=== PATIENT | male | born 1955 | race Caucasian/White ===

== ENCOUNTER → 2019-03-31 08:48 | Outpatient (BNVA) | payer BC, SELFPAY | PROVIDERS: Family Provider Nurse Practitioner; PCP Nurse Practitioner; Visit Provider Nurse Practitioner | DX: E03.8 Other specified hypothyroidism (principal); I10 Essential (primary) hypertension; J30.2 Other seasonal allergic rhinitis | CPT/HCPCS: 84443 ==

== ENCOUNTER 2019-05-10 14:44 | Inpatient (IN) | payer BC, MEDICARE, SELFPAY ==
[2019-05-10] VITALS (23 sets, daily range): BP systolic 105–145; BP diastolic 65–95; PULSE 90–106; RESP 16–24; TEMP 36.7–36.9; O2SAT 89–99; BMI 23.7
--- NOTE | 2019-05-10 14:45 | ED_ITS ---
Entered by Hayde Lombardo, acting as scribe for Haseeb Najera DO HPI - SOB/Dyspnea General: Chief Complaint: Altered Mental Status Stated Complaint: SOB/AMS Time Seen by Provider: 05/10/19 14:45 Source: patient and EMS Mode of arrival: EMS Limitations: no limitations History of Present Illness: MD elicited complaint: shortness of breath Context: recent illness Timing: constant Severity: moderate Exacerbating factors: coughing and deep breaths Relieving factors: oxygen Associated symptoms: Reports cough and other (multiple skin abrasions and skin tears.) Treatment prior to arrival: oxygen Related Data: Home oxygen amount: none Review of Systems General: Reports: 10 or more systems reviewed and unremarkable except in HPI and below PFSH ED PFSH: Medical History (Updated 05/12/19 @ 14:37 by Haseeb Najera DO) Adult onset hypothyroidism COPD (chronic obstructive pulmonary disease) COPD exacerbation Current smoker Hypertension Seasonal allergies Surgical History No history of previous surgery Family History (Updated 05/10/19 @ 18:46 by Jolie Trejo MD) Brother Diabetes Hyperlipidemia Father Congestive heart disease COPD (chronic obstructive pulmonary disease) Dementia Cancer prostate Mother Congestive heart disease COPD (chronic obstructive pulmonary disease) Cancer gastric cancer Social History (Updated 05/10/19 @ 18:48 by Jolie Trejo MD) Smoking and tobacco status: current every day smoker Second hand smoke exposure: Yes Smoking risk assessment/counseling performed?: Yes Alcohol intake: current Desire information about alcohol rehabilitation?: No Counseling given: No Last alcohol use date: 05/07/19 Other details last alcohol use: jean claudeey Desire information about substance/drug rehabilitation?: No Counseling given: No Caregiver/support person: No Lives independently: Yes Household members: none Marital status: Current occupational status: employed 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 History of recent travel: No Current gender identity: Male Physical Exam HENMT: COMMON NORMALS: normocephalic, head/scalp atraumatic, hearing grossly normal bilaterally, external ears normal, EAC's normal, TM's normal bilaterally and oropharynx normal HEAD & SCALP: normocephalic and atraumatic EXTERNAL EAR: Yes external ears normal EXTERNAL AUDITORY CANAL: EAC's normal TYMPANIC MEMBRANE: TM's normal bilaterally Eye: COMMON NORMALS: PERRL, EOMs intact bilaterally, conjunctivae normal and no scleral icterus CONJUNCTIVA: Yes conjunctivae normal PUPIL: Yes PERRL Neck/C-Spine: COMMON NORMALS: full ROM, no lymphadenopathy, supple and no JVD Lymph: LYMPHATIC: no lymphadenopathy noted and no lymphedema noted Resp: COMMON NORMALS: normal respiratory effort, no retractions, no use of accessory muscles and clear to auscultation bilaterally AUSCULTATION: clear to auscultation bilaterally Cardio: COMMON NORMALS: no JVD, regular rate, regular rhythm and no murmurs RATE: regular rate RHYTHM: regular rhythm GI: COMMON NORMALS: soft to palpation and no hepatosplenomegaly AUSCULTATION: Yes normoactive bowel sounds PALPATION: Yes soft, No tender, No guarding and Yes no hepatosplenomegaly Extremity: COMMON NORMALS: normal to inspection, normal capillary refill, no clubbing, cyanosis or edema, no calf tenderness and no pedal edema Skin: COMMON NORMALS: no rashes or lesions noted GENERAL SKIN EXAM: no rashes or lesions noted Course Vital Signs: Vital signs: Vital Signs Temperature 98.4 F 05/12/19 11:46 Pulse Rate 71 05/12/19 11:46 Respiratory Rate 20 H 05/12/19 11:46 Blood Pressure 118/79 05/12/19 11:46 Pulse Oximetry 92 05/12/19 11:46 MDM - SOB/Dyspnea MDM Narrative: Medical decision making narrative: Severe hyponatremia. Repeat draw confirms. Patient has a history of heavy drinking. His blood alcohol is normal now. Admit for altered mental status Dr. Horan we will see the patient. Lab Data: Labs: Lab Results 05/10/19 05/10/19 05/10/19 Range/Units 15:05 15:05 15:05 WBC 10.9 H (4.0-10.0) 10^3/ uL RBC 4.96 (4.1-5.3) 10^6/u L Hgb 16.3 (11.7-16.6) g/dL Hct 44.1 (42.0-52.0) % MCV 88.9 (80-94) fL MCH 32.9 (28.0-34.0) pg MCHC 37.0 H (30.0-36.0) g/dL RDW 12.3 (12.1-15.1) % Plt Count 207 (130-400) 10^3/c mm MPV 8.2 (7.4-10.4) fL Neut % (Auto) 83.1 % Lymph % (Auto) 6.4 % Island % (Auto) 9.9 % Eos % (Auto) 0.2 % Baso % (Auto) 0.1 % Neut # (Auto) 9.0 H (1.8-7.7) 10^3/u L Lymph # (Auto) 0.7 L (0.8-4.8) 10^3/u L Island # (Auto) 1.1 H (0.2-0.9) 10^3/u L Eos # (Auto) 0.0 (0.0-0.8) 10^3/u L Baso # (Auto) 0.0 (0.0-0.1) 10^3/u L Nucleated RBC % (a uto) 0 % Nucleated RBCs # 0.0 /100WBC PT (10.5-13.3) SECO NDS INR (0.8-1.2) APTT (23.9-36.7) SECO NDS Sodium 106 L* (136-145) mmol/L Potassium 3.7 (3.5-5.1) mmol/L Chloride 68 L (98-107) mmol/L Carbon Dioxide 24 (22-29) mmol/L Anion Gap 17.7 (5-19) BUN 23 (8-23) mg/dL Creatinine 0.8 (0.7-1.2) mg/dL GFR Calculation 97.0 (90-130) mL/min Glucose 100 (65-115) mg/dL Calculated Osmolal ity 219 L (285-295) mOsm/k g Uric Acid (3.4-7.0) mg/dL Calcium 9.4 (8.5-10.5) mg/dL Total Bilirubin 1.0 (0.15-1.2) mg/dL AST 376 H (0-40) U/L ALT 61 H (0-41) U/L Alkaline Phosphata se 89 (40-130) IU/L Ammonia (16-60) umol/L Creatine Kinase (39-308) U/L Total Protein 7.8 (6.6-8.7) g/dL Albumin 4.4 (3.5-5.2) g/dL Globulin 3.4 (1.3-4.6) g/dL Lipase 11 L (13-60) U/L TSH (0.27-4.20) uIU/ mL Random Cortisol (2.47-19.5) mcg/ dL Urine Color (Yellow) Urine Appearance (CLEAR) Urine pH (5-7) Ur Specific Gravit y (1.005-1.030) Urine Protein (Negative) Urine Glucose (UA) (Normal) Urine Ketones (Negative) Urine Blood (Negative) Urine Nitrate (Negative) Urine Bilirubin (NEGATIVE) Urine Urobilinogen (Negative) mg/dL Ur Leukocyte Amie ase (Negative) Urine RBC (0-2) /hpf Urine WBC (0-5) /hpf Ur Squamous Epith Cells (0-5) Urine Bacteria (NONE) Urine Osmolality (50-1200) mOsm/k g Ur Random Sodium mmol/L Ur Random Potassiu m mmol/L Ur Random Chloride mmol/L Ur Random Urea Nit rogn mg/dL Urine Creatinine (39-259) mg/dL Salicylates < 0.3 L (3-10) mg/dL Urine Opiates Scre en (Negative) ng/mL Acetaminophen < 5.0 L (10-30) ug/mL Ur Barbiturates Sc reen (Negative) ng/mL Ur Phencyclidine S crn (Negative) ng/mL Ur Amphetamines Sc reen (Negative) ng/mL U Benzodiazepines Scrn (Negative) ng/mL Urine Cocaine Scre en (Negative) ng/mL U Marijuana (THC) Screen (Negative) ng/mL Ethyl Alcohol < 10 (0-10) mg/dL Serum Ketones Negative (Negative) Influenza Type A A g (Negative) POC Influenza B Ag (Negative) 05/10/19 05/10/19 05/10/19 Range/Units 15:05 15:05 15:05 WBC (4.0-10.0) 10^3/ uL RBC (4.1-5.3) 10^6/u L Hgb (11.7-16.6) g/dL Hct (42.0-52.0) % MCV (80-94) fL MCH (28.0-34.0) pg MCHC (30.0-36.0) g/dL RDW (12.1-15.1) % Plt Count (130-400) 10^3/c mm MPV (7.4-10.4) fL Neut % (Auto) % Lymph % (Auto) % Island % (Auto) % Eos % (Auto) % Baso % (Auto) % Neut # (Auto) (1.8-7.7) 10^3/u L Lymph # (Auto) (0.8-4.8) 10^3/u L Island # (Auto) (0.2-0.9) 10^3/u L Eos # (Auto) (0.0-0.8) 10^3/u L Baso # (Auto) (0.0-0.1) 10^3/u L Nucleated RBC % (a uto) % Nucleated RBCs # /100WBC PT 12.80 (10.5-13.3) SECO NDS INR 0.93 (0.8-1.2) APTT 31.6 (23.9-36.7) SECO NDS Sodium (136-145) mmol/L Potassium (3.5-5.1) mmol/L Chloride (98-107) mmol/L Carbon Dioxide (22-29) mmol/L Anion Gap (5-19) BUN (8-23) mg/dL Creatinine (0.7-1.2) mg/dL GFR Calculation (90-130) mL/min Glucose (65-115) mg/dL Calculated Osmolal ity (285-295) mOsm/k g Uric Acid (3.4-7.0) mg/dL Calcium (8.5-10.5) mg/dL Total Bilirubin (0.15-1.2) mg/dL AST (0-40) U/L ALT (0-41) U/L Alkaline Phosphata se (40-130) IU/L Ammonia 29 (16-60) umol/L Creatine Kinase > 99954 H* (39-308) U/L Total Protein (6.6-8.7) g/dL Albumin (3.5-5.2) g/dL Globulin (1.3-4.6) g/dL Lipase (13-60) U/L TSH (0.27-4.20) uIU/ mL Random Cortisol (2.47-19.5) mcg/ dL Urine Color (Yellow) Urine Appearance (CLEAR) Urine pH (5-7) Ur Specific Gravit y (1.005-1.030) Urine Protein (Negative) Urine Glucose (UA) (Normal) Urine Ketones (Negative) Urine Blood (Negative) Urine Nitrate (Negative) Urine Bilirubin (NEGATIVE) Urine Urobilinogen (Negative) mg/dL Ur Leukocyte Amie ase (Negative) Urine RBC (0-2) /hpf Urine WBC (0-5) /hpf Ur Squamous Epith Cells (0-5) Urine Bacteria (NONE) Urine Osmolality (50-1200) mOsm/k g Ur Random Sodium mmol/L Ur Random Potassiu m mmol/L Ur Random Chloride mmol/L Ur Random Urea Nit rogn mg/dL Urine Creatinine (39-259) mg/dL Salicylates (3-10) mg/dL Urine Opiates Scre en (Negative) ng/mL Acetaminophen (10-30) ug/mL Ur Barbiturates Sc reen (Negative) ng/mL Ur Phencyclidine S crn (Negative) ng/mL Ur Amphetamines Sc reen (Negative) ng/mL U Benzodiazepines Scrn (Negative) ng/mL Urine Cocaine Scre en (Negative) ng/mL U Marijuana (THC) Screen (Negative) ng/mL Ethyl Alcohol (0-10) mg/dL Serum Ketones (Negative) Influenza Type A A g (Negative) POC Influenza B Ag (Negative) 05/10/19 05/10/19 05/10/19 Range/Units 15:05 15:05 15:06 WBC (4.0-10.0) 10^3/ uL RBC (4.1-5.3) 10^6/u L Hgb (11.7-16.6) g/dL Hct (42.0-52.0) % MCV (80-94) fL MCH (28.0-34.0) pg MCHC (30.0-36.0) g/dL RDW (12.1-15.1) % Plt Count (130-400) 10^3/c mm MPV (7.4-10.4) fL Neut % (Auto) % Lymph % (Auto) % Island % (Auto) % Eos % (Auto) % Baso % (Auto) % Neut # (Auto) (1.8-7.7) 10^3/u L Lymph # (Auto) (0.8-4.8) 10^3/u L Island # (Auto) (0.2-0.9) 10^3/u L Eos # (Auto) (0.0-0.8) 10^3/u L Baso # (Auto) (0.0-0.1) 10^3/u L Nucleated RBC % (a uto) % Nucleated RBCs # /100WBC PT (10.5-13.3) SECO NDS INR (0.8-1.2) APTT (23.9-36.7) SECO NDS Sodium (136-145) mmol/L Potassium (3.5-5.1) mmol/L Chloride (98-107) mmol/L Carbon Dioxide (22-29) mmol/L Anion Gap (5-19) BUN (8-23) mg/dL Creatinine (0.7-1.2) mg/dL GFR Calculation (90-130) mL/min Glucose (65-115) mg/dL Calculated Osmolal ity (285-295) mOsm/k g Uric Acid 4.9 (3.4-7.0) mg/dL Calcium (8.5-10.5) mg/dL Total Bilirubin (0.15-1.2) mg/dL AST (0-40) U/L ALT (0-41) U/L Alkaline Phosphata se (40-130) IU/L Ammonia (16-60) umol/L Creatine Kinase (39-308) U/L Total Protein (6.6-8.7) g/dL Albumin (3.5-5.2) g/dL Globulin (1.3-4.6) g/dL Lipase (13-60) U/L TSH 3.87 (0.27-4.20) uIU/ mL Random Cortisol 38.57 H (2.47-19.5) mcg/ dL Urine Color (Yellow) Urine Appearance (CLEAR) Urine pH (5-7) Ur Specific Gravit y (1.005-1.030) Urine Protein (Negative) Urine Glucose (UA) (Normal) Urine Ketones (Negative) Urine Blood (Negative) Urine Nitrate (Negative) Urine Bilirubin (NEGATIVE) Urine Urobilinogen (Negative) mg/dL Ur Leukocyte Amie ase (Negative) Urine RBC (0-2) /hpf Urine WBC (0-5) /hpf Ur Squamous Epith Cells (0-5) Urine Bacteria (NONE) Urine Osmolality (50-1200) mOsm/k g Ur Random Sodium mmol/L Ur Random Potassiu m mmol/L Ur Random Chloride mmol/L Ur Random Urea Nit rogn mg/dL Urine Creatinine (39-259) mg/dL Salicylates (3-10) mg/dL Urine Opiates Scre en (Negative) ng/mL Acetaminophen (10-30) ug/mL Ur Barbiturates Sc reen (Negative) ng/mL Ur Phencyclidine S crn (Negative) ng/mL Ur Amphetamines Sc reen (Negative) ng/mL U Benzodiazepines Scrn (Negative) ng/mL Urine Cocaine Scre en (Negative) ng/mL U Marijuana (THC) Screen (Negative) ng/mL Ethyl Alcohol (0-10) mg/dL Serum Ketones (Negative) Influenza Type A A g Negative (Negative) POC Influenza B Ag Negative (Negative) 05/10/19 05/10/19 05/10/19 Range/Units 15:52 15:52 15:52 WBC (4.0-10.0) 10^3/ uL RBC (4.1-5.3) 10^6/u L Hgb (11.7-16.6) g/dL Hct (42.0-52.0) % MCV (80-94) fL MCH (28.0-34.0) pg MCHC (30.0-36.0) g/dL RDW (12.1-15.1) % Plt Count (130-400) 10^3/c mm MPV (7.4-10.4) fL Neut % (Auto) % Lymph % (Auto) % Island % (Auto) % Eos % (Auto) % Baso % (Auto) % Neut # (Auto) (1.8-7.7) 10^3/u L Lymph # (Auto) (0.8-4.8) 10^3/u L Island # (Auto) (0.2-0.9) 10^3/u L Eos # (Auto) (0.0-0.8) 10^3/u L Baso # (Auto) (0.0-0.1) 10^3/u L Nucleated RBC % (a uto) % Nucleated RBCs # /100WBC PT (10.5-13.3) SECO NDS INR (0.8-1.2) APTT (23.9-36.7) SECO NDS Sodium 107 L* (136-145) mmol/L Potassium 3.7 (3.5-5.1) mmol/L Chloride 70 L (98-107) mmol/L Carbon Dioxide 24 (22-29) mmol/L Anion Gap 16.7 (5-19) BUN 23 (8-23) mg/dL Creatinine 0.8 (0.7-1.2) mg/dL GFR Calculation 97.0 (90-130) mL/min Glucose 95 (65-115) mg/dL Calculated Osmolal ity 221 L (285-295) mOsm/k g Uric Acid (3.4-7.0) mg/dL Calcium 8.8 (8.5-10.5) mg/dL Total Bilirubin (0.15-1.2) mg/dL AST (0-40) U/L ALT (0-41) U/L Alkaline Phosphata se (40-130) IU/L Ammonia (16-60) umol/L Creatine Kinase (39-308) U/L Total Protein (6.6-8.7) g/dL Albumin (3.5-5.2) g/dL Globulin (1.3-4.6) g/dL Lipase (13-60) U/L TSH (0.27-4.20) uIU/ mL Random Cortisol (2.47-19.5) mcg/ dL Urine Color Yellow (Yellow) Urine Appearance Clear (CLEAR) Urine pH 5.0 (5-7) Ur Specific Gravit y 1.020 (1.005-1.030) Urine Protein 1+ H (Negative) Urine Glucose (UA) Norm (Normal) Urine Ketones 2+ H (Negative) Urine Blood 3+ H (Negative) Urine Nitrate Negative (Negative) Urine Bilirubin Neg (NEGATIVE) Urine Urobilinogen Norm (Negative) mg/dL Ur Leukocyte Amie ase Negative (Negative) Urine RBC 0-4 H (0-2) /hpf Urine WBC None (0-5) /hpf Ur Squamous Epith Cells 0-4 H (0-5) Urine Bacteria 1+ H (NONE) Urine Osmolality (50-1200) mOsm/k g Ur Random Sodium mmol/L Ur Random Potassiu m mmol/L Ur Random Chloride mmol/L Ur Random Urea Nit rogn mg/dL Urine Creatinine (39-259) mg/dL Salicylates (3-10) mg/dL Urine Opiates Scre en Negative (Negative) ng/mL Acetaminophen (10-30) ug/mL Ur Barbiturates Sc reen Negative (Negative) ng/mL Ur Phencyclidine S crn Negative (Negative) ng/mL Ur Amphetamines Sc reen Negative (Negative) ng/mL U Benzodiazepines Scrn Negative (Negative) ng/mL Urine Cocaine Scre en Negative (Negative) ng/mL U Marijuana (THC) Screen Negative (Negative) ng/mL Ethyl Alcohol (0-10) mg/dL Serum Ketones (Negative) Influenza Type A A g (Negative) POC Influenza B Ag (Negative) 05/10/19 05/10/19 05/10/19 Range/Units 15:52 15:52 15:52 WBC (4.0-10.0) 10^3/ uL RBC (4.1-5.3) 10^6/u L Hgb (11.7-16.6) g/dL Hct (42.0-52.0) % MCV (80-94) fL MCH (28.0-34.0) pg MCHC (30.0-36.0) g/dL RDW (12.1-15.1) % Plt Count (130-400) 10^3/c mm MPV (7.4-10.4) fL Neut % (Auto) % Lymph % (Auto) % Island % (Auto) % Eos % (Auto) % Baso % (Auto) % Neut # (Auto) (1.8-7.7) 10^3/u L Lymph # (Auto) (0.8-4.8) 10^3/u L Island # (Auto) (0.2-0.9) 10^3/u L Eos # (Auto) (0.0-0.8) 10^3/u L Baso # (Auto) (0.0-0.1) 10^3/u L Nucleated RBC % (a uto) % Nucleated RBCs # /100WBC PT (10.5-13.3) SECO NDS INR (0.8-1.2) APTT (23.9-36.7) SECO NDS Sodium (136-145) mmol/L Potassium (3.5-5.1) mmol/L Chloride (98-107) mmol/L Carbon Dioxide (22-29) mmol/L Anion Gap (5-19) BUN (8-23) mg/dL Creatinine (0.7-1.2) mg/dL GFR Calculation (90-130) mL/min Glucose (65-115) mg/dL Calculated Osmolal ity (285-295) mOsm/k g Uric Acid (3.4-7.0) mg/dL Calcium (8.5-10.5) mg/dL Total Bilirubin (0.15-1.2) mg/dL AST (0-40) U/L ALT (0-41) U/L Alkaline Phosphata se (40-130) IU/L Ammonia (16-60) umol/L Creatine Kinase (39-308) U/L Total Protein (6.6-8.7) g/dL Albumin (3.5-5.2) g/dL Globulin (1.3-4.6) g/dL Lipase (13-60) U/L TSH (0.27-4.20) uIU/ mL Random Cortisol (2.47-19.5) mcg/ dL Urine Color (Yellow) Urine Appearance (CLEAR) Urine pH (5-7) Ur Specific Gravit y (1.005-1.030) Urine Protein (Negative) Urine Glucose (UA) (Normal) Urine Ketones (Negative) Urine Blood (Negative) Urine Nitrate (Negative) Urine Bilirubin (NEGATIVE) Urine Urobilinogen (Negative) mg/dL Ur Leukocyte Amie ase (Negative) Urine RBC (0-2) /hpf Urine WBC (0-5) /hpf Ur Squamous Epith Cells (0-5) Urine Bacteria (NONE) Urine Osmolality 658 (50-1200) mOsm/k g Ur Random Sodium 11 mmol/L Ur Random Potassiu m 48 mmol/L Ur Random Chloride 11 mmol/L Ur Random Urea Nit rogn 1004 mg/dL Urine Creatinine 163 (39-259) mg/dL Salicylates (3-10) mg/dL Urine Opiates Scre en (Negative) ng/mL Acetaminophen (10-30) ug/mL Ur Barbiturates Sc reen (Negative) ng/mL Ur Phencyclidine S crn (Negative) ng/mL Ur Amphetamines Sc reen (Negative) ng/mL U Benzodiazepines Scrn (Negative) ng/mL Urine Cocaine Scre en (Negative) ng/mL U Marijuana (THC) Screen (Negative) ng/mL Ethyl Alcohol (0-10) mg/dL Serum Ketones (Negative) Influenza Type A A g (Negative) POC Influenza B Ag (Negative) Discharge Plan Discharge Patient Disposition: Admitted As Inpatient Admit Provider: Jolie Trejo Clinical Impression: Hyponatremia, COPD (chronic obstructive pulmonary disease), Rhabdomyolysis, Altered mental status Condition: Stable Interventions: ED Discharge Assessment Last Done: 05/10/19 18:47 Discharge Date/Time: 05/10/19 19:50 Coding Level of Care Code ED Numerical Control Nesting Operator for Chg Fwd Exam Comprehensive The documentation recorded by the [employer], accurately reflects the service I personally performed and the decisions made by Reinaldo dominguez Curtis L, DO May 10, 2019 14:44
--- NOTE | 2019-05-10 14:51 | ECG_ITS ---
Measurements Intervals [place] Rate: 100 P: 75 CT: 162 QRS: -24 QRSD: 106 T: 89 QT: 358 QTc: [address] changes in the inferior leads POSSIBLE LEFT ATRIAL ENLARGEMENT [-0.1mV P WAVE IN V1/V2] POSSIBLE ANTERIOR MYOCARDIAL INFARCTION , OF INDETERMINATE AGE [30 ms Q WAVE IN V3 V3/V4, OR R < 0.2 mV IN V4] No previous ECG available for comparison Electronically Signed On 05-10-2019 18:21:55 CDT by Barry Davenport M.D. [email or web address]
--- NOTE | 2019-05-10 14:51 | CT_ITS ---
WS: [id number] CT scan of the head, 05/10/2019 Clinical Data: fall/closed head injury Comparison: None. DLP: 672.[address] scans at [facility] use at least one of these dose optimization techniques: automat ed exposure control; mA and/or kV adjustment per patient size (includes targeted exams where dose is matched to clinical indication); or iterative reconstruction. Findings: The ventricular system is normal without shift. No recent infarct or hemorrhage is seen. There are no abnormal intracerebral masses. The cerebellum and brainstem are not remarkable. Bony windows of the skull and skull base show no fractures or erosions. The mastoid air cells, internal combustion engineer al auditory canals, sella turcica and intraorbital contents are unremarkable. The right maxillary sin us and sphenoid sinus show mucoperiosteal thickening. CT/CT head wo con* [id number] Impression: Negative CT scan of the head
--- NOTE | 2019-05-10 14:51 | XR_ITS ---
WS: [id number] Portable AP upright chest, 05/10/2019 Clinical Data: dyspnea/cough Comparison: PA and lateral chest, 05/29/2011 Findings: No nodules, masses or effusions are seen. The heart is normal. The pulmonary vascularity is not increased. No pneumonia or pneumothorax is seen. The aortic arch and descending aorta are minima lly tortuous. Calcified granulomas in the left upper lobe. XR/XR chest 1V portable [id number] Impression: Atherosclerosis.
[2019-05-10] MEDS: LORazepam 2 mg/mL INJ 1 mL IM (15:05)
[2019-05-10] MEDS: sodium chloride 0.9% 1,000 ML 999 ML IV (15:05)
[2019-05-10 15:30] LABS: Basophils % 0.1 %; Eosinophils % 0.2 %; Hematocrit 44.1 % (42.0-52.0); Hemoglobin 16.3 g/dL (11.7-16.6); Lymphocytes # 0.7 10^3/uL (0.8-4.8); Lymphocytes % 6.4 %; Mean Corpuscular Hemoglobin 32.9 pg (28.0-34.0); Mean Corpuscular Volume 88.9 fL (80-94); Mean Platelet Volume 8.2 fL (7.4-10.4); Monocytes # 1.1 10^3/uL (0.2-0.9); Monocytes % 9.9 %; Neutrophils % 83.1 %; Nucleated Red Blood Cells % 0 %; Platelet Count 207 10^3/cmm (130-400); Red Blood Count 4.96 10^6/uL (4.1-5.3); Red Cell Distribution Width 12.3 % (12.1-15.1); White Blood Count 10.9 10^3/uL (4.0-10.0)
[2019-05-10 15:33] LABS: Ketone (Acetest) Serum Negative (Negative)
[2019-05-10 15:36] LABS: Alanine Aminotransferase 61 U/L (0-41); Albumin Level 4.4 g/dL (3.5-5.2); Alkaline Phosphatase 89 IU/L (40-130); Anion Gap 17.7 (5-19); Aspartate Amino Transferase 376 U/L (0-40); Blood Urea Nitrogen 23 mg/dL (8-23); Calcium 9.4 mg/dL (8.5-10.5); Carbon Dioxide 24 mmol/L (22-29); Chloride 68 mmol/L (98-107); Globulin 3.4 g/dL (1.3-4.6); Glucose 100 mg/dL (65-115); Lipase 11 U/L (13-60); Osmolality Calculated 219 mOsm/kg (285-295); Potassium 3.7 mmol/L (3.5-5.1); Total Protein 7.8 g/dL (6.6-8.7)
[2019-05-10 15:37] LABS: Ammonia 29 umol/L (16-60)
[2019-05-10 15:38] LABS: Acetaminophen < 5.0 ug/mL (10-30); Alcohol Level < 10 mg/dL (0-10); Salicylate < 0.3 mg/dL (3-10); Sodium 106 mmol/L (136-145)
[2019-05-10 15:43] LABS: Influenza A by IFA Negative (Negative); Influenza B by IFA Negative (Negative)
[2019-05-10] MEDS: ipratropium-albuterol 3 mL Neb INHALATION (15:53)
[2019-05-10 16:13] LABS: Add Urine Microscopic? YES; Bilirubin Urine Neg (NEGATIVE); Blood Urine 3+ (Negative); Glucose Urine UA Norm (Normal); Ketones Urine 2+ (Negative); Leukocyte Esterase Urine Negative (Negative); Nitrate Urine Negative (Negative); Protein Urine 1+ (Negative); Urine Appearance Clear (CLEAR); Urine Color Yellow (Yellow); Urobilinogen Urine Norm (Negative)
[2019-05-10 16:16] LABS: Anion Gap 16.7 (5-19); Blood Urea Nitrogen 23 mg/dL (8-23); Calcium 8.8 mg/dL (8.5-10.5); Carbon Dioxide 24 mmol/L (22-29); Chloride 70 mmol/L (98-107); Glucose 95 mg/dL (65-115); Osmolality Calculated 221 mOsm/kg (285-295); Potassium 3.7 mmol/L (3.5-5.1)
[2019-05-10 16:22] LABS: Sodium 107 mmol/L (136-145)
[2019-05-10 16:28] LABS: Amphetamines Screen Urine Negative (Negative); Barbiturates Screen Urine Negative (Negative); Benzodiazepines Screen Urine Negative (Negative); Cocaine Screen Urine Negative (Negative); Opiate Screen Urine Negative (Negative); PCP Screen Urine Negative (Negative); THC Screen Urine Negative (Negative)
[2019-05-10 16:35] LABS: Add Urine Culture? No; Bacteria Urine 1+; RBC Urine 0-4 /hpf (0-2); Squamous Epithelial Cell Urine 0-4 (0-5)
[2019-05-10 17:44] LABS: INR 0.93 (0.8-1.2)
[2019-05-10 17:45] LABS: Partial Thromboplastin Time 31.6 SECONDS (23.9-36.7)
--- NOTE | 2019-05-10 18:02 | PM.HP ---
Providers/Chief Complaint Admitting Physician: Jolie Trejo MD Primary Care Provider: Martha Clark, COMMUNICATION CENTER COORDINATOR-C Chief Complaint: SOB/AMS History of Present Illness Darrin Avial is a 64 year old male with PMHx of COPD, Chronic smoker, EtOH abuse, HTN, Hypothyroidism, presents via EMS for evaluation of altered mental status. Patient's daughter had gone to his house earlier this afternoon to deliver a package when she found him in the living room laying on the floor with a space heater (off) beside him. He was alert when she found him but very confused and disoriented. His baseline is alert and oriented x3. Patient's daughter speaks to him over the phone frequently throughout the week and visits him every Wednesday. Last visit was this past Wednesday when she noticed that there was something on the whole different about her father there was unable to provide further details about this. She did notice that he seemed a little depressed and he had mentioned buying some whiskey. She does endorse a prior history of alcohol abuse and patient has had prior rehab approximately a year ago. She confirms that he is a smoker, smokes a pack a day, has known COPD though is not oxygen dependent at baseline. He was noted to have skin tear on the left elbow and scattered bruising on his arms and bilateral kneecaps. He appears disheveled and unkempt and his clothing is soiled during my assessment in the ER. He fidgets and responds to painful or tactile stimulation but is otherwise not verbally responsive. He appears to be protecting his airway and is currently on 6 L nasal cannula, saturating at 96%. Vital signs are stable. Labs indicate mild leukocytosis with a white count of 10.9, sodium of 107 which is confirmed to repeat blood draw, chloride of 70, BUN of 23, creatinine of 0.8, blood glucose of 95, total bili of 1.0, AST of 376, ALT of 61, ammonia of 29, CPK greater than 36,000 TSH of 3.87, urinalysis that is positive for bacteria, hematuria, proteinuria and ketones. He was 1 L normal saline bolus so far. CT of the head is unremarkable, chest x-ray is also unremarkable. Review of old [facility] records as well as PCP clinic visit in March provide some collateral history, prior sodium levels have been relatively normal and liver function testing was previously normal as well. I am unsure how compliant he has been with his medications or when they were last taken. Updated daughter over the phone and confirmed contact information (Anita: [phone]). Patient is being admitted to the ICU setting for close monitoring given severity of hyponatremia. I briefly discussed case with Dr. Bhardwaj who is available if needed. Review of Systems General: Reports: ROS unobtainable due to mental status Neuro: Reports: confusion Medications/Allergies Allergies Allergy/AdvReac Type Severity Reaction Status Date / Time No Known Allergies Allergy Verified 02/23/19 19:44 PFSH Acute PFSH: Medical History (Updated 05/10/19 @ 19:31 by Jolie Trejo MD) Adult onset hypothyroidism COPD (chronic obstructive pulmonary disease) COPD exacerbation Current smoker Hypertension Seasonal allergies Surgical History No history of previous surgery Family History (Updated 05/10/19 @ 18:46 by Jolie Trejo MD) Brother Diabetes Hyperlipidemia Father Congestive heart disease COPD (chronic obstructive pulmonary disease) Dementia Cancer prostate Mother Congestive heart disease COPD (chronic obstructive pulmonary disease) Cancer gastric cancer Social History (Updated 05/10/19 @ 18:48 by Jolie Trejo MD) Smoking and tobacco status: current every day smoker Second hand smoke exposure: Yes Smoking risk assessment/counseling performed?: Yes Alcohol intake: current Desire information about alcohol rehabilitation?: No Counseling given: No Last alcohol use date: 05/07/19 Other details last alcohol use: whiskey Desire information about substance/drug rehabilitation?: No Counseling given: No Caregiver/support person: No Lives independently: Yes Household members: none Marital status: Current occupational status: employed 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 History of recent travel: No Current gender identity: Male Vitals/I&O/Wt Last Vital Signs Temp 98.4 F 05/10/19 14:45 Pulse 98 05/10/19 16:35 Resp 16 05/10/19 16:35 BP 136/92 05/10/19 16:35 Pulse Ox 98 05/10/19 16:35 05/10/19 05/10/19 05/10/19 06:59 14:59 22:59 Intake Total 1000 / 1000 Balance 1000 / 1000 Weight last 48 hrs Weight 86.183 kg Physical Exam Const: COMMON NORMALS: no apparent distress EXAM LIMITATIONS: altered mental status GENERAL APPEARANCE: disheveled (clothing soiled) and odor of alcohol detected; not in distress ORIENTATION/CONSCIOUSNESS: Yes obtunded HENMT: COMMON NORMALS: normocephalic and head/scalp atraumatic HEAD & SCALP: normocephalic and atraumatic MOUTH: moist mucous membranes abnormal Details: parched Eye: COMMON NORMALS: PERRL, EOMs intact bilaterally and conjunctivae normal CONJUNCTIVA: Yes conjunctivae normal PUPIL: Yes PERRL Neck/C-Spine: COMMON NORMALS: full ROM GENERAL: Yes normal visual inspection and Yes trachea midline Resp: COMMON NORMALS: normal respiratory effort, no retractions and no use of accessory muscles EFFORT & INSPECTION: Yes able to speak in complete sentences, Yes symmetric chest movement and No tachypneic AUSCULTATION: crackles and diminished lung sounds Cardio: COMMON NORMALS: regular rate, regular rhythm, S1 normal heart sound, S2 normal heart sound and no murmurs RATE: regular rate RHYTHM: regular rhythm HEART SOUNDS: S1 normal and S2 normal GI: COMMON NORMALS: normal to inspection, nondistended, normoactive bowel sounds and soft to palpation Extremity: COMMON NORMALS: normal to inspection, full ROM and no clubbing, cyanosis or edema; negative for no pedal edema Neuro: SENSORIUM/ORIENTATION: Yes obtunded Psych: OTHER: -unable to assess due to altered mental status Skin: COMMON NORMALS: no jaundice, no petechiae and no mottling NARRATIVE SKIN EXAM: -skin tear on L lateral elbow, scattered ecchymotic lesions on upper extremities and knee caps GENERAL SKIN EXAM: no rashes or lesions noted Data : 05/10/19 15:05 05/10/19 15:52 A&P Assessment and plan (1) Altered mental status: -Patient noted to have decreased level of consciousness and disoriented; brought to the hospital by EMS after daughter found him on the floor for an unknown period of time, was arousable though very confused -Suspect recent alcohol intoxication given report received from daughter and prior history of alcohol abuse; severe hyponatremia as evidenced by sodium of 107 -Frequent neurochecks, fall precautions, seizure precautions -Has received a 1 L normal saline bolus in the ER -Alfaro catheter placement requested for accurate ins and outs -Currently protecting his airway but if noted signs of increased confusion, respiratory distress may require intubation -NPO due to decreased level of consciousness -low suspicion for infectious process, noted mild leukocytosis which is likely reactive, UA negative for infection, CXR negative -ammonia wnl -CT head unremarkable Status: Acute Qualifiers: Altered mental status type: unspecified Qualified Code(s): R41.82 - Altered mental status, unspecified Code(s): R41.82 - Altered mental status, unspecified (2) Hyponatremia: -Severe hyponatremia as noted above, review of medical record shows previous sodium levels within normal limits -Given prior history of alcohol abuse and recent ingestion suspect beer potomania but could also be secondary to diuretic use (is on chlorthalidone) -Closely monitor sodium levels, every 3-4 hours to avoid overcorrection and risk of ODS -f/u TSH, cortisol, urine lytes, urine osm, uric acid -cautious correction with IVF Status: Acute Code(s): E87.1 - Hypo-osmolality and hyponatremia (3) Rhabdomyolysis: -Significant CPK elevation, greater than 36,000 secondary to patient being found on the floor for an unknown period of time -We will need to trend CPK closely -Is on IV fluid hydration -Renal function is currently within normal limits Status: Acute Qualifiers: Rhabdomyolysis type: traumatic Encounter type: initial encounter Qualified Code(s): T79.6XXA - Traumatic ischemia of muscle, initial encounter Code(s): M62.82 - Rhabdomyolysis (4) Hypertension: -known hx of HTN, BP wnl currently -continue to monitor vital signs -hold antihypertensives especially chlorthalidone Status: Chronic Qualifiers: Hypertension type: essential hypertension Qualified Code(s): I10 - Essential (primary) hypertension Code(s): I10 - Essential (primary) hypertension (5) COPD (chronic obstructive pulmonary disease): -has known hx of COPD, not oxygen dependent at baseline -no acute exacerbation -requiring supplemental oxygen likely due to AMS -continue to monitor respiratory status Status: Chronic Qualifiers: COPD type: unspecified COPD Qualified Code(s): J44.9 - Chronic obstructive pulmonary disease, unspecified Code(s): J44.9 - Chronic obstructive pulmonary disease, unspecified (6) Adult onset hypothyroidism: -check TSH -is on levothyroxine, resume if able to take PO Status: Chronic Code(s): E03.8 - Other specified hypothyroidism Additional A&P Information -Chronic smoker, 1 PPD -EtOH abuse hx; has been to rehab approximately 1 yr ago; UDS and alcohol screen negative, CIWA protocol, hypoglycemia precautions -Abnormal LFTs; could be secondary to EtOH abuse hx, previously wnl -will order Echo as no baseline and to determine EF especially with need for IVF -DVT ppx with Lovenox -Dispo: pending clinical improvement -Code status: FULL code -ICU admission due to severity of hyponatremia, need for careful correction and monitoring of neuro and respiratory status Attestations Medical Necessity Statement*: Darrin Avila's hospital stay will require greater than 2 midnights for management of severe hyponatremia requiring close monitoring and careful correction. Time Spent in Patient Care: Greater than 35 minutes (>than 50% of time spent in counselling and/or direct pt care on unit). The high probability of a clinically significant, sudden or life threatening deterioration of the patient's [neurological, respiratory] system(s) required my full and direct attention, intervention and personal management. The critical care time is as shown. This time is in addition to time spent performing any reported procedures but includes the following: [x] Data and vital sign review and interpretation [x] Patient assessment, examination and intervention [x] Documentation [x] Medication orders and management Critical Care Time: Critical Care Time (min): 25 Coding Level of Care Code Acute Yard Truck Driver for g Fwd Diagnoses Altered mental status R41.82 Altered mental status type: unspecified Hyponatremia E87.1 Rhabdomyolysis T79.6XXA Rhabdomyolysis type: traumatic Encounter type: initial encounter Hypertension I10 Hypertension type: essential hypertension COPD (chronic obstructive pulmonary disease) J44.9 COPD type: unspecified COPD Adult onset hypothyroidism E03.8
--- NOTE | 2019-05-10 18:46 | PC.NURSE ---
attempted to call icu for report was told they would call back for report
[2019-05-10 19:06] LABS: Potassium, Radom Urine 48 mmol/L; Urine Creatinine 163 mg/dL (39-259)
[2019-05-10 19:08] LABS: Urine Random Chloride 11 mmol/L; Urine Random Sodium 11 mmol/L
[2019-05-10 19:23] LABS: Cortisol Random 38.57 mcg/dL (2.47-19.5); Thyroid Stimulating Hormone 3.87 uIU/mL (0.27-4.20); Uric Acid 4.9 mg/dL (3.4-7.0)
--- NOTE | 2019-05-10 19:33 | PC.NURSE ---
Report received from TRACI Ramos and care transferred to TRACI Doan
[2019-05-10 20:02] LABS: Urea Nitrogen,Urine Random 1004 mg/dL
[2019-05-10 20:14] LABS: Anion Gap 19.7 (5-19); Blood Urea Nitrogen 21 mg/dL (8-23); Calcium 9.3 mg/dL (8.5-10.5); Carbon Dioxide 23 mmol/L (22-29); Chloride 73 mmol/L (98-107); Glucose 94 mg/dL (65-115); Osmolality Calculated 230 mOsm/kg (285-295); Potassium 3.7 mmol/L (3.5-5.1)
[2019-05-10 20:40] LABS: Sodium 112 mmol/L (136-145)
[2019-05-10] MEDS: enoxaparin 40 mg/0.4 mL Syringe SUBCUT (20:45)
[2019-05-10] MEDS: sodium chloride 0.9% 1,000 ML 75 ML IV (20:45)
[2019-05-10 22:44] LABS: Anion Gap 18.2 (5-19); Blood Urea Nitrogen 20 mg/dL (8-23); Calcium 9.1 mg/dL (8.5-10.5); Carbon Dioxide 23 mmol/L (22-29); Chloride 76 mmol/L (98-107); Glomerular Filtration Rate 135.2 mL/min (90-130); Glucose 90 mg/dL (65-115); Osmolality Calculated 234 mOsm/kg (285-295); Potassium 3.2 mmol/L (3.5-5.1)
[2019-05-10 22:50] LABS: Sodium 114 mmol/L (136-145)
[2019-05-11] VITALS (14 sets, daily range): BP systolic 99–121; BP diastolic 65–87; PULSE 86–102; RESP 17–24; TEMP 37.4; O2SAT 90–97
[2019-05-11 02:01] LABS: Anion Gap 15.4 (5-19); Blood Urea Nitrogen 20 mg/dL (8-23); Calcium 9.2 mg/dL (8.5-10.5); Carbon Dioxide 27 mmol/L (22-29); Chloride 75 mmol/L (98-107); Glomerular Filtration Rate 84.7 mL/min (90-130); Glucose 89 mg/dL (65-115); Osmolality Calculated 234 mOsm/kg (285-295); Potassium 3.4 mmol/L (3.5-5.1)
[2019-05-11 02:32] LABS: Sodium 114 mmol/L (136-145)
[2019-05-11 04:38] LABS: Basophils % 0.1 %; Eosinophils % 0.1 %; Hematocrit 42.1 % (42.0-52.0); Hemoglobin 15.7 g/dL (11.7-16.6); Lymphocytes # 0.9 10^3/uL (0.8-4.8); Mean Corpuscular HGB Conc 37.3 g/dL (30.0-36.0); Mean Corpuscular Hemoglobin 33.1 pg (28.0-34.0); Mean Corpuscular Volume 88.8 fL (80-94); Mean Platelet Volume 8.1 fL (7.4-10.4); Monocytes # 1.1 10^3/uL (0.2-0.9); Neutrophils # 6.5 10^3/uL (1.8-7.7); Neutrophils % 76.6 %; Nucleated Red Blood Cells % 0 %; Platelet Count 183 10^3/cmm (130-400); Red Blood Count 4.74 10^6/uL (4.1-5.3); Red Cell Distribution Width 12.4 % (12.1-15.1); White Blood Count 8.5 10^3/uL (4.0-10.0)
[2019-05-11 05:03] LABS: Magnesium 2.5 mg/dL (1.7-2.3); Phosphorus 2.5 mg/dL (2.5-4.5)
[2019-05-11 05:04] LABS: Alanine Aminotransferase 56 U/L (0-41); Albumin Level 3.7 g/dL (3.5-5.2); Alkaline Phosphatase 83 IU/L (40-130); Anion Gap 18.2 (5-19); Aspartate Amino Transferase 308 U/L (0-40); Blood Urea Nitrogen 18 mg/dL (8-23); Carbon Dioxide 25 mmol/L (22-29); Chloride 78 mmol/L (98-107); Globulin 2.9 g/dL (1.3-4.6); Glucose 94 mg/dL (65-115); Osmolality Calculated 242 mOsm/kg (285-295); Potassium 3.2 mmol/L (3.5-5.1); Total Bilirubin 1.2 mg/dL (0.15-1.2); Total Protein 6.6 g/dL (6.6-8.7)
[2019-05-11 05:10] LABS: Sodium 118 mmol/L (136-145)
[2019-05-11 05:25] LABS: Anion Gap 18.2 (5-19); Blood Urea Nitrogen 18 mg/dL (8-23); Calcium 9.1 mg/dL (8.5-10.5); Carbon Dioxide 24 mmol/L (22-29); Chloride 78 mmol/L (98-107); Chol HDL Ratio 2.19 mg/dL (1.0-5.00); Cholesterol 197 mg/dL (0-200); Glucose 95 mg/dL (65-115); HDL Cholesterol 90 mg/dL (60-100); LDL Cholesterol Calculated 80 mg/dL (50-129); LDL HDL Ratio 0.89 RATIO (0.00-3.22); Osmolality Calculated 240 mOsm/kg (285-295); Potassium 3.2 mmol/L (3.5-5.1); Triglycerides 133 mg/dL (0-150)
[2019-05-11 05:38] LABS: Sodium 117 mmol/L (136-145)
[2019-05-11 06:20] LABS: Estmated Average Glucose 111; Hemoglobin A1C 5.5 % (4.0-6.0)
[2019-05-11 06:27] LABS: Hepatitis A Antibody IgM. Non-Reactive (Nonreactive); Hepatitis B Core IgM Non-Reactive (Nonreactive); Hepatitis B Surface Antigen. Non-Reactive (Nonreactive); Hepatitis C Virus Antibody Non-Reactive (Nonreactive)
[2019-05-11 07:06] LABS: Creatine Phosphokinase 25903 U/L (39-308)
[2019-05-11 08:27] LABS: Anion Gap 17.6 (5-19); Blood Urea Nitrogen 18 mg/dL (8-23); Calcium 9.1 mg/dL (8.5-10.5); Carbon Dioxide 26 mmol/L (22-29); Chloride 78 mmol/L (98-107); Glucose 96 mg/dL (65-115); Osmolality Calculated 242 mOsm/kg (285-295); Potassium 3.6 mmol/L (3.5-5.1)
[2019-05-11 08:36] LABS: Sodium 118 mmol/L (136-145)
[2019-05-11] MEDS: folic acid 1 mg Tablet PO (09:07)
[2019-05-11] MEDS: dextrose 5% + KCl 20 mEq 20 MEQ/1,000 ML BAG 75 MEQ IV ×2 (09:07→20:50)
[2019-05-11] MEDS: levothyroxine 100 mcg Tablet PO (09:07)
--- NOTE | 2019-05-11 10:17 | PM.PN ---
Subjective Subjective: Interval history: Mental status improved this morning, will start on oral diet. Morning labs noted, sodium trended up to 118 from 107 on admission. We will switch from normal saline to D5 to prevent overcorrection. CPK trending down, currently 25,000; LFTs improving as well. Urine osmolality pending. Vital signs stable. Had urine output of 1450 mL overnight. He is alert and oriented x3, quite hard of hearing, admits to alcohol use, most recently yesterday when he had some whiskey. States that prior to this he had been abstinent for approximately a year. Medications: Reviewed: Yes Medication Review Details: Active Medications Generic Name Dose Route Start Last Admin Trade Name Freq PRN Reason Stop Dose Admin Acetaminophen 650 mg 05/10/19 20:19 Tylenol PO Q6H PRN Mild/Mod Pain Or Temp >/= 101 Enoxaparin Sodium 40 mg 05/10/19 20:19 05/10/19 20:45 Lovenox SUBCUT 40 mg Q24H EDWINA Administration Folic Acid 1 mg 05/11/19 09:00 05/11/19 09:07 Folic Acid PO 1 mg DAILY EDWINA Administration Potassium Chloride /Dextrose 20 meq in 1,000 m ls @ 75 mls/hr 05/11/19 08:15 05/11/19 09:07 Dextrose 5% + Immanuel l 20 Meq IV 75 mls/hr .[id number] EDWINA Administration Levothyroxine Sodi um 100 mcg 05/11/19 09:00 05/11/19 09:07 Synthroid PO 100 mcg DAILY EDWINA Administration Ondansetron HCl 4 mg 05/10/19 20:19 Zofran IVP Q6H PRN vomiting, or N/V if npo No Known Allergies Allergy (Verified 02/23/19 19:44) Vitals/I&O/Wt Last Vital Signs Temp 98.1 F 05/10/19 23:00 Pulse 95 05/11/19 09:19 Resp 20 H 05/11/19 07:48 BP 121/73 05/11/19 07:48 Pulse Ox 93 05/11/19 09:19 05/10/19 05/11/19 05/11/19 22:59 06:59 14:59 Intake Total 1006.25 / 1006.25 0 / 1006.25 628.333 / 628.333 Output Total 1450 / 1450 200 / 200 Balance 1006.25 / 1006.25 -1450 / -443.75 428.333 / 428.333 Weight last 48 hrs Weight 85.865 kg Weight 86.183 kg Physical Exam Const: COMMON NORMALS: no apparent distress, oriented x3 and alert GENERAL APPEARANCE: not in distress HENMT: COMMON NORMALS: normocephalic and head/scalp atraumatic HEAD & SCALP: normocephalic and atraumatic GENERAL EAR: hearing grossly impaired Laterality: bilateral MOUTH: moist mucous membranes abnormal Details: parched TEETH & GINGIVA: Yes edentulous Eye: COMMON NORMALS: PERRL, EOMs intact bilaterally and conjunctivae normal CONJUNCTIVA: Yes conjunctivae normal PUPIL: Yes PERRL Neck/C-Spine: COMMON NORMALS: full ROM GENERAL: Yes normal visual inspection and Yes trachea midline Resp: COMMON NORMALS: normal respiratory effort, no retractions and no use of accessory muscles EFFORT & INSPECTION: Yes able to speak in complete sentences, Yes symmetric chest movement and No tachypneic AUSCULTATION: crackles and diminished lung sounds Cardio: COMMON NORMALS: regular rate, regular rhythm, S1 normal heart sound, S2 normal heart sound and no murmurs RATE: regular rate RHYTHM: regular rhythm HEART SOUNDS: S1 normal and S2 normal GI: COMMON NORMALS: normal to inspection, nondistended, normoactive bowel sounds and soft to palpation PALPATION: Yes soft : BLADDER/KIDNEY EXAM: Yes catheter in place Catheter type (Male): urethral Extremity: COMMON NORMALS: normal to inspection, full ROM and no clubbing, cyanosis or edema; negative for no pedal edema Neuro: COMMON NORMALS: oriented x3, moves all extremities, no focal motor deficits and no sensory deficits noted SENSORIUM/ORIENTATION: Yes alert Psych: COMMON NORMALS: mental status grossly normal, thought process normal, cooperative, affect normal and speech normal SPEECH: Yes normal speech THOUGHT PROCESS: normal thought process Skin: COMMON NORMALS: no jaundice, no petechiae and no mottling NARRATIVE SKIN EXAM: -skin tear on L lateral elbow, scattered ecchymotic lesions on upper extremities and knee caps Urinary Catheter Management^: Alfaro: Cath Placed During This Visit: yes Urethral Indwelling: Yes Reason for Continuing Indwelling Catheter: Accurate Measurement of Urinary Output in Critically Ill Patients Urinary Catheter Date of Insertion: 05/10/19 Urinary Catheter Time of Insertion: 17:00 Data : 05/11/19 03:55 05/11/19 16:00 A&P Assessment and plan (1) Hyponatremia: -Severe hyponatremia, improving with IVF (107-->118); review of medical record shows previous sodium levels within normal limits -Given prior history of alcohol abuse and recent ingestion suspect beer potomania but could also be secondary to diuretic use (is on chlorthalidone) -Closely monitor sodium levels, every 3-4 hours to avoid overcorrection and risk of ODS -noted TSH, cortisol, urine lytes, uric acid; urine osm pending -cautious correction with IVF; switched to D5W to avoid over-correction this AM Status: Acute Code(s): E87.1 - Hypo-osmolality and hyponatremia (2) Altered mental status: -mental status improving with correction of hyponatremia -Frequent neurochecks, fall precautions, seizure precautions -on IVF -Alfaro catheter placement for accurate Is & Os, assess daily for removal -Continues to protect his airway; but if noted signs of increased confusion, respiratory distress may require intubation -with improvement in mental status, will start on diet -low suspicion for infectious process, resolved leukocytosis, UA negative for infection, CXR negative -ammonia wnl -CT head unremarkable Status: Acute Qualifiers: Altered mental status type: unspecified Qualified Code(s): R41.82 - Altered mental status, unspecified Code(s): R41.82 - Altered mental status, unspecified (3) Rhabdomyolysis: -Significant CPK elevation, greater than 36,000 secondary to patient being found on the floor for an unknown period of time; trending down -We will need to trend CPK closely -Is on IV fluid hydration -Renal function is currently within normal limits but may required HD if not improving appropriately, evidence of metabolic and renal impairment -PT evaluation tomorrow as patient has significant generalized weakness Status: Acute Qualifiers: Encounter type: initial encounter Rhabdomyolysis type: traumatic Qualified Code(s): T79.6XXA - Traumatic ischemia of muscle, initial encounter Code(s): M62.82 - Rhabdomyolysis (4) Hypertension: -known hx of HTN, BP wnl currently -continue to monitor vital signs -hold antihypertensives especially chlorthalidone Status: Chronic Qualifiers: Hypertension type: essential hypertension Qualified Code(s): I10 - Essential (primary) hypertension Code(s): I10 - Essential (primary) hypertension (5) COPD (chronic obstructive pulmonary disease): -has known hx of COPD, not oxygen dependent at baseline -no acute exacerbation -requiring supplemental oxygen likely due to AMS -continue to monitor respiratory status Status: Chronic Qualifiers: COPD type: unspecified COPD Qualified Code(s): J44.9 - Chronic obstructive pulmonary disease, unspecified Code(s): J44.9 - Chronic obstructive pulmonary disease, unspecified (6) Adult onset hypothyroidism: -TSH wnl -is on levothyroxine Status: Chronic Code(s): E03.8 - Other specified hypothyroidism Additional A&P Information -Chronic smoker, 1 PPD -EtOH abuse hx; has been to rehab approximately 1 yr ago; UDS and alcohol screen negative, CIWA protocol, hypoglycemia precautions -Abnormal LFTs; could be secondary to EtOH abuse hx, previously wnl, trending down -will order Echo as no baseline and to determine EF especially with need for IVF and hx of EtOH abuse -DVT ppx with Lovenox -Dispo: pending clinical improvement -Code status: FULL code -ICU care due to severity of hyponatremia, need for careful correction and monitoring of neuro and respiratory status Attestations Medical Necessity Statement*: Patient requires hospitalization for continued management of significant hyponatremia and rhabdomyolysis requiring close monitoring of sodium and CPK levels respectively. Time Spent in Patient Care: Greater than 35 minutes (>than 50% of time spent in counselling and/or direct pt care on unit). Coding Level of Care Code Acute Machinist General for [facility] Fwd Exam Comprehensive Diagnoses Hyponatremia E87.1 Altered mental status R41.82 Altered mental status type: unspecified Rhabdomyolysis T79.6XXA Encounter type: initial encounter Rhabdomyolysis type: traumatic Hypertension I10 Hypertension type: essential hypertension COPD (chronic obstructive pulmonary disease) J44.9 COPD type: unspecified COPD Adult onset hypothyroidism E03.8
--- NOTE | 2019-05-11 10:25 | USCV_ITS ---
Darrin Avila Age: 64 Gender: M : 1955 Exam Date: 05/11/2019 15:30 Ordering Phys: Jolie Trejo MD Technologist: Dayana Carpio Exam Location: [facility] [place] Indication: Altered mental status, rhabdomyolysis, alcohol abuse BP: 120 / 87 HR: 85 Rhythm: Sinus Technical Quality: Suboptimal MEASUREMENTS (Male / Female) Normal Values 2D ECHO LV Diastolic Diameter PLAX 4.0 cm 4.2 - 5.9 / 3.9 - 5.3 cm LV Systolic Diameter PLAX 2.9 cm LV Chamber Size 3.8 cm IVS Diastolic Thickness 1.2 cm 0.6 - 1.0 / 0.6 - 0.9 cm IVS Systolic Thickness 1.6 cm LVPW Diastolic Thickness 1.2 cm 0.6 - 1.0 / 0.6 - 0.9 cm LVPW Systolic Thickness 1.3 cm RV Chamber Size 1.9 cm LVOT Diameter 2.0 cm LV Ejection Fraction 2D Teich 53.3 % LA Diameter 2.8 cm LA Width 2.7 cm LA Height 5.6 cm RA Width 3.0 cm RA Height 4.7 cm Aorta at Sinotubular Diameter 2.9 cm M-MODE LV Diastolic Diameter MM 5.2 cm 4.2 - 5.9 / 3.9 - 5.3 cm LV Systolic Diameter MM 3.3 cm LV Ejection Fraction MM Teich 64.7 % IVS Diastolic Thickness MM 1.0 cm 0.6 - 1.0 / 0.6 - 0.9 cm IVS Systolic Thickness MM 1.8 cm LVPW Diastolic Thickness MM 1.3 cm 0.6 - 1.0 / 0.6 - 0.9 cm LVPW Systolic Thickness MM 1.8 cm RV Diastolic Diameter MM 2.1 cm Aortic Annulus Diameter 3.9 cm LA Ao Ratio MM 0.7 MV E Point Septal Separation 0.3 cm DOPPLER AV Peak Velocity 136.0 cm/s LVOT Peak Velocity 95.0 cm/s AV Area Cont Eq vti 2.0 cm squared AV Area Cont Eq pk 2.2 cm squared MV E' Velocity 9.0 cm/s TR Peak Velocity 279.0 cm/s TR Peak Gradient 31.0 mmHg TV Peak E Velocity 39.0 cm/s Right Atrial Pressure 3.0 mmHg Pulmonary Artery Systolic Pressu 34.1 mmHg PV Peak Velocity 69.0 cm/s RV Acceleration Time 0.1 s RV Ejection Time 0.2 s RV AcT/ET 0.5 FINDINGS Left Ventricle Normal left ventricular cavity size. Normal left ventricular systolic function. Left ventricular ejection fraction is estimated at 60 %. No regional wall motion abnormalities. Grade I/IV diastolic dysfunction (abnormal relaxation filling pattern), normal to mildly elevated filling pressures. Right Ventricle The right ventricle is normal in size and function. Right Atrium The right atrium is normal in size. Left Atrium The left atrium is normal in size. Mitral Valve Structurally normal mitral valve without significant stenosis or prolapse. There is no mitral regurgitation. Aortic Valve Mild aortic valve calcification. No aortic valve stenosis. Trace aortic valve regurgitation. Tricuspid Valve Trace tricuspid valve regurgitation. Pulmonic Valve Structurally normal pulmonic valve without significant stenosis. There is no pulmonic regurgitation. Pericardium Normal pericardium without effusion. Aorta Normal ascending aorta dimension. CONCLUSIONS 1-Normal left ventricular cavity size. Normal left ventricular systolic function. Left ventricular ejection fraction is estimated at 60 %. No regional wall motion abnormalities. Grade I/IV diastolic dysfunction (abnormal relaxation filling pattern), normal to mildly elevated filling pressures. 2-Structurally normal mitral valve without significant stenosis or prolapse. There is no mitral regurgitation. 3-Mild aortic valve calcification. No aortic valve stenosis. Trace aortic valve regurgitation. 4-There is no pericardial effusion. 5-Pulmonary artery systolic pressure is within normal limits. 6-Right atrial pressure is around 5 mm of mercury. 7-There are no prior echocardiogram studies to compare. Ann-Marie Sage MD (Electronically Signed) Final Date: 11 May 2019 20:59 S
--- NOTE | 2019-05-11 11:37 | PC.NURSE ---
called patient's family Anita Alejandra [phone] as requested by patient. patient requested his dentures and cell phone. family said she will bring them to the ER.
--- NOTE | 2019-05-11 11:39 | PC.RESP ---
Patient given information for Pulmonary Rehab and Smoking Cessation.
--- NOTE | 2019-05-11 12:52 | PC.NURSE ---
patient's cell phone, phone superintendent distribution and top and bottom dentures given to patient by data analyst report writer.
[2019-05-11] MEDS: ipratropium-albuterol 3 mL Neb INHALATION ×2 (13:02→20:55)
[2019-05-11 16:30] LABS: Anion Gap 13.6 (5-19); Blood Urea Nitrogen 19 mg/dL (8-23); Calcium 9.2 mg/dL (8.5-10.5); Carbon Dioxide 29 mmol/L (22-29); Chloride 81 mmol/L (98-107); Glomerular Filtration Rate 84.7 mL/min (90-130); Glucose 105 mg/dL (65-115); Osmolality Calculated 247 mOsm/kg (285-295); Potassium 3.6 mmol/L (3.5-5.1); Sodium 120 mmol/L (136-145)
[2019-05-11 18:49] LABS: Anion Gap 16.5 (5-19); Blood Urea Nitrogen 19 mg/dL (8-23); Calcium 8.9 mg/dL (8.5-10.5); Carbon Dioxide 27 mmol/L (22-29); Chloride 82 mmol/L (98-107); Glucose 113 mg/dL (65-115); Osmolality Calculated 251 mOsm/kg (285-295); Potassium 3.5 mmol/L (3.5-5.1); Sodium 122 mmol/L (136-145)
[2019-05-11] MEDS: enoxaparin 40 mg/0.4 mL Syringe SUBCUT (20:34)
[2019-05-11 21:28] LABS: Anion Gap 14.5 (5-19); Blood Urea Nitrogen 22 mg/dL (8-23); Calcium 9.2 mg/dL (8.5-10.5); Carbon Dioxide 27 mmol/L (22-29); Chloride 83 mmol/L (98-107); Glomerular Filtration Rate 84.7 mL/min (90-130); Glucose 119 mg/dL (65-115); Osmolality Calculated 250 mOsm/kg (285-295); Potassium 3.5 mmol/L (3.5-5.1); Sodium 121 mmol/L (136-145)
[2019-05-12] VITALS (12 sets, daily range): BP systolic 104–128; BP diastolic 67–79; PULSE 71–96; RESP 16–20; TEMP 36.4–37.4; O2SAT 91–96
[2019-05-12 05:39] LABS: Anion Gap 14.4 (5-19); Blood Urea Nitrogen 14 mg/dL (8-23); Carbon Dioxide 28 mmol/L (22-29); Chloride 84 mmol/L (98-107); Glucose 117 mg/dL (65-115); Osmolality Calculated 253 mOsm/kg (285-295); Potassium 3.4 mmol/L (3.5-5.1); Sodium 123 mmol/L (136-145)
[2019-05-12 05:59] LABS: Creatine Phosphokinase 11303 U/L (39-308)
--- NOTE | 2019-05-12 07:29 | PC.NURSE ---
Resting with eyes closed.
[2019-05-12] MEDS: ipratropium-albuterol 3 mL Neb INHALATION (08:50)
[2019-05-12] MEDS: levothyroxine 100 mcg Tablet PO (08:58)
[2019-05-12] MEDS: folic acid 1 mg Tablet PO (08:58)
--- NOTE | 2019-05-12 09:14 | P.PN_ITS ---
Subjective Subjective: Interval history: AM labs noted, improving hyponatremia (123), resolved leukocytosis. Had 2000 mL urine output overnight. CPK down to 11,303. Will transfer to floor for continued care. No acute overnight events reported. Patient seen and examined earlier this morning while still in ICU, no acute overnight events reported, reports feeling well though continues to have gen eralized weakness. Will request PT evaluation. Medications: Reviewed: Yes Medication Review Details: Active Medications Generic Name Dose Route Start Last Admin Trade Name Freq PRN Reason Stop Dose Admin Acetaminophen 650 mg 05/10/19 20:19 Tylenol PO Q6H PRN Mild/Mod Pain Or Temp >/= 101 Albuterol/Ipratrop ium 3 ml 05/11/19 12:00 05/12/19 08:50 Duoneb INHALATION 3 ml Q4H.RESPIRATORY P RN Administration SHORTNESS OF LALA TH Enoxaparin Sodium 40 mg 05/10/19 20:19 05/11/19 20:34 Lovenox SUBCUT 40 mg Q24H EDWINA Administration Folic Acid 1 mg 05/11/19 09:00 05/12/19 08:58 Folic Acid PO 1 mg DAILY EDWINA Administration Potassium Chloride /Dextrose 20 meq in 1,000 m ls @ 75 mls/hr 05/11/19 08:15 05/12/19 04:17 Dextrose 5% + Immanuel l 20 Meq IV 75 mls/hr .[id number] EDWINA Infusion Levothyroxine Sodi um 100 mcg 05/11/19 09:00 05/12/19 08:58 Synthroid PO 100 mcg DAILY EDWINA Administration Ondansetron HCl 4 mg 05/10/19 20:19 Zofran IVP Q6H PRN vomiting, or N/V if npo No Known Allergies Allergy (Verified 02/23/19 19:44) Vitals/I&O/Wt Last Vital Signs Temp 98.9 F 05/12/19 08:48 Pulse 92 05/12/19 08:57 Resp 16 05/12/19 08:51 BP 120/77 05/12/19 08:00 Pulse Ox 95 05/12/19 08:51 05/11/19 05/12/19 05/12/19 22:59 06:59 14:59 Intake Total 1458.75 / 2447.083 758.75 / 3205.833 220 / 220 Output Total 1300 / 1500 2000 / 3500 Balance 158.75 / 947.083 -1241.25 / -294.167 220 / 220 Weight last 48 hrs Weight 85.865 kg Weight 86.183 kg Physical Exam Const: COMMON NORMALS: no apparent distress, oriented x3 and alert GENERAL APPEARANCE: not in distress ORIENTATION/CONSCIOUSNESS: Yes awake HENMT: COMMON NORMALS: normocephalic and head/scalp atraumatic HEAD & SCA LP: normocephalic and atraumatic GENERAL EAR: hearing grossly impaired Laterality: bilateral MOUTH: moist mucous membranes abnormal Details: parched TEETH & GINGIVA: Yes edentulous Eye: COMMON NORMALS: PERRL, EOMs intact bilaterally and conjunctivae normal CONJUNCTIVA: Yes conjunctivae normal PUPIL: Yes PERRL Neck/C-Spine: COMMON NORMALS: full ROM GENERAL: Yes normal visual inspection and Yes trachea midline Resp: COMMON NORMALS: normal respiratory effort, no retractions and no use of accessory muscles EFFORT & INSPECTION: Yes able to speak in complete sentences, Yes symmetric chest movement and No tachypneic AUSCULTATION: crackles and diminished lung sounds Cardio: COMMON NORMALS: regular rate, regular rhythm, S1 normal heart sound, S2 normal heart sound and no murmurs RATE: regular rate RHYTHM: regular rhythm HEART SOUNDS: S1 normal and S2 normal GI: COMMON NORMALS: normal to inspection, nondistended, normoactive bowel sounds and soft to palpation PALPATION: Yes soft : BLADDER/KIDNEY EXAM: Yes catheter in place Extremity: COMMON NORMALS: normal to inspection, full ROM and no clubbing, cyanosis or edema; negative for no pedal edema Neuro: COMMON NORMALS: oriented x3, moves all extremities, no focal motor deficits and no sensory deficits noted SENSORIUM/ORIENTATION: Yes alert Psych: COMMON NORMALS: mental status grossly normal, thought process normal, cooperative, affect normal and speech normal SPEECH: Yes normal speech T HOUGHT PROCESS: normal thought process Skin: COMMON NORMALS: no jaundice, no petechiae and no mottling NARRATIVE SKIN EXAM: -skin tear on L lateral elbow, scattered ecchymotic lesions on upper extremities and knee caps Urinary Catheter Management^: Alfaro: Cath Placed During This Visit: yes Urethral Indwelling: Yes Reason for Continuing Indwelling Catheter: Accurate Measurement of Urinary Output in Critically Ill Patients Urinary Catheter Date of Insertion: 05/10/19 Urinary Catheter Time of Insertion: 17:00 Data : 05/11/19 03:55 05/12/19 05:03 A&P Assessment and plan (1) Hyponatremia: -Severe hyponatremia, improving with IVF (107-->123); review of medical record shows previous sodium levels within normal limits -Given prior history of alcohol abuse and recent ingestion suspect beer potomania but could also be secondary to diuretic use (was on chlorthalidone) -Closely monitor sodium levels, every 3-4 hours to avoid overcorrection and risk of ODS -noted TSH, cortisol, urine lytes, uric acid; urine osm pending -cautious correction with IVF; switched to D5W to avoid over-correction Status: Acute Code(s): E87.1 - Hypo-osmolality and hyponatremia (2) Altered mental status: -mental status improved with correction of hyponatremia -Frequent neurochecks, fall precautions, seizure precautions -on IVF -Alfaro catheter placement for accurate Is & Os, assess daily for removal -Continues to protect his airway; but if noted signs of increased confusion, respiratory distress may require intubation -with improvement in mental status, will start on diet -low suspicion for infectious process, resolved leukocytosis, UA negative for infection, CXR negative -ammonia wnl -CT head unremarkable Status: Acute Qualifiers: Altered mental status type: unspecified Qualified Code(s): R41.82 - Altered mental status, unspecified Code(s): R41.82 - Altered mental status, unspecified (3) Rhabdomyolysis: -Significant CPK elevation, greater than 36,000 secondary to patient being found on the floor for an unknown period of time; trending down (11,303) -continue to trend CPK closely -Is on IV fluid hydration -Renal function is currently within normal limits but may required HD if not improving appropriately, evidence of metabolic and renal impairment -PT evaluation today as patient has significant generalized weakness; fall precautions Status: Acute Qualifiers: Encounter type: initial encounter Rhabdomyolysis type: traumatic Qualified Code(s): T79.6XXA - Traumatic ischemia of muscle, initial encounter Code(s): M62.82 - Rhabdomyolysis (4) Hypertension: -known hx of HTN -continue to monitor vital signs; stable -hold antihypertensives especially chlorthalidone Status: Chronic Qualifiers: Hypertension type: essential hypertension Qualified Code(s): I10 - Essential (primary) hypertension Code(s): I10 - Essential (primary) hypertension (5) COPD (chronic obstructive pulmonary disease): -has known hx of COPD, not oxygen dependent at baseline -no acute exacerbation -requiring supplemental oxygen likely due to AMS -continue to monitor respiratory status Status: Chronic Qualifiers: COPD type: unspecified COPD Qualified Code(s): J44.9 - Chronic obstructive pulmonary disease, unspecified Code(s): J44.9 - Chronic obstructive pulmonary disease, unspecified (6) Adult onset hypothyroidism: -TSH wnl -is on levothyroxine Status: Chronic Code(s): E03.8 - Other specified hypothyroidism Additional A&P Information -Chronic smoker, 1 PPD -EtOH abuse hx; has been to rehab approximately 1 yr ago; UDS and alcohol screen negative, CIWA protocol, hypoglycemia precautions -Abnormal LFTs; could be secondary to EtOH abuse hx, previously wnl, trending down -Echo: EF=60%, G1DD, no RWMA, trace AR, trace TR -DVT ppx with Lovenox -Dispo: home -Code status: FULL code -transfer to floor for continued care Attestations Medical Necessity Statement*: Patient requires hospitalization for continued management of hyponatremia and rhabdomyolysis. Time Spent in Patient Care: 16 - 35 minutes (>than 50% of time spent in counselling and/or direct pt care on unit) . Coding Level of Care Code Acute Rural Sociologist for [facility] Fwd Exam Comprehensive Diagnoses Hyponatremia E87.1 Altered mental status R41.82 Altered mental status type: unspecified Rhabdomyolysis T79.6XXA Encounter type: initial encounter Rhabdomyolysis type: traumatic Hypertension I10 Hypertension type: essential hypertension COPD (chronic obstructive pulmonary disease) J44.9 COPD type: unspecified COPD Adult onset hypothyroidism E03.8
[2019-05-12 10:22] LABS: Osmolality Urine 658 mOsm/kg (50-1200)
[2019-05-12] MEDS: montelukast sodium 10 mg Tablet PO (10:27)
[2019-05-12] MEDS: amlodipine 10 mg Tablet PO (10:27)
[2019-05-12] MEDS: dextrose 5% + KCl 20 mEq 20 MEQ/1,000 ML BAG 75 MEQ IV (11:48)
[2019-05-12] MEDS: enoxaparin 40 mg/0.4 mL Syringe SUBCUT (20:26)
[2019-05-12] MEDS: nicotine 14 mg Patch 1 PATCH TRANSDERMA (21:52)
[2019-05-13] VITALS (8 sets, daily range): BP systolic 123–133; BP diastolic 76–83; PULSE 55–96; RESP 14–18; TEMP 36.5–37; O2SAT 92–98; BMI 24.4
[2019-05-13] MEDS: dextrose 5% + KCl 20 mEq 20 MEQ/1,000 ML BAG 75 MEQ IV ×3 (00:30→20:36)
[2019-05-13] MEDS: acetaminophen 325 mg Tablet 650 MG PO (02:22)
[2019-05-13 06:20] LABS: Creatine Phosphokinase 10045 U/L (39-308)
[2019-05-13] MEDS: montelukast sodium 10 mg Tablet PO (09:40)
[2019-05-13] MEDS: amlodipine 10 mg Tablet PO (09:40)
[2019-05-13] MEDS: folic acid 1 mg Tablet PO (09:40)
[2019-05-13] MEDS: levothyroxine 100 mcg Tablet PO (09:40)
--- NOTE | 2019-05-13 11:15 | PC.SOCIAL ---
IMM Page 2 of IMM explained to and signed by patient as there is no page 1 uploaded in patient's EHR. Initialed, dated, and timed and placed in chart. Copy provided to patient.
--- NOTE | 2019-05-13 11:17 | P.PN_ITS ---
Subjective Subjective: Interval history: CPK down to 10,000. Had 1860 mL urine output overnight. Remains hemodynamically stable. Sodium up to 123. Patient resting in bed, has been ambulating in the hallway and feels like he is gradually getting stronger but is not quite as stable as he was before. Will discontinue Alfaro catheter today. Medications: Reviewed: Yes Medication Review Details: Active Medications Generic Name Dose Route Start Last Admin Trade Name Freq PRN Reason Stop Dose Admin Acetaminophen 650 mg 05/10/19 20:19 05/13/19 02:22 Tylenol PO 650 mg Q6H PRN Administration Mild/Mod Pain Or Temp >/= 101 Albuterol/Ipratrop ium 3 ml 05/11/19 12:00 05/12/19 08:50 Duoneb INHALATION 3 ml Q4H.RESPIRATORY P RN Administration SHORTNESS OF LALA TH Amlodipine Besylat e 10 mg 05/12/19 10:30 05/13/19 09:40 Norvasc PO 10 mg DAILY EDWINA Administration Enoxaparin Sodium 40 mg 05/10/19 20:19 05/12/19 20:26 Lovenox SUBCUT 40 mg Q24H EDWINA Administration Folic Acid 1 mg 05/11/19 09:00 05/13/19 09:40 Folic Acid PO 1 mg DAILY EDWINA Administration Potassium Chloride /Dextrose 20 meq in 1,000 m ls @ 75 mls/hr 05/11/19 08:15 05/13/19 00:30 Dextrose 5% + Immanuel l 20 Meq IV 75 mls/hr .[id number] EDWINA Administration Levothyroxine Sodi um 100 mcg 05/11/19 09:00 05/13/19 09:40 Synthroid PO 100 mcg DAILY EDWINA Administration Montelukast Sodium 10 mg 05/12/19 10:30 05/13/19 09:40 Singulair PO 10 mg DAILY EDWINA Administration Nicotine 1 patch 05/12/19 21:32 05/12/19 21:52 Nicoderm 14 Mg P atch TRANSDERMA 1 patch Q24H PRN Administration nicotine withdraw al Ondansetron HCl 4 mg 05/10/19 20:19 Zofran IVP Q6H PRN vomiting, or N/V if npo No Known Allergies Allergy (Verified 02/23/19 19:44) Vitals/I&O/Wt Last Vital Signs Temp 97.9 F 05/13/19 07:49 Pulse 76 05/13/19 07:49 Resp 14 05/13/19 07:49 BP 130/83 05/13/19 07:49 Pulse Ox 93 05/13/19 07:49 05/12/19 05/13/19 05/13/19 22:59 06:59 14:59 Intake Total 480 / 1381.25 952.5 / 2333.75 360 / 360 Output Total 800 / 1800 1860 / 3660 Balance -320 / -418.75 -907.5 / -1326.25 360 / 360 Weight last 48 hrs Weight 88.564 kg Weight 90.492 kg Physical Exam Const: COMMON NORMALS: no apparent distress, oriented x3 and alert EXAM LIMITATIONS: altered mental status GENERAL APPEARANCE: not in distress ORIENTATION/CONSCIOUSNESS: Yes awake HENMT: COMMON NORMALS: normocephalic and head/scalp atraumatic HEAD & SCALP: normocephalic and atraumatic GENERAL EAR: hearing grossly impaired Laterality: bilateral MOUTH: moist mucous membranes abnormal Details: parched TEETH & GINGIVA: Yes edentulous Eye: COMMON NORMALS: PERRL, EOMs intact bilaterally and conjunctivae normal CONJUNCTIVA: Yes conjunctivae normal PUPIL: Yes PERRL Neck/C-Spine: COMMON NORMALS: full ROM GENERAL: Yes normal visual inspection and Yes trachea midline Resp: COMMON NORMALS: normal respiratory effort, no retractions and no use of accessory muscles EFFORT & INSPECTION: Yes able to speak in complete sentences, Yes symmetric chest movement and No tachypneic AUSCULTATION: crackles and diminished lung sounds Cardio: COMMON NORMALS: regular rate, regular rhythm, S1 normal heart sound, S2 normal heart sound and no murmurs RATE: regular rate RHYTHM: regular rhythm HEART SOUNDS: S1 normal and S2 normal GI: COMMON NORMALS: normal to inspection, nondistended, normoactive bowel sounds and soft to palpation PALPATION: Yes soft : BLADDER/KIDNEY EXAM: Yes catheter in place Extremity: COMMON NORMALS: normal to inspection, full ROM and no clubbing, cyanosis or edema; negative for no pedal edema Neuro: COMMON NORMALS: oriented x3, moves all extremities, no focal motor deficits and no sensory deficits noted SENSORIUM/ORIENTATION: Yes alert Psych: COMMON NORMALS: mental status grossly normal, thought process normal, cooperative, affect normal and speech normal SPEECH: Yes normal speech THOUGHT PROCESS: normal thought process Skin: COMMON NORMALS: no jaundice, no petechiae and no mottling NARRATIVE SKIN EXAM: -skin tear on L lateral elbow, scattered ecchymotic lesions on upper extremities and knee caps Urinary Catheter Management^: Alfaro: Cath Placed During This Visit: yes Urethral Indwelling: Yes Reason for Continuing Indwelling Catheter: Acute Urinary Retention or Obstruction Urinary Catheter Date of Insertion: 05/10/19 Urinary Catheter Time of Insertion: 17:00 Data : 05/11/19 03:55 05/12/19 05:03 A&P Assessment and plan (1) Hyponatremia: -Severe hyponatremia initially, improving with IVF (107-->123); review of medical record shows previous sodium levels within normal limits -Given prior history of alcohol abuse and recent ingestion suspect beer potoma eber but could also be secondary to diuretic use (was on chlorthalidone) -Continue to monitor sodium levels -noted TSH, cortisol, urine lytes, uric acid; urine osm-658 -cautious correction with D5W to avoid over-correction Status: Acute Code(s): E87.1 - Hypo-osmolality and hyponatremia (2) Altered mental status: -mental status improved with correction of hyponatremia -Frequent neurochecks, fall precautions, seizure precautions -on IVF -Alfaro catheter placement for accurate Is & Os, discontinue today -Continues to protect his airway; but if noted signs of increased confusion, respiratory distress may require intubation -with improvement in mental status, will start on diet -low suspicion for infectious process, resolved leukocytosis, UA negative for infection, CXR negative -ammonia wnl -CT head unremarkable Status: Resolved Code(s): R41.82 - Altered mental status, unspecified (3) Rhabdomyolysis: -Significant CPK elevation initially secondary to patient being found on the floor for an unknown period of time; trending down (>36,000-->10,045) -continue to trend CPK -Is on IV fluid hydration -Renal function is currently within normal limits -PT evaluation as patient has significant generalized weakness; fall precautions; recommend HH Status: Acute Code(s): M62.82 - Rhabdomyolysis (4) Hypertension: -known hx of HTN -continue to monitor vital signs; stable -hold antihypertensives especially chlorthalidone Status: Chronic Qualifiers: Hypertension type: essential hypertension Qualified Code(s): I10 - Essential (primary) hypertension Code(s): I10 - Essential (primary) hypertension (5) COPD (chronic obstructive pulmonary disease): -has known hx of COPD, not oxygen dependent at baseline -no acute exacerbation -requiring supplemental oxygen likely due to AMS -continue to monitor respiratory status Status: Chronic Code(s): J44.9 - Chronic obstructive pulmonary disease, unspecified (6) Adult onset hypothyroidism: -TSH wnl -is on levothyroxine Status: Chronic Code(s): E03.8 - Other specified hypothyroidism Additional A&P Information -Chronic smoker, 1 PPD -EtOH abuse hx; has been to rehab approximately 1 yr ago; UDS and alcohol screen negative, CIWA protocol, hypoglycemia precautions -Abnormal LFTs; could be secondary to EtOH abuse hx, previously wnl, trending down -Echo: EF=60%, G1DD, no RWMA, trace AR, trace TR -DVT ppx with Lovenox -Dispo: home with -Code status: FULL code Attestations Medical Necessity Statement*: Patient requires hospitalization for continued management of rhabdomyolysis and acute hyponatremia, on IVF hydration. Time Spent in Patient Care: 16 - 35 minutes (>than 50% of time spent in counselling and/or direct pt care on unit) . Coding Level of Care Code Acute [employer] Operator for [facility] Fwd Exam Comprehensive Diagnoses Hyponatremia E87.1 Altered mental status R41.82 Rhabdomyolysis M62.82 Hypertension I10 Hypertension type: essential hypertension COPD (chronic obstructive pulmonary disease) J44.9 Adult onset hypothyroidism E03.8
[2019-05-13] MEDS: ipratropium-albuterol 3 mL Neb INHALATION (13:35)
--- NOTE | 2019-05-13 14:16 | PC.NURSE ---
Catheter removed Alfaro Catheter removed per doctors orders. Catheter in tact. Patient tolerated well.
[2019-05-13 18:05] LABS: ABG PCO2 27.2 mmHg (35-45); ABG PH Result 7.51 (7.35-7.45); Arterial Blood Gas Hematocrit 52.9 % (42-52); Base Excess ABG 0.6 mmol/L (-2.0-2.0); Blood Gas Allen Test Pos; Blood Gas Sample Site Radial, left; Blood Gas Sample Type Arterial; Carboxyhemoglobin 0.9 %THgb (0.4-20.1); HCO3 ABG 21.9 mmol/L (22-26); Ionized Calcium Level - ABG 1.1 mmol/L (1.1-1.4); Methemoglobin 0.7 % (0.4-1.5); Oxygen Device NRB; Oxygen Saturation ABG 99.6; Potassium Level - ABG 3.7 mmol/L (3.5-5.0); Total Hemoglobin 17.3 g/dL (14-18)
[2019-05-13] MEDS: enoxaparin 40 mg/0.4 mL Syringe SUBCUT (20:23)
[2019-05-13] MEDS: nicotine 14 mg Patch 1 PATCH TRANSDERMA (20:34)
[2019-05-14] VITALS: BP 134/82; PULSE 82; RESP 16; TEMP 36.5; O2SAT 94
[2019-05-14 04:00] VITALS: BP 147/87; PULSE 79; RESP 16; TEMP 36.2; O2SAT 94
[2019-05-14 06:30] LABS: Alanine Aminotransferase 41 U/L (0-41); Albumin Level 3.5 g/dL (3.5-5.2); Alkaline Phosphatase 77 IU/L (40-130); Anion Gap 13.8 (5-19); Aspartate Amino Transferase 108 U/L (0-40); Blood Urea Nitrogen 9 mg/dL (8-23); Calcium 9.2 mg/dL (8.5-10.5); Carbon Dioxide 29 mmol/L (22-29); Chloride 90 mmol/L (98-107); Glucose 98 mg/dL (65-115); Osmolality Calculated 264 mOsm/kg (285-295); Potassium 3.8 mmol/L (3.5-5.1); Sodium 129 mmol/L (136-145); Total Bilirubin 0.6 mg/dL (0.15-1.2); Total Protein 6.5 g/dL (6.6-8.7)
[2019-05-14 07:00] LABS: Creatine Phosphokinase 6461 U/L (39-308)
[2019-05-14 08:00] VITALS: BP 126/83; PULSE 61; RESP 18; TEMP 37.1; O2SAT 92
[2019-05-14] MEDS: amlodipine 10 mg Tablet PO (08:44)
[2019-05-14] MEDS: levothyroxine 100 mcg Tablet PO (08:44)
[2019-05-14] MEDS: montelukast sodium 10 mg Tablet PO (08:44)
[2019-05-14] MEDS: folic acid 1 mg Tablet PO (08:44)
[2019-05-14 11:59] VITALS: BP 121/74; PULSE 82; RESP 18; TEMP 36.9; O2SAT 92
[2019-05-14] MEDS: ipratropium-albuterol 3 mL Neb INHALATION (13:31)
[2019-05-14 13:33] VITALS: PULSE 82; RESP 18; O2SAT 93
--- NOTE | 2019-05-14 14:10 | P.DS_ITS ---
Discharge Providers Date of Admission: 05/10/19 17:39 Date of Discharge: May 14, 2019 Attending Provider at Admission: Jolie Trejo MD Attending Provider at Discharge: Jolie Trejo MD Primary Care Provider: MANJEET Bucio Diagnoses at Discharge Discharge Diagnosis (1) Hyponatremia: Status: Acute Problem details: -Severe hyponatremia initially, improving with IVF (107-->129); review of medical record shows previous sodium levels within normal limits -Given prior history of alcohol abuse and recent ingestion suspect beer potoma eber but could also be secondary to diuretic use (was on chlorthalidone) -Continue to monitor sodium levels -noted TSH, cortisol, urine lytes, uric acid; urine osm-658 -cautious correction with D5W to avoid over-correction (2) Altered mental status: Status: Resolved Problem details: -mental status improved with correction of hyponatremia -Frequent neurochecks, fall precautions, seizure precautions -on IVF -Alfaro catheter placement for accurate Is & Os, discontinue today -Continues to protect his airway; but if noted signs of increased confusion, respiratory distress may require intubation -with improvement in mental status, will start on diet -low suspicion for infectious process, resolved leukocytosis, UA negative for infection, CXR negative -ammonia wnl -CT head unremarkable Qualifiers: Altered mental status type: unspecified Qualified Code(s): R41.82 - Altered mental status, unspecified (3) Rhabdomyolysis: Status: Acute Problem details: -Significant CPK elevation initially secondary to patient being found on the floor for an unknown period of time; trending down (>36,000-->6461) -continue to trend CPK -Is on IV fluid hydration -Renal function is currently within normal limits -PT evaluation as patient has significant generalized weakness; fall precautions; recommend HH but patient feels that he has adequate support at home Qualifiers: Rhabdomyolysis type: traumatic Encounter type: initial encounter Qualified Code(s): T79.6XXA - Traumatic ischemia of muscle, initial encounter (4) Hypertension: Status: Chronic Problem details: -known hx of HTN -continue to monitor vital signs; stable -hold antihypertensives especially chlorthalidone Qualifiers: Hypertension type: essential hypertension Qualified Code(s): I10 - Ess ential (primary) hypertension (5) COPD (chronic obstructive pulmonary disease): Status: Chronic Problem details: -has known hx of COPD, not oxygen dependent at baseline -no acute exacerbation -requiring supplemental oxygen likely due to AMS -continue to monitor respiratory status Qualifiers: COPD type: unspecified COPD Qualified Code(s): J44.9 - Chronic obstructive pulmonary disease, unspecified (6) Adult onset hypothyroidism: Status: Chronic Problem details: -TSH wnl -is on levothyroxine Other Information Additional DC diagnoses/information: -Chronic smoker, 1 PPD -EtOH abuse hx; has been to rehab approximately 1 yr ago; UDS and alcohol screen negative, CIWA protocol, hypoglycemia precautions -Abnormal LFTs; could be secondary to EtOH abuse hx, previously wnl, trending down -Echo: EF=60%, G1DD, no RWMA, trace AR, trace TR Reason for Visit Reason for Visit: Reason For Visit: SOB/AMS Hospital Course Hospital Course: Patient was admitted to ICU secondary to noted severe hyponatremia with initial sodium of 107 and obtundation on examination. He was hydrated very carefully to avoid overcorrection of hyponatremia including switch from normal saline to D5W. He sodium levels have improved significantly with most recent level being 129. With improvement in his sodium levels his mental status has cleared up and he is back to his baseline. He was also noted to have significant rhabdomyolysis given prolonged period of immobilization which subsequently improved with hydration, CPK was initially greater than 36,000 and is down to 6461 and I anticipate that this will continue to decrease over time. He has been able to ambulate better each day, does have a walker at home and will have his daughter staying with him on discharge for a few days. He was evaluated by physical therapy and we did offer home health services which he declined at this point as he thinks he has adequate support. He has been counseled on need for alcohol cessation as this likely contributed to his hyponatremia. He has been hemodynamically stable, maintained on room air with good urine output. Given level of altered mental status on admission need for close monitoring of intake and output, he had a Alfaro catheter placed which has since been removed and he has been able to void without difficulty. Once his mental status had improved and his sodium was trending up consistently he was transitioned from ICU to the medical surgical floor for continued care. With overall improvement in his clinical status and his desire to go home he will be discharged with appropriate PCP follow-up including addition for continued monitoring of his sodium levels. He had previously been on chlorthalidone which I have discontinued as this is a diuretic and could contribute to hyponatremia. His blood pressure has been well controlled with amlodipine and to avoid polypharmacy as well as possible hypotension I will also discontinue hydralazine. Discharge Summary: -Patient to follow-up with primary care provider within 1 week. He will need follow-up BMP to continue to monitor his sodium. Physical Exam Const: COMMON NORMALS: no apparent distress, oriented x3 and alert EXAM LIMITATIONS: altered mental status GENERAL APPEARANCE: not in distress ORIENTATION/CONSCIOUSNESS: Yes awake HENMT: COMMON NORMALS: normocephalic and head/scalp atraumatic HEAD & SCALP: normocephalic and atraumatic GENERAL EAR: hearing grossly impaired Laterality: bilateral MOUTH: moist mucous membranes abnormal Details: parched TEETH & GINGIVA: Yes edentulous Eye: COMMON NORMALS: PERRL, EOMs intact bilaterally and conjunctivae normal CONJUNCTIVA: Yes conjunctivae normal PUPIL: Yes PERRL Neck/C-Spine: COMMON NORMALS: full ROM GENERAL: Yes normal visual inspection and Yes trachea midline Resp: COMMON NORMALS: normal respiratory effort, no retractions and no use of accessory muscles EFFORT & INSPECTION: Yes able to speak in complete sentences, Yes symmetric chest movement and No tachypneic AUSCULTATION: crackles and diminished lung sounds Cardio: COMMON NORMALS: regular rate, regular rhythm, S1 normal heart sound, S2 normal heart sound and no murmurs RATE: regular rate RHYTHM: regular rhythm HEART SOUNDS: S1 normal and S2 normal GI: COMMON NORMALS: normal to inspection, nondistended, normoactive bowel sounds and soft to palpation PALPATION: Yes soft : BLADDER/KIDNEY EXAM: Yes catheter in place Extremity: COMMON NORMALS: normal to inspection, full ROM and no clubbing, cyanosis or edema; negative for no pedal edema Neuro: COMMON NORMALS: oriented x3, moves all extremities, no focal motor deficits and no sensory deficits noted SENSORIUM/ORIENTATION: Yes alert Psych: COMMON NORMALS: mental status grossly normal, thought process normal, cooperative, affect normal and speech normal SPEECH: Yes normal speech THOUGHT PROCESS: normal thought process Skin: COMMON NORMALS: no jaundice, no petechiae and no mottling NARRATIVE SKIN EXAM: -skin tear on L lateral elbow, scattered ecchymotic lesions on upper extremities and knee caps Urinary Catheter Management^: Alfaro: Cath Placed During This Visit: yes, but has since been removed by the nurse Urethral Indwelling: Yes Reason for Continuing Indwelling Catheter: Acute Urinary Retention or Obstruction Urinary Catheter Date of Insertion: 05/10/19 Urinary Catheter Time of Insertion: 17:00 Date Urinary Catheter Removed: 05/13/19 Time Urinary Catheter Discontinued: 19:00 Discharge Data Data Completed and Pending: Completed Studies During Hospitalization Category Date Time Status CT head wo con* 7 0450 Stat Cat Scan 05/10/19 14:51 Completed XR chest 1V kimberly ble [id number] Stat Exams 05/10/19 14:51 Completed CV echo complete* [id number] Routine Ultrasound 05/11/19 10:25 Completed Labs from last 24 hours 05/14/19 05/10/19 05:27 14:45 Specimen Type Arterial Sample Site Radial, left ABG pH 7.51 H ABG pCO2 27.2 L ABG pO2 147.0 H ABG HCO3 21.9 L ABG O2 Saturation 99.6 ABG Base Excess 0.6 Chato Test Pos Hematocrit 52.9 H Hgb O2 Saturation 98.0 Carboxyhemoglobin 0.9 Methemoglobin 0.7 Total Hemoglobin 17.3 Sodium 129 L 106.0 L Potassium 3.8 3.7 Glucose 98 95.0 Ionized Calcium 1.1 O2 Delivery Device Nrb O2 Liters/Min 15.0 Stock Sheets Cleaner Inspector ID monro Chloride 90 L Carbon Dioxide 29 Anion Gap 13.8 BUN 9 Creatinine 0.8 GFR Calculation 97.0 Calculated Osmolal ity 264 L Calcium 9.2 Total Bilirubin 0.6 AST 108 H ALT 41 Alkaline Phosphata se 77 Creatine Kinase 6461 H* Total Protein 6.5 L Albumin 3.5 Globulin 3.0 Vitals: Last Vital Signs Temp 98.4 F 05/14/19 11:59 Pulse 82 05/14/19 13:33 Resp 18 05/14/19 13:33 BP 121/74 05/14/19 11:59 Pulse Ox 93 05/14/19 13:33 Discharge Plan Discharge Patient Disposition: Home, Self-Care Condition: Stable Prescriptions: Continued montelukast [Singulair] 10 mg tablet 10 mg PO DAILY Qty: 90 RF: 1 folic acid 1 mg tablet 1 mg PO DAILY Qty: 90 RF: 1 amlodipine 10 mg tablet 10 mg PO DAILY Qty: 90 RF: 1 albuterol sulfate 2.5 mg /3 mL (0.083 %) solution for nebulization 2.5 mg INHALATION QID PRN (Reason: shortness of breath or wheezing) Qty: 180 RF: 5 levothyroxine 100 mcg tablet 100 mcg PO DAILY Qty: 90 RF: 0 Discontinued hydralazine 25 mg tablet 25 mg PO BID Qty: 180 RF: 1 chlorthalidone 25 mg tablet 25 mg PO DAILY Qty: 90 RF: 1 Discharge Orders: Discharge Order (Routine); Ordered 05/14/19 Ordered By: Jolie Trejo Referrals: Martha Clark, [facility] [Primary Care Provider] - 4-7 days (Post hospital discharge follow up. Will need follow up BMP in 3-4 days due to hyponatremia and rhabdomyolysis. Call Wednesday and make an appointment in 4-7 day for follow-up and in 3-4 days for a Bmp blood draw.) Discharge Diet: Regular Discharge Activity: Use walker/crutches as instructed Activity Restrictions/Additional Instructions: -Please continue to use walker to ambulate for safety -Please DO NOT continue to take Chlorthalidone as this will lower your sodium levels more -Please continue to hydrate with water and STOP drinking alcohol Discharge Attestations Time Spent in Discharge Care*: greater than 30 min Specific Discharge Activities: Specific discharge activities: educating patient, discussing with leather case finisher/social workers/dc planners, documenting/other paperwork and evaluating patient/reviewing data Status at Discharge: Cognitive status at discharge: cognitively intact , Behavioral status at discharge: cooperative , Functional status at discharge: uses cane/walker Overall status at discharge: patient is back to baseline Quality Metrics Clinical Quality Measures During this hospital stay, did patient experience: None Coding Level of Care Code Acute Program Review Director for g Fwd Diagnoses Hyponatremia E87.1 Altered mental status R41.82 Altered mental status type: unspecified Rhabdomyolysis T79.6XXA Rhabdomyolysis type: traumatic Encounter type: initial encounter Hypertension I10 Hypertension type: essential hypertension COPD (chronic obstructive pulmonary disease) J44.9 COPD type: unspecified COPD Adult onset hypothyroidism E03.8
[2019-05-14 23:16] VITALS: BP 121/74; PULSE 82; RESP 18; TEMP 36.9; O2SAT 92
== END 2019-05-14 17:00 | disposition home or self-care (01) | DRG 641 ==
LOC: ER 15:13 → ICU 18:13 → MEDSURG 05-12 09:52
PROVIDERS: Hospitalist; Admitting Provider Family Medicine; Emergency Provider Family Medicine; Family Provider Nurse Practitioner; PCP Nurse Practitioner; Visit Provider Family Medicine
DX: E87.1 Hypo-osmolality and hyponatremia (principal); R41.82 Altered mental status, unspecified; T79.6XXA Traumatic ischemia of muscle, initial encounter; I10 Essential (primary) hypertension; J44.9 Chronic obstructive pulmonary disease, unspecified; E03.8 Other specified hypothyroidism; F17.210 Nicotine dependence, cigarettes, uncomplicated; F10.10 Alcohol abuse, uncomplicated; Z79.890 Hormone replacement therapy; Z79.52 Long term (current) use of systemic steroids; X58.XXXA Exposure to other specified factors, initial encounter
CPT/HCPCS: 12345; 36415; 36600; 51702; 70450; 71045; 80048; 80051; 80053; 80061; 80074; 80306; 80307; 81001; 82009; 82140; 82436; 82533; 82550; 82570; 82810; 83036; 83690; 83735; 83935; 83986; 84100; 84133; 84300; 84443; 84540; 84550; 85025; 85610; 85730; 87804; 93005; 93306; 94640; 94664; 96372; 97110; 97116; 97162; 99284; J1650; J2060; J7030

== ENCOUNTER → 2019-05-19 11:46 | Outpatient (BNVA) | payer MEDICARE, BC, SELFPAY | PROVIDERS: Family Provider Nurse Practitioner; PCP Nurse Practitioner; Visit Provider Nurse Practitioner | DX: I10 Essential (primary) hypertension (principal) | CPT/HCPCS: 80053 ==

== ENCOUNTER → 2019-06-02 08:20 | Outpatient (BNVA) | payer MEDICARE, BC, SELFPAY | PROVIDERS: Family Provider Nurse Practitioner; PCP Nurse Practitioner; Visit Provider Nurse Practitioner | DX: E87.1 Hypo-osmolality and hyponatremia (principal) | CPT/HCPCS: 80048 ==

== ENCOUNTER → 2019-11-27 09:08 | Outpatient (BNVA) | payer BC, MEDICARE, SELFPAY | PROVIDERS: Family Provider Nurse Practitioner; PCP Nurse Practitioner; Visit Provider Nurse Practitioner | DX: I10 Essential (primary) hypertension (principal); E03.8 Other specified hypothyroidism; J44.9 Chronic obstructive pulmonary disease, unspecified | CPT/HCPCS: 80053; 80061; 84443 ==

== ENCOUNTER → 2019-12-25 08:03 | Outpatient (BNVA) | payer BC, MEDICARE, SELFPAY | PROVIDERS: Family Provider Nurse Practitioner; PCP Nurse Practitioner; Visit Provider Nurse Practitioner | DX: E87.1 Hypo-osmolality and hyponatremia (principal) | CPT/HCPCS: 80048 ==

== ENCOUNTER → 2020-05-31 09:05 | Outpatient (BNVA) | payer BC, MEDICARE, SELFPAY | PROVIDERS: Family Provider Nurse Practitioner; PCP Nurse Practitioner; Visit Provider Nurse Practitioner | DX: E03.8 Other specified hypothyroidism (principal); I10 Essential (primary) hypertension; J30.2 Other seasonal allergic rhinitis; J44.9 Chronic obstructive pulmonary disease, unspecified | CPT/HCPCS: 80053; 80061; 81000; 84443 ==

== ENCOUNTER → 2020-11-29 09:06 | Outpatient (BNVA) | payer BC, MEDICARE, SELFPAY | PROVIDERS: Family Provider Nurse Practitioner; PCP Nurse Practitioner; Visit Provider Nurse Practitioner | DX: I10 Essential (primary) hypertension (principal); E03.8 Other specified hypothyroidism; J44.9 Chronic obstructive pulmonary disease, unspecified | CPT/HCPCS: 80053; 80061; 84443; 85025 ==

== ENCOUNTER → 2021-05-28 08:56 | Outpatient (BNVA) | payer MEDICARE, SELFPAY | PROVIDERS: Family Provider Nurse Practitioner; PCP Nurse Practitioner; Visit Provider Nurse Practitioner | DX: I10 Essential (primary) hypertension (principal) | CPT/HCPCS: 80053; 80061; 84443; 85025 ==

== ENCOUNTER → 2021-11-14 09:58 | Outpatient (BNVA) | payer MEDICARE, SELFPAY | PROVIDERS: Family Provider Nurse Practitioner; PCP Nurse Practitioner; Visit Provider Nurse Practitioner | DX: I10 Essential (primary) hypertension (principal); E03.8 Other specified hypothyroidism; J30.2 Other seasonal allergic rhinitis; J44.9 Chronic obstructive pulmonary disease, unspecified; Z23 Encounter for immunization | CPT/HCPCS: 80053; 80061; 84443; 85025 ==

== ENCOUNTER → 2022-05-15 08:25 | Outpatient (BNVA) | payer MEDICARE, SELFPAY | PROVIDERS: Family Provider Nurse Practitioner; PCP Nurse Practitioner; Visit Provider Nurse Practitioner | DX: E03.8 Other specified hypothyroidism (principal); I10 Essential (primary) hypertension; J44.9 Chronic obstructive pulmonary disease, unspecified; J30.2 Other seasonal allergic rhinitis; F17.210 Nicotine dependence, cigarettes, uncomplicated; Z12.11 Encounter for screening for malignant neoplasm of colon; Z12.5 Encounter for screening for malignant neoplasm of prostate | CPT/HCPCS: 80053; 80061; 84443; G0103 ==

== ENCOUNTER 2022-05-29 09:32 | Outpatient (CLI) | payer MEDICARE, SELFPAY ==
--- NOTE | 2022-05-29 10:00 | CT_ITS ---
WS: [id number] LDCT LUNG CANCER SCREENING HISTORY: F17.210 - Nicotine dependence, cigarettes, uncomplicated TECHNIQUE: Axial imaging performed from the apices to 1 cm below the costophrenic angles. Coronal and sagittal reformats are submitted with axial MIP series. All CT scans at [facility] use at least one of these dose optimization techniques: automated exposure control; mA and/or kV adjustment per patient size (includes targeted exams where dose is matched to clinical indication); or iterativ e reconstruction. DLP: 79.39 mGy.cm DIvol: Mean CTDIvol: 1.40 (mGy) COMPARISON: None available. Diagnostic quality: Satisfactory Lungs: Large cavitary lesion with asymmetric wall thickening and spiculation centered in the RIGHT up per lobe. Mass measures 6.0 x 4.7 cm with wall thickening medially extending up to 1.8 cm. There are spiculations and adjacent small satellite nodules and suspicious for lymphangitic extension of tumor. There is also mild thickening centrally along the bronchi. No additional mass or nodule is identifie d. No central endobronchial lesion. Heart: Normal size heart with no pericardial effusion.. Other findings: No axillary adenopathy. There are several mediastinal and hilar lymph nodes. Not sign ificantly enlarged. Majority contain normal fatty hilum. Mild thickening of the LEFT adrenal gland bu t no mass. Atherosclerosis suprarenal aorta. Debris and fluid in the distal esophagus from reflux dis ease. No osteoblastic or osteolytic bone disease. CT/CT lung screening [id number] IMPRESSION: LUNG-RADS: 4X-Suspicious FOLLOW UP: PET/CT recommended OTHER FINDINGS (S MODIFIER): None. Cavitary mass in the RIGHT upper lobe highly suspicious for malignancy. Also izaguirre spect lymphangitic spread. No definite adenopathy. PET/CT recommended. Referral to pulmonology recommended.
== END 2022-05-29 09:33 | disposition home or self-care (01) ==
PROVIDERS: PCP Nurse Practitioner; Visit Provider Nurse Practitioner
DX: Z12.2 Encounter for screening for malignant neoplasm of respiratory organs (principal); F17.210 Nicotine dependence, cigarettes, uncomplicated
CPT/HCPCS: 71271

== ENCOUNTER → 2022-08-04 08:41 | Outpatient (BNVA) | payer MEDICARE, SELFPAY | PROVIDERS: PCP Nurse Practitioner; Visit Provider Nurse Practitioner | DX: E03.8 Other specified hypothyroidism (principal) | CPT/HCPCS: 84443 ==

== ENCOUNTER → 2022-08-31 10:02 | Outpatient (BNVA) | payer MEDICARE, SELFPAY | PROVIDERS: PCP Nurse Practitioner; Visit Provider Internal Medicine Pulmonary Disease | DX: R91.8 Other nonspecific abnormal finding of lung field (principal); J44.9 Chronic obstructive pulmonary disease, unspecified; J30.2 Other seasonal allergic rhinitis | CPT/HCPCS: 36415; 82785; 85025; 85049; 85384; 85610; 85730; 86003; 99204 ==

== ENCOUNTER 2022-09-08 05:31 | Day surgery (SDC) | payer MEDICARE, SELFPAY ==
[2022-09-04 12:28] VITALS: BMI 26.3
--- NOTE | 2022-09-07 15:59 | CT_ITS ---
WS: [id number] CT CHEST TECHNIQUE: Noncontrast CT of the chest with coronal and sagittal reformatted images. CLINICAL INFORMATION: for bronchoscopy biopsies COMPARISON: CT lung screening May 29, 2022 DLP: [address] scans at [facility] use at least one of these dose optimization techniques: automated e xposure control; mA and/or kV adjustment per patient size (includes targeted exams where dose is matc hed to clinical indication); or iterative reconstruction. FINDINGS: RIGHT hilar cavitated mass extending into the RIGHT upper lobe anterolaterally suspicious for neoplas m. RIGHT hilar mass measures approximately 4.0 x 4.0 CM. Cavitated mass measures approximately 6.2 x 6.1 CM. Slight surrounding hazy nodular opacities with interlobular septal thickening. Bronchovascula r thickening involving the RIGHT hilum. Findings are similar in appearance. Cavitating mass measures slightly larger today. Mild narrowing of the RIGHT distal main stem bronchus. A few prominent RIGHT hilar lymph nodes. Subs egmental atelectasis LEFT lower lobe. Calcified granuloma LEFT upper lobe. Calcified LEFT hilar nodes . Moderate chronic emphysematous changes. Adrenal glands are normal. Small esophageal hiatal hernia. CT/CT chest ION (PULM ONLY) [id number] IMPRESSION: Images obtained for preoperative planning bronchoscopy purposes
--- NOTE | 2022-09-08 06:20 | ECG_ITS ---
[facility] Test Date: 2022-09-08 Pat Name: Darrin Avila Department: Room: Gender: Male Certified Bench Jeweler Technician: : 1955 Requested By: Henry Covarrubias Order Number: [id number] Homero MD: Ayan Chavez M.D. Measurements Intervals [place] Rate: 87 P: 73 CO: 170 QRS: 20 QRSD: 93 T: 89 QT: 345 QTc: 416 Interpretive Statements SINUS RHYTHM LOW QRS VOLTAGE IN EXTREMITY LEADS [QRS DEFLECTION < 0.5 mV IN LIMB LEADS] POSSIBLE ANTERIOR MYOCARDIAL INFARCTION , PROBABLY OLD [30 ms Q WAVE IN V3/V4, OR R < 0.2 mV IN V4] Compared to ECG 05/10/2019 15:17:38 Low QRS voltage now present Sinus tachycardia no longer present ST (T wave) deviation no longer present Myocardial infarct finding still present Electronically Signed On 09-08-2022 17:41:43 CDT by Ayan Chavez M.D. [id number]
[2022-09-08 06:21] VITALS: BP 137/84; PULSE 88; RESP 18; TEMP 36.6; O2SAT 95
--- NOTE | 2022-09-08 06:30 | SC_ITS ---
WS: [id number] EXAMINATION: C-arm FL for Bronchoscopy REASON FOR EXAM: ION COMPARISON: None available. ORDER DATE: 09/08/2022 6:30 AM FINDINGS/IMPRESSION: There is a bronchoscope visualized in the right upper lobe segmental bronchus slightly proximal to th e large cavitary thick-walled lesion in the right upper lobe.
[2022-09-08] MEDS: sodium chloride 0.9% 1,000 ML 30 ML IV (06:34)
--- NOTE | 2022-09-08 06:41 | ANES.PREANE2 ---
Pre-Anesthetic Assessment Height/Weight: Height 1.83 m Weight 87.997 kg Temp Pulse Resp BP Pulse Ox O2 Del Method 97.9 F 88 18 137/84 95 Room Air 09/08/22 06:21 09/08/22 06:21 09/08/22 06:21 09/08/22 06:21 09/08/22 06:21 09/08/22 06:21 Operation Date: 09/08/22 07:00 Proposed Procedures p ION, EBUS, 47897, 55372, 05665, 30724, 97678, 31039, 95450, 04565, 19435, 40118, 18177, 66025, 29682, 63460, R91.8(Not Applicable) - Neo Monahan MD s Ebus(Not Applicable) - Neo BrunsonrMD Familial anesthetic complications: None Was Beta Komal taken within 24 hours: N/A Was Clonidine taken within 24 hours: N/A Last intake: Intake Last Liquid Date 09/07/22 Last Liquid Time 21:00 Last Solid Date 09/07/22 Last Solid Time 19:00 Social Tobacco and No alcohol Exam alert, oriented x 3, clear to auscultation bilaterally and regular rate & rhythm Airway Mallampati: Class II Dentition: false Pulmonary Chronic Obstructive Pulmonary Disease RUL mass CV/HEM Hypertension Metabolic Thyroid Disease Anesthetic Plan ASA status: 3 Anesthesia: General Risk of > 500 ml blood loss (7ml/kg in children): No Medications/Allergies Home Medications Medication Instructions Recorded Confirmed Last Taken Type albuterol sulfate 2.5 mg/3 mL 2.5 mg (3 mL) inhalation QID PRN 05/15/22 09/08/22 Unknown Rx (0.083 %) solution for nebulization shortness of breath or wheezing #300 mL amlodipine 10 mg tablet 10 mg PO DAILY #90 tabs 05/15/22 09/08/22 09/08/22 Rx folic acid 1 mg tablet 1 mg PO DAILY #90 tabs 05/15/22 09/08/22 09/07/22 Rx montelukast 10 mg tablet 10 mg PO DAILY #90 tabs 05/15/22 09/08/22 09/07/22 Rx (Singulair) levothyroxine 112 mcg tablet See Rx Instructions PO .COMPLEX 05/17/22 09/08/22 09/08/22 Rx #95 tabs fluticasone fur. 100 mcg-umeclid 1 inh inhalation DAILY #60 ea 08/31/22 09/08/22 09/08/22 Rx 62.5 mcg-vilant 25 mcg inhalat.powder (Trelegy Ellipta) Allergies Allergy/AdvReac Type Severity Reaction Status Date / Time No Known Allergies Allergy Verified 09/04/22 12:20 Current Medications Generic Name Dose Route Start Last Admin Trade Name Freq PRN Reason Stop Dose Admin Sodium Chloride 1,000 mls @ 30 mls/hr 09/08/22 06:00 09/08/22 06:34 Sodium Chloride 0.9% IV 09/09/22 05:59 30 mls/hr .Q24H EDWINA Administration PFSH Anesthesia Medical History Adult onset hypothyroidism COPD (chronic obstructive pulmonary disease) COPD exacerbation Current smoker Screening for colon cancer Cologuard screen Seasonal allergies Surgical History No history of previous surgery Family History Brother Diabetes Hyperlipidemia Father Congestive heart disease COPD (chronic obstructive pulmonary disease) Dementia Cancer prostate Mother Congestive heart disease COPD (chronic obstructive pulmonary disease) Cancer gastric cancer Other No history of previous surgery Social History Smoking and tobacco status: current every day smoker cigarettes Packs smoked per day: 2 Years cigarettes smoked: 55 Second hand smoke exposure: Yes Smoking risk assessment/counseling performed?: Yes Alcohol intake: former Desire information about alcohol rehabilitation?: No Counseling given: No Last alcohol use date: 05/07/19 Other details last alcohol use: arabella Substance/Drug Use: never Desire information about substance/drug rehabilitation?: No Counseling given: No Adopted: No Caregiver/support person: No Lives independently: Yes Household members: none Marital status: Number of children: 1 service: Yes branch: [employer] Current occupational status: retired Pets and animals: No Do you think of yourself as: Straight/Heterosexual Current gender identity: Male Data Anesthesia Cardiac Studies: Echocardiogram Ultrasound 05/11/19
--- NOTE | 2022-09-08 06:47 | W.PM.OPSUD ---
Surgery/Procedure H&P Update DATE OF PROCEDURE: September 08, 2022 DATE H&P PERFORMED: 08/31/22 H&P UPDATE INFORMATION: I have reviewed H&P completed within last 30 days, I have examined patient prior to procedure and No changes to prior documentation PRIMARY INDICATION FOR PROCEDURE: Right upper lobe cavitary lesion suspicious for malignancy PLANNED PROCEDURE: Operation Date: 09/08/22 07:00 Proposed Procedures p ION, EBUS, 09277, 08098, 80403, 21835, 95149, 43942, 05195, 97609, 29963, 95739, 71888, 73669, 08023, 08786, R91.8(Not Applicable) - Neo Monahan MD s Ebus(Not Applicable) - Neo Monahan MD
[2022-09-08] MEDS: lidocaine 1% INJ 10 mL (per mL) XX (07:27)
[2022-09-08 09:39] VITALS: BP 105/63; PULSE 85; RESP 12; TEMP 36.4; O2SAT 98
[2022-09-08 09:44] VITALS: BP 112/71; PULSE 82; RESP 16; O2SAT 94
--- NOTE | 2022-09-08 09:53 | XRR_ITS ---
PROCEDURE INFORMATION: Exam: XR Chest Exam date and time: 09/08/2022 9:56 AM Age: 67 years old Clinical indication: Device placement; Prior surgery; Surgery date: Post-operative (0-2 days); Surgery type: Post bronch; Additional info: Post ion TECHNIQUE: Imaging protocol: Radiologic exam of the chest. Views: 1 view. COMPARISON: CT chest ION (PULM ONLY) [id number] 09/08/2022 6:10 AM FINDINGS: Lungs: Cavitating lesion in the right upper lobe measuring approximately 5.6 x 5.7 cm.. Calcified granuloma left upper lobe. Pleural spaces: No pneumothorax Heart/Mediastinum: Unremarkable. No cardiomegaly. Bones/joints: Unremarkable. XR/XR chest 1V portable [id number] IMPRESSION: 5.6 x 5.7 cm cavitating lesion in the right upper lobe. No pneumothorax.
[2022-09-08 09:59] VITALS: BP 113/79; PULSE 79; RESP 18; O2SAT 92
--- NOTE | 2022-09-08 10:00 | ANE.PACU2 ---
Inpatient post-anesthesia follow up: Airway intact: Yes Vital signs: Temperature 97.6 F Pulse Rate 84 Respiratory Rate 18 Blood Pressure 117/76 Pulse Oximetry 90 Oxygen Delivery Me thod Room Air Oxygen Flow Rate 3 Fraction of Inspir ed Oxygen Hydration adequate: Yes Nausea and vomiting: No Pain level: 1 Mental status: Baseline
[2022-09-08 10:05] VITALS: BP 119/74; PULSE 82; RESP 18; TEMP 36.4; O2SAT 92
[2022-09-08 10:06] VITALS: BP 117/76; PULSE 84; TEMP 36.4; O2SAT 90
[2022-09-08 10:06] LABS: Cyto Order Verification Order Verified
[2022-09-08 10:41] LABS: Apprearance, Bronch Wash Bloody (CLEAR); Color, Bronc Wash Red
--- NOTE | 2022-09-08 10:44 | P.OP_ITS ---
Operative Report Date of procedure: September 08, 2022 Pre-op diagnosis: Right upper lobe cavitary mass suspicious for lung malignancy Post-op diagnosis: Suspicious for malignancy. Procedure done: 78240 Dx Bronchoscope w/Washings or airway inspection 17336 Bx Bronchoscope w/Brushings or protected brushings 00845 Dx Bronchoscope w/BAL 59255 Bronch with computer image guided Navigational Bronchoscopy 39397 Bronchoscopy w/Transbronchial lung biopsy(s), single lobe 80769 Bronchoscopy w/Transbronchial needle aspiration biopsy(s), tracheal, main stem, and/or lobar bronchus 00389 Bronchoscopy w/ therapeutic aspiration of the tracheobronchial tree (clearance of airway secretions, removal of mucus plugs) 62795 EBUS Sampling >=3 nodes 32871 EBUS Diag or Interven Peripheral lesion (radial EBUS) Surgeon: Neo Monahan MD [facility] Brief History: ?Darrin Avila is a 67-year-old male with past medical history of COPD, hypertension, hypothyroidism, referred by PCP Ms. Lucretia Summers that abnormal low- dose CT. LDCT May 2022: Showed large cavitary lesion with asymmetric wall thickening and spiculation centered in right upper lobe concerning for malignancy.? Mass measures 6 x 4.7 cm with wall thickening medially extending up to 1.8 cm.? There are spiculations and adjacent small satellite nodules and suspicious for lymphangitic extension of the tumor.? There is mild thickening centrally along the bronchi.? Several mediastinal hilar lymph nodes not significantly enlarged. smoked 1 PPD X 55 years and continues to smoke lost 4 lbs over 4 months, good appetite, decreased energy lately. He has shortness of breath on exertion, denied any chest pains, leg swelling, palpitations Given his chronic smoking history-right upper lobe cavitary lesion is suspicious for malignancy. Today scheduled for navigational robotic bronchoscopy guided biopsies right upper lobe cavitary lesion, endobronchial ultrasound-guided biopsies of hilar/mediastinal lymph nodes. Procedure: 38462 Dx Bronchoscope w/Washings or airway inspection 11283 Bx Bronchoscope w/Brushings or protected brushings 10265 Dx Bronchoscope w/BAL 49629 Bronch with computer image guided Navigational Bronchoscopy 38298 Bronchoscopy w/Transbronchial lung biopsy(s), single lobe 32517 Bronchoscopy w/Transbronchial needle aspiration biopsy(s), tracheal, main stem, and/or lobar bronchus 57308 Bronchoscopy w/ therapeutic aspiration of the tracheobronchial tree (clearance of airway secretions, removal of mucus plugs) 60913 EBUS Sampling >=3 nodes 92072 EBUS Diag or Interven Peripheral lesion (radial EBUS) Indication: Description of the procedure: The procedure was explained to the patient and the consent was obtained. The patient was brought to the OR. Anesthesia: The patient underwent endotracheal intubation for general anesthesia. Local anesthesia: The distal trachea-Keren, right and left mainstem bronchi were anesthetized with 1% lidocaine, 3 mL. Following induction of general anesthesia, the flexible bronchoscope was advanced through the ET tube. The lower trachea mucosa appeared normal, no endotracheal lesion was seen. The keren was sharp. The keren, the right and left mainstem bronchi are anesthetized with 1% lidocaine. In a systematic manner bilateral bronchial tree was then examined. The bronchoscope was then introduced into the right mainstem bronchus. The right upper lobe, right middle lobe and right lower lobe bronchi were examined up to the third subsegmental level and no abnormalities were identified.Mucosa appeared normal with no endobronchial lesion, active bleeding or mucous plug.There were significant clear as well as some mucus secretions which were suctioned right away.(09525). The bronchoscope was advanced into the left mainstem bronchus. The mucosa appeared normal with no endobronchial lesions. The left upper lobe, lingula and left lower lobe bronchi were examined up to the third subsegmental level and no abnormalities were identified. Mucosa appeared normal with no endobronchial le viktoria, active bleeding or mucous plug. There were some mucus secretions in left lower lobe-which were suctioned right away.(89783) After initial inspection as well as airway clearance with flexible bronchoscope(43233), ION robotic assisted navigational bronchoscope (98652) was introduced-and right upper lobe cavitary lesion was accessed. After confirming the location with radial EBUS (16293), under the fluoroscopy guidance -we were able to obtain biopsies using fine-needle, forceps.There was some evidence of grade 2 bleeding-cold saline was instilled. Bronchoalveolar lavage was also taken from right upper lobe lesion. After making sure there is no active bleeding navigational bronchoscope was retracted and introduced Endobronchial ultrasound EBUS (13466). With the help of EBUS, identified a lymph node at station 4L, station 7 and station 11 R. Fine-needle aspiration biopsies were taken from station 4L, station 7 and station 11 R. (64319) After taking the biopsies EBUS retracted-diagnostic bronchoscope was introduced to check for any evidence of active bleeding. There was some evidence of bleeding-controlled with instillation of cold saline. After making sure there is no active bleeding bronchoscope was retracted and procedure terminated. Samples: A. Right upper lobe cavitary lesion 1. Total of 4 passes were made using needle aspiration(90551); first pass used for touch prep - reported seeing atypical clusters; rest of the material was placed in formalin for histopathology 2. Targeting the same area 4 passes were made using forceps (48891); material were placed in formalin for histopathology 3. Bronchoscope was wedged at the entrance of the anterior segment of right upper lobe, 10 mL of saline was instilled and returned 6 mL of bronchoalveolar lavage (79436). The fluid was mixed with blood and specks of tissue. Samples for cell count, cytology, microbiology, AFB, fungal cultures B. EBUS guided Fine-needle aspiration biopsies were taken from station 4L, station 7 and station 11 R. (68980) 1. Total of 3 passes were made using needle aspiration(92003) from station 4L; first pass used for touch prep -pathology reported seeing rare atypical cells; rest of the material were placed in formalin for histopathology. 2. Total of 3 passes were made using needle aspiration(38960) from station 7; first pass used for touch prep -pathology reported seeing atypical clusters; rest of the material were placed in formalin for histopathology. 3. Total of 3 passes were made using needle aspiration(24988) from station 11 R: First pass used for touch prep-pathology reported negative for malignancy; rest of the material was placed in formalin for histopathology Complications: None.The patient was extubated and brought to the PACU in stable condition. Postprocedure chest x-ray: There is no evidence of pneumothorax Disposition: Patient can be discharged home in stable condition. Pt is aware that I am going to call him to update final biopsy results once available. Related Problem List Diagnoses (1) Mass of upper lobe of right lung:
[2022-09-08 11:56] LABS: Bronch Source Right Upper Lobe; PATH Referral Yes; Total Cells Counted Bronch 200
== END 2022-09-08 10:50 | disposition home or self-care (01) ==
PROVIDERS: PCP Nurse Practitioner; Visit Provider Internal Medicine Pulmonary Disease
PROC: 0BJ08ZZ Inspection of Tracheobronchial Tree, Via Natural or Artificial Opening Endoscopic (ICD-10-PCS; CPT 31622; principal; 2022-09-08 07:00)
PROC: BB4BZZZ Ultrasonography of Pleura (ICD-10-PCS; 2022-09-08 07:00)
DX: C34.11 Malignant neoplasm of upper lobe, right bronchus or lung (principal); J44.9 Chronic obstructive pulmonary disease, unspecified; I10 Essential (primary) hypertension; E03.9 Hypothyroidism, unspecified; F17.210 Nicotine dependence, cigarettes, uncomplicated
CPT/HCPCS: 31623; 31624; 31627; 31628; 31629; 31645; 31653; 31654; 71045; 71250; 76000; 80503; 87015; 87070; 87102; 87116; 87205; 87206; 87801; 88112; 88305; 88342; 89050; 93005; J1100; J2371; J2405; J2704; J3010; J3490; J7030

== ENCOUNTER 2022-09-12 05:43 | Outpatient (CLI) | payer MEDICARE, SELFPAY ==
--- NOTE | 2022-09-12 09:00 | PETR_ITS ---
PROCEDURE INFORMATION: Exam: PET/CT Skull Base to Mid-thigh Exam date and time: 09/12/2022 9:58 AM Age: 67 years old Clinical indication: Abnormal findings; Lung muss; Additional info: Lung mass. A history of bronchoscopy 09/08/2022. LABS AND CLINICAL REPORTS: Glucose: 84 mg/dl Treatment strategy for malignancy (PET staging): Restaging (PS) TECHNIQUE: Imaging protocol: Following at least four-hour fasting and following the injection of radiopharmaceutical, low dose CT images were obtained. Then, PET images were obtained. Attenuation corrected images were constructed using the CT scan. Fused images of PET and CT were reviewed. The standardized uptake values (SUV) reported below are maximum values within a region of interest, expressed in gm/ml. Exam includes orbital meatal line to mid-thigh. Radiopharmaceutical: 11.36 mCi F-18 FDG (Fluorodeoxyglucose), IV. Time of imaging post radiopharmaceutical administration: 1 hour Injection site: Left antecubital COMPARISON: CT chest ION (PULM ONLY) [id number] 09/08/2022 6:10 AM, CT chest 05/29/2022 FINDINGS: Brain: Visualized brain has normal physiologic uptake. Paranasal sinuses: Mild non radiotracer avid mucosal thickening of the right maxillary sinus is consistent with benign chronic sinus disease. Pharynx: No abnormal uptake. Larynx: No abnormal uptake. Lungs, pleura and trachea: Elevated uptake is identified in the wall of a right upper lobe cavitary mass, SUV max 15.4 on series 4, image 57, measuring 5.7 x 6.2 cm in the axial plane. This mass is similar in size compared with 09/08/2022, increased in size compared with 05/29/2022. Adjacent mild patchy density posterior to the lesion on series 3, image 58 is new compared with 09/08/2022 and demonstrates mild uptake, SUV max 5.8. A left upper lobe calcified granuloma is present. Heart: Normal physiologic uptake. Mediastinal space: No abnormal uptake. Liver: There is a small focus of elevated uptake along the inferior medial aspect of the right liver lobe which appears to be related to motion artifact on PET series 4, image 112, SUV max 7.0, without a definite correlating lesion on the CT images. Gallbladder and bile ducts: No abnormal uptake. Pancreas: No abnormal uptake. Spleen: No abnormal uptake. Adrenal glands: No abnormal uptake. Kidneys and ureters: Normal physiologic uptake. Stomach and bowel: Normal physiologic uptake. Reproductive: Diffusely elevated uptake in the left testis is noted, SUV max 4.8 compared with SUV max 3.5 on the right. Vasculature: No abnormal uptake. There are diffuse atherosclerotic changes. Aneurysmal dilatation of the infrarenal abdominal aorta measures 4.4 x 4.2 cm on series 3, image 127. Lymph nodes: Clustered mildly prominent lymph nodes in the aortopulmonary window are noted, the largest of which measures 9 mm in diameter on series 3, image 60. Uptake in this region demonstrates an SUV max 3.9. Additional mildly prominent mediastinal lymph nodes are noted without significant uptake. There are non radiotracer avid calcified left hilar lymph nodes. Bones/joints: No abnormal uptake. [id number] diffuse degenerative vertebral body spondylosis is present. Soft tissues: No abnormal uptake in the visualized head, neck, chest, abdomen, pelvis, and extremities. METRICS: Mediastinal blood pool: SUV max 2.8. PET[facility] SUBSEQ [id number] IMPRESSION: 1. Abnormal uptake is noted in the wall of a known right upper lobe cavitary mass (SUV max 15.4) concerning for malignancy. Mild patchy density along the posterior aspect of the mass is new compared with 09/08/2022, possibly related to post bronchoscopy inflammatory changes or infectious infiltrate. 2. Mildly prominent mediastinal lymph nodes are present, some of which are mildly radiotracer avid in the region of the aortopulmonary window. This may be reactive, secondary to infectious or inflammatory involvement. Neoplastic involvement cannot be excluded. 3. A focus of elevated uptake along the inferior medial aspect of the right lobe of the liver is noted. Assessment of this region is limited by motion artifact. Although no definite lesion within the liver is identified on the comparison noncontrast CT images, dedicated multiphasic CT or MRI of the liver may be useful for more definitive characterization. 4. Asymmetric uptake in the left testis is noted diffusely. An inflammatory or infectious orchitis is favored over neoplastic involvement. 5. Aneurysmal dilatation of the infrarenal abdominal aorta. 6. Additional nonurgent findings as detailed above.
== END 2022-09-12 05:44 | disposition home or self-care (01) ==
LOC: RAD 09-14 05:44
PROVIDERS: PCP Nurse Practitioner; Visit Provider Internal Medicine Pulmonary Disease
DX: R91.8 Other nonspecific abnormal finding of lung field (principal)
CPT/HCPCS: 78815; A9552

== ENCOUNTER 2022-09-29 06:45 | Outpatient (CLI) | payer MEDICARE, SELFPAY ==
[2022-09-29 07:13] VITALS: BP 110/83
[2022-09-29 07:27] VITALS: PULSE 99; RESP 18; O2SAT 92
[2022-09-29] MEDS: albuterol 2.5 mg/3 mL Neb INHALATION (07:27)
[2022-09-29 07:32] VITALS: PULSE 98
== END 2022-09-29 06:46 | disposition home or self-care (01) ==
PROVIDERS: PCP Nurse Practitioner; Visit Provider Internal Medicine Pulmonary Disease
DX: C34.11 Malignant neoplasm of upper lobe, right bronchus or lung (principal); J44.9 Chronic obstructive pulmonary disease, unspecified; F17.210 Nicotine dependence, cigarettes, uncomplicated; R94.2 Abnormal results of pulmonary function studies; K76.9 Liver disease, unspecified
CPT/HCPCS: 94060; 94618; 94726; 94729; 99205; J7613

== ENCOUNTER 2022-09-29 08:00 | Oncology outpatient (recurring) (ONCR) | payer MEDICARE, SELFPAY | END 2022-10-15 23:59 | disposition home or self-care (01) | PROVIDERS: PCP Nurse Practitioner; Visit Provider Internal Medicine Medical Oncology | DX: Z53.9 Procedure and treatment not carried out, unspecified reason (principal) ==

== ENCOUNTER → 2022-10-08 08:36 | Outpatient (BNVA) | payer MEDICARE, SELFPAY | PROVIDERS: PCP Nurse Practitioner; Visit Provider Internal Medicine Pulmonary Disease | DX: C34.11 Malignant neoplasm of upper lobe, right bronchus or lung (principal); F17.210 Nicotine dependence, cigarettes, uncomplicated; J44.9 Chronic obstructive pulmonary disease, unspecified; J82.83 Eosinophilic asthma | CPT/HCPCS: 99214 ==

== ENCOUNTER 2022-10-20 08:47 | Oncology outpatient (recurring) (ONCR) | payer MEDICARE, SELFPAY ==
[2022-10-20 09:38] VITALS: BP 104/67; PULSE 94; RESP 18; TEMP 36.7; O2SAT 84
== END 2022-11-14 23:59 | disposition home or self-care (01) ==
PROVIDERS: PCP Nurse Practitioner; Visit Provider Internal Medicine Medical Oncology
DX: C34.90 Malignant neoplasm of unspecified part of unspecified bronchus or lung (principal)
CPT/HCPCS: 36415

== ENCOUNTER 2022-11-04 11:49 | Outpatient (CLI) | payer MEDICARE, SELFPAY ==
--- NOTE | 2022-11-04 12:15 | MR_ITS ---
WS: [id number] MRI BRAIN WITH AND WITHOUT CONTRAST HISTORY: History of lung cancer. COMPARISON: Noncontrast head CT 05/10/2019. TECHNIQUE: Multiplanar imaging performed through the brain with MultiHance 18 ml's IV. No acute infarcts are seen. Huffman-white matter differentiation is well preserved. Scattered T2 and FLA IR signal hyperintensities in the subcortical and periventricular white matter. Consistent with mild small vessel ischemic disease. No large territory infarct. There is mild volume loss and atrophy. No susceptibility artifacts or prior lacunar infarcts. Ventricles and extra-axial spaces are normal. Clivus and pituitary gland are normal. Visualized posterior fossa and brainstem are also normal. Postcontrast images are negative for masses or vascular malformations. Dural venous sinuses are normal. Paranasal sinuses: Mild mucoperiosteal thickening RIGHT maxillary sinus. Mastoid air cells: Normal. Calvarium and scalp: Normal. IMPRESSION: 1. No metastatic lesions within the brain. 2. Mild small vessel ischemic disease and mild atrophy.
[2022-11-04] MEDS: gadobenate dimeglumine 20 mL vial IV (13:01)
== END 2022-11-04 11:50 | disposition home or self-care (01) ==
PROVIDERS: PCP Nurse Practitioner; Visit Provider Internal Medicine Medical Oncology
DX: C34.90 Malignant neoplasm of unspecified part of unspecified bronchus or lung (principal); K76.9 Liver disease, unspecified; I67.89 Other cerebrovascular disease
CPT/HCPCS: 70553; A9577

== ENCOUNTER → 2022-11-06 08:13 | Outpatient (BNVA) | payer MEDICARE, SELFPAY | PROVIDERS: PCP Nurse Practitioner; Visit Provider Nurse Practitioner | DX: E03.8 Other specified hypothyroidism (principal); I10 Essential (primary) hypertension; J44.9 Chronic obstructive pulmonary disease, unspecified; J30.2 Other seasonal allergic rhinitis; K59.01 Slow transit constipation | CPT/HCPCS: 80053; 80061; 84443 ==

== ENCOUNTER 2022-11-10 11:41 | Outpatient (CLI) | payer MEDICARE, SELFPAY ==
--- NOTE | 2022-11-10 12:15 | MR_ITS ---
WS: [id number] MRI/MRCP OF THE ABDOMEN WITHOUT GADOLINIUM ENHANCEMENT TECHNIQUE: Coronal T2 Fase BH, Axial T2 Fase BH, Axial T2 FS BH, Zxial 3D Ngo BH, Axial DWI BH, 2D MRCP Radial BH, 3D MRCP (Resp), and Axial 3D Dyn BH Post sequences. CLINICAL INFORMATION: Special attention to liver COMPARISON: PET/CT 09/12/2022 FINDINGS: Comparison with recent PET/CT 09/12/2022. Tiny focus of FDG activity along the undersurface of the RIG HT hepatic lobe. There is a tiny focus of T2 hyperintensity in this area measuring approximately 5 mm near the same corresponding location. Postgadolinium images demonstrate no abnormal gadolinium enhan cement. No abnormal enhancement on the dynamic imaging. Lesion is persistent but does not enhance on the 5-minute delayed imaging most consistent with a tiny incidental hepatic cyst. Uptake seen on the prior PET/CT may be due to adjacent artifact from abutting bowel. No other suspicious liver lesions. Normal gallbladder. Normal pancreas. Normal spleen. No hydronephrosis in either kidney. Incidental re nal cysts. Adrenal glands are normal. Stable abdominal aortic aneurysm with peripheral mural thrombus measuring 3.8 x 3.8 cm AP by transverse. IMPRESSION: No suspicious enhancing hepatic lesions. See discussion above.
[2022-11-10] MEDS: gadobenate dimeglumine 20 mL vial IV (12:53)
== END 2022-11-10 11:42 | disposition home or self-care (01) ==
PROVIDERS: PCP Nurse Practitioner; Visit Provider Internal Medicine Medical Oncology
DX: C34.90 Malignant neoplasm of unspecified part of unspecified bronchus or lung (principal); K76.9 Liver disease, unspecified
CPT/HCPCS: 74183; A9577

== ENCOUNTER → 2022-11-11 08:35 | Outpatient (BNVA) | payer MEDICARE, SELFPAY | PROVIDERS: PCP Nurse Practitioner; Visit Provider Internal Medicine Pulmonary Disease | DX: C34.11 Malignant neoplasm of upper lobe, right bronchus or lung (principal); J44.9 Chronic obstructive pulmonary disease, unspecified; F17.210 Nicotine dependence, cigarettes, uncomplicated; J82.83 Eosinophilic asthma; Z80.0 Family history of malignant neoplasm of digestive organs; Z80.42 Family history of malignant neoplasm of prostate | CPT/HCPCS: 99214 ==

== ENCOUNTER 2023-01-28 10:09 | Emergency (ER) | payer MEDICARE, SELFPAY ==
[2023-01-28] VITALS (8 sets, daily range): BP systolic 113–146; BP diastolic 68–89; PULSE 73–97; RESP 19–23; TEMP 37.1; O2SAT 83–98; BMI 24.4
--- NOTE | 2023-01-28 10:57 | XR_ITS ---
WS: [id number] Portable AP upright chest, 01/28/2023 Clinical Data: dyspnea/cough Comparison: Portable chest, 09/08/2022 Findings: There is a right upper lobe cavity which has enlarged. In the right lower lobe there is vol ume loss with increased opacity which may represent atelectasis. The left lung is fully expanded. The re is minimal opacity over the surface of the left lung. The heart size is normal. The left lung show s no pneumothorax. Impression: 1. Enlarging right upper lobe cavity with a large increase in the opacity in the right lower lobe whi ch may represent atelectasis and/or pneumonia. 2. Left lung remains clear.
--- NOTE | 2023-01-28 11:01 | ED_ITS ---
HPI - SOB/Dyspnea 2 General: Chief Complaint: Shortness of Breath/Dyspnea Stated Complaint: sob,cant get OX up Time Seen by Provider: 01/28/23 10:55 Source: patient Mode of arrival: ambulatory History of Present Illness: HPI Narrative: 67-year-old male with a history of right lung CA with recent lung resection comes in complaining shortness of breath on exertion. He is normally on 5 L of oxygen at rest turns up to 8 with activity. He denies any chest pain no fever sweats chills daughter is with him also makes comment that he has difficult time urinating and elbow and small amounts frequently but no pain no dysuria no flank pain. He has an unchanged baseline cough he denies any hemoptysis MD elicited complaint: shortness of breath Pertinent past history: COPD, asthma and other (Lungs CTA) Timing: constant Severity: moderate Exacerbating factors: exertion and coughing Relieving factors: oxygen and rest Known history of: COPD and asthma Associated symptoms: Reports cough; Deny abdominal pain, chest congestion, chest pain, diaphoresis, dizziness, extremity pain, fever(s), hemoptysis, lightheadedness, myalgias, nausea, orthopnea, palpitations, paresthesias, polydipsia, polyuria, rash, sense of impending doom, syncope or vomiting Treatment prior to arrival: oxygen Review of Systems 2 Const: Denies: fever(s), chills or diaphoresis Card: Denies: chest pain, palpitations, lightheadedness, syncope or orthopnea Resp: Denies: dyspnea, hemoptysis or chest congestion GI: Denies: abdominal pain, nausea or vomiting : Denies: dysuria, urinary frequency or urinary urgency Musc: Denies: neck pain, back pain or extremity pain Skin/Breast: Denies: rash Neuro: Denies: dizziness Endo: Denies: polyuria or polydipsia PFSH ED 2 PFSH: Medical History Screening for colon cancer Cologuard screen COPD (chronic obstructive pulmonary disease) Current smoker COPD exacerbation Adult onset hypothyroidism Seasonal allergies Surgical History No history of previous surgery Family History Brother Diabetes Hyperlipidemia Father Congestive heart disease COPD (chronic obstructive pulmonary disease) Dementia Cancer prostate Mother Congestive heart disease COPD (chronic obstructive pulmonary disease) Cancer gastric cancer Other No history of previous surgery Social History Smoking and tobacco/nicotine status: current every day tobacco/nicotine user cigarettes Packs smoked per day: 2 Years cigarettes smoked: 55 Second hand smoke exposure: Yes Alcohol intake: former Substance/Drug Use: never Adopted: No Caregiver/support person: No Lives independently: Yes Household members: none Marital status: Number of children: 1 service: Yes branch: [employer] Current occupational status: retired Pets and animals: No Do you think of yourself as: Straight/Heterosexual Current gender identity: Male Physical Exam 2 Const: COMMON NORMALS: no acute distress GENERAL APPEARANCE: cooperative and comfortable ORIENTATION/CONSCIOUSNESS: Yes awake, Yes oriented to person, Yes oriented to place and Yes oriented to time HENMT: COMMON NORMALS: normocephalic, atraumatic and hearing grossly normal bilaterally HEAD & SCALP: normocephalic and atraumatic Resp: COMMON NORMALS: normal respiratory effort, No retractions, No use of accessory muscles and clear to auscultation bilaterally AUSCULTATION: clear to auscultation bilaterally Cardio: COMMON NORMALS: regular rate, regular rhythm and No murmurs present (Cardio) RATE: regular rate RHYTHM: regular rhythm GI: COMMON NORMALS: Soft to palpation and No hepatosplenomegaly present A USCULTATION: Yes normoactive bowel sounds PALPATION: Yes Soft to palpation, No Tenderness to palpation present (GI), No Guarding due to palpation present (GI) and Yes No hepatosplenomegaly present Extremity: COMMON NORMALS: normal to inspection, capillary refill normal, no clubbing, cyanosis or edema, no calf tenderness and no pedal edema Neuro: SENSORIUM/ORIENTATION: Yes oriented to person, Yes oriented to place and Yes oriented to time Skin: COMMON NORMALS: no rashes or lesions noted GENERAL SKIN EXAM: no rashes or lesions noted Course 2 Vital Signs: Vital signs: Vital Signs Temperature 98.7 F 01/28/23 10:22 Pulse Rate 84 01/28/23 13:59 Respiratory Rate 21 H 01/28/23 13:29 Blood Pressure 129/89 01/28/23 13:59 Pulse Oximetry 93 01/28/23 13:59 Oxygen Delivery Me thod Nasal Cannula 01/28/23 13:29 Oxygen Flow Rate 8 01/28/23 13:37 MDM - SOB/Dyspnea Medical Decision Making Ambulated and did blood gas on 8 L she is chronically hypercapnic. With a pulse ox centrally his sats remain good. Chest x-ray shows questionable atelectasis versus pneumonia and changes from his previous lobectomy he is already on Levaquin that he was discharged home from [facility]. Will add prednisone taper he can use DuoNebs as needed avoid exertional activity. His reserve as such he may need assistance with ambulation may need to get a wheelchair. Medical Records I reviewed the patient's medical records. Lab Data I reviewed the patient's lab results. 01/28/23 11:08 01/28/23 11:08 Labs/Radiology: Laboratory Results WBC 9.15 10^3/uL (3.29-11.43) 01/28/23 11:08 RBC 4.11 10^6/uL (3.85-5.65) 01/28/23 11:08 Hgb 12.40 g/dL (11.27-16.99) 01/28/23 11:08 Hct 38.8 % (37-53) 01/28/23 11:08 MCV 94.4 fl (82-101) 01/28/23 11:08 MCH 30.2 pg (27-33) 01/28/23 11:08 MCHC 32.0 g/dL (30-55) 01/28/23 11:08 RDW 14.4 % (12.1-15.1) 01/28/23 11:08 Plt Count 497 10^3/cmm (157-399) H 01/28/23 11:08 MPV 8.1 fL (7.4-10.4) 01/28/23 11:08 Neut % (Auto) 89.5 % 01/28/23 11:08 Lymph % (Auto) 4.6 % 01/28/23 11:08 Day % (Auto) 5.1 % 01/28/23 11:08 Eos % (Auto) 0.0 % 01/28/23 11:08 Baso % (Auto) 0.1 % 01/28/23 11:08 Neut # (Auto) 8.19 10^3/uL (1.8-7.7) H 01/28/23 11:08 Lymph # (Auto) 0.4 10^3/uL (0.8-4.8) L 01/28/23 11:08 Day # (Auto) 0.5 10^3/uL (0.2-0.9) 01/28/23 11:08 Eos # (Auto) 0.0 10^3/uL (0.0-0.8) 01/28/23 11:08 Baso # (Auto) 0.0 10^3/uL (0.0-0.1) 01/28/23 11:08 Nucleated RBC % (auto) 0 % 01/28/23 11:08 Nucleated RBCs # 0.0 /100WBC 01/28/23 11:08 Specimen Type Arterial 01/28/23 13:27 Sample Site Brachial, right 01/28/23 13:27 ABG pH 7.45 (7.35-7.45) 01/28/23 13:27 ABG pCO2 54.8 mmHg (35-45) H 01/28/23 13:27 ABG pO2 48.4 mmHg (80.0-100.0) L 01/28/23 13:27 ABG HCO3 38.1 mmol/L (22-26) H 01/28/23 13:27 ABG O2 Saturation 85.2 01/28/23 13:27 ABG Base Excess 12.1 mmol/L (-2.0-2.0) H 01/28/23 13:27 Chato Test Pos 01/28/23 13:27 A-a O2 Gradient 4.9 mmHg (5-10) L 01/28/23 13:27 Hematocrit 37.6 % (42-52) L 01/28/23 13:27 Hgb O2 Saturation 83.2 % (95-100) L 01/28/23 13:27 Carboxyhemoglobin 1.8 %THgb (0.4-20.1) 01/28/23 13:27 Methemoglobin 0.4 % (0.4-1.5) 01/28/23 13:27 Total Hemoglobin 12.3 g/dL (14-18) L 01/28/23 13:27 Sodium 135.0 mmol/L (131-143) 01/28/23 13:27 Potassium 3.9 mmol/L (3.5-5.0) 01/28/23 13:27 Glucose 114.0 mg/dL (70-115) 01/28/23 13:27 Ionized Calcium 1.2 mmol/L (1.1-1.4) 01/28/23 13:27 O2 Delivery Device Nc 01/28/23 13:27 O2 Liters/Min 8.0 % 01/28/23 13:27 Biopsychologist ID Monro 01/28/23 13:27 Sodium 132 mmol/L (136-145) L 01/28/23 11:08 Potassium 4.2 mmol/L (3.5-5.1) 01/28/23 11:08 Chloride 87 mmol/L (98-107) L 01/28/23 11:08 Carbon Dioxide 37 mmol/L (22-29) H 01/28/23 11:08 Anion Gap 12.2 (5-19) 01/28/23 11:08 BUN 17 mg/dL (8-23) 01/28/23 11:08 Creatinine 0.8 mg/dL (0.7-1.2) 01/28/23 11:08 GFR Calculation 96.1 mL/min (90-130) 01/28/23 11:08 Glucose 116 mg/dL (65-115) H 01/28/23 11:08 Calculated Osmolality 277 mOsm/kg (285-295) L 01/28/23 11:08 Calcium 8.8 mg/dL (8.5-10.5) 01/28/23 11:08 Total Bilirubin 0.3 mg/dL (0.15-1.2) 01/28/23 11:08 AST 15 U/L (0-40) 01/28/23 11:08 ALT 15 U/L (0-41) 01/28/23 11:08 Alkaline Phosphatase 93 U/L (40-130) 01/28/23 11:08 Troponin T Baseline 15 ng/L (0-15) 01/28/23 11:08 Troponin T 120 Minute 7.89 ng/L (0-15) 01/28/23 13:05 Delta Troponin T -7.11 ABS# (0-10) L 01/28/23 13:05 NT-Pro-B Natriuret Pep 636 pg/mL (0-125) H 01/28/23 11:08 Total Protein 6.6 g/dL (6.6-8.7) 01/28/23 11:08 Albumin 3.1 g/dL (3.5-5.2) L 01/28/23 11:08 Globulin 3.5 g/dL (1.3-4.6) 01/28/23 11:08 Urine Color Yellow (Yellow) 01/28/23 12:15 Urine Appearance Clear (CLEAR) 01/28/23 12:15 Urine pH 7 (5-7) 01/28/23 12:15 Ur Specific Seltzer 1.005 (1.005-1.030) 01/28/23 12:15 Urine Protein Neg (Negative) 01/28/23 12:15 Urine Glucose (UA) Norm (Normal) 01/28/23 12:15 Urine Ketones Negative (Negative) 01/28/23 12:15 Urine Blood Neg (Negative) 01/28/23 12:15 Urine Nitrate Negative (Negative) 01/28/23 12:15 Urine Bilirubin Neg (Negative) 01/28/23 12:15 Urine Urobilinogen Norm mg/dL (Negative) 01/28/23 12:15 Ur Leukocyte Esterase Negative (Negative) 01/28/23 12:15 All radiology interpretation(s) finalized by discharge Discharge Plan Discharge Patient Disposition: Home Clinical Impression: Acute exacerbation of chronic obstructive airways disease, Squamous cell carcinoma lung Condition: Stable Prescriptions: New ipratropium-albuterol 0.5 mg-3 mg(2.5 mg base)/3 mL solution for nebulization 3 ml inhalation Q4H PRN (Reason: shortness of breath or wheezing) Qty: 90 0RF Medrol (Elton) 4 mg tablets,dose pack See Rx Instructions .ROUTE .COMPLEX Qty: 21 0RF Rx Instructions: orally per package directions No Action amlodipine 10 mg tablet 10 mg PO DAILY Qty: 90 1RF Rx Instructions: [facility] put on hold 01/26/23 albuterol sulfate 2.5 mg /3 mL (0.083 %) solution for nebulization 2.5 mg INHALATION QID PRN (Reason: shortness of breath or wheezing) Qty: 300 5RF furosemide 40 mg tablet 40 mg PO BID Rx Instructions: take 7 hours apart amiodarone 200 mg tablet 200 mg PO QAM midodrine 5 mg tablet 5 mg PO Q8H Rx Instructions: reuben put on hold 01/28/23 tramadol 50 mg tablet 50 mg PO Q4H PRN (Reason: Pain) tamsulosin 0.4 mg capsule 0.8 mg PO QPM levofloxacin 750 mg tablet 750 mg PO DAILY@08 Mucinex 1,200 mg Tablet Extended Release 12hr 1,200 mg PO Q12H potassium chloride 20 mEq tablet extended release 40 meq PO BID folic acid 1 mg tablet 1 mg PO QAM Singulair 10 mg tablet 10 mg PO BEDTIME Miralax 17 gram/dose powder 17 g PO DAILY PRN (Reason: Constipation) levothyroxine 112 mcg tablet 112 mcg PO QAM Trelegy Ellipta 100-62.5-25 mcg blister with device 1 inh inhalation BEDTIME Discharge Orders: Discharge ED (Routine); Ordered 01/28/23 Ordered By: Haseeb Najera Referrals: Martha Clark, TRACER LATHE SET UP OPERATOR-C [Primary Care Provider] - Discharge Diet: Usual diet Discharge Activity: Limit activity as instructed Patient Instructions: Opioid Safety, Pain Management Activity Restrictions/Additional Instructions: Thank you for choosing [facility] for your healthcare needs today. Please realize this is an emergency room and that we are providing you with a medical screening exam and this may not be complete and all inclusive of all the testing and or work up that you may need to determine your ailment or severity of your illness. It is very important that you follow up as instructed or that you return to the Emergency Department should you have concerns or if your condition changes or worsens in any way. Follow-up with your primary care doctor Coding Level of Care Code ED E Commerce Merchant for Svitlana Francois
--- NOTE | 2023-01-28 11:01 | ECG_ITS ---
[facility] Test Date: 2023-01-28 Pat Name: Darrin Avila Department: Room: Gender: Male Wildlife Protector: : 1955 Requested By: Haseeb Hall Order Number: [id number] Homero MD: Josie Field M.D. Measurements Intervals Crane Rate: 73 P: 39 DC: 170 QRS: -15 QRSD: 102 T: 51 QT: 370 QTc: 409 Interpretive Statements SINUS RHYTHM POSSIBLE LEFT ATRIAL ENLARGEMENT [-0.1mV P-WAVE IN V1/V2] Compared to ECG 09/08/2022 06:30:20 Myocardial infarct finding no longer present Electronically Signed On 01-28-2023 12:16:43 GUTTER MOUTH CUTTER by Josie Field M.D. [id number]
[2023-01-28 11:22] LABS: Basophils % 0.1 %; Hematocrit 38.8 % (37-53); Lymphocytes # 0.4 10^3/uL (0.8-4.8); Lymphocytes % 4.6 %; Mean Corpuscular Hemoglobin 30.2 pg (27-33); Mean Corpuscular Volume 94.4 fl (82-101); Mean Platelet Volume 8.1 fL (7.4-10.4); Monocytes # 0.5 10^3/uL (0.2-0.9); Monocytes % 5.1 %; Neutrophils # 8.19 10^3/uL (1.8-7.7); Neutrophils % 89.5 %; Nucleated Red Blood Cells % 0 %; Platelet Count 497 10^3/cmm (157-399); Red Blood Count 4.11 10^6/uL (3.85-5.65); Red Cell Distribution Width 14.4 % (12.1-15.1); White Blood Count 9.15 10^3/uL (3.29-11.43)
--- NOTE | 2023-01-28 11:26 | PC.PHAR ---
pts daughter verified pts medications-pts daughter states reuben put the pts amlodipine 10mg daily filled 11/06/22 90d/s and midodrine 5mg q8h filled 01/26/23 30d/s both on hold-pts daughter states she has been giving the pt levothyroxine 112mcg daily saritha last filled 10/31/22 84d/s 112mcg 6 days a week and 224mcg one day a week-pts daughter states the pt just got released from [facility] 2 days ago and states when the pt was in the hospital he was on heparin shots but not since he was released
[2023-01-28 11:44] LABS: Troponin(5th) Baseline 15 ng/L (0-15)
[2023-01-28 11:52] LABS: Alanine Aminotransferase 15 U/L (0-41); Albumin Level 3.1 g/dL (3.5-5.2); Alkaline Phosphatase 93 U/L (40-130); Anion Gap 12.2 (5-19); Aspartate Amino Transferase 15 U/L (0-40); Blood Urea Nitrogen 17 mg/dL (8-23); Calcium 8.8 mg/dL (8.5-10.5); Carbon Dioxide 37 mmol/L (22-29); Chloride 87 mmol/L (98-107); Creatinine Clr Calc Pharmacy 96.1645; Globulin 3.5 g/dL (1.3-4.6); Glomerular Filtration Rate 96.1 mL/min (90-130); Glucose 116 mg/dL (65-115); NT Pro B Type Natriuretic Pept 636 pg/mL (0-125); Osmolality Calculated 277 mOsm/kg (285-295); Potassium 4.2 mmol/L (3.5-5.1); Sodium 132 mmol/L (136-145); Total Bilirubin 0.3 mg/dL (0.15-1.2); Total Protein 6.6 g/dL (6.6-8.7)
[2023-01-28 12:22] LABS: Add Urine Microscopic? NO; Charge for UA Resulting for Rev
[2023-01-28 12:32] LABS: Urine Appearance Clear (CLEAR); Urine Color Yellow (Yellow); pH Urine 7 (5-7)
[2023-01-28 12:33] LABS: Bilirubin Urine Neg (Negative); Blood Urine Neg (Negative); Glucose Urine UA Norm (Normal); Ketones Urine Negative (Negative); Leukocyte Esterase Urine Negative (Negative); Nitrate Urine Negative (Negative); Protein Urine Neg (Negative); Specific Gravity, Urine 1.005 (1.005-1.030); Urobilinogen Urine Norm (Negative)
--- NOTE | 2023-01-28 12:57 | ECG_ITS ---
[facility] Test Date: 2023-01-28 Pat Name: Darrin Avila Department: Room: Gender: Male Development Advisor: : 1955 Requested By: Haseeb Hall Order Number: [id number] Homero MD: Josie Field M.D. Measurements Intervals [place]gregor Rate: 75 P: 51 WV: 169 QRS: 5 QRSD: 105 T: 61 QT: 395 QTc: 443 Interpretive Statements SINUS RHYTHM POSSIBLE LEFT ATRIAL ENLARGEMENT [-0.1mV P-WAVE IN V1/V2] Compared to ECG 01/28/2023 11:01:49 No significant changes Electronically Signed On 01-28-2023 15:53:20 PHYSICAL SCIENCE TEACHER by Josie Field M.D. [id number]
[2023-01-28 13:29] LABS: Troponin 5 2HR 7.89 ng/L (0-15)
[2023-01-28 13:30] LABS: Troponin 5 2HR Delta -7.11 ABS# (0-10)
[2023-01-28 13:39] LABS: ABG PCO2 54.8 mmHg (35-45); ABG PH Result 7.45 (7.35-7.45); Alveolar-Arterial Oxygen Gradi 4.9 mmHg (5-10); Arterial Blood Gas Hematocrit 37.6 % (42-52); Base Excess ABG 12.1 mmol/L (-2.0-2.0); Blood Gas Allen Test Pos; Blood Gas Operator Identificat MONRO; Blood Gas Sample Site Brachial, right; Blood Gas Sample Type Arterial; Carboxyhemoglobin 1.8 %THgb (0.4-20.1); HCO3 ABG 38.1 mmol/L (22-26); HGB O2 Sat 83.2 % (95-100); Ionized Calcium Level - ABG 1.2 mmol/L (1.1-1.4); Methemoglobin 0.4 % (0.4-1.5); Oxygen Device NC; Oxygen Saturation ABG 85.2; PO2 ABG 48.4 mmHg (80.0-100.0); Potassium Level - ABG 3.9 mmol/L (3.5-5.0); Total Hemoglobin 12.3 g/dL (14-18)
== END 2023-01-28 14:09 | disposition home or self-care (01) ==
PROVIDERS: Emergency Provider Family Medicine; PCP Nurse Practitioner
DX: J44.1 Chronic obstructive pulmonary disease with (acute) exacerbation (principal); C34.90 Malignant neoplasm of unspecified part of unspecified bronchus or lung; F17.210 Nicotine dependence, cigarettes, uncomplicated; Z99.81 Dependence on supplemental oxygen; Z90.2 Acquired absence of lung [part of]
CPT/HCPCS: 36415; 36600; 51702; 51798; 71045; 80051; 80053; 81003; 82330; 82805; 83880; 84484; 85025; 93005; 99285

== ENCOUNTER → 2023-02-12 10:21 | Outpatient (BNVA) | payer MEDICARE, SELFPAY | PROVIDERS: PCP Nurse Practitioner; Visit Provider Internal Medicine Pulmonary Disease | DX: J18.9 Pneumonia, unspecified organism (principal); R53.81 Other malaise; J44.9 Chronic obstructive pulmonary disease, unspecified; Z90.2 Acquired absence of lung [part of]; C34.11 Malignant neoplasm of upper lobe, right bronchus or lung; J82.83 Eosinophilic asthma; F17.211 Nicotine dependence, cigarettes, in remission; Z99.81 Dependence on supplemental oxygen | CPT/HCPCS: 71046; 99214 ==

== ENCOUNTER 2023-02-23 14:47 | Outpatient (CLI) | payer MEDICARE, SELFPAY ==
[2023-02-23 15:43] LABS: Potassium 5.1 mmol/L (3.5-5.1); Sodium 137 mmol/L (136-145)
[2023-02-23 16:04] LABS: Anion Gap 12.8 (5-19); Blood Urea Nitrogen 8 mg/dL (8-23); Calcium 9.2 mg/dL (8.5-10.5); Carbon Dioxide 32 mmol/L (22-29); Chloride 95 mmol/L (98-107); Glomerular Filtration Rate 112.1 mL/min (90-130); Glucose 99 mg/dL (65-115); Osmolality Calculated 278 mOsm/kg (285-295)
== END 2023-02-23 14:48 | disposition home or self-care (01) ==
LOC: LAB 14:49
PROVIDERS: PCP Nurse Practitioner; Visit Provider Nurse Practitioner
DX: E87.1 Hypo-osmolality and hyponatremia (principal)
CPT/HCPCS: 36415; 80048

== ENCOUNTER 2023-03-15 10:42 | Oncology outpatient (recurring) (ONCR) | payer MEDICARE, SELFPAY ==
[2023-03-15 11:53] VITALS: BP 107/70; PULSE 79; RESP 20; TEMP 36.6; O2SAT 95
[2023-03-15 11:59] LABS: Basophils # 0.1 10^3/uL (0.0-0.1); Basophils % 1.3 %; Eosinophils # 0.2 10^3/uL (0.0-0.8); Eosinophils % 2.9 %; Hematocrit 35.6 % (37-53); Lymphocytes # 1.4 10^3/uL (0.8-4.8); Lymphocytes % 17.2 %; Mean Corpuscular HGB Conc 31.2 g/dL (30-55); Mean Corpuscular Hemoglobin 29.6 pg (27-33); Mean Corpuscular Volume 94.9 fl (82-101); Mean Platelet Volume 7.9 fL (7.4-10.4); Monocytes # 0.8 10^3/uL (0.2-0.9); Monocytes % 9.2 %; Neutrophils # 5.79 10^3/uL (1.8-7.7); Nucleated Red Blood Cells % 0 %; Platelet Count 337 10^3/cmm (157-399); Red Blood Count 3.75 10^6/uL (3.85-5.65); Red Cell Distribution Width 16.4 % (12.1-15.1); White Blood Count 8.38 10^3/uL (3.29-11.43)
[2023-03-15 12:23] LABS: Alanine Aminotransferase 9 U/L (0-41); Albumin Level 3.3 g/dL (3.5-5.2); Alkaline Phosphatase 117 U/L (40-130); Anion Gap 11.5 (5-19); Aspartate Amino Transferase 11 U/L (0-40); Blood Urea Nitrogen 10 mg/dL (8-23); Calcium 9.3 mg/dL (8.5-10.5); Carbon Dioxide 31 mmol/L (22-29); Chloride 98 mmol/L (98-107); Globulin 4.2 g/dL (1.3-4.6); Glucose 89 mg/dL (65-115); Osmolality Calculated 281 mOsm/kg (285-295); Potassium 4.5 mmol/L (3.5-5.1); Sodium 136 mmol/L (136-145); Total Bilirubin 0.3 mg/dL (0.15-1.2); Total Protein 7.5 g/dL (6.6-8.7)
[2023-03-15 14:15] LABS: Ferritin 498 ng/mL (30-400); Iron 51 ug/dL (59-158); Percent Saturation 19.7 % (20-50); Total Iron Binding Capacity 258 mcg/dl; Unsaturated Iron Binding 207 ug/dL (112-347)
[2023-03-15 14:30] LABS: Vitamin B12 300 pg/mL (232-1245)
[2023-03-15 16:59] LABS: Folate Level > 20.0 ng/mL (4.5-32.2)
--- NOTE | 2023-03-16 10:36 | N.ONRAD NP_ITS ---
Radiation Oncology New Patient Visit Patient: Darrin Avila MR#: [id number] : 1955> Age: 67> Sex: Male> Dictated by: Rajiv Bright Date of Service: 03/15/2023 Referring Physician(s) : Dr. 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 Chief Complaint / History of Present Illness: Patient is a 67-year-old male with history of COPD, hypertension, hypothyroidism with history of low-dose CT scan May 2022 that showed a large cavitary lesion with asymmetric wall thickening and spiculation centered in the right upper lobe concerning for malignancy. Robotic navigational bronchoscopy guided biopsies 09/08/2022 of the right upper lobe cavitary lesion showed moderate to poorly differentiated, nonkeratinizing, invasive squamous cell carcinoma. Station 7 and station 11 lymph nodes were negative for malignancy. The tumor was CD56 focally positive, CK5/6 strongly diffusely positive, CD case 7 focally positive, CK keratin strongly and diffusely positive, p63 diffusely positive, TTF???1 negative, Napsin A negative, C K28 negative. PET CT scan 09/12/2022 showed abnormal uptake in the wall of the known right upper lobe cavitary mass, SUV 15.4 concerning for malignancy. Mild patchy density along the posterior aspect of the mass is new compared with 09/08/2022. Mildly prominent mediastinal lymph nodes are present. Some of which were mildly avid but not enlarged. A focus of elevated uptake along the inferior medial aspect of the right lobe of the liver was noted. No definite lesion within the liver was identified on comparison with none contrast CT images. Clinical diagnosis at that time was stage IIb, cT3, cN0, MX. Brain MRI and MRI of the liver did not show any metastases. PFTs 09/29/2022: Spirometry showed diffuse airflow obstruction with FEV1/FVC 47 and FEV1 1.62 L 46% predicted and FVC 3.7 L 74% predicted. There was no significant response to bronchodilators. Lung volumes show air trapping and hyperinflation. Gas transfer was markedly reduced. Patient is a 1 pack/day smoking history for 55 years and continues to smoke. He continued on Trelegy and uses albuterol nebulizer at least 1 time daily. Patient underwent robotic assisted right upper lobectomy 01/13/2023 at [facility] in [place] under the care of of Arcadio Cardoso DO cardiothoracic surgeon. Pathology revealed poorly differentiated squamous cell carcinoma, basaloid type. Tumor was 7.7 cm, involves the pleura, and invaded the main bronchus. Tumor involve the bronchial resection margin and was 2 mm from the hilar soft tissue. Lymphovascular invasion was present. 1 of 10 lymph nodes was positive at the right station 13 lymph node. Patient experienced postoperative pneumonia and underwent repeat bronchoscopy 01/19/2023 by Kwesi Joseph MD. The patient is present today with his daughter. He reports that he quit smoking just prior to his surgery and has not resumed smoking. Patient reports a history of alcohol abuse and has been through alcohol rehab with a relapse and has since quit drinking on his own. He is on oxygen by nasal cannula today. Current Medications: albuterol sulfate 2.5 mg (3 mL) inhalation QID PRN [id number] 100-62.5-25 mcg (Trelegy Ellipta) 1 inh inhalation BEDTIME folic acid 1 mg PO QAM guaifenesin ER (Mucinex) 1,200 mg PO Q12H honey 100% (MediHoney (honey)) 1 applic topical BID PRN levothyroxine 112 mcg PO QAM mirtazapine (Remeron) 15 mg PO .at dinner montelukast (Singulair) 10 mg PO BEDTIME polyethylene glycol 3350 (Miralax) 17 grams PO DAILY PRN tramadol 50 mg PO Q4H PRN Allergies: grass pollen Allergy (Mild, Verified 03/15/23 12:06) ALGY-Watery Eye Medical History: No history of collagen vascular disease. No previous radiation therapy. Surgical History: Status post lobectomy of lung Right upper January 2023 [place], [place] Family History: Brother: Diabetes, Hyperlipidemia Father: Congestive heart disease, COPD (chronic obstructive pulmonary disease, Dementia, Cancer (prostate) Mother: Congestive heart disease, COPD (chronic obstructive pulmonary disease), Cancer (gastric cancer) Other:No history of previous surgery Social History: Smoking and tobacco/nicotine status: current every day tobacco/nicotine user cigarettes Packs smoked per day: 2 Years cigarettes smoked: 55 Quit status (tobacco/nicotine): has quit using Year quit tobacco: 2022 Former quit date comment: 01/12/23 Second hand smoke exposure: Yes Alcohol intake: former Substance/Drug Use: never Adopted: No Caregiver/support person: No Lives independently: Yes Household members: none Marital status: Number of children: 1 service: Yes branch: [employer] Current occupational status: retired Pets and animals: No Do you think of yourself as: Straight/Heterosexual Current gender identity: Male Current Complaints / Review of Systems: . Vital Signs: Performed on 03/15/2023 1:37 PM BMI - 23.85 kg/m2 (high), Height - 71 in, Weight - 171 lbs, Temperature - 97.8 f, Pulse - 79 /min, Respiration - 20 /min, O2 Sat - 95 % (low), Pain - 0, Fatigue - 0 and BP - 107/ 70 mm(hg). Physical Exam: Alert and oriented male appearing his stated age. PERRL, EOMI. Cranial nerves II through XII grossly intact. Tongue and uvula midline and mobile. Speech intact. Patient has oxygen by nasal cannula. He has diminished breath sounds over the right upper lung john. No wheezes or rhonchi are noted. Cardiovascular exam reveals regular rhythm. There are lesions on the posterior chest wall consistent with his laparoscopic lobectomy that are healing well. Abdomen soft nontender. Bowel sounds present normoactive. Genital and rectal exams deferred. No lower extremity edema noted. Impression: Edgar Avila is a 67-year-old male with pT4, pN1 poorly differentiated squamous cell carcinoma of the right upper lung. The initial tumor was 7.7 cm and invaded the pleura and invaded the mainstem bronchus. Tumor involved the bronchial resection margin and was 2 mm from the hilar soft tissue. Lymphovascular invasion was present and 1 of 10 lymph nodes was positive at the right station 13 lymph node. Patient is a candidate for postoperative radiation therapy in the hope of maintaining local control. The potential risks, benefits and side effects of extremity radiation therapy were reviewed with the patient and his daughter. Patient indicates his understanding and willingness to proceed with treatment. Baseline pulmonary function tests will be ordered. PET CT scan has been ordered also in order to assist with treatment planning. Treatment planning CT scan will also be ordered in the department of radiation oncology. Plan: Recommendation is for 60 Huffman postoperative radiation therapy to the positive margins at 200 cGy per fraction over 30 fractions. IMRT will be utilized to minimize the normal lung tissue involved, dose to the spinal cord and heart. Signed by: 03/16/2023 10:34:18 AM <<Signature on File>> Time spent with patient: CPT Code: CPT Code:
[2023-03-18 12:54] LABS: Soluble Transferrin Receptor 1.02 mg/L (0.76-1.76)
== END 2023-03-17 23:59 | disposition home or self-care (01) ==
PROVIDERS: Internal Medicine; PCP Nurse Practitioner; Visit Provider Internal Medicine Medical Oncology
DX: C34.90 Malignant neoplasm of unspecified part of unspecified bronchus or lung (principal); R94.31 Abnormal electrocardiogram [ECG] [EKG]; Z87.891 Personal history of nicotine dependence; Z79.899 Other long term (current) drug therapy
CPT/HCPCS: 36415; 80053; 82607; 82728; 82746; 83540; 83550; 84238; 85025; 99215

== ENCOUNTER 2023-03-18 13:46 | Outpatient (CLI) | payer MEDICARE, SELFPAY ==
--- NOTE | 2023-03-18 15:00 | CT_ITS ---
WS: [id number] CT CHEST, ABDOMEN AND PELVIS WITH CONTRAST HISTORY: non small cell cancer of the right lung TECHNIQUE: Contiguous 5 mm axial imaging performed through the chest, abdomen and pelvis with IV cont rast, oral contrast has been provided. Coronal and sagittal reformats chest. Coronal and sagittal ref ormats through the abdomen and pelvis. All CT scans at [facility] use at least one of these d ose optimization techniques: automated exposure control; mA and/or kV adjustment per patient size (in cludes targeted exams where dose is matched to clinical indication); or iterative reconstruction. CONTRAST: Omnipaque 350; 100 mL IV. DLP: 846.04 mGy.cm COMPARISON: 09/08/2022 and 05/29/2022, PET/CT 09/12/[address]: Status post RIGHT upper lobectomy for cancer. There is a cavitary lesion consistent with th e post pneumonectomy site. No air-fluid level. Beginning at the RIGHT hilum there is increased soft t issue with air bronchograms extending into the proximal RIGHT middle and RIGHT lower lobes. There is soft tissue extends into the pleura towards the intercostal muscles in the posterior RIGHT lower thor ax best seen on image 32 of series 3 which could be tumor extension. There are also several small lym ph nodes near the hilum and at the posterior surgical site which will need follow-up evaluation. Chato gn granulomas calcified LEFT upper lobe. Mild atherosclerosis aorta. Pulmonary artery is normal. Abdomen CT: Normal liver and spleen. Normal portal vein. Normal gallbladder and adrenal glands. Chelly l pancreas. Atherosclerosis aorta with aneurysmal dilatation to 4.2 cm. Central lumen is patent but s urrounded by a large amount of thrombus. Reidentified are cyst associated with the RIGHT kidney. No s olid mass. Negative LEFT kidney. No GI tract obstruction. Constipation. No adenopathy or ascites. Pelvic CT: No free fluid. Normal bladder. IMPRESSION: 1. Status post RIGHT upper lobectomy for lung neoplasm. Postpneumonectomy air in the RIGHT upper tho rax. 2. Consolidation with air bronchograms beginning at the RIGHT hilum extending into the RIGHT middle and RIGHT lower lobes. There is continuation of soft tissue into the pleura and intercostal muscles s uspicious for recurrent tumor. 3. There are a few small lymph nodes near the surgical site at the RIGHT hilum which were not presen t on the prior study. Neoplastic lymph nodes need to be excluded. 4. No additional left-sided lung lesions. 5. No liver lesions. 6. No metastatic disease to the adrenal glands. 7. Infrarenal abdominal aortic aneurysm, 4.2 cm.
[2023-03-18] MEDS: iohexol 350 mg/mL 500 mL Btl (per mL) IV (15:31)
[2023-03-18] MEDS: iohexol 350 mg/mL 500 mL Btl (per mL) PO (15:31)
== END 2023-03-18 13:47 | disposition home or self-care (01) ==
LOC: RAD 13:46
PROVIDERS: PCP Nurse Practitioner; Visit Provider Internal Medicine
DX: C34.11 Malignant neoplasm of upper lobe, right bronchus or lung (principal); Z90.2 Acquired absence of lung [part of]; I71.43 Infrarenal abdominal aortic aneurysm, without rupture
CPT/HCPCS: 71260; 74177; Q9967

== ENCOUNTER 2023-04-12 10:43 | Outpatient (CLI) | payer MEDICARE, SELFPAY ==
--- NOTE | 2023-04-12 11:00 | MR_ITS ---
WS: [id number] MRI BRAIN WITH AND WITHOUT CONTRAST HISTORY: non small cell cancer of right lung COMPARISON: 11/04/2022 TECHNIQUE: Multiplanar imaging performed through the brain with MultiHance 15 ml's IV. Mild small vessel ischemic type changes in the white matter. Very similar to the prior study. There a re no areas of infarct. No progression since the most recent exam. Mild volume loss and atrophy is un changed. No susceptibility artifacts or prior lacunar infarcts. Ventricles and extra-axial spaces are normal. Clivus and pituitary gland are normal. Visualized posterior fossa and brainstem are also normal. Postcontrast images are negative for masses or vascular malformations. Dural venous sinuses are normal. Paranasal sinuses: Mucoperiosteal thickening RIGHT maxillary sinus. No air-fluid levels. Mastoid air cells: Normal. Calvarium and scalp: Normal. IMPRESSION: 1. No evidence for metastatic disease to the brain. No enhancing lesions. 2. No progression of small vessel ischemic disease or interval change since 11/04/2022. 3. Mild small vessel ischemic disease. 4. No hydrocephalus.
[2023-04-12] MEDS: gadobenate dimeglumine 20 mL vial IV (11:44)
== END 2023-04-12 10:44 | disposition home or self-care (01) ==
LOC: RAD 10:46
PROVIDERS: PCP Nurse Practitioner; Visit Provider Internal Medicine
DX: C34.91 Malignant neoplasm of unspecified part of right bronchus or lung (principal)
CPT/HCPCS: 70553; A9577

== ENCOUNTER 2023-04-12 11:43 | Oncology outpatient (recurring) (ONCR) | payer MEDICARE, SELFPAY ==
[2023-04-12 12:17] LABS: Basophils # 0.1 10^3/uL (0.0-0.1); Eosinophils # 0.2 10^3/uL (0.0-0.8); Eosinophils % 3.1 %; Hematocrit 38.7 % (37-53); Lymphocytes # 1.3 10^3/uL (0.8-4.8); Lymphocytes % 21.1 %; Mean Corpuscular HGB Conc 31.5 g/dL (30-55); Mean Corpuscular Volume 95.3 fl (82-101); Mean Platelet Volume 7.9 fL (7.4-10.4); Monocytes # 0.5 10^3/uL (0.2-0.9); Monocytes % 8.2 %; Neutrophils # 4.06 10^3/uL (1.8-7.7); Neutrophils % 66.6 %; Nucleated Red Blood Cells % 0 %; Platelet Count 279 10^3/cmm (157-399); Red Blood Count 4.06 10^6/uL (3.85-5.65); Red Cell Distribution Width 16.5 % (12.1-15.1)
[2023-04-12 12:47] LABS: Alanine Aminotransferase 9 U/L (0-41); Albumin Level 3.8 g/dL (3.5-5.2); Alkaline Phosphatase 113 U/L (40-130); Anion Gap 12.5 (5-19); Aspartate Amino Transferase 10 U/L (0-40); Blood Urea Nitrogen 9 mg/dL (8-23); Calcium 9.4 mg/dL (8.5-10.5); Carbon Dioxide 30 mmol/L (22-29); Chloride 97 mmol/L (98-107); Ferritin 468 ng/mL (30-400); Glomerular Filtration Rate 96.1 mL/min (90-130); Glucose 90 mg/dL (65-115); Iron 113 ug/dL (59-158); Osmolality Calculated 278 mOsm/kg (285-295); Percent Saturation 38.8 % (20-50); Potassium 4.5 mmol/L (3.5-5.1); Sodium 135 mmol/L (136-145); Total Bilirubin 0.4 mg/dL (0.15-1.2); Total Iron Binding Capacity 291 mcg/dl; Total Protein 7.8 g/dL (6.6-8.7); Unsaturated Iron Binding 178 ug/dL (112-347)
[2023-04-12 12:49] LABS: Vitamin B12 302 pg/mL (232-1245)
[2023-04-12 13:03] LABS: Folate Level > 20.0 ng/mL (4.5-32.2)
[2023-04-16 12:15] LABS: Soluble Transferrin Receptor 1.01 mg/L (0.76-1.76)
== END 2023-04-15 23:59 | disposition home or self-care (01) ==
PROVIDERS: Internal Medicine; PCP Nurse Practitioner; Visit Provider Internal Medicine Medical Oncology
DX: C34.91 Malignant neoplasm of unspecified part of right bronchus or lung (principal); C34.2 Malignant neoplasm of middle lobe, bronchus or lung
CPT/HCPCS: 36415; 70553; 80053; 82607; 82728; 82746; 83540; 83550; 84238; 85025; A9577

== ENCOUNTER 2023-04-13 10:40 | Outpatient (CLI) | payer MEDICARE, SELFPAY ==
--- NOTE | 2023-04-13 11:00 | PETR_ITS ---
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 Malignant neoplasm of unspecified part of right bronchus or lung; Prior surgery; Surgery date: 6+ months; Surgery type: RT lung; Additional info: Restaging, urgent LABS AND CLINICAL REPORTS: Glucose: 100 mg/dl Treatment strategy for malignancy (PET staging): Restaging (PS) TECHNIQUE: Imaging protocol: Following at least four-hour fasting and following the injection of radiopharmaceutical, low dose CT images were obtained. Then, PET images were obtained. Attenuation corrected images were constructed using the CT scan. Fused images of PET and CT were reviewed. The standardized uptake values (SUV) reported below are maximum values within a region of interest, expressed in gm/ml. Exam includes orbital meatal line to mid-thigh. Radiopharmaceutical: 12.39 mCi F-18 FDG (Fluorodeoxyglucose), IV. Time of imaging post radiopharmaceutical administration: 1 hour Injection site: Right antecubital COMPARISON: MRI head 04/12/2023, CT chest, abdomen and pelvis 03/18/2023, MRI abdomen 11/10/2022, CTA PT PET [facility] SUBSEQ [id number] 09/12/2022 9:58 AM FINDINGS: Brain: Visualized brain has normal physiologic uptake. Paranasal sinuses: There is benign-appearing lobulated mucosal thickening in the right maxillary sinus consistent with chronic sinusitis. Pharynx: No abnormal uptake. Larynx: No abnormal uptake. Lungs, pleura and trachea: There are postoperative changes of right upper lobectomy. A large gas-filled cavity in the right upper lung at the pneumonectomy site appears similar compared with 03/18/2023. Elevated uptake is identified in a region of peripheral patchy density involving the posterior and lateral mid right lung adjacent to the pleural surface which appears similar compared with 03/18/2023, new since the prior PET-CT, SUV max 5.2 on series 3, image 75. A left upper lobe calcified granuloma is noted. Mild centrilobular emphysematous changes are noted. Heart: Normal physiologic uptake. Mediastinal space: No abnormal uptake. Liver: No abnormal uptake. Previously noted suspected possible focus of uptake along the inferior margin of the right lobe of the liver is no longer identified. No discrete liver lesions are identified. Gallbladder and bile ducts: No abnormal uptake. Pancreas: No abnormal uptake. Spleen: No abnormal uptake. Adrenal glands: No abnormal uptake. Kidneys and ureters: Normal physiologic uptake. A rounded low-density structure is statistically consistent with a benign cyst is not radiotracer avid arising from the right renal superior pole measuring 1.6 cm in diameter on series 3, image 143. Unremarkable left kidney. Stomach and bowel: No abnormal uptake. Reproductive: Elevated uptake in testes is decreased compared to the prior PET-CT and currently appears normal, SUV max 3.8 on the left and SUV max 2.8 on the right. Vasculature: No abnormal uptake. There are diffuse atherosclerotic changes. An infrarenal abdominal aortic aneurysm measures 4.6 x 4.3 cm on series 3, image 174. Lymph nodes: Lymph nodes in the aortopulmonary window are similar in size measuring up to 9 mm compared with the prior PET-CT and currently demonstrate an SUV max 2.9 (previously 3.9). A similar in size approximately 1.8 x 1.1 cm subcarinal lymph node on series 3, image 80 demonstrates mild uptake which has decreased, SUV max 2.8 (previously 3.0). Bones/joints: No abnormal uptake in the visualized axial and appendicular skeleton. Degenerative changes in the spine are noted. Soft tissues: No abnormal uptake in the visualized head, neck, chest, abdomen, pelvis, and extremities. METRICS: Mediastinal blood pool: SUV max 2.1 PET/PET [facility] SUBSEQ [id number] IMPRESSION: 1. Interval postoperative changes of right upper lobe resection are noted compared with the prior PET-CT. Patchy soft tissue density in the periphery of the remaining right lung extending from the right hilar region to the pleural surface is new since the prior PET-CT and similar compared with 03/18/2023 with regions of elevated uptake (SUV max 5.2). Post treatment inflammatory changes or infectious infiltrate may account for this appearance however malignancy cannot be excluded. 2. Similar mild prominence of mediastinal lymph nodes with interval decrease in uptake which may represent decreased inflammatory or infectious reactive activity or decreased malignant involvement. 3. Previously suspected possible abnormal uptake along the inferior margin of the right liver lobe is no longer identified. 4. Interval decrease in activity in the bilateral testes which now appears normal and physiologic. 5. Additional nonurgent findings as detailed above.
== END 2023-04-13 10:41 | disposition home or self-care (01) ==
PROVIDERS: PCP Nurse Practitioner; Visit Provider Internal Medicine
DX: C34.2 Malignant neoplasm of middle lobe, bronchus or lung (principal)
CPT/HCPCS: 78815; A9552

== ENCOUNTER 2023-04-22 10:04 | Oncology outpatient (recurring) (ONCR) | payer MEDICARE, SELFPAY ==
[2023-04-22 10:36] LABS: Basophils # 0.1 10^3/uL (0.0-0.1); Basophils % 1.1 %; Eosinophils # 0.2 10^3/uL (0.0-0.8); Eosinophils % 2.4 %; Hematocrit 36.8 % (37-53); Lymphocytes # 1.3 10^3/uL (0.8-4.8); Lymphocytes % 21.3 %; Mean Corpuscular HGB Conc 31.8 g/dL (30-55); Mean Corpuscular Hemoglobin 30.6 pg (27-33); Mean Corpuscular Volume 96.3 fl (82-101); Mean Platelet Volume 7.9 fL (7.4-10.4); Monocytes # 0.6 10^3/uL (0.2-0.9); Monocytes % 9.6 %; Neutrophils # 4.01 10^3/uL (1.8-7.7); Neutrophils % 65.4 %; Nucleated Red Blood Cells % 0 %; Platelet Count 266 10^3/cmm (157-399); Red Blood Count 3.82 10^6/uL (3.85-5.65); Red Cell Distribution Width 15.6 % (12.1-15.1); White Blood Count 6.14 10^3/uL (3.29-11.43)
[2023-04-22 11:10] LABS: Alanine Aminotransferase 10 U/L (0-41); Albumin Level 3.8 g/dL (3.5-5.2); Alkaline Phosphatase 105 U/L (40-130); Anion Gap 12.3 (5-19); Aspartate Amino Transferase 13 U/L (0-40); Blood Urea Nitrogen 10 mg/dL (8-23); Carbon Dioxide 30 mmol/L (22-29); Chloride 94 mmol/L (98-107); Free T4 Free Thyroxine 1.77 ng/dL (0.82-1.77); Globulin 3.9 g/dL (1.3-4.6); Glomerular Filtration Rate 96.1 mL/min (90-130); Glucose 93 mg/dL (65-115); Osmolality Calculated 273 mOsm/kg (285-295); Potassium 4.3 mmol/L (3.5-5.1); Sodium 132 mmol/L (136-145); T3 Free 2.3 PG/ML (2.0-4.4); Thyroid Stimulating Hormone 3.67 uIU/mL (0.27-4.20); Total Bilirubin 0.3 mg/dL (0.15-1.2); Total Protein 7.7 g/dL (6.6-8.7)
== END 2023-05-16 23:59 | disposition home or self-care (01) ==
PROVIDERS: Internal Medicine; PCP Nurse Practitioner; Visit Provider Internal Medicine Medical Oncology
DX: C34.91 Malignant neoplasm of unspecified part of right bronchus or lung (principal); C34.2 Malignant neoplasm of middle lobe, bronchus or lung; C34.90 Malignant neoplasm of unspecified part of unspecified bronchus or lung; R94.31 Abnormal electrocardiogram [ECG] [EKG]; Z87.891 Personal history of nicotine dependence; Z79.899 Other long term (current) drug therapy
CPT/HCPCS: 36415; 80053; 84439; 84443; 84481; 85025; 99214

== ENCOUNTER → 2023-04-26 14:07 | Outpatient (BNVA) | payer MEDICARE, SELFPAY | PROVIDERS: PCP Nurse Practitioner; Referring Provider Internal Medicine; Visit Provider Surgery | DX: C34.11 Malignant neoplasm of upper lobe, right bronchus or lung (principal); Z90.2 Acquired absence of lung [part of] | CPT/HCPCS: 99204 ==

== ENCOUNTER 2023-05-06 06:30 | Day surgery (SDC) | payer MEDICARE, SELFPAY ==
[2023-05-06] VITALS (7 sets, daily range): BP systolic 107–135; BP diastolic 65–89; PULSE 75–96; RESP 14–18; TEMP 36.3–36.8; O2SAT 98–99; BMI 25.4
--- NOTE | 2023-05-06 | SC_ITS ---
WS: [id number] C-ARM RADIOGRAPHS CHEST; 2 IMAGES HISTORY: Mediport placement. COMPARISON: None available. Intraoperative imaging during Mediport placement through the LEFT subclavian vein. IMPRESSION: Intraoperative imaging during Mediport placement.
--- NOTE | 2023-05-06 06:40 | XR_ITS ---
WS: [id number] Portable AP upright chest, 05/06/2023 Clinical Data: Postop Mediport placement Comparison: Portable chest, 02/12/2023 Findings: The large cavity in the upper right pleural space remains the same. The patchy opacity in t he right midlung has diminished moderately but there is still right lateral pleural thickening. Right diaphragm remains elevated and there may be atelectasis and and/or loculated effusion present. The l eft lung remains hyperexpanded. There is a left infusion catheter which ends in the superior vena cav a. The heart size is the same. Impression: 1. Insertion of left infusion catheter. 2. Chronic changes in the right lung with partial clearing of right midlung opacity.
--- NOTE | 2023-05-06 06:59 | W.PM.OPSUD ---
Surgery/Procedure H&P Update DATE OF PROCEDURE: May 06, 2023 DATE H&P PERFORMED: 08/31/22 H&P UPDATE INFORMATION: I have reviewed H&P completed within last 30 days, I have examined patient prior to procedure and No changes to prior documentation PLANNED PROCEDURE: Operation Date: 05/06/23 08:00 Proposed Procedures p [id number] port placement C34.90(Not Applicable) - Herminio Limon, DO
[2023-05-06] MEDS: sodium chloride 0.9% 1,000 ML 30 ML IV (07:14)
--- NOTE | 2023-05-06 07:32 | ANES.PREANE2 ---
Pre-Anesthetic Assessment Height/Weight: Height 1.8 m Weight 82.554 kg Temp Pulse Resp BP Pulse Ox O2 Del Method O2 Flow Rate 98.3 F 96 18 107/75 99 Room Air 5 05/06/23 06:45 05/06/23 06:45 05/06/23 06:45 05/06/23 06:45 05/06/23 06:45 05/06/23 06:56 05/06/23 06:45 Operation Date: 05/06/23 08:00 Proposed Procedures p [id number] port placement C34.90(Not Applicable) - Herminio Limon DO Familial anesthetic complications: None Was Beta Komal taken within 24 hours: N/A Was Clonidine taken within 24 hours: N/A Last intake: Intake Last Liquid Date 05/05/23 Last Liquid Time 22:00 Last Solid Date 05/05/23 Last Solid Time 18:00 Social No alcohol and No tobacco former smoker and ETOH Exam alert, oriented x 3, clear to auscultation bilaterally and regular rate & rhythm Airway Mallampati: Class II Dentition: false Pulmonary Asthma and Chronic Obstructive Pulmonary Disease S/p lobectomy for lung cancer on 5 L NC continuously, used to be higher CV/HEM Baseline abnormal EKG, echo from [facility] this year shows mild to mod TVR, EF of 60% Saw cardiology who recommended stress test for further evaluation of his abnormal EKG Given the patient's need for chemotherapy and a low risk procedure, I Discussed with the patient that he could wait to have port placed until after his stress test or he can undergo very light MAC. He would like to proceed with light MAC. Patient informed this will increase his risk of recall of awareness during the procedure and that this may be expected. Patient confirmed understanding. Anesthetic Plan ASA status: 4 Anesthesia: MAC Risk of > 500 ml blood loss (7ml/kg in children): No Medications/Allergies Home Medications Medication Instructions Recorded Confirmed Last Taken Type folic acid 1 mg tablet 1 mg PO QAM #90 tabs 03/16/23 05/05/23 05/05/23 Rx polyethylene glycol 3350 17 17 g PO DAILY PRN Constipation 03/16/23 05/05/23 Unknown Rx gram/dose oral powder (Miralax) #510 grams albuterol sulfate 2.5 mg/3 mL 2.5 mg (3 mL) inhalation QID PRN 0305/06/23 05/06/23 Rx (0.083 %) solution for nebulization shortness of breath or wheezing #300 mL fluticasone fur. 100 mcg-umeclid 1 inh inhalation BEDTIME #60 ea 04/22/23 05/06/23 05/05/23 Rx 62.5 mcg-vilant 25 mcg inhalat.powder (Trelegy Ellipta) guaifenesin 1,200 mg tablet, 1,200 mg PO Q12H PRN Allergic 04/22/23 05/05/23 05/05/23 History extended release 12 hr (Mucinex) Symptoms levothyroxine 112 mcg tablet See Rx Instructions PO QAM 04/22/23 05/05/23 05/05/23 History mirtazapine 15 mg tablet (Remeron) 15 mg PO .at dinner #30 tabs 04/22/23 05/06/23 05/03/23 Rx montelukast 10 mg tablet 10 mg PO BEDTIME #90 tabs 04/22/23 05/05/23 05/05/23 Rx (Singulair) Allergies Allergy/AdvReac Type Severity Reaction Status Date / Time grass pollen Allergy Mild ALGY-Watery Verified 05/05/23 12:37 Eye Current Medications Generic Name Dose Route Start Last Admin Trade Name Freq PRN Reason Stop Dose Admin Sodium Chloride 1,000 mls @ 30 mls/hr 05/06/23 06:45 05/06/23 07:14 Sodium Chloride 0.9% IV 05/07/23 06:44 30 mls/hr .Q24H EDWINA Administration PFSH Anesthesia Medical History 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 Hypotension Non-small cell cancer of right lung Smoking hx Stop December 2022 Screening for colon cancer Cologuard screen COPD (chronic obstructive pulmonary disease) COPD exacerbation Adult onset hypothyroidism Seasonal allergies Surgical History Status post lobectomy of lung Right upper January 2023 [facility] [place] Family History Brother Diabetes Hyperlipidemia Father Congestive heart failure (CHF) COPD (chronic obstructive pulmonary disease) Dementia Cancer prostate Mother Congestive heart failure (CHF) COPD (chronic obstructive pulmonary disease) Cancer gastric cancer Other No history of previous surgery Social History Smoking and tobacco/nicotine status: former use of tobacco/nicotine Quit status (tobacco/nicotine): has quit using Year quit tobacco: 01/12/23 Former quit date comment: 2 ppd X 55 years Second hand smoke exposure: Yes Alcohol intake: former Substance/Drug Use: never Adopted: No Caregiver/support person: No Lives independently: Yes Household members: none Marital status: Number of children: 1 service: Yes branch: [employer] Current occupational status: retired Pets and animals: No Do you think of yourself as: Straight/Heterosexual Current gender identity: Male Data Anesthesia Cardiac Studies: Echocardiogram Ultrasound 05/11/19
[2023-05-06] MEDS: ceFAZolin 2,000 MG in sodium chloride 0.9% (plus) 50 ML 100 MG IV (07:59)
[2023-05-06] MEDS: lidocaine-epi 2% PF 1:200,000 20 mL SDV INJECTION (08:13)
[2023-05-06] MEDS: heparin, porcine 1,000 unit/mL INJ 10 mL 10000 UNIT IRRIGATION (08:13)
--- NOTE | 2023-05-06 08:25 | P.OP_ITS ---
Operative Report Date of procedure: May 06, 2023 Pre-op diagnosis: Lung cancer Post-op diagnosis: same Procedure done: Mediport placement Implants: PowerPort Specimens removed/disposition: None Surgeon: Herminio Limon DO Anesthesia: General Estimated blood loss (mL): 5 Complications: None apparent Brief History: This very pleasant 67-year-old gentleman who presented my office with lung cancer requesting Mediport placement. Medical placement was indicated for chemotherapy access. The risk and benefits were explained and documented. Procedure: They put another order I will do right now things the patient was taken to the operating room and placed supine on the operating room table. All bony prominences were padded. She was given IV sedation and monitored throughout the case by the anesthesia personnel. SCDs were placed and turned on. The arms were tucked to the side. Patient received Ancef 2 g preoperatively IV. The bilateral chest wall was prepped and draped in usual sterile fashion using chlorhexidine base prep. Sterile drapes were applied. We did procedure pause prior to beginning. An 18 gauge needle was placed in the left subclavian vein. Dark, nonpulsatile blood was aspirated. A guidewire was placed through the needle centrally toward the atrial/vena caval junction. Fluoroscopy visualized good placement. The needle was removed and the guidewire was clipped to the drape with a hemostat. Further local anesthetic was infiltrated in the soft tissues of the left chest wall and a #15 blade was used to make a horizontal skin incision. A subcutaneous Mediport pocket was created using Bovie cautery, dissecting down through the skin and subcutaneous tissues. Meticulous hemostasis was achieved. The Mediport was sutured in position using 3-0 vicryl suture x2 stitches. A #15 blade was used to make a small skin reid around the guidewire insertion area. The Mediport tubing was tunneled through the subcutaneous tissues up to the needle insertion location. A dilator with a peel-away sheath was placed over the guidewire and placed centrally. After measuring the Mediport tubing was cut to length so that the tip would end at the atrial/vena caval junction. The inner cannula and the guidewire were removed, leaving the dilator sheath in place. The Mediport was flushed. The tip of the catheter was inserted through the peel-away sheath and the peel-away sheath removed in the standard fashion. The Mediport was accessed with a stra ight Malone needle and dark, nonpulsatile blood was aspirated and flushed using heparinized saline to hep-lock the Mediport. Final fluoroscopy visualization showed no kink in the catheter and the tip of the Mediport tubing near the atrial/vena caval junction. Both skin incisions were thoroughly irrigated and suctioned dry. Meticulous hemostasis noted. The dermis was approximated with 3-0 Vicryl in an interrupted fashion. Skin was closed with Dermabond. Patient was awakened from anesthesia and transferred via her cart to the recovery room in stable condition. All needle, sponge, and instrument counts were correct per the operating personnel x2 counts.
--- NOTE | 2023-05-06 09:30 | ANE.PACU2 ---
Inpatient post-anesthesia follow up: Airway intact: Yes Vital signs: Temperature 97.3 F Pulse Rate 75 Respiratory Rate 18 Blood Pressure 135/89 Pulse Oximetry 99 Oxygen Delivery Me thod Nasal Cannula Oxygen Flow Rate 5 Fraction of Inspir ed Oxygen Hydration adequate: Yes Nausea and vomiting: No Pain level: 1 Mental status: Baseline
== END 2023-05-06 09:30 | disposition home or self-care (01) ==
PROVIDERS: PCP Nurse Practitioner; Visit Provider Surgery
PROC: (CPT 36561; principal; 2023-05-06 08:00)
DX: C34.11 Malignant neoplasm of upper lobe, right bronchus or lung (principal); J44.9 Chronic obstructive pulmonary disease, unspecified; Z90.2 Acquired absence of lung [part of]; Z99.81 Dependence on supplemental oxygen; E03.9 Hypothyroidism, unspecified; Z87.891 Personal history of nicotine dependence
CPT/HCPCS: 36561; 71045; 76000; 77001; C1788; J0690; J1644; J2250; J2371; J2704; J3010; J7030

== ENCOUNTER 2023-05-11 07:16 | Outpatient (CLI) | payer MEDICARE, SELFPAY ==
[2023-05-11 07:32] VITALS: PULSE 93; RESP 18; O2SAT 90
[2023-05-11] MEDS: albuterol 2.5 mg/3 mL Neb INHALATION (07:32)
[2023-05-11 07:36] VITALS: PULSE 95
--- NOTE | 2023-05-11 09:15 | USCV_ITS ---
Darrin Avila Age: 68 Gender: M : 1955 Exam Date: 05/11/2023 08:19 Ordering Phys: Barry Davenport MD ([email or web address]) Technologist: ARDEN Exam Location: [facility] Indication: ABNORMAL EKG/SHORTNESS OF BREATH BP: 109 / 73 HR: 62 Rhythm: Sinus Technical Quality: Poor secondary to COPD MEASUREMENTS (Male / Female) Normal Values 2D ECHO LV Diastolic Diameter PLAX 3.5 cm 4.2 - 5.9 / 3.9 - 5.3 cm IVS Diastolic Thickness 1.6 cm 0.6 - 1.0 / 0.6 - 0.9 cm IVS Systolic Thickness 1.9 cm LVPW Diastolic Thickness 2.2 cm 0.6 - 1.0 / 0.6 - 0.9 cm LVPW Systolic Thickness 3.1 cm LVOT Diameter 2.0 cm LV Ejection Fraction 2D Teich 51.4 % LV Ejection Fraction MOD 2C 58.9 % LV Ejection Fraction 2C AL 57.5 % LA Diameter 2.7 cm RA Systolic Volume 4C AL 19.9 ml RA Systolic Volume 4C MOD 19.3 ml Aorta at Sinotubular Diameter 3.0 cm M-MODE LA Ao Ratio MM 1.0 AV Cusp Separation MM 1.9 cm DOPPLER AV Peak Velocity 144.0 cm/s LVOT Peak Velocity 97.0 cm/s AV Area Cont Eq vti 2.1 cm squared AV Area Cont Eq pk 2.1 cm squared MV Peak Velocity 95.0 cm/s MV Area PHT 2.9 cm squared Mitral E to A Ratio 0.9 TR Peak Velocity 224.0 cm/s TR Peak Gradient 20.1 mmHg TR Mean Velocity 200.0 cm/s TR Mean Gradient 16.3 mmHg TR Velocity Time Integral 76.0 cm TV Peak E Velocity 94.0 cm/s Right Atrial Pressure 3.0 mmHg Pulmonary Artery Systolic Pressu 23.1 mmHg PV Peak Velocity 107.0 cm/s RV Ejection Time 0.3 s FINDINGS Left Ventricle Possibly normal LV size ejection fraction of 65%. No gross wall motion abnormalities noted. Some features of left-ventricular diastolic dysfunction Right Ventricle The right ventricular patient be mildly dilated with slightly diminished ejection fraction Right Atrium Could not be visualized Left Atrium Possibly of normal size Mitral Valve No gross abnormalities noted Aortic Valve No gross abnormalities noted Tricuspid Valve Trace tricuspid valve regurgitation. Pulmonic Valve Pulmonic valve not well visualized. Pericardium No pericardial effusion. Aorta Normal aortic annulus size. IVC Inferior vena cava not visualized. CONCLUSIONS Possibly normal LV size ejection fraction of 65%. No gross wall motion abnormalities noted. The right ventricular patient be mildly dilated with slightly diminished ejection fraction Some features of left-ventricular diastolic dysfunction. The right atrium could not be visualized. Trace tricuspid valve regurgitation. Technically difficult study because of the poor ultrasonic window Dr Barry Davenport MD FACC (Electronically Signed) Final Date: 13 May 2023 21:27 S
== END 2023-05-11 07:17 | disposition home or self-care (01) ==
PROVIDERS: PCP Nurse Practitioner; Visit Provider Internal Medicine Cardiovascular Disease
DX: R06.09 Other forms of dyspnea (principal)
CPT/HCPCS: 93306; 94060; 94726; 94729; J7613

== ENCOUNTER 2023-05-17 06:47 | Outpatient (CLI) | payer MEDICARE, SELFPAY ==
[2023-05-17 07:03] VITALS: BMI 25.4
--- NOTE | 2023-05-17 07:04 | ECG_ITS ---
[facility] Test Date: 2023-05-17 Pat Name: Darrin Avila Department: Room: Gender: Male Warp Placer: : 1955 Requested By: Barry Davenport Order Number: [id number] Valentin MD: Ayan Chavez M.D. Interpretive Statements NAME OF STUDY: LEXISCAN SESTAMIBI STRESS TEST INDICATION: [ABNORMAL EKG; PRIOR MT] Procedure: At the baseline, the blood pressure was 134/82 mmHg with a heart rate of 85 bpm. The electrocardiogram showed normal sinus rhythm, normal axis with normal ST and T's. The Lexiscan was infused over a period of 20 seconds. A total of 0.4 mg of Lexiscan was infused. The stress phase was continued for a total of 5 minutes. Heart rate was at the end of stress phase was 103 bpm and a blood pressure of 111/59 mmHg. The EKG at the peak infusion revealed normal sinus rhythm with no significant ST-T wave changes. Sestamibi was injected 20 seconds after the Lexiscan infusion. Blood pressure at the end of recovery phase was 117/61 mmHg with a heart rate of 100 bpm. Conclusion: 1. Normal EKG response to Lexiscan infusion 2. No Lexiscan induced chest pain or cardiac arrhythmia. 3. Normal blood pressure and heart rate response. 4. Sestamibi/sestamibi perfusion scan pending; see separate report. Electronically Signed On 06-03-2023 6:55:55 CDT by Ayan Chavez M.D. [id number]
--- NOTE | 2023-05-17 07:04 | NMCV_ITS ---
NM aury perf SPECT r/s* [id number] Darrin Avila Age: 68 Gender: M : 1955 Exam Date: 05/17/2023 07:45 Ordering Phys: Barry Davenport MD ([email or web address]) Technologist: JOON Eubanks Exam Location: [facility] Indications: DYSPNEA ON EXERTION STRESS TEST Please see separate stress test report in [facility] for full findings IMAGE PROTOCOL Rest/Stress 1 Lexiscan Day Radiopharmaceutical Dose (mCi) Administration Site Administered by Rest: Tc-99m 10.9 IV JOON Palacios Sestamibi Stress:Tc-99m 32.6 IV JOON Eubanks Sestamilior Rest: 17-May-2023 60 Discovery 630 Stress: 17-May-2023 30 Discovery 630 0.4mg Lexiscan. Supine position only as patient was unable to lay prone. SPECT RESULTS Technical Quality: Excellent Raw Data Analysis: Normal Image Corrections: No attenuation or motion correction applied Summed Stress Score: 5 Summed Rest Score: 14 Summed Difference Score: 0 PERFUSION FINDINGS Moderate area of moderately decreased tracer uptake involving the mid inferior, inferolateral and apical lateral regions. No significant reversibility was noted in these regions. FUNCTIONAL RESULTS (calculated via Gated SPECT) Stress Image LV EF (%): 71 Stress EDV (mL):80 TID: 0.74 Stress ESV (mL):23 FUNCTIONAL FINDINGS: Segmental wall motion analysis revealing no gross wall motion abnormalities IMPRESSIONS 1. Myocardial perfusion imaging revealing moderate area of persistent decreased tracer uptake involving the inferior, inferolateral and apical lateral regions suggesting myocardial scarring in the distribution of the right and left coronary arteries coronary artery and left circumflex artery. 2. Normal LV ejection fraction 71%. 3. LV wall motion analysis revealing no gross wall motion abnormalities. 4. Normal LV volume Low probability for coronary ischemia, based on the above findings No similar previous studies are available for comparison Dr Barry Davenport MD FACC (Electronically Signed) Final Date: 17 May 2023 13:05 S
[2023-05-17] MEDS: regadenoson 0.4 Mg/5 ml Syringe 0.400000000000000022 MG IVP (08:56)
[2023-05-17 09:15] VITALS: BP 117/61; PULSE 99
== END 2023-05-17 06:48 | disposition home or self-care (01) ==
PROVIDERS: PCP Nurse Practitioner; Visit Provider Internal Medicine Cardiovascular Disease
DX: R94.31 Abnormal electrocardiogram [ECG] [EKG] (principal); I25.2 Old myocardial infarction; C34.11 Malignant neoplasm of upper lobe, right bronchus or lung; Z87.891 Personal history of nicotine dependence; Z79.899 Other long term (current) drug therapy
CPT/HCPCS: 36415; 78452; 93017; 96374; 99215; A9500; J2785

== ENCOUNTER 2023-05-31 07:32 | Oncology outpatient (recurring) (ONCR) | payer MEDICARE, SELFPAY ==
[2023-05-24 08:11] LABS: Basophils # 0.1 10^3/uL (0.0-0.1); Basophils % 1.1 %; Eosinophils # 0.2 10^3/uL (0.0-0.8); Eosinophils % 2.6 %; Hematocrit 39.5 % (37-53); Lymphocytes # 1.3 10^3/uL (0.8-4.8); Lymphocytes % 20.5 %; Mean Corpuscular HGB Conc 32.7 g/dL (30-55); Mean Corpuscular Hemoglobin 31.1 pg (27-33); Mean Corpuscular Volume 95.2 fl (82-101); Mean Platelet Volume 7.7 fL (7.4-10.4); Monocytes # 0.6 10^3/uL (0.2-0.9); Monocytes % 10.2 %; Neutrophils % 65.1 %; Nucleated Red Blood Cells % 0 %; Platelet Count 208 10^3/cmm (157-399); Red Blood Count 4.15 10^6/uL (3.85-5.65); Red Cell Distribution Width 13.4 % (12.1-15.1); White Blood Count 6.15 10^3/uL (3.29-11.43)
[2023-05-24 08:24] LABS: Alanine Aminotransferase 16 U/L (0-41); Albumin Level 3.9 g/dL (3.5-5.2); Alkaline Phosphatase 101 U/L (40-130); Anion Gap 12.2 (5-19); Blood Urea Nitrogen 7 mg/dL (8-23); Calcium 9.5 mg/dL (8.5-10.5); Carbon Dioxide 28 mmol/L (22-29); Chloride 96 mmol/L (98-107); Creatinine Clr Calc Pharmacy 96.8415; Globulin 3.7 g/dL (1.3-4.6); Glomerular Filtration Rate 95.8 mL/min (90-130); Glucose 100 mg/dL (65-115); Osmolality Calculated 272 mOsm/kg (285-295); Potassium 4.2 mmol/L (3.5-5.1); Sodium 132 mmol/L (136-145); Total Bilirubin 0.2 mg/dL (0.15-1.2); Total Protein 7.6 g/dL (6.6-8.7)
[2023-05-24 08:32] LABS: Aspartate Amino Transferase 14 U/L (0-40)
[2023-05-24] MEDS: sodium chloride 0.9% 250 ML 75 ML IV (09:11)
[2023-05-24] MEDS: acetaminophen 325 mg Tablet 650 MG PO (09:12)
[2023-05-24] MEDS: palonosetron 0.25 mg/5 mL SDV IVP (09:17)
[2023-05-24] MEDS: famotidine 20 mg/2 mL INJ IVP (09:22)
[2023-05-24] MEDS: diphenhydrAMINE 50 mg/mL SDV 1mL 25 MG IVP (09:25)
[2023-05-24] MEDS: dexamethasone 20 MG in sodium chloride 0.9% 50 ML 188 MG IV (09:28)
[2023-05-24] MEDS: PACLitaxeL 100 MG in sodium chloride 0.9%(non-DEHP) 250 ML 266.670000000000016 MG IV (10:40)
[2023-05-24] MEDS: CARBOplatin 260 MG in sodium chloride 0.9% 500 ML 526 MG IV (12:08)
--- NOTE | 2023-05-25 11:22 | ONCRAD TMN_ITS ---
Radiation Oncology Weekly Treatment Management Patient: Austin Coon MR#: [id number] : 1955> Attending Physician: Dr. Sosa Perez Date of Service: 05/25/2023 Fractions: 2 out of 30 along with chemotherapy yesterday Referring Physician(s) : Diagnosis: C34.91 - Malignant neoplasm of unspecified part of right bronchus or lung, Diagnosed 01/13/2023 (Active) Radiotherapy to date: Course: Post op RUL lung, Treatment Site: RUL 60Gy, Ref. ID: [id number], Energy: 6X, Dose/Fx (cGy): 200, #Fx: 2 / 30, Dose Correction (cGy): 0, Total Dose Delivered (cGy): 400, Start Date: 05/24/2023, Elapsed Days: 1 Reason for visit: The patient is being seen today as part of their regularly scheduled weekly on treatment visits to assess for acute toxicities from radiotherapy. Review of Systems: Patient has some issues with his heart rate being elevated after the chemotherapy. It is still little bit high today. He did get steroids and he thinks that is what caused it. Vital Signs: Performed on 05/25/2023 11:09 AM BMI - 25.942 kg/m2 (high), Height - 71 in, Weight - 186 lbs, Temperature - 98.3 f, Pulse - 100 /min, Respiration - 18 /min, O2 Sat - 96 %, Pain - 0, Fatigue - 6 and BP - 127/ 84 mm(hg). Physical Exam: No changes on exam Imaging: Radiation therapy imaging related to accurate target localization (i.e. KV, MV and CBCT) was reviewed. Appropriate changes, if any, were made to ensure treatment accuracy. Plan: Will continue with his treatments as planned. Patient had no additional questions or concerns today. I did remind him that he may the last 2 weeks of treatment developed some difficulty swallowing and that he would need to take smaller bites and drink plenty of liquid during that time. Signed by: Dr. Sosa Perez 05/25/2023 11:20:13 AM
[2023-05-31 09:53] LABS: Basophils % 0.6 %; Eosinophils # 0.1 10^3/uL (0.0-0.8); Eosinophils % 1.4 %; Hematocrit 35.6 % (37-53); Lymphocytes # 0.8 10^3/uL (0.8-4.8); Lymphocytes % 12.7 %; Mean Corpuscular HGB Conc 32.9 g/dL (30-55); Mean Corpuscular Volume 94.2 fl (82-101); Mean Platelet Volume 8.2 fL (7.4-10.4); Monocytes # 0.5 10^3/uL (0.2-0.9); Monocytes % 8.3 %; Neutrophils # 4.79 10^3/uL (1.8-7.7); Nucleated Red Blood Cells % 0 %; Platelet Count 166 10^3/cmm (157-399); Red Blood Count 3.78 10^6/uL (3.85-5.65); Red Cell Distribution Width 12.9 % (12.1-15.1)
[2023-05-31 10:15] LABS: Alanine Aminotransferase 8 U/L (0-41); Albumin Level 3.8 g/dL (3.5-5.2); Alkaline Phosphatase 95 U/L (40-130); Anion Gap 12.4 (5-19); Aspartate Amino Transferase 8 U/L (0-40); Blood Urea Nitrogen 8 mg/dL (8-23); Calcium 9.2 mg/dL (8.5-10.5); Carbon Dioxide 28 mmol/L (22-29); Chloride 98 mmol/L (98-107); Creatinine Clr Calc Pharmacy 96.1705; Globulin 3.4 g/dL (1.3-4.6); Glomerular Filtration Rate 111.8 mL/min (90-130); Glucose 88 mg/dL (65-115); Osmolality Calculated 276 mOsm/kg (285-295); Potassium 4.4 mmol/L (3.5-5.1); Sodium 134 mmol/L (136-145); Total Bilirubin 0.4 mg/dL (0.15-1.2); Total Protein 7.2 g/dL (6.6-8.7)
[2023-05-31] MEDS: sodium chloride 0.9% 250 ML 75 ML IV (10:52)
[2023-05-31] MEDS: palonosetron 0.25 mg/5 mL SDV IVP (10:53)
[2023-05-31] MEDS: acetaminophen 325 mg Tablet 650 MG PO (10:53)
[2023-05-31] MEDS: famotidine 20 mg/2 mL INJ IVP (10:56)
[2023-05-31] MEDS: diphenhydrAMINE 50 mg/mL SDV 1mL 25 MG IVP (10:59)
[2023-05-31] MEDS: dexamethasone 20 MG in sodium chloride 0.9% 50 ML 188 MG IV (11:00)
[2023-05-31] MEDS: PACLitaxeL 100 MG in sodium chloride 0.9%(non-DEHP) 250 ML 266.670000000000016 MG IV (11:39)
[2023-05-31] MEDS: CARBOplatin 280 MG in sodium chloride 0.9% 500 ML 528 MG IV (12:58)
== END 2023-05-31 23:59 | disposition home or self-care (01) ==
PROVIDERS: Internal Medicine; Nurse Practitioner Family; PCP Nurse Practitioner; Visit Provider Radiology Radiation Oncology
DX: Z51.11 Encounter for antineoplastic chemotherapy; Z53.9 Procedure and treatment not carried out, unspecified reason; Z51.0 Encounter for antineoplastic radiation therapy; Z95.828 Presence of other vascular implants and grafts; Z87.891 Personal history of nicotine dependence; C34.81 Malignant neoplasm of overlapping sites of right bronchus and lung; Z90.2 Acquired absence of lung [part of]; J44.9 Chronic obstructive pulmonary disease, unspecified; I10 Essential (primary) hypertension; E03.9 Hypothyroidism, unspecified; Z79.899 Other long term (current) drug therapy
CPT/HCPCS: 77300; 77301; 77334; 77338; 77386; 77470; 80053; 85025; 96367; 96375; 96413; 96417; 99024; 99214; 99215; J1100; J1200; J2469; J3490; J7040; J7050; J9045; J9267

== ENCOUNTER 2023-06-15 09:09 | Oncology outpatient (recurring) (ONCR) | payer MEDICARE, SELFPAY ==
--- NOTE | 2023-06-01 11:43 | ONCRAD TMN_ITS ---
Radiation Oncology Weekly Treatment Management Patient: Austin Coon MR#: [id number] : 1955> Attending Physician: Dr. Sosa Perez Date of Service: 06/01/2023 Fractions: 7 out of 30 with chemotherapy yesterday Referring Physician(s) : Diagnosis: C34.91 - Malignant neoplasm of unspecified part of right bronchus or lung, Diagnosed 01/13/2023 (Active) Radiotherapy to date: Course: Post op RUL lung, Treatment Site: RUL 60Gy, Ref. ID: [id number], Energy: 6X, Dose/Fx (cGy): 200, #Fx: 7 / 30, Dose Correction (cGy): 0, Total Dose Delivered (cGy): 1,400, Start Date: 05/24/2023, Elapsed Days: 8 Reason for visit: The patient is being seen today as part of their regularly scheduled weekly on treatment visits to assess for acute toxicities from radiotherapy. Review of Systems: Patient has not noticed any changes as yet. His appetite is good. He has no respiratory issues Vital Signs: Performed on 06/01/2023 10:58 AM BMI - 25.551 kg/m2 (high), Height - 71 in, Weight - 183.2 lbs, Temperature - 97.6 f, Pulse - 108 /min (high), Respiration - 18 /min, O2 Sat - 95 % (low), Pain - 0, Fatigue - 0 and BP - 114/ 72 mm(hg). Physical Exam: No changes on exam Imaging: Radiation therapy imaging related to accurate target localization (i.e. KV, MV and CBCT) was reviewed. Appropriate changes, if any, were made to ensure treatment accuracy. Plan: Will continue with treatments as planned patient is tolerating therapy well. Signed by: Dr. Sosa Perez 06/01/2023 11:42:31 AM
[2023-06-07 08:11] LABS: Basophils # 0.1 10^3/uL (0.0-0.1); Basophils % 1.4 %; Eosinophils # 0.1 10^3/uL (0.0-0.8); Eosinophils % 2.3 %; Hematocrit 37.3 % (37-53); Lymphocytes # 0.4 10^3/uL (0.8-4.8); Lymphocytes % 9.9 %; Mean Corpuscular HGB Conc 32.4 g/dL (30-55); Mean Corpuscular Hemoglobin 30.6 pg (27-33); Mean Corpuscular Volume 94.2 fl (82-101); Mean Platelet Volume 8.5 fL (7.4-10.4); Monocytes # 0.4 10^3/uL (0.2-0.9); Monocytes % 9.9 %; Nucleated Red Blood Cells % 0 %; Platelet Count 164 10^3/cmm (157-399); Red Blood Count 3.96 10^6/uL (3.85-5.65); Red Cell Distribution Width 12.8 % (12.1-15.1); White Blood Count 4.34 10^3/uL (3.29-11.43)
[2023-06-07 08:28] LABS: Alanine Aminotransferase 12 U/L (0-41); Albumin Level 3.6 g/dL (3.5-5.2); Alkaline Phosphatase 90 U/L (40-130); Anion Gap 9.4 (5-19); Aspartate Amino Transferase 11 U/L (0-40); Blood Urea Nitrogen 10 mg/dL (8-23); Calcium 9.2 mg/dL (8.5-10.5); Carbon Dioxide 29 mmol/L (22-29); Chloride 100 mmol/L (98-107); Globulin 3.7 g/dL (1.3-4.6); Glomerular Filtration Rate 133.6 mL/min (90-130); Glucose 97 mg/dL (65-115); Osmolality Calculated 277 mOsm/kg (285-295); Potassium 4.4 mmol/L (3.5-5.1); Sodium 134 mmol/L (136-145); Total Bilirubin 0.2 mg/dL (0.15-1.2); Total Protein 7.3 g/dL (6.6-8.7)
[2023-06-07] MEDS: sodium chloride 0.9% 250 ML 75 ML IV (09:31)
[2023-06-07] MEDS: diphenhydrAMINE 50 mg/mL SDV 1mL 25 MG IVP (09:32)
[2023-06-07] MEDS: acetaminophen 325 mg Tablet 650 MG PO (09:32)
[2023-06-07] MEDS: famotidine 20 mg/2 mL INJ IVP (09:36)
[2023-06-07] MEDS: palonosetron 0.25 mg/5 mL SDV IVP (09:41)
[2023-06-07] MEDS: dexamethasone 20 MG in sodium chloride 0.9% 50 ML 188 MG IV (09:44)
[2023-06-07 10:08] VITALS: BP 134/78; PULSE 87; RESP 18; TEMP 36.8; O2SAT 99
[2023-06-07] MEDS: PACLitaxeL 100 MG in sodium chloride 0.9%(non-DEHP) 250 ML 266.670000000000016 MG IV (10:11)
[2023-06-07 10:15] VITALS: BMI 24.5
[2023-06-07] MEDS: CARBOplatin 300 MG in sodium chloride 0.9% 500 ML 530 MG IV (11:29)
[2023-06-07 12:21] VITALS: BP 157/91; PULSE 92; RESP 18; TEMP 36.7; O2SAT 92
--- NOTE | 2023-06-08 13:11 | ONCRAD TMN_ITS ---
Radiation Oncology Weekly Treatment Management Patient: Darrin Avila MR#: [id number] : 1955> Attending Physician: Dr. Sosa Perez Date of Service: 06/08/2023 Fractions: 30 along with chemotherapy Referring Physician(s) : Diagnosis: C34.91 - Malignant neoplasm of unspecified part of right bronchus or lung, Diagnosed 01/13/2023 (Active) Radiotherapy to date: Course: Post op RUL lung, Treatment Site: RUL 60Gy, Ref. ID: [id number], Energy: 6X, Dose/Fx (cGy): 200, #Fx: , Dose Correction (cGy): 0, Total Dose Delivered (cGy): 2,400, Start Date: 05/24/2023, Elapsed Days: 15 Reason for visit: The patient is being seen today as part of their regularly scheduled weekly on treatment visits to assess for acute toxicities from radiotherapy. Review of Systems: Patient is doing well. He has noticed no substantial changes. He got chemotherapy yesterday Vital Signs: Performed on 06/08/2023 10:56 AM BMI - 25.607 kg/m2 (high), Height - 71 in, Weight - 183.6 lbs, Temperature - 97 f, Pulse - 102 /min (high), Respiration - 18 /min, O2 Sat - 97 %, Pain - 0, Fatigue - 2 and BP - 126/ 73 mm(hg). Physical Exam: No changes on examination Imaging: Radiation therapy imaging related to accurate target localization (i.e. KV, MV and CBCT) was reviewed. Appropriate changes, if any, were made to ensure treatment accuracy. Plan: Will continue with his treatments as planned Signed by: Dr. Sosa Perez 06/08/2023 1:10:12 PM
[2023-06-14 09:05] LABS: Basophils % 1.4 %; Eosinophils # 0.1 10^3/uL (0.0-0.8); Eosinophils % 2.1 %; Hematocrit 37.4 % (37-53); Lymphocytes # 0.4 10^3/uL (0.8-4.8); Lymphocytes % 14.2 %; Mean Corpuscular HGB Conc 32.6 g/dL (30-55); Mean Corpuscular Hemoglobin 31.2 pg (27-33); Mean Corpuscular Volume 95.7 fl (82-101); Mean Platelet Volume 8.3 fL (7.4-10.4); Monocytes # 0.3 10^3/uL (0.2-0.9); Monocytes % 9.3 %; Neutrophils # 2.09 10^3/uL (1.8-7.7); Neutrophils % 72.3 %; Nucleated Red Blood Cells % 0 %; Platelet Count 140 10^3/cmm (157-399); Red Blood Count 3.91 10^6/uL (3.85-5.65); White Blood Count 2.89 10^3/uL (3.29-11.43)
[2023-06-14 09:22] LABS: Alanine Aminotransferase 14 U/L (0-41); Albumin Level 3.5 g/dL (3.5-5.2); Alkaline Phosphatase 94 U/L (40-130); Anion Gap 11.7 (5-19); Aspartate Amino Transferase 17 U/L (0-40); Blood Urea Nitrogen 8 mg/dL (8-23); Calcium 9.1 mg/dL (8.5-10.5); Carbon Dioxide 28 mmol/L (22-29); Chloride 100 mmol/L (98-107); Creatinine Clr Calc Pharmacy 97.8715; Globulin 3.7 g/dL (1.3-4.6); Glomerular Filtration Rate 111.8 mL/min (90-130); Glucose 89 mg/dL (65-115); Osmolality Calculated 278 mOsm/kg (285-295); Potassium 4.7 mmol/L (3.5-5.1); Sodium 135 mmol/L (136-145); Total Bilirubin 0.2 mg/dL (0.15-1.2); Total Protein 7.2 g/dL (6.6-8.7)
[2023-06-14] MEDS: sodium chloride 0.9% 250 ML 75 ML IV (11:39)
[2023-06-14] MEDS: acetaminophen 325 mg Tablet 650 MG PO (11:40)
[2023-06-14] MEDS: palonosetron 0.25 mg/5 mL SDV IVP (11:41)
[2023-06-14] MEDS: famotidine 20 mg/2 mL INJ IVP (11:42)
[2023-06-14] MEDS: diphenhydrAMINE 50 mg/mL SDV 1mL 25 MG IVP (11:42)
[2023-06-14] MEDS: dexamethasone 20 MG in sodium chloride 0.9% 50 ML 188 MG IV (12:12)
[2023-06-14] MEDS: PACLitaxeL 100 MG in sodium chloride 0.9%(non-DEHP) 250 ML 266.670000000000016 MG IV (12:35)
[2023-06-14] MEDS: CARBOplatin 280 MG in sodium chloride 0.9% 500 ML 528 MG IV (13:47)
[2023-06-14 14:45] VITALS: BP 133/79; PULSE 87; RESP 16; TEMP 36.9; O2SAT 99
== END 2023-06-15 23:59 | disposition home or self-care (01) ==
PROVIDERS: Internal Medicine; Nurse Practitioner Family; PCP Nurse Practitioner; Visit Provider Radiology Radiation Oncology
DX: C34.91 Malignant neoplasm of unspecified part of right bronchus or lung (principal); Z51.0 Encounter for antineoplastic radiation therapy; Z87.891 Personal history of nicotine dependence
CPT/HCPCS: 77336; 77386; 80053; 85025; 96367; 96375; 96413; 96415; 96417; 99024; 99214; J1100; J1200; J2469; J3490; J7040; J7050; J9045; J9267

== ENCOUNTER 2023-07-01 08:41 | Oncology outpatient (recurring) (ONCR) | payer MEDICARE, SELFPAY ==
--- NOTE | 2023-06-16 22:49 | ONCRAD TMN_ITS ---
Radiation Oncology Weekly Treatment Management Patient: Darrin Avila MR#: [id number] : 1955 Attending Physician: Henry Delacruz Date of Service: 06/16/2023 Referring Physician(s) : Diagnosis: C34.91 - Malignant neoplasm of unspecified part of right bronchus or lung, Diagnosed 01/13/2023 (Active) Radiotherapy to date: Course: Post op RUL lung, Treatment Site: RUL 60Gy, Ref. ID: [id number], Energy: 6X, Dose/Fx (cGy): 200, #Fx: 18 / 30, Dose Correction (cGy): 0, Total Dose Delivered (cGy): 3,600, Start Date: 05/24/2023, Elapsed Days: 23 Reason for visit: The patient is being seen today as part of their regularly scheduled weekly on treatment visits to assess for acute toxicities from radiotherapy. Review of Systems: No complaints. Some fatigue. No N or V. Walking daily. No smoking since 12/2022. Erythema over back noted by staff. Skin of back treated with hydrocortisone and Aloe. Vital Signs: Performed on 06/16/2023 9:32 AM BMI - 26.053 kg/m2 (high), Height - 71 in, Weight - 186.8 lbs, Temperature - 97.9 f, Pulse - 104 /min (high), Respiration - 18 /min, O2 Sat - 100 %, Pain - 0, Fatigue - 0 and BP - 122/ 74 mm(hg). Physical Exam: Imaging: Radiation therapy imaging related to accurate target localization (i.e. KV, MV and CBCT) was reviewed. Appropriate changes, if any, were made to ensure treatment accuracy. Plan: Good tolerance of treatment. Continue as planned. Signed by: Henry Delacruz 06/16/2023 10:47:43 PM Telemedicine Consent Patient seen today via Telemedicine by agreement and consent of patient. Telemedicine technology used during the visit include audio and, as available, review of images. This patient encounter is appropriate and reasonable under the circumstances given the patient???s particular presentation at this time. The patient has been advised of the potential risks and limitations of this mode of treatment (including but not limited to the absence of in-person examination) and has agreed to be treated in a remote fashion in spite of them. Any and all of the patient???s/patient???s family???s questions on this issue have been answered and I have made no promises or guarantees to the patient. The patient has also been advised to contact this office for worsening conditions or problems, and seek emergency medical treatment and/or call 911 if the patient deems either necessary.
[2023-06-21 08:46] LABS: Basophils # 0.1 10^3/uL (0.0-0.1); Basophils % 1.7 %; Eosinophils # 0.1 10^3/uL (0.0-0.8); Eosinophils % 2.1 %; Hematocrit 37.3 % (37-53); Lymphocytes # 0.3 10^3/uL (0.8-4.8); Lymphocytes % 10.6 %; Mean Corpuscular Hemoglobin 31.3 pg (27-33); Mean Corpuscular Volume 94.9 fl (82-101); Mean Platelet Volume 8.3 fL (7.4-10.4); Monocytes # 0.3 10^3/uL (0.2-0.9); Monocytes % 10.6 %; Neutrophils # 2.18 10^3/uL (1.8-7.7); Neutrophils % 74.7 %; Nucleated Red Blood Cells % 0 %; Platelet Count 115 10^3/cmm (157-399); Red Blood Count 3.93 10^6/uL (3.85-5.65); Red Cell Distribution Width 13.1 % (12.1-15.1); White Blood Count 2.92 10^3/uL (3.29-11.43)
[2023-06-21 09:06] LABS: Alanine Aminotransferase 16 U/L (0-41); Albumin Level 3.7 g/dL (3.5-5.2); Alkaline Phosphatase 99 U/L (40-130); Anion Gap 13.5 (5-19); Aspartate Amino Transferase 14 U/L (0-40); Blood Urea Nitrogen 10 mg/dL (8-23); Calcium 9.1 mg/dL (8.5-10.5); Carbon Dioxide 27 mmol/L (22-29); Chloride 99 mmol/L (98-107); Globulin 3.8 g/dL (1.3-4.6); Glomerular Filtration Rate 111.8 mL/min (90-130); Glucose 97 mg/dL (65-115); Osmolality Calculated 279 mOsm/kg (285-295); Potassium 4.5 mmol/L (3.5-5.1); Sodium 135 mmol/L (136-145); Total Bilirubin 0.4 mg/dL (0.15-1.2); Total Protein 7.5 g/dL (6.6-8.7)
[2023-06-21] MEDS: acetaminophen 325 mg Tablet 650 MG PO (10:45)
[2023-06-21] MEDS: diphenhydrAMINE 50 mg/mL SDV 1mL 25 MG IVP (10:45)
[2023-06-21] MEDS: sodium chloride 0.9% 250 ML 75 ML IV (10:45)
[2023-06-21] MEDS: famotidine 20 mg/2 mL INJ IVP (10:48)
[2023-06-21] MEDS: palonosetron 0.25 mg/5 mL SDV IVP (10:49)
[2023-06-21] MEDS: dexamethasone 20 MG in sodium chloride 0.9% 50 ML 188 MG IV (10:49)
[2023-06-21] MEDS: PACLitaxeL 100 MG in sodium chloride 0.9%(non-DEHP) 250 ML 266.670000000000016 MG IV (11:13)
[2023-06-21] MEDS: CARBOplatin 290 MG in sodium chloride 0.9% 500 ML 529 MG IV (12:23)
[2023-06-21 13:44] VITALS: BP 132/85; PULSE 89; TEMP 36.6; O2SAT 96
--- NOTE | 2023-06-23 11:21 | ONCRAD TMN_ITS ---
Radiation Oncology Weekly Treatment Management Patient: Darrin Avila MR#: [id number] : 1955 Attending Physician: Henry Delacruz Date of Service: 06/23/2023 Referring Physician(s) : Diagnosis: C34.91 - Malignant neoplasm of unspecified part of right bronchus or lung, Diagnosed 01/13/2023 (Active) Radiotherapy to date: Course: Post op RUL lung, Treatment Site: RUL 60Gy, Ref. ID: [id number], Energy: 6X, Dose/Fx (cGy): 200, #Fx: , Dose Correction (cGy): 0, Total Dose Delivered (cGy): 4,600, Start Date: 05/24/2023, Elapsed Days: 30 Reason for visit: The patient is being seen today as part of their regularly scheduled weekly on treatment visits to assess for acute toxicities from radiotherapy. Review of Systems: Active with good appetite and energy level. Redness over back treated with with 1% hydrocortisone spray and aloe vera. Vital Signs: Performed on 06/23/2023 9:09 AM BMI - 25.998 kg/m2 (high), Height - 71 in, Weight - 186.4 lbs, Temperature - 96.5 f, Pulse - 65 /min, Respiration - 18 /min, O2 Sat - 98 %, Pain - 0, Fatigue - 2 and BP - 117/ 76 mm(hg). Physical Exam: Follicular erythema over right and central back with no desquamation. Imaging: Radiation therapy imaging related to accurate target localization (i.e. KV, MV and CBCT) was reviewed. Appropriate changes, if any, were made to ensure treatment accuracy. Plan: Good tolerance of treatment. Continue as planned. Signed by: Henry Delacruz 06/23/2023 11:20:30 AM
[2023-06-28 07:58] LABS: Basophils % 1.7 %; Eosinophils # 0.1 10^3/uL (0.0-0.8); Eosinophils % 2.6 %; Hematocrit 34.8 % (37-53); Lymphocytes # 0.3 10^3/uL (0.8-4.8); Lymphocytes % 12.2 %; Mean Corpuscular Hemoglobin 31.2 pg (27-33); Mean Corpuscular Volume 94.3 fl (82-101); Mean Platelet Volume 8.5 fL (7.4-10.4); Monocytes # 0.2 10^3/uL (0.2-0.9); Monocytes % 7.9 %; Neutrophils # 1.72 10^3/uL (1.8-7.7); Neutrophils % 75.2 %; Nucleated Red Blood Cells % 0 %; Platelet Count 110 10^3/cmm (157-399); Red Blood Count 3.69 10^6/uL (3.85-5.65); Red Cell Distribution Width 13.3 % (12.1-15.1); White Blood Count 2.29 10^3/uL (3.29-11.43)
[2023-06-28 08:19] LABS: Alanine Aminotransferase 15 U/L (0-41); Albumin Level 3.6 g/dL (3.5-5.2); Alkaline Phosphatase 98 U/L (40-130); Anion Gap 10.4 (5-19); Aspartate Amino Transferase 13 U/L (0-40); Blood Urea Nitrogen 10 mg/dL (8-23); Carbon Dioxide 28 mmol/L (22-29); Chloride 99 mmol/L (98-107); Globulin 3.8 g/dL (1.3-4.6); Glomerular Filtration Rate 111.8 mL/min (90-130); Glucose 93 mg/dL (65-115); Osmolality Calculated 275 mOsm/kg (285-295); Potassium 4.4 mmol/L (3.5-5.1); Sodium 133 mmol/L (136-145); Total Bilirubin 0.3 mg/dL (0.15-1.2); Total Protein 7.4 g/dL (6.6-8.7)
[2023-06-28] MEDS: sodium chloride 0.9% 250 ML 75 ML IV (08:41)
[2023-06-28] MEDS: famotidine 20 mg/2 mL INJ IVP (08:42)
[2023-06-28] MEDS: diphenhydrAMINE 50 mg/mL SDV 1mL 25 MG IVP (08:45)
[2023-06-28] MEDS: acetaminophen 325 mg Tablet 650 MG PO (08:49)
[2023-06-28] MEDS: palonosetron 0.25 mg/5 mL SDV IVP (08:50)
[2023-06-28] MEDS: dexamethasone 20 MG in sodium chloride 0.9% 50 ML 188 MG IV (08:53)
[2023-06-28] MEDS: PACLitaxeL 100 MG in sodium chloride 0.9%(non-DEHP) 250 ML 266.670000000000016 MG IV (10:02)
[2023-06-28] MEDS: CARBOplatin 290 MG in sodium chloride 0.9% 500 ML 529 MG IV (11:13)
[2023-06-28 12:25] VITALS: BP 126/84; PULSE 102; RESP 18; TEMP 36.3; O2SAT 94
== END 2023-07-01 23:59 | disposition home or self-care (01) ==
PROVIDERS: Nurse Practitioner Family; PCP Nurse Practitioner; Visit Provider Radiology Radiation Oncology
DX: Z51.0 Encounter for antineoplastic radiation therapy; C34.11 Malignant neoplasm of upper lobe, right bronchus or lung
CPT/HCPCS: 77336; 77386; 80053; 85025; 96367; 96375; 96413; 96417; 99024; 99213; 99214; J1100; J1200; J2469; J3490; J7040; J7050; J9045; J9267

== ENCOUNTER 2023-07-02 08:42 | Oncology outpatient (recurring) (ONCR) | payer MEDICARE, SELFPAY ==
--- NOTE | 2023-07-06 08:36 | N.ONRD TS_ITS ---
Radiation Oncology Treatment Summary Patient: Austin>Jaymie MR#: [id number] : 1955> Age: 68> Sex: Male Dictated by: Henry Delacruz Date of Service: 07/02/2023 Referring Physician(s) : Diagnosis: C34.91 - Malignant neoplasm of unspecified part of right bronchus or lung, Diagnosed 01/13/2023 (Active) Radiotherapy to Date: Course: Post op RUL lung, Treatment Site: RUL 60Gy, Ref. ID: [id number], Energy: 6X, Dose/Fx (cGy): 200, #Fx: 30 / 30, Dose Correction (cGy): 0, Total Dose Delivered (cGy): 6,000, Start Date: 05/24/2023, End Date: 07/02/2023, Elapsed Days: 39 Clinical Summary: The patient tolerated RT well. He had stable shortness of breath and required a stable high level of O2 support at 5 L/Min. He had no sore throat while on treatment. Plan: End of treatment today. Follow up in one month. Signed by: Henry Delacruz>07/06/2023 8:35:40 AM <<Signature on File>>
== END 2023-07-16 23:59 | disposition home or self-care (01) ==
LOC: ONCMED 08:43
PROVIDERS: PCP Nurse Practitioner; Visit Provider Radiology Radiation Oncology
DX: Z51.0 Encounter for antineoplastic radiation therapy; C34.11 Malignant neoplasm of upper lobe, right bronchus or lung; R06.02 Shortness of breath; Z99.81 Dependence on supplemental oxygen
CPT/HCPCS: 77336; 77386; 99024

== ENCOUNTER 2023-08-13 09:30 | Oncology outpatient (recurring) (ONCR) | payer MEDICARE, SELFPAY ==
[2023-07-20] MEDS: iohexol 350 mg/mL 500 mL Btl (per mL) PO (12:54)
--- NOTE | 2023-07-20 13:30 | CT_ITS ---
WS: [id number] CT CHEST, ABDOMEN AND PELVIS WITH CONTRAST HISTORY: Restaging lung cancer. TECHNIQUE: Contiguous 5 mm axial imaging performed through the chest, abdomen and pelvis with IV cont rast, oral contrast has been provided. Coronal and sagittal reformats chest. Coronal and sagittal ref ormats through the abdomen and pelvis. All CT scans at [facility] use at least one of these d ose optimization techniques: automated exposure control; mA and/or kV adjustment per patient size (in cludes targeted exams where dose is matched to clinical indication); or iterative reconstruction. CONTRAST: Omnipaque 350; 100 mL IV. DLP: 1017.88 mGy.cm COMPARISON: 03/18/2023, Chest CT: Status post RIGHT upper lobectomy for cancer. Post pneumonectomy air in the RIGHT upper tho rax. Similar to the prior examination. No significant resolution of the air at the pneumonectomy site . There has been an improvement in the small pleural effusion in the atelectatic lung described on th e prior study. Continued atelectasis along the fissures of the RIGHT lung. No mass identified in or p rogression since the prior study. LEFT lung is mildly hyperinflated and expanded slightly across the midline. Benign granuloma LEFT upper lobe. There is a small amount of debris, frothy secretions in the RIGHT mainstem bronchus and distal trache a. No enlarging mediastinal or hilar lymph nodes. Atherosclerosis thoracic aorta with no aneurysm. LE FT subclavian central line. Abdomen CT: Normal size liver. Stable hypodensity which is likely a cyst inferior RIGHT lobe. Portal vein is normal. No metastatic disease. Normal gallbladder. Normal size spleen with granulomata. No ad renal mass. Normal pancreas. No bile duct dilatation. Atherosclerosis abdominal aorta. Infrarenal aor tic aneurysm at 4.3 cm has been previously described. There is circumferential asymmetric thrombus wi thin the aneurysm. The lumen is patent. No renal obstruction. Exophytic cyst 1.3 cm from the RIGHT ki dney. Nondistended stomach. No small bowel obstruction. Diffuse constipation with no obstructive pattern. N o colitis. Normal appendix. No ascites. No adenopathy. Pelvic CT: No free fluid or adenopathy. Nondistended urinary bladder. Patent bilateral inguinal canal s. No destructive bone lesions. Bilateral SI joint erosions. CT/CT chest abdpel w/*[id number] IMPRESSION: 1. Status post RIGHT upper lobectomy with no recurrent neoplasm. 2. Continued post pneumonectomy air in the RIGHT upper thorax is unchanged. 3. Improved aeration throughout the remaining RIGHT lung. Improving areas of a telectasis and decrease in the pleural effusion since 03/18/2023. 4. No mediastinal or hilar adenopathy. 5. No metastatic disease to the liver or adrenal glands. 6. Infrarenal abdominal aortic aneurysm measures 4.3 cm, stable. 7. No ascites. No abdominal or pelvic adenopathy.
[2023-07-20] MEDS: iohexol 350 mg/mL 500 mL Btl (per mL) IV (13:58)
[2023-07-26 08:32] LABS: Basophils # 0.1 10^3/uL (0.0-0.1); Basophils % 1.3 %; Eosinophils # 0.2 10^3/uL (0.0-0.8); Eosinophils % 4.7 %; Hematocrit 31.6 % (37-53); Lymphocytes # 0.5 10^3/uL (0.8-4.8); Lymphocytes % 13.5 %; Mean Corpuscular HGB Conc 33.2 g/dL (30-55); Mean Corpuscular Hemoglobin 32.6 pg (27-33); Mean Corpuscular Volume 98.1 fl (82-101); Mean Platelet Volume 7.8 fL (7.4-10.4); Monocytes # 0.6 10^3/uL (0.2-0.9); Monocytes % 15.3 %; Neutrophils # 2.51 10^3/uL (1.8-7.7); Neutrophils % 64.9 %; Nucleated Red Blood Cells % 0 %; Platelet Count 261 10^3/cmm (157-399); Red Blood Count 3.22 10^6/uL (3.85-5.65); Red Cell Distribution Width 16.5 % (12.1-15.1); White Blood Count 3.86 10^3/uL (3.29-11.43)
[2023-07-26 09:02] LABS: Alanine Aminotransferase 11 U/L (0-41); Albumin Level 3.6 g/dL (3.5-5.2); Alkaline Phosphatase 112 U/L (40-130); Anion Gap 15.4 (5-19); Aspartate Amino Transferase 11 U/L (0-40); Blood Urea Nitrogen 7 mg/dL (8-23); Calcium 9.4 mg/dL (8.5-10.5); Carbon Dioxide 26 mmol/L (22-29); Chloride 100 mmol/L (98-107); Globulin 4.3 g/dL (1.3-4.6); Glomerular Filtration Rate 95.8 mL/min (90-130); Glucose 94 mg/dL (65-115); Osmolality Calculated 282 mOsm/kg (285-295); Potassium 4.4 mmol/L (3.5-5.1); Sodium 137 mmol/L (136-145); Total Bilirubin 0.3 mg/dL (0.15-1.2); Total Protein 7.9 g/dL (6.6-8.7)
--- NOTE | 2023-07-26 09:12 | ONCRAD EPV_ITS ---
Radiation Oncology Established Patient Visit Patient: Austin Clifford [id number] : 1955 Age: 68 Sex: Male Dictated by: Dr. Sosa Perez Date of Service: 07/26/2023 Referring Physician(s) : Diagnosis: C34.91 - Malignant neoplasm of unspecified part of right bronchus or lung, Diagnosed 01/13/2023 (Active) Radiotherapy to Date: Course: Post op RUL lung, Treatment Site: RUL 60Gy, Ref. ID: [id number], Energy: 6X, Dose/Fx (cGy): 200, #Fx: 30 / 30, Dose Correction (cGy): 0, Total Dose Delivered (cGy): 6,000, Start Date: 05/24/2023, End Date: 07/02/2023, Elapsed Days: 39 Current History: Current Medications: Allergies: Current Complaints / Review of Systems: . Patient is doing well. His respiratory status has improved. He is now on 5 L even with activity. Vital Signs: Performed on 07/26/2023 8:34 AM BMI - 25.523 kg/m2 (high), Height - 71 in, Weight - 183 lbs, Temperature - 97.2 f, Pulse - 103 /min (high), Respiration - 18 /min, O2 Sat - 91 % (low), Pain - 0, Fatigue - 3 and BP - 106/ 71 mm(hg). Physical Exam: General: Alert and oriented x 3. No acute distress. HEENT normocephalic atraumatic. Pupils are equal, sclera clear, extraocular muscles intact .LUNGS: Clear to auscultation bilaterally without rales, rhonchi or wheeze. HEART: Regular rate and rhythm, MUSCULOSKELETAL: His skin is completely healed on his back ABDOMEN: Soft, nontender, nondistended EXTREMITIES: No peripheral edema is identified. NEUROLOGIC: Alert and orient x 3. Gait and speech within normal limits Performance Status: 80 Lab: None pending. Pathology: Primary, c34.91 - malignant neoplasm of unspecified part of right bronchus or lung, Diagnosed 01/13/2023 (active) . 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 He will be visiting with medical oncology later today. His lab was drawn today as well. I reviewed the results of his scan with him and encouraged him to continue to do his physical therapy as he has been doing daily. Will otherwise see him back in 6 months or call if any problems should arise in the interim Signed by: 07/26/2023 9:11:09 AM <<Signature on File>> Time spent with patient: 20 CPT Code: CPT Code:
[2023-08-09 08:01] LABS: Basophils % 0.1 %; Hematocrit 33.3 % (37-53); Lymphocytes # 0.4 10^3/uL (0.8-4.8); Lymphocytes % 5.3 %; Mean Corpuscular HGB Conc 32.1 g/dL (30-55); Mean Corpuscular Hemoglobin 31.8 pg (27-33); Mean Corpuscular Volume 99.1 fl (82-101); Mean Platelet Volume 8.2 fL (7.4-10.4); Monocytes # 0.3 10^3/uL (0.2-0.9); Monocytes % 3.6 %; Neutrophils # 7.32 10^3/uL (1.8-7.7); Neutrophils % 90.5 %; Nucleated Red Blood Cells % 0 %; Platelet Count 247 10^3/cmm (157-399); Red Blood Count 3.36 10^6/uL (3.85-5.65); Red Cell Distribution Width 16.1 % (12.1-15.1); White Blood Count 8.09 10^3/uL (3.29-11.43)
[2023-08-09 08:18] LABS: Alanine Aminotransferase 12 U/L (0-41); Alkaline Phosphatase 105 U/L (40-130); Anion Gap 13.6 (5-19); Aspartate Amino Transferase 11 U/L (0-40); Blood Urea Nitrogen 16 mg/dL (8-23); Calcium 9.6 mg/dL (8.5-10.5); Carbon Dioxide 27 mmol/L (22-29); Chloride 101 mmol/L (98-107); Chol HDL Ratio 3.38 mg/dL (1.0-5.00); Cholesterol 189 mg/dL (0-200); Ferritin 737 ng/mL (30-400); Globulin 4.1 g/dL (1.3-4.6); Glomerular Filtration Rate 83.7 mL/min (90-130); Glucose 144 mg/dL (65-115); HDL Cholesterol 56 mg/dL (60-100); Iron 115 ug/dL (59-158); LDL Cholesterol Calculated 121 mg/dL (50-129); Osmolality Calculated 288 mOsm/kg (285-295); Percent Saturation 42.9 % (20-50); Potassium 4.6 mmol/L (3.5-5.1); Sodium 137 mmol/L (136-145); Total Bilirubin 0.2 mg/dL (0.15-1.2); Total Iron Binding Capacity 268 mcg/dl; Total Protein 8.1 g/dL (6.6-8.7); Triglycerides 62 mg/dL (0-150); Unsaturated Iron Binding 153 ug/dL (112-347); VLDL Cholestrol Calculation 12 mg/dL (0-30)
[2023-08-09] MEDS: magnesium sulfate premix 2 GM/50 ML PIGGYBACK IV (09:43)
[2023-08-09] MEDS: sodium chlor 0.9% + KCl 20 mEq 20 MEQ/1,000 ML BAG 667 MEQ IV (09:44)
[2023-08-09 09:49] VITALS: BP 113/71; PULSE 92; RESP 17; TEMP 36.7; O2SAT 96
[2023-08-09] MEDS: acetaminophen 325 mg Tablet 650 MG PO (11:21)
[2023-08-09] MEDS: sodium chloride 0.9% 250 ML 75 ML IV (11:21)
[2023-08-09] MEDS: OLANZapine 5 mg TABLET PO (11:22)
[2023-08-09] MEDS: palonosetron 0.25 mg/5 mL SDV IVP (11:22)
[2023-08-09] MEDS: dexamethasone 4 mg/mL INJ 5 mL 12 MG IVP (11:22)
[2023-08-09] MEDS: diphenhydrAMINE 50 mg/mL SDV 1mL 25 MG IVP (11:26)
[2023-08-09] MEDS: famotidine 20 mg/2 mL INJ IVP (11:28)
[2023-08-09] MEDS: fosaprepitant 150 MG in sodium chloride 0.9% 150 ML 300 MG IV (11:30)
[2023-08-09] MEDS: DOCEtaxeL 154 MG in sodium chloride 0.9%(non-DEHP) 250 ML 265.4 MG IV (12:11)
[2023-08-09] MEDS: SODIUM CHLORIDE 0.9% IV (13:20)
[2023-08-09] MEDS: CISPLATIN IV (13:20)
[2023-08-09] MEDS: potassium chloride 20 MEQ in sodium chloride 0.9% 500 ML 500 MEQ IV (15:18)
[2023-08-09] MEDS: FUROsemide 10 mg/mL SDV 2mL 20 MG IVP (15:18)
[2023-08-09 16:14] VITALS: BP 128/73; PULSE 93; RESP 18; TEMP 36.6; O2SAT 98
[2023-08-13 10:30] VITALS: BP 120/79; PULSE 75; RESP 16; TEMP 36.7; O2SAT 94
[2023-08-13] MEDS: sodium chloride 0.9% 1,000 ML 999 ML IV (11:06)
[2023-08-13 12:11] VITALS: BP 113/76; PULSE 103; RESP 18; O2SAT 97
[2023-08-13 13:49] LABS: Soluble Transferrin Receptor 1.42 mg/L (0.76-1.76)
== END 2023-08-15 23:59 | disposition home or self-care (01) ==
PROVIDERS: Internal Medicine; Internal Medicine Medical Oncology; Nurse Practitioner Family; PCP Nurse Practitioner; Visit Provider Radiology Radiation Oncology
DX: C34.91 Malignant neoplasm of unspecified part of right bronchus or lung (principal); Z53.9 Procedure and treatment not carried out, unspecified reason
CPT/HCPCS: 36591; 71260; 74177; 80053; 80061; 82728; 83540; 83550; 84238; 85025; 96360; 96367; 96368; 96375; 96413; 96415; 96417; 96523; 99024; 99213; 99215; J1100; J1200; J1453; J1940; J2469; J3475; J3480; J3490; J7030; J7040; J7050; J9060; J9171; Q9967

== ENCOUNTER → 2023-08-23 08:52 | Outpatient (BNVA) | payer MEDICARE, SELFPAY | PROVIDERS: PCP Nurse Practitioner; Visit Provider Nurse Practitioner Family | DX: D70.1 Agranulocytosis secondary to cancer chemotherapy (principal); C34.91 Malignant neoplasm of unspecified part of right bronchus or lung | CPT/HCPCS: 80053; 85025 ==

== ENCOUNTER 2023-08-30 08:00 | Oncology outpatient (recurring) (ONCR) | payer MEDICARE, SELFPAY ==
[2023-08-16 08:06] LABS: Basophils % 2.6 %; Eosinophils # 0.1 10^3/uL (0.0-0.8); Eosinophils % 14.5 %; Hematocrit 30.2 % (37-53); Lymphocytes # 0.3 10^3/uL (0.8-4.8); Lymphocytes % 36.8 %; Mean Corpuscular HGB Conc 33.1 g/dL (30-55); Mean Corpuscular Hemoglobin 32.5 pg (27-33); Mean Corpuscular Volume 98.1 fl (82-101); Mean Platelet Volume 9.1 fL (7.4-10.4); Monocytes # 0.1 10^3/uL (0.2-0.9); Monocytes % 7.9 %; Neutrophils % 36.9 %; Nucleated Red Blood Cells % 0 %; Platelet Count 124 10^3/cmm (157-399); Red Blood Count 3.08 10^6/uL (3.85-5.65); Red Cell Distribution Width 15.2 % (12.1-15.1)
[2023-08-16 08:09] LABS: Neutrophils # 0.28 10^3/uL (1.8-7.7); White Blood Count 0.76 10^3/uL (3.29-11.43)
[2023-08-16 08:32] LABS: Alanine Aminotransferase 10 U/L (0-41); Albumin Level 3.6 g/dL (3.5-5.2); Alkaline Phosphatase 87 U/L (40-130); Anion Gap 11.1 (5-19); Aspartate Amino Transferase 11 U/L (0-40); Blood Urea Nitrogen 10 mg/dL (8-23); Calcium 8.9 mg/dL (8.5-10.5); Carbon Dioxide 28 mmol/L (22-29); Chloride 95 mmol/L (98-107); Creatinine Clr Calc Pharmacy 98.6126; Globulin 3.2 g/dL (1.3-4.6); Glomerular Filtration Rate 95.8 mL/min (90-130); Glucose 109 mg/dL (65-115); Osmolality Calculated 270 mOsm/kg (285-295); Potassium 4.1 mmol/L (3.5-5.1); Sodium 130 mmol/L (136-145); Total Bilirubin 0.5 mg/dL (0.15-1.2); Total Protein 6.8 g/dL (6.6-8.7)
[2023-08-30 08:04] VITALS: BP 97/67; PULSE 93; O2SAT 99
[2023-08-30 08:13] LABS: Basophils % 0.1 %; Lymphocytes # 0.5 10^3/uL (0.8-4.8); Lymphocytes % 7.1 %; Mean Corpuscular HGB Conc 30.9 g/dL (30-55); Mean Corpuscular Hemoglobin 31.7 pg (27-33); Mean Corpuscular Volume 102.6 fl (82-101); Mean Platelet Volume 8.2 fL (7.4-10.4); Monocytes # 0.4 10^3/uL (0.2-0.9); Monocytes % 5.6 %; Neutrophils # 5.75 10^3/uL (1.8-7.7); Neutrophils % 85.3 %; Nucleated Red Blood Cells % 0 %; Platelet Count 285 10^3/cmm (157-399); Red Blood Count 3.12 10^6/uL (3.85-5.65); Red Cell Distribution Width 15.6 % (12.1-15.1); White Blood Count 6.75 10^3/uL (3.29-11.43)
[2023-08-30 08:20] LABS: Alanine Aminotransferase 9 U/L (0-41); Albumin Level 3.8 g/dL (3.5-5.2); Alkaline Phosphatase 104 U/L (40-130); Anion Gap 24.1 (5-19); Aspartate Amino Transferase 9 U/L (0-40); Blood Urea Nitrogen 12 mg/dL (8-23); Calcium 9.3 mg/dL (8.5-10.5); Carbon Dioxide 20 mmol/L (22-29); Chloride 94 mmol/L (98-107); Creatinine Clr Calc Pharmacy 37.5728; Globulin 3.7 g/dL (1.3-4.6); Glomerular Filtration Rate 74.1 mL/min (90-130); Glucose 128 mg/dL (65-115); Magnesium 1.8 mg/dL (1.7-2.3); Osmolality Calculated 279 mOsm/kg (285-295); Potassium 4.1 mmol/L (3.5-5.1); Sodium 134 mmol/L (136-145); Total Bilirubin 0.2 mg/dL (0.15-1.2); Total Protein 7.5 g/dL (6.6-8.7)
[2023-08-30] MEDS: sodium chlor 0.9% + KCl 20 mEq 20 MEQ/1,000 ML BAG 500 MEQ IV (10:04)
[2023-08-30] MEDS: magnesium sulfate premix 2 GM/50 ML PIGGYBACK IV (10:04)
[2023-08-30] MEDS: sodium chloride 0.9% 250 ML 75 ML IV (12:00)
[2023-08-30] MEDS: palonosetron 0.25 mg/5 mL SDV IVP (12:00)
[2023-08-30] MEDS: OLANZapine 5 mg TABLET PO (12:01)
[2023-08-30] MEDS: acetaminophen 325 mg Tablet 650 MG PO (12:01)
[2023-08-30] MEDS: diphenhydrAMINE 50 mg/mL SDV 1mL 25 MG IVP (12:04)
[2023-08-30] MEDS: dexamethasone 4 mg/mL INJ 5 mL 12 MG IVP (12:08)
[2023-08-30] MEDS: famotidine 20 mg/2 mL INJ IVP (12:14)
[2023-08-30] MEDS: fosaprepitant 150 MG in sodium chloride 0.9% 150 ML 300 MG IV (12:17)
[2023-08-30] MEDS: DOCEtaxeL 154 MG in sodium chloride 0.9%(non-DEHP) 250 ML 265.4 MG IV (13:05)
[2023-08-30] MEDS: CISPLATIN IV (14:20)
[2023-08-30] MEDS: SODIUM CHLORIDE 0.9% IV (14:20)
[2023-08-30] MEDS: potassium chloride 20 MEQ in sodium chloride 0.9% 500 ML 500 MEQ IV (16:30)
[2023-08-30] MEDS: FUROsemide 10 mg/mL SDV 2mL 20 MG IVP (16:30)
[2023-08-30] MEDS: pegfilgrastim 6 mg/0.6 mL Kit (onpro) SUBCUT (16:57)
[2023-08-30 17:30] VITALS: BP 143/90; PULSE 100; RESP 16; TEMP 36.2; O2SAT 94
== END 2023-09-15 23:59 | disposition home or self-care (01) ==
PROVIDERS: Nurse Practitioner Family; Absent Provider Radiology Radiation Oncology; PCP Nurse Practitioner; Visit Provider Radiology Radiation Oncology
DX: Z53.9 Procedure and treatment not carried out, unspecified reason (principal); Z51.11 Encounter for antineoplastic chemotherapy; C34.81 Malignant neoplasm of overlapping sites of right bronchus and lung; Z79.899 Other long term (current) drug therapy; Z79.52 Long term (current) use of systemic steroids; Z87.891 Personal history of nicotine dependence; Z90.2 Acquired absence of lung [part of]
CPT/HCPCS: 36591; 80053; 83735; 85025; 96367; 96368; 96375; 96377; 96413; 96415; 96417; 99214; J1100; J1200; J1453; J1940; J2469; J2506; J3475; J3480; J3490; J7040; J7050; J9060; J9171

== ENCOUNTER → 2023-09-06 10:56 | Outpatient (BNVA) | payer MEDICARE, SELFPAY | PROVIDERS: PCP Nurse Practitioner; Visit Provider Nurse Practitioner Family | DX: C34.91 Malignant neoplasm of unspecified part of right bronchus or lung (principal) | CPT/HCPCS: 80053; 83735; 85025 ==

== ENCOUNTER → 2023-09-13 08:44 | Outpatient (BNVA) | payer MEDICARE, SELFPAY | PROVIDERS: PCP Nurse Practitioner; Visit Provider Nurse Practitioner Family | DX: D70.1 Agranulocytosis secondary to cancer chemotherapy (principal); C34.11 Malignant neoplasm of upper lobe, right bronchus or lung; C34.90 Malignant neoplasm of unspecified part of unspecified bronchus or lung | CPT/HCPCS: 80053; 85025 ==

== ENCOUNTER → 2023-09-27 08:17 | Outpatient (BNVA) | payer MEDICARE, SELFPAY | PROVIDERS: PCP Nurse Practitioner; Visit Provider Internal Medicine Medical Oncology | DX: C34.91 Malignant neoplasm of unspecified part of right bronchus or lung (principal) | CPT/HCPCS: 80053; 85025 ==

== ENCOUNTER → 2023-10-04 08:20 | Outpatient (BNVA) | payer MEDICARE, SELFPAY | PROVIDERS: PCP Nurse Practitioner; Visit Provider Internal Medicine Medical Oncology | DX: C34.91 Malignant neoplasm of unspecified part of right bronchus or lung (principal) | CPT/HCPCS: 80053; 83735; 85025 ==

== ENCOUNTER 2023-10-11 07:30 | Oncology outpatient (recurring) (ONCR) | payer MEDICARE, SELFPAY ==
[2023-09-20 08:03] LABS: Basophils % 0.2 %; Hematocrit 30.6 % (37-53); Lymphocytes # 0.4 10^3/uL (0.8-4.8); Lymphocytes % 7.1 %; Mean Corpuscular Hemoglobin 32.8 pg (27-33); Mean Corpuscular Volume 102.3 fl (82-101); Mean Platelet Volume 8.1 fL (7.4-10.4); Monocytes # 0.2 10^3/uL (0.2-0.9); Monocytes % 3.5 %; Neutrophils # 4.79 10^3/uL (1.8-7.7); Neutrophils % 88.8 %; Nucleated Red Blood Cells % 0 %; Platelet Count 208 10^3/cmm (157-399); Red Blood Count 2.99 10^6/uL (3.85-5.65); Red Cell Distribution Width 16.9 % (12.1-15.1); White Blood Count 5.39 10^3/uL (3.29-11.43)
[2023-09-20] MEDS: sodium chlor 0.9% + KCl 20 mEq 20 MEQ/1,000 ML BAG 733 MEQ IV (08:16)
[2023-09-20] MEDS: magnesium sulfate premix 2 GM/50 ML PIGGYBACK IV (08:16)
[2023-09-20 08:21] VITALS: BP 102/70; PULSE 94; RESP 18; TEMP 36.6; O2SAT 95
[2023-09-20 08:24] LABS: Alanine Aminotransferase 7 U/L (0-41); Albumin Level 3.9 g/dL (3.5-5.2); Alkaline Phosphatase 99 U/L (40-130); Anion Gap 16.4 (5-19); Aspartate Amino Transferase 10 U/L (0-40); Blood Urea Nitrogen 14 mg/dL (8-23); Calcium 9.5 mg/dL (8.5-10.5); Carbon Dioxide 25 mmol/L (22-29); Chloride 97 mmol/L (98-107); Globulin 3.4 g/dL (1.3-4.6); Glomerular Filtration Rate 95.8 mL/min (90-130); Glucose 128 mg/dL (65-115); Osmolality Calculated 280 mOsm/kg (285-295); Potassium 4.4 mmol/L (3.5-5.1); Sodium 134 mmol/L (136-145); Total Bilirubin 0.2 mg/dL (0.15-1.2); Total Protein 7.3 g/dL (6.6-8.7)
[2023-09-20] MEDS: sodium chloride 0.9% 250 ML 75 ML IV (09:47)
[2023-09-20] MEDS: palonosetron 0.25 mg/5 mL SDV IVP (09:48)
[2023-09-20] MEDS: acetaminophen 325 mg Tablet 650 MG PO (09:48)
[2023-09-20] MEDS: OLANZapine 5 mg TABLET PO (09:49)
[2023-09-20] MEDS: famotidine 20 mg/2 mL INJ IVP (09:51)
[2023-09-20] MEDS: diphenhydrAMINE 50 mg/mL SDV 1mL 25 MG IVP (09:53)
[2023-09-20] MEDS: dexamethasone 4 mg/mL INJ 5 mL 12 MG IVP (09:55)
[2023-09-20] MEDS: fosaprepitant 150 MG in sodium chloride 0.9% 150 ML 300 MG IV (10:06)
[2023-09-20] MEDS: DOCEtaxeL 154 MG in sodium chloride 0.9%(non-DEHP) 250 ML 265.4 MG IV (11:14)
[2023-09-20] MEDS: CISPLATIN IV (12:48)
[2023-09-20] MEDS: SODIUM CHLORIDE 0.9% IV (12:48)
[2023-09-20] MEDS: FUROsemide 10 mg/mL SDV 2mL 20 MG IVP (14:45)
[2023-09-20] MEDS: potassium chloride 20 MEQ in sodium chloride 0.9% 500 ML 500 MEQ IV (14:52)
[2023-09-20] MEDS: pegfilgrastim 6 mg/0.6 mL Kit (onpro) SUBCUT (15:47)
[2023-09-20 16:00] VITALS: BP 133/80; PULSE 85; RESP 16; TEMP 35.9; O2SAT 99
[2023-10-11 07:43] LABS: Basophils % 0.6 %; Hematocrit 29.5 % (37-53); Lymphocytes # 0.5 10^3/uL (0.8-4.8); Mean Corpuscular HGB Conc 32.2 g/dL (30-55); Mean Corpuscular Hemoglobin 33.1 pg (27-33); Mean Corpuscular Volume 102.8 fl (82-101); Mean Platelet Volume 8.5 fL (7.4-10.4); Monocytes # 0.3 10^3/uL (0.2-0.9); Monocytes % 6.1 %; Neutrophils # 4.27 10^3/uL (1.8-7.7); Neutrophils % 83.7 %; Nucleated Red Blood Cells % 0 %; Platelet Count 207 10^3/cmm (157-399); Red Blood Count 2.87 10^6/uL (3.85-5.65); Red Cell Distribution Width 16.6 % (12.1-15.1)
[2023-10-11 08:00] LABS: Alanine Aminotransferase 6 U/L (0-41); Albumin Level 3.6 g/dL (3.5-5.2); Alkaline Phosphatase 95 U/L (40-130); Anion Gap 19.3 (5-19); Aspartate Amino Transferase 8 U/L (0-40); Blood Urea Nitrogen 15 mg/dL (8-23); Calcium 9.4 mg/dL (8.5-10.5); Carbon Dioxide 23 mmol/L (22-29); Chloride 96 mmol/L (98-107); Creatinine Clr Calc Pharmacy 98.3187; Globulin 3.3 g/dL (1.3-4.6); Glomerular Filtration Rate 111.8 mL/min (90-130); Glucose 136 mg/dL (65-115); Osmolality Calculated 281 mOsm/kg (285-295); Potassium 4.3 mmol/L (3.5-5.1); Sodium 134 mmol/L (136-145); Total Bilirubin 0.2 mg/dL (0.15-1.2); Total Protein 6.9 g/dL (6.6-8.7)
[2023-10-11] MEDS: sodium chlor 0.9% + KCl 20 mEq 20 MEQ/1,000 ML BAG 999 MEQ IV (08:27)
[2023-10-11] MEDS: magnesium sulfate premix 2 GM/50 ML PIGGYBACK IV (08:28)
[2023-10-11] MEDS: sodium chloride 0.9% 250 ML 75 ML IV (09:47)
[2023-10-11] MEDS: dexamethasone 4 mg/mL INJ 5 mL 12 MG IVP (09:48)
[2023-10-11] MEDS: OLANZapine 5 mg TABLET PO (09:48)
[2023-10-11] MEDS: acetaminophen 325 mg Tablet 650 MG PO (09:48)
[2023-10-11] MEDS: palonosetron 0.25 mg/5 mL SDV IVP (09:48)
[2023-10-11] MEDS: diphenhydrAMINE 50 mg/mL SDV 1mL 25 MG IVP (09:54)
[2023-10-11] MEDS: famotidine 20 mg/2 mL INJ IVP (09:56)
[2023-10-11] MEDS: fosaprepitant 150 MG in sodium chloride 0.9% 150 ML 300 MG IV (10:07)
[2023-10-11] MEDS: DOCEtaxeL 154 MG in sodium chloride 0.9%(non-DEHP) 250 ML 265.4 MG IV (11:02)
[2023-10-11] MEDS: CISPLATIN IV (12:23)
[2023-10-11] MEDS: SODIUM CHLORIDE 0.9% IV (12:23)
[2023-10-11] MEDS: FUROsemide 10 mg/mL SDV 2mL 20 MG IVP (14:16)
[2023-10-11] MEDS: potassium chloride 20 MEQ in sodium chloride 0.9% 500 ML 500 MEQ IV (14:16)
[2023-10-11 15:36] VITALS: BP 130/89; PULSE 88; RESP 18; TEMP 36.3; O2SAT 99
== END 2023-10-11 23:59 | disposition home or self-care (01) ==
PROVIDERS: Internal Medicine Medical Oncology; Nurse Practitioner Family; Absent Provider Radiology Radiation Oncology; PCP Nurse Practitioner; Visit Provider Radiology Radiation Oncology
DX: Z53.9 Procedure and treatment not carried out, unspecified reason; Z51.11 Encounter for antineoplastic chemotherapy; C34.81 Malignant neoplasm of overlapping sites of right bronchus and lung; Z79.899 Other long term (current) drug therapy; Z79.52 Long term (current) use of systemic steroids; Z87.891 Personal history of nicotine dependence; Z90.2 Acquired absence of lung [part of]; Z92.3 Personal history of irradiation; Z95.828 Presence of other vascular implants and grafts; Z79.2 Long term (current) use of antibiotics; Z79.630 Long term (current) use of alkylating agent
CPT/HCPCS: 80053; 85025; 96360; 96361; 96367; 96368; 96375; 96377; 96413; 96415; 96417; 99214; J1100; J1200; J1453; J1940; J2469; J2506; J3475; J3480; J3490; J7040; J7050; J9060; J9171

== ENCOUNTER → 2023-10-19 08:05 | Outpatient (BNVA) | payer MEDICARE, SELFPAY | PROVIDERS: PCP Nurse Practitioner; Visit Provider Internal Medicine Medical Oncology | DX: C34.91 Malignant neoplasm of unspecified part of right bronchus or lung (principal) | CPT/HCPCS: 85025 ==

== ENCOUNTER 2023-10-20 15:51 | Emergency (ER) | payer MEDICARE, SELFPAY ==
[2023-10-20 16:05] VITALS: BP 110/63; PULSE 103; RESP 18; TEMP 36.6; O2SAT 91; BMI 3573.6
--- NOTE | 2023-10-20 16:30 | CTR_ITS ---
PROCEDURE INFORMATION: Exam: CT Maxillofacial Without Contrast Exam date and time: 10/20/2023 5:08 PM Age: 68 years old Clinical indication: Injury or trauma; Additional info: Fall TECHNIQUE: Imaging protocol: Computed tomography of the face without contrast. Radiation optimization: All CT scans at this facility use at least one of these dose optimization techniques: automated exposure control; mA and/or kV adjustment per patient size (includes targeted exams where dose is matched to clinical indication); or iterative reconstruction. COMPARISON: CT head wo con* [id number] 10/20/2023 5:08 PM RADIATION DOSE METRICS: Total DLP (mGy-cm): 605 FINDINGS: Orbital cavities: Orbits are normal. Globes are unremarkable. Paranasal sinuses: Chronic right maxillary sinusitis. Bones: No acute fracture. Soft tissues: Mild, focal soft tissue swelling in the right frontal scalp. CT/CT facial bones wo con* [id number] IMPRESSION: 1. Chronic right maxillary sinusitis. 2. No evidence of a facial bone fracture. 3. Mild, focal soft tissue swelling in the right frontal scalp.
--- NOTE | 2023-10-20 16:30 | CTR_ITS ---
PROCEDURE INFORMATION: Exam: CT Cervical Spine Without Contrast Exam date and time: 10/20/2023 5:08 PM Age: 68 years old Clinical indication: Injury or trauma; Additional info: Fall TECHNIQUE: Imaging protocol: Computed tomography of the cervical spine without contrast. Radiation optimization: All CT scans at this facility use at least one of these dose optimization techniques: automated exposure control; mA and/or kV adjustment per patient size (includes targeted exams where dose is matched to clinical indication); or iterative reconstruction. COMPARISON: PT PET skull to thigh SUBS [id number] 04/13/2023 11:11 AM RADIATION DOSE METRICS: Total DLP (mGy-cm): 1054 FINDINGS: Bones: No acute fracture. Normal alignment. There is multilevel chronic degenerative facet arthropathy. There is mild chronic degenerative disc disease at C4-C5. Lungs: Lung apices are normal. Pleural spaces: There is a partially imaged, size indeterminate right-sided pneumothorax. Soft tissues: Unremarkable. CT/CT cervical spin wo con* [id number] IMPRESSION: 1. Mild chronic degenerative changes throughout the cervical spine without fracture. 2. There is a partially imaged, size indeterminate right pneumothorax.
--- NOTE | 2023-10-20 16:30 | CTR_ITS ---
PROCEDURE INFORMATION: Exam: CT Head Without Contrast Exam date and time: 10/20/2023 5:08 PM Age: 68 years old Clinical indication: Injury or trauma; Additional info: Fall TECHNIQUE: Imaging protocol: Computed tomography of the head without contrast. Radiation optimization: All CT scans at this facility use at least one of these dose optimization techniques: automated exposure control; mA and/or kV adjustment per patient size (includes targeted exams where dose is matched to clinical indication); or iterative reconstruction. COMPARISON: MR head wo/w con [id number] 04/12/2023 11:00 AM RADIATION DOSE METRICS: Total DLP (mGy-cm): 1162 FINDINGS: Brain: Diffuse cerebral atrophy and white matter microangiopathic chronic ischemia in both hemispheres. No CT evidence of acute infarct, hemorrhage, mass or mass effect. Cerebral ventricles: No ventriculomegaly. Paranasal sinuses: Chronic right maxillary sinusitis. Mastoid air cells: Visualized mastoid air cells are well aerated. Bones: Unremarkable. No acute fracture. Soft tissues: There is focal soft tissue swelling in the right frontal scalp. CT/CT head wo con* [id number] IMPRESSION: 1. Senescent brain changes but no CT evidence of acute brain injury. 2. Chronic right maxillary sinusitis. 3. Mild focal soft tissue swelling in the right frontal scalp.
[2023-10-20 16:42] VITALS: BP 134/79; PULSE 106; O2SAT 95
--- NOTE | 2023-10-20 16:48 | ED_ITS ---
HPI - Wound/Laceration 2 General: Chief Complaint: Wound/Laceration Stated Complaint: Fall and hit his head Time Seen by Provider: 10/20/23 16:19 Source: patient Mode of arrival: ambulatory Limitations: no limitations History of Present Illness: 68-year-old male who states that he had a fall last night at home patient states that he believes he may have passed out or tripped he did hit his face and head on the floor has a skin tear to the right side of his face he complains of headache and neck pain along with facial pain. Denies any other injuries. Associated symptoms: Denies chills, fever(s), nausea or vomiting Related Data Previous Rx's Medication Instructions Recorded polyethylene glycol 3350 17 17 g PO DAILY PRN Constipation 03/16/23 gram/dose oral powder (Miralax) #510 grams lorazepam 1 mg tablet 0.5 - 1 mg (0.5 - 1 x 1 mg) PO Q6H 05/17/23 PRN severe nausea #30 tabs prochlorperazine maleate 10 mg 10 mg PO Q6H PRN mild nausea and 05/17/23 tablet (Compazine) vomiting #30 tabs albuterol sulfate 2.5 mg/3 mL 2.5 mg (3 mL) inhalation QID PRN 07/26/23 (0.083 %) solution for nebulization shortness of breath or wheezing #300 mL fluticasone fur. 100 mcg-umeclid 1 inh inhalation BEDTIME #60 ea 07/26/23 62.5 mcg-vilant 25 mcg inhalat.powder (Trelegy Ellipta) folic acid 1 mg tablet 1 mg PO QAM #90 tabs 07/26/23 levothyroxine 112 mcg tablet See Rx Instructions PO QAM #40 tabs 07/26/23 mirtazapine 15 mg tablet (Remeron) 15 mg PO .at dinner #30 tabs 07/26/23 montelukast 10 mg tablet 10 mg PO BEDTIME #90 tabs 07/26/23 (Singulair) dexamethasone 4 mg tablet 8 mg (2 x 4 mg) PO DIRECTED #60 08/05/23 tabs lorazepam 1 mg tablet 0.5 - 1 mg (0.5 - 1 x 1 mg) PO Q6H 08/05/23 PRN Severe Nausea #30 tabs ondansetron HCl 4 mg tablet 4 mg PO QID PRN Nausea/vomiting 08/05/23 #30 tabs prochlorperazine maleate 10 mg 10 mg PO Q4H PRN Mild Nausea #30 08/05/23 tablet (Compazine) tabs levofloxacin 500 mg tablet 500 mg PO DAILY 5 days #5 tabs 10/19/23 Allergies Allergy/AdvReac Type Severity Reaction Status Date / Time grass pollen Allergy Mild ALGY-Watery Verified 10/11/23 08:58 Eye Review of Systems 2 Const: Denies: fever(s), chills, body aches or change in appetite ENMT: Denies: throat pain or dental pain Card: Denies: chest pain Resp: Denies: dyspnea GI: Denies: abdominal pain, nausea, vomiting or diarrhea Musc: Reports: neck pain; Denies: back pain Neuro: Reports: headache(s) PFSH ED 2 PFSH: Medical History AAA (abdominal aortic aneurysm) 4.3cm July, 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 Hypotension Non-small cell cancer of right lung Smoking hx Stop December 2022 Screening for colon cancer Cologuard screen COPD (chronic obstructive pulmonary disease) COPD exacerbation Adult onset hypothyroidism Seasonal allergies Surgical History Status post lobectomy of lung Right upper January 2023 [place], [place] Family History Brother Diabetes Hyperlipidemia Father Congestive heart failure (CHF) COPD (chronic obstructive pulmonary disease) Dementia Cancer prostate Mother Congestive heart failure (CHF) COPD (chronic obstructive pulmonary disease) Cancer gastric cancer Other No history of previous surgery Social History Smoking and tobacco/nicotine status: former use of tobacco/nicotine Quit status (tobacco/nicotine): has quit using Year quit tobacco: 01/12/23 Former quit date comment: 2 ppd X 55 years Second hand smoke exposure: Yes Alcohol intake: former Substance/Drug Use: never Adopted: No Caregiver/support person: No Lives independently: Yes Household members: none Marital status: Number of children: 1 service: Yes branch: [employer] Current occupational status: retired Pets and animals: No Do you think of yourself as: Straight/Heterosexual Current gender identity: Male Physical Exam 2 Const: COMMON NORMALS: no acute distress, patient oriented x3 and healthy appearing HENMT: OTHER: Bruising to right face and head skin tear noted to right cheek Eye: COMMON NORMALS: Equal, round and reactive pupils present and EOMs intact bilaterally PUPIL: Yes Equal, round and reactive pupils present Neck/C-Spine: COMMON NORMALS: full ROM and supple Chest: COMMONS NORMALS: normal inspection of the chest Resp: COMMON NORMALS: normal respiratory effort, No retractions, No use of accessory muscles and clear to auscultation bilaterally AUSCULTATION: clear to auscultation bilaterally Cardio: COMMON NORMALS: regular rate, regular rhythm and No murmurs present (Cardio) RATE: regular rate RHYTHM: regular rhythm Extremity: COMMON NORMALS: normal to inspection and full ROM Neuro: COMMON NORMALS: patient oriented x3, moves all extremities and no focal motor deficits Psych: COMMON NORMALS: mental status grossly normal, Normal thought process present and cooperative THOUGHT PROCESS: Normal thought process present Skin: COMMON NORMALS: no rashes or lesions noted and no wounds GENERAL SKIN EXAM: no rashes or lesions noted Course 2 Vital Signs: Vital signs: Vital Signs Temperature 97.8 F 10/20/23 16:05 Pulse Rate 106 H 10/20/23 16:42 Respiratory Rate 18 10/20/23 16:05 Blood Pressure 134/79 10/20/23 16:42 Pulse Oximetry 95 10/20/23 16:42 Oxygen Delivery Me thod Nasal Cannula 10/20/23 16:05 Oxygen Flow Rate 5 10/20/23 16:05 MDM - Wound/Laceration Medical Decision Making Patient presents after a fall last night imaging here shows no acute fractures he does have a large skin tear of the right side of his face has no skin there to try to suture at this time will have patient follow-up with wound care on the wound. He is return if worsening Medical Records I reviewed the patient's medical records. Lab Data I reviewed the patient's lab results. 10/20/23 17:03 10/20/23 17:03 Radiology Impressions Cervical Spine CT 10/20/23 16:30 IMPRESSION: 1. Mild chronic degenerative changes throughout the cervical spine without fracture. 2. There is a partially imaged, size indeterminate right pneumothorax. ADDENDUM: 10/20/23 2128 COMMENT: THIS REPORT CONTAINS FINDINGS THAT MAY BE CRITICAL TO PATIENT CARE. The exam findings were verbally communicated by me to MALIA ESTRADA via telephone conference at 5:37 PM CDT on 10/20/2023. The findings were acknowledged and understood. Face CT 10/20/23 16:30 IMPRESSION: 1. Chronic right maxillary sinusitis. 2. No evidence of a facial bone fracture. 3. Mild, focal soft tissue swelling in the right frontal scalp. Head CT 10/20/23 16:30 IMPRESSION: 1. Senescent brain changes but no CT evidence of acute brain injury. 2. Chronic right maxillary sinusitis. 3. Mild focal soft tissue swelling in the right frontal scalp. Chest X-Ray 10/20/23 17:34 IMPRESSION: 1. Stable ex vacuo pneumothorax in the right upper chest, unchanged from the prior CT of the chest. 2. Stable fibrotic stranding in the residual right lung. Laboratory Results WBC 0.88 10^3/uL (3.29-11.43) L* 10/20/23 17:03 RBC 2.53 10^6/uL (3.85-5.65) L 10/20/23 17:03 Hgb 8.20 g/dL (11.27-16.99) L 10/20/23 17:03 Hct 25.2 % (37-53) L 10/20/23 17:03 MCV 99.6 fl (82-101) 10/20/23 17:03 MCH 32.4 pg (27-33) 10/20/23 17:03 MCHC 32.5 g/dL (30-55) 10/20/23 17:03 RDW 16.6 % (12.1-15.1) H 10/20/23 17:03 Plt Count 108 10^3/cmm (157-399) L 10/20/23 17:03 MPV 9.1 fL (7.4-10.4) 10/20/23 17:03 Neut % (Auto) 34.2 % 10/20/23 17:03 Lymph % (Auto) 29.5 % 10/20/23 17:03 [place] % (Auto) 35.2 % 10/20/23 17:03 Eos % (Auto) 0.0 % 10/20/23 17:03 Baso % (Auto) 1.1 % 10/20/23 17:03 Neut # (Auto) 0.30 10^3/uL (1.8-7.7) L* 10/20/23 17:03 Lymph # (Auto) 0.3 10^3/uL (0.8-4.8) L 10/20/23 17:03 [place] # (Auto) 0.3 10^3/uL (0.2-0.9) 10/20/23 17:03 Eos # (Auto) 0.0 10^3/uL (0.0-0.8) 10/20/23 17:03 Baso # (Auto) 0.0 10^3/uL (0.0-0.1) 10/20/23 17:03 Nucleated RBC % (auto) 0 % 10/20/23 17:03 Nucleated RBCs # 0.0 /100WBC 10/20/23 17:03 Sodium 130 mmol/L (136-145) L 10/20/23 17:03 Potassium 4.5 mmol/L (3.5-5.1) 10/20/23 17:03 Chloride 93 mmol/L (98-107) L 10/20/23 17:03 Carbon Dioxide 26 mmol/L (22-29) 10/20/23 17:03 Anion Gap 15.5 (5-19) 10/20/23 17:03 BUN 15 mg/dL (8-23) 10/20/23 17:03 Creatinine 1.0 mg/dL (0.7-1.2) 10/20/23 17:03 GFR Calculation 74.1 mL/min (90-130) L 10/20/23 17:03 Glucose 83 mg/dL (65-115) 10/20/23 17:03 Calculated Osmolality 270 mOsm/kg (285-295) L 10/20/23 17:03 Calcium 8.4 mg/dL (8.5-10.5) L 10/20/23 17:03 Total Bilirubin 0.5 mg/dL (0.15-1.2) 10/20/23 17:03 AST 10 U/L (0-40) 10/20/23 17:03 ALT 6 U/L (0-41) 10/20/23 17:03 Alkaline Phosphatase 70 U/L (40-130) 10/20/23 17:03 Total Protein 6.2 g/dL (6.6-8.7) L 10/20/23 17:03 Albumin 3.3 g/dL (3.5-5.2) L 10/20/23 17:03 Globulin 2.9 g/dL (1.3-4.6) 10/20/23 17:03 All radiology interpretation(s) finalized by discharge Discharge Plan Discharge Patient Disposition: Home Clinical Impression: Fall, Open facial wound Condition: Stable Prescriptions: No Action Miralax 17 gram/dose powder 17 g PO DAILY PRN (Reason: Constipation) Qty: 510 2RF prochlorperazine maleate [Compazine] 10 mg tablet 10 mg PO Q6H PRN (Reason: mild nausea and vomiting) Qty: 30 3RF lorazepam 1 mg tablet 0.5 - 1 mg PO Q6H PRN (Reason: severe nausea) Qty: 30 3RF Rx Instructions: do not drive/operate machinery/drink alcohol with medication Trelegy Ellipta 100-62.5-25 mcg blister with device 1 inh inhalation BEDTIME Qty: 60 2RF folic acid 1 mg tablet 1 mg PO QAM Qty: 90 1RF levothyroxine 112 mcg tablet See Rx Instructions PO QAM Qty: 40 2RF Rx Instructions: 224mcg 1 day 112mcg 6 day orally every morning; mirtazapine [Remeron] 15 mg tablet 15 mg PO .at dinner Qty: 30 2RF Singulair 10 mg tablet 10 mg PO BEDTIME Qty: 90 1RF albuterol sulfate 2.5 mg /3 mL (0.083 %) solution for nebulization 2.5 mg INHALATION QID PRN (Reason: shortness of breath or wheezing) Qty: 300 5RF levofloxacin 500 mg tablet 500 mg PO DAILY 5 Days Qty: 5 0RF ondansetron HCl 4 mg Tablet 4 mg PO QID PRN (Reason: Nausea/vomiting) Qty: 30 3RF prochlorperazine maleate [Compazine] 10 mg tablet 10 mg PO Q4H PRN (Reason: Mild Nausea) Qty: 30 3RF dexamethasone 4 mg tablet 8 mg PO DIRECTED Qty: 60 3RF Rx Instructions: Take 2 tablets (8mg) twice daily the day before and the day after Taxotere lorazepam 1 mg tablet 0.5 - 1 mg PO Q6H PRN (Reason: Severe Nausea) Qty: 30 3RF Discharge Orders: Discharge ED (Routine); Ordered 10/20/23 Ordered By: Malia Estrada Referrals: Martha Clark, ATHLETIC INSTRUCTOR-C [Primary Care Provider] - 1-3 days [facility], [Staff Physician] - 1-3 days Discharge Diet: Advance as tolerated Discharge Activity: Resume usual activity Patient Instructions: Acute Wound Care (ED) Coding Level of Care Code ED Wage And Salary Administrator for Svitlana Francois
[2023-10-20 17:11] LABS: Basophils % 1.1 %; Hematocrit 25.2 % (37-53); Lymphocytes # 0.3 10^3/uL (0.8-4.8); Lymphocytes % 29.5 %; Mean Corpuscular HGB Conc 32.5 g/dL (30-55); Mean Corpuscular Hemoglobin 32.4 pg (27-33); Mean Corpuscular Volume 99.6 fl (82-101); Mean Platelet Volume 9.1 fL (7.4-10.4); Monocytes # 0.3 10^3/uL (0.2-0.9); Monocytes % 35.2 %; Neutrophils % 34.2 %; Nucleated Red Blood Cells % 0 %; Platelet Count 108 10^3/cmm (157-399); Red Blood Count 2.53 10^6/uL (3.85-5.65); Red Cell Distribution Width 16.6 % (12.1-15.1)
[2023-10-20 17:31] LABS: White Blood Count 0.88 10^3/uL (3.29-11.43)
[2023-10-20 17:32] LABS: Slide Review Slide Review Perform
[2023-10-20 17:34] LABS: Alanine Aminotransferase 6 U/L (0-41); Albumin Level 3.3 g/dL (3.5-5.2); Alkaline Phosphatase 70 U/L (40-130); Anion Gap 15.5 (5-19); Aspartate Amino Transferase 10 U/L (0-40); Blood Urea Nitrogen 15 mg/dL (8-23); Calcium 8.4 mg/dL (8.5-10.5); Carbon Dioxide 26 mmol/L (22-29); Chloride 93 mmol/L (98-107); Globulin 2.9 g/dL (1.3-4.6); Glomerular Filtration Rate 74.1 mL/min (90-130); Glucose 83 mg/dL (65-115); Osmolality Calculated 270 mOsm/kg (285-295); Potassium 4.5 mmol/L (3.5-5.1); Sodium 130 mmol/L (136-145); Total Bilirubin 0.5 mg/dL (0.15-1.2); Total Protein 6.2 g/dL (6.6-8.7)
--- NOTE | 2023-10-20 17:34 | XRR_ITS ---
PROCEDURE INFORMATION: Exam: XR Chest Exam date and time: 10/20/2023 5:45 PM Age: 68 years old Clinical indication: Shortness of breath; Prior surgery; Surgery date: 6+ months; Surgery type: Lobectomy; Additional info: SOB TECHNIQUE: Imaging protocol: Radiologic exam of the chest. Views: 1 view. COMPARISON: CT chest abdpel w/*[id number] 07/20/2023 1:51 PM FINDINGS: Tubes, catheters and devices: There is a left chest MediPort in stable position. Lungs: The left lung is clear. There is a old calcified granuloma in the left upper lobe. Stable chronic fibrotic stranding in the residual right lung. Pleural spaces: There is an ex vacuo pneumothorax in the right upper lung in this patient status post right upper lobectomy, similar in appearance to the July 20, 2023 exam. There is no evidence of an acute pneumothorax as was suggested on the incidental images through the lung apices on the recent CT of the cervical spine. Heart/Mediastinum: Unremarkable. No cardiomegaly. Bones/joints: Unremarkable. XR/XR chest 1V portable [id number] IMPRESSION: 1. Stable ex vacuo pneumothorax in the right upper chest, unchanged from the prior CT of the chest. 2. Stable fibrotic stranding in the residual right lung.
[2023-10-20] MEDS: neomycin-poly-bacitracin oint 0.9 gm Pkt 1 APPLIC TOPICAL (19:28)
[2023-10-20 20:06] VITALS: BP 124/86; PULSE 106; O2SAT 94
--- NOTE | 2023-10-21 08:48 | DCPLANNER ---
messaged wound care for er f/u
== END 2023-10-20 19:48 | disposition home or self-care (01) ==
PROVIDERS: Emergency Provider Emergency Medicine; PCP Nurse Practitioner
DX: S01.411A Laceration without foreign body of right cheek and temporomandibular area, initial encounter (principal); S00.83XA Contusion of other part of head, initial encounter; Z87.891 Personal history of nicotine dependence; Z85.118 Personal history of other malignant neoplasm of bronchus and lung; J44.9 Chronic obstructive pulmonary disease, unspecified; Z99.81 Dependence on supplemental oxygen; W01.0XXA Fall on same level from slipping, tripping and stumbling without subsequent striking against object, initial encounter
CPT/HCPCS: 36415; 70450; 70486; 71045; 72125; 80053; 85025; 99284

== ENCOUNTER 2023-10-22 08:32 | Inpatient (IN) | payer MEDICARE, SELFPAY ==
[2023-10-22] VITALS (33 sets, daily range): BP systolic 72–123; BP diastolic 55–70; PULSE 84–115; RESP 15–27; TEMP 36.5–36.7; O2SAT 92–100; BMI 3573.6; BMI 24.8
[2023-10-22 08:35] LABS: Hematocrit 23.9 % (37-53); Mean Corpuscular HGB Conc 32.2 g/dL (30-55); Mean Corpuscular Hemoglobin 32.8 pg (27-33); Mean Corpuscular Volume 101.7 fl (82-101); Platelet Count 85 10^3/cmm (157-399); Red Blood Count 2.35 10^6/uL (3.85-5.65); Red Cell Distribution Width 16.8 % (12.1-15.1)
--- NOTE | 2023-10-22 08:39 | ECG_ITS ---
[facility] Test Date: 2023-10-22 Pat Name: Darrin Avila Department: Room: Gender: Male Port Engineer: : [id number] Requested By: Haseeb Hall Order Number: [id number] Homero MD: Barry Davenport M.D. Measurements Intervals [place] Rate: 173 P: 0 WA: 0 QRS: 18 QRSD: 87 T: 61 QT: 254 QTc: 431 Interpretive Statements ATRIAL FIBRILLATION WITH RAPID VENTRICULAR RESPONSE WITH ABERRANT CONDUCTION OR VENTRICULAR PREMATURE COMPLEXES MODERATE ST DEPRESSION [0.05+ mV ST DEPRESSION] CRITICAL TEST RESULT Compared to ECG 01/28/2023 12:57:07 Aberrant conduction of supraventricular beat(s) now present Ventricular premature complex(es) now present ST (T wave) deviation now present Sinus rhythm no longer present Electronically Signed On 10-22-2023 17:03:15 CDT by Barry Davenport M.D. [id number] f
--- NOTE | 2023-10-22 08:43 | XR_ITS ---
WS: [id number] Examination: XR chest 1V portable [id number] Reason for Exam: dyspnea/cough Date: 10/22/2023 Comparison: 10/20/2023 Findings: Again the right apical lucency and suspected pleural fluid is identified consistent with the suspecte d ex vacuo pneumothorax. This appears slightly more prominent than on the previous study. There is elevation of the right hemidiaphragm with limited aerated and diffuse infiltrate in the righ t lower lung. There is no infiltrate on the left The heart is unchanged in size Left Port-A-Cath is noted XR/XR chest 1V portable [id number] Impression: Similar to slightly more prominent suspected ex vacuo pneumothorax in the right upper chest. Diffuse increased density is identified throughout the poorly expanded right lo wer lung.
--- NOTE | 2023-10-22 08:48 | ED_ITS ---
HPI - Arrhythmia/Palpitations 2 General: Chief Complaint: Arrhythmia/Palpitations Stated Complaint: irregular heart rate Time Seen by Provider: 10/22/23 08:35 History of Present Illness: 68-year-old male with history of lung ca ncer who recently completed his chemotherapy regimen about 2 weeks ago. He had problems with neutropenia since then earlier this week he did receive Neupogen. He has been weak and falling hypotensive at times. He had new onset seizures earlier this week as well that he just disclosed to Dr. Shetty. Today presented to the oncology clinic and was found to be in A-fib with RVR which is also a new finding for him. Related Data Home Medications Medication Instructions Recorded Confirmed folic acid 1 mg tablet 1 mg PO QPM 10/22/23 10/22/23 levothyroxine 112 mcg tablet 112 mcg PO QAM 10/22/23 10/22/23 Previous Rx's Medication Instructions Recorded polyethylene glycol 3350 17 17 g PO DAILY PRN Constipation 03/16/23 gram/dose oral powder (Miralax) #510 grams albuterol sulfate 2.5 mg/3 mL 2.5 mg (3 mL) inhalation QID PRN 07/26/23 (0.083 %) solution for nebulization shortness of breath or wheezing #300 mL fluticasone fur. 100 mcg-umeclid 1 inh inhalation BEDTIME #60 ea 07/26/23 62.5 mcg-vilant 25 mcg inhalat.powder (Trelegy Ellipta) mirtazapine 15 mg tablet (Remeron) 15 mg PO .at dinner #30 tabs 07/26/23 montelukast 10 mg tablet 10 mg PO BEDTIME #90 tabs 07/26/23 (Singulair) levofloxacin 500 mg tablet 500 mg PO DAILY 5 days #5 tabs 10/19/23 Allergies Allergy/AdvReac Type Severity Reaction Status Date / Time grass pollen Allergy Mild ALGY-Watery Verified 10/11/23 08:58 Eye Review of Systems 2 Const: Denies: fever(s) or chills Card: Reports: palpitations, irregular heart rhythm, edema and swelling of feet/ankles; Denies: chest pain Resp: Reports: dyspnea, productive cough, wheezing and chest congestion GI: Denies: abdominal pain : Denies: dysuria, urinary frequency or urinary urgency Musc: Denies: neck pain or back pain Skin/Breast: Denies: rash PFSH ED 2 PFSH: Medical History AAA (abdominal aortic aneurysm) 4.3cm July, 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 Hypotension Non-small cell cancer of right lung Smoking hx Stop December 2022 Screening for colon cancer Cologuard screen COPD (chronic obstructive pulmonary disease) COPD exacerbation Adult onset hypothyroidism Seasonal allergies Surgical History Status post lobectomy of lung Right upper January 2023 [place], [place] Family History Brother Diabetes Hyperlipidemia Father Congestive heart failure (CHF) COPD (chronic obstructive pulmonary disease) Dementia Cancer prostate Mother Congestive heart failure (CHF) COPD (chronic obstructive pulmonary disease) Cancer gastric cancer Other No history of previous surgery Social History Smoking and tobacco/nicotine status: former use of tobacco/nicotine Quit status (tobacco/nicotine): has quit using Year quit tobacco: 01/12/23 Former quit date comment: 2 ppd X 55 years Second hand smoke exposure: Yes Alcohol intake: former Substance/Drug Use: never Adopted: No Caregiver/support person: No Lives independently: Yes Household members: none Marital status: Number of children: 1 service: Yes branch: [employer] Current occupational status: retired Pets and animals: No Do you think of yourself as: Straight/Heterosexual Current gender identity: Male Physical Exam 2 Const: COMMON NORMALS: apparent distress GENERAL APPEARANCE: cooperative and comfortable ORIENTATION/CONSCIOUSNESS: Yes awake, Yes oriented to person, Yes oriented to place and Yes oriented to time HENMT: COMMON NORMALS: normocephalic, atraumatic and hearing grossly normal bilaterally HEAD & SCALP: normocephalic and atraumatic Resp: COMMON NORMALS: normal respiratory effort, No retractions, No use of accessory muscles and clear to auscultation bilaterally AUSCULTATION: clear to auscultation bilaterally Cardio: COMMON NORMALS: No murmurs present (Cardio) RATE: tachycardic R HYTHM: abnormal rhythm irregularly irregular GI: COMMON NORMALS: Soft to palpation and No hepatosplenomegaly present A USCULTATION: Yes normoactive bowel sounds PALPATION: Yes Soft to palpation, No Tenderness to palpation present (GI), No Guarding due to palpation present (GI) and Yes No hepatosplenomegaly present Extremity: COMMON NORMALS: normal to inspection, capillary refill normal, no clubbing, cyanosis or edema, no calf tenderness and no pedal edema Neuro: SENSORIUM/ORIENTATION: Yes oriented to person, Yes oriented to place and Yes oriented to time Skin: COMMON NORMALS: no rashes or lesions noted GENERAL SKIN EXAM: no rashes or lesions noted Course 2 Vital Signs: Vital signs: Vital Signs Temperature 97.9 F 10/22/23 10:09 Pulse Rate 97 10/22/23 14:11 Respiratory Rate 19 H 10/22/23 14:04 Blood Pressure 123/69 10/22/23 14:02 Pulse Oximetry 98 10/22/23 14:04 Oxygen Delivery Me thod Nasal Cannula 10/22/23 14:04 Oxygen Flow Rate 4 10/22/23 14:04 MDM - Arrhythmia/Palpitations Medical Decision Making Patient in A-fib with heart rate controlled with medication. Initially started on Cardizem but did not respond well was changed to amiodarone. CT did not show any PE but did show poor flow to the right vessel as well as persistent pneumothorax from his previous pneumonectomy. It does not look like it is enlarging. Discussed Dr. Shetty and we plan to admit here. I discussed the hospitalist started on Vanco and Zosyn for left make a decision based on anticoagulation patient is anemic. When he first came in his pressure decreased down to the 50s is concerned about giving him significant IV fluid because of his heart rate and pushing him into heart failure instead he was transfused. This had significant improvement of his symptoms amiodarone was able to get his rate under control he has been started on antibiotics. Initial head CT done to ensure that he did not have any bleeding case we have made a decision about anticoagulation he will also require an MRI of the head to further evaluate. In addition to these things he has been neutropenic that is improved since he received the Neupogen earlier in the week. He is also thrombocytopenic and pretty profoundly anemic. He was given the blood as outlined above his platelet count is 88 will monitor closely. Finally patient has had several seizures in the last 24 hours several been observed by his generalized tonic-clonic seizures he was loaded with Keppra initially. Discussed all these issues with the hospitalist and will admit orders written Medical Records I reviewed the patient's medical records. Lab Data I reviewed the patient's lab results. 10/22/23 09:00 10/22/23 09:00 Radiology Impressions Chest X-Ray 10/22/23 08:43 Impression: Similar to slightly more prominent suspected ex vacuo pneumothorax in the right upper chest. Diffuse increased density is identified throughout the poorly expanded right lower lung. Chest CTA 10/22/23 09:22 IMPRESSION: 1. No central pulmonary embolism. 2. Decreased contrast conspicuity in the RIGHT pulmonary artery beginning at the lobar branch. This is asymmetric to the LEFT pulmonary artery. Although no thrombus is identified there may be early developing slow flow present with abnormal flow dynamics. This may represent developing early changes of PE. 3. Status post RIGHT upper lobectomy. The post pneumonectomy space is not filling in with fluid as expected. With the increasing air in the pneumonectomy space possibility of an air leak should be considered. 4. Progressive opacification and pleural thickening throughout the mid to lower RIGHT thorax is new since 07/20/2023. This may be pneumonia or progression of tumor. 5. Mild bilateral perinephric stranding. Head CT 10/22/23 09:24 IMPRESSION: 1. No acute intracranial hemorrhage or edema. 2. Mild cerebral atrophy and small vessel disease. Head MRI 10/22/23 12:12 IMPRESSION: 1. No evidence of enhancing intracranial metastatic disease. 2. No restricted diffusion to suggest acute ischemia. 3. No evidence of intracranial edema or mass effect. Laboratory Results WBC 3.11 10^3/uL (3.29-11.43) L 10/22/23 09:00 RBC 2.25 10^6/uL (3.85-5.65) L 10/22/23 09:00 Hgb 7.40 g/dL (11.27-16.99) L 10/22/23 09:00 Hct 22.9 % (37-53) L 10/22/23 09:00 MCV 101.8 fl (82-101) H 10/22/23 09:00 MCH 32.9 pg (27-33) 10/22/23 09:00 MCHC 32.3 g/dL (30-55) 10/22/23 09:00 RDW 16.7 % (12.1-15.1) H 10/22/23 09:00 Plt Count 88 10^3/cmm (157-399) L 10/22/23 09:00 MPV 8.4 fL (7.4-10.4) 10/22/23 09:00 Neut % (Auto) 72.3 % 10/22/23 09:00 Lymph % (Auto) 5.8 % 10/22/23 09:00 Summers % (Auto) 19.3 % 10/22/23 09:00 Eos % (Auto) 0.0 % 10/22/23 09:00 Baso % (Auto) 1.3 % 10/22/23 09:00 Neut # (Auto) 2.25 10^3/uL (1.8-7.7) 10/22/23 09:00 Lymph # (Auto) 0.2 10^3/uL (0.8-4.8) L 10/22/23 09:00 Summers # (Auto) 0.6 10^3/uL (0.2-0.9) 10/22/23 09:00 Eos # (Auto) 0.0 10^3/uL (0.0-0.8) 10/22/23 09:00 Baso # (Auto) 0.0 10^3/uL (0.0-0.1) 10/22/23 09:00 Nucleated RBC % (auto) 0 % 10/22/23 09:00 Total Counted 100 (0-100) 10/22/23 08:18 Atypical Lymphs % 0.0 % (0-5) 10/22/23 08:18 Absolute Neutrophils 2.2 10^3/cmm (1.4-6.5) 10/22/23 08:18 Segmented Neutrophils 67 % 10/22/23 08:18 Abs Segm Neuts (Man) 1.9 10/cmm (1.6-7.1) 10/22/23 08:18 Band Neutrophils 9.0 % 10/22/23 08:18 Abs Band Neuts (Man) 0.3 10^3/cmm (0.0-1.2) 10/22/23 08:18 Absolute Lymphocytes 0.3 10^3/cmm (1.2-3.4) L 10/22/23 08:18 Lymphocytes (Manual) 11 % 10/22/23 08:18 Monocytes (Manual) 12.0 % 10/22/23 08:18 Absolute Monocytes 0.3 10^3/cmm (0.1-0.6) 10/22/23 08:18 Eosinophils (Manual) 0 % 10/22/23 08:18 Absolute Eosinophils 0.0 10^3/cmm (0.0-0.7) 10/22/23 08:18 Basophils (Manual) 0.0 % 10/22/23 08:18 Absolute Basophils 0.0 10^3/cmm (0.0-0.2) 10/22/23 08:18 Metamyelocytes 1.0 % 10/22/23 08:18 Nucleated RBCs 2.0 /100WBC (0-1) H 10/22/23 08:18 Nucleated RBCs # 0.0 /100WBC 10/22/23 09:00 Platelet Estimate Decreased (Normal) 10/22/23 08:18 Polychromasia Trace 10/22/23 08:18 Anisocytosis 1+ H 10/22/23 08:18 Macrocytosis 1+ H 10/22/23 08:18 PT 14.20 SECONDS (12.1-14.9) 10/22/23 09:00 INR 1.06 (0.8-1.2) 10/22/23 09:00 APTT 45.0 SECONDS (23.9-36.7) H 10/22/23 09:00 Sodium 131 mmol/L (136-145) L 10/22/23 09:00 Potassium 3.7 mmol/L (3.5-5.1) 10/22/23 09:00 Chloride 92 mmol/L (98-107) L 10/22/23 09:00 Carbon Dioxide 24 mmol/L (22-29) 10/22/23 09:00 Anion Gap 18.7 (5-19) 10/22/23 09:00 BUN 11 mg/dL (8-23) 10/22/23 09:00 Creatinine 1.0 mg/dL (0.7-1.2) 10/22/23 09:00 GFR Calculation 74.1 mL/min (90-130) L 10/22/23 09:00 Glucose 108 mg/dL (65-115) 10/22/23 09:00 Calculated Osmolality 272 mOsm/kg (285-295) L 10/22/23 09:00 Lactic Acid 1.8 mmol/L (0.5-2.2) 10/22/23 09:00 Calcium 8.4 mg/dL (8.5-10.5) L 10/22/23 09:00 Iron 21 ug/dL (59-158) L 10/22/23 09:00 TIBC 145 mcg/dl 10/22/23 09:00 % Saturation 14.4 % (20-50) L 10/22/23 09:00 Unsat Iron Binding 124 ug/dL (112-347) 10/22/23 09:00 Total Bilirubin 0.4 mg/dL (0.15-1.2) 10/22/23 09:00 AST 9 U/L (0-40) 10/22/23 09:00 ALT < 5 U/L (0-41) 10/22/23 09:00 Alkaline Phosphatase 75 U/L (40-130) 10/22/23 09:00 NT-Pro-B Natriuret Pep 514 pg/mL (0-125) H 10/22/23 09:00 Total Protein 6.3 g/dL (6.6-8.7) L 10/22/23 09:00 Albumin 3.0 g/dL (3.5-5.2) L 10/22/23 09:00 Globulin 3.3 g/dL (1.3-4.6) 10/22/23 09:00 Vitamin B12 Cancelled 10/22/23 09:00 Procalcitonin 2.24 ng/mL (0-0.5) H 10/22/23 09:00 Random Cortisol 51.99 ug/dL (2.47-19.5) H 10/22/23 09:00 Urine Color Yellow (Yellow) 10/22/23 12:06 Urine Appearance Clear (CLEAR) 10/22/23 12:06 Urine pH 5.5 (5-7) 10/22/23 12:06 Ur Specific [place] 1.057 (1.005-1.030) H 10/22/23 12:06 Urine Protein 2+ (Negative) A 10/22/23 12:06 Urine Glucose (UA) Negative (Normal) 10/22/23 12:06 Urine Ketones 2+ (Negative) H 10/22/23 12:06 Urine Blood Negative (Negative) 10/22/23 12:06 Urine Nitrate Negative (Negative) 10/22/23 12:06 Urine Bilirubin Negative (Negative) 10/22/23 12:06 Urine Urobilinogen 1.0 mg/dL (Negative) 10/22/23 12:06 Ur Leukocyte Esterase Negative (Negative) 10/22/23 12:06 Urine RBC None /hpf (0-2) 10/22/23 12:06 Urine WBC Rare /hpf (0-5) 10/22/23 12:06 Ur Squamous Epith Cells 0-4 /hpf (0-5) H 10/22/23 12:06 Amorphous Sediment Not Reportable 10/22/23 12:06 Urine Bacteria 1+ /hpf (NONE) H 10/22/23 12:06 Coarse Granular Casts 0-4 /lpf H 10/22/23 12:06 Blood Type A Positive 10/22/23 08:18 Rho(D) Type Rh positive 10/22/23 08:18 Antibody Screen Negative 10/22/23 08:18 Crossmatch See Detail 10/22/23 08:18 All radiology interpretation(s) finalized by discharge EKG Data EKG 1: Interpretation: Atrial fibrillation with rapid ventricular response with a rate of 173. Cannot calculate the MT interval. There is no acute ST elevation. There are some rate related ST depression. Other EKG comments: Chest X-Ray 10/22/23 08:43 Impression: Similar to slightly more prominent suspected ex vacuo pneumothorax in the right upper chest. Diffuse increased density is identified throughout the poorly expanded right lower lung. Chest CTA 10/22/23 09:22 IMPRESSION: 1. No central pulmonary embolism. 2. Decreased contrast conspicuity in the RIGHT pulmonary artery beginning at the lobar branch. This is asymmetric to the LEFT pulmonary artery. Although no thrombus is identified there may be early developing slow flow present with abnormal flow dynamics. This may represent developing early changes of PE. 3. Status post RIGHT upper lobectomy. The post pneumonectomy space is not filling in with fluid as expected. With the increasing air in the pneumonectomy space possibility of an air leak should be considered. 4. Progressive opacification and pleural thickening throughout the mid to lower RIGHT thorax is new since 07/20/2023. This may be pneumonia or progression of tumor. 5. Mild bilateral perinephric stranding. Head CT 10/22/23 09:24 IMPRESSION: 1. No acute intracranial hemorrhage or edema. 2. Mild cerebral atrophy and small vessel disease. Head MRI 10/22/23 12:12 IMPRESSION: 1. No evidence of enhancing intracranial metastatic disease. 2. No restricted diffusion to suggest acute ischemia. 3. No evidence of intracranial edema or mass effect. Discharge Plan Discharge Patient Disposition: Admitted As Inpatient Admit Provider: Jhon Baugh Clinical Impression: Atrial fibrillation with RVR, Non-small cell cancer of right lung, New onset seizure, Anemia, Pneumonia Condition: Stable Coding Level of Care Code ED [employer] for Svitlana Francois
[2023-10-22 08:52] LABS: Alanine Aminotransferase 6 U/L (0-41); Albumin Level 3.1 g/dL (3.5-5.2); Alkaline Phosphatase 73 U/L (40-130); Anion Gap 17.6 (5-19); Aspartate Amino Transferase 9 U/L (0-40); Blood Urea Nitrogen 11 mg/dL (8-23); Calcium 8.4 mg/dL (8.5-10.5); Carbon Dioxide 24 mmol/L (22-29); Chloride 93 mmol/L (98-107); Globulin 3.2 g/dL (1.3-4.6); Glomerular Filtration Rate 83.7 mL/min (90-130); Glucose 108 mg/dL (65-115); Osmolality Calculated 272 mOsm/kg (285-295); Potassium 3.6 mmol/L (3.5-5.1); Sodium 131 mmol/L (136-145); Total Bilirubin 0.4 mg/dL (0.15-1.2); Total Protein 6.3 g/dL (6.6-8.7)
[2023-10-22] MEDS: dilTIAZem 100 MG in sodium chloride 0.9% (add-van) 100 ML IV (08:53)
[2023-10-22] MEDS: sodium chloride 0.9% 500 ML 999 ML IV (08:55)
[2023-10-22 09:09] LABS: Slide Review Slide Review Perform
[2023-10-22 09:09] LABS: Basophils % 1.3 %; Hematocrit 22.9 % (37-53); Lymphocytes # 0.2 10^3/uL (0.8-4.8); Lymphocytes % 5.8 %; Mean Corpuscular HGB Conc 32.3 g/dL (30-55); Mean Corpuscular Hemoglobin 32.9 pg (27-33); Mean Corpuscular Volume 101.8 fl (82-101); Mean Platelet Volume 8.4 fL (7.4-10.4); Monocytes # 0.6 10^3/uL (0.2-0.9); Monocytes % 19.3 %; Neutrophils # 2.25 10^3/uL (1.8-7.7); Neutrophils % 72.3 %; Nucleated Red Blood Cells % 0 %; Platelet Count 88 10^3/cmm (157-399); Red Blood Count 2.25 10^6/uL (3.85-5.65); Red Cell Distribution Width 16.7 % (12.1-15.1); White Blood Count 3.11 10^3/uL (3.29-11.43)
[2023-10-22 09:10] LABS: Absolute Segmented Neutrophil 1.9 10/cmm (1.6-7.1); Band Neutrophils Absolute 0.3 10^3/cmm (0.0-1.2); Lymphocytes 11 %; Monocytes Absolute 0.3 10^3/cmm (0.1-0.6); Segmented Neutrophils 67 %; Total Cells Counted 100 (0-100)
[2023-10-22 09:11] LABS: Absolute Neutrophil 2.2 10^3/cmm (1.4-6.5); Anisocytosis 1+; Eosinophils 0 %; Lymphocytes Absolute 0.3 10^3/cmm (1.2-3.4); Macrocytosis 1+; Platelet Estimate Decreased (Normal); Polychromasia Trace
--- NOTE | 2023-10-22 09:15 | PC.NURSE ---
PER DR. WALLER TOLD TO HOLD CARDIZEM PUSH AND ONLY START TITRATABLE DRIP DUE TO PT HYPOTENSION.
[2023-10-22 09:16] LABS: INR 1.06 (0.8-1.2)
[2023-10-22 09:19] LABS: Slide Review Slide Review Perform
[2023-10-22] MEDS: levETIRAcetam 1,000 MG/100 ML PREMIX 400 MG IV (09:19)
[2023-10-22 09:21] LABS: Alanine Aminotransferase < 5 U/L (0-41); Alkaline Phosphatase 75 U/L (40-130); Anion Gap 18.7 (5-19); Aspartate Amino Transferase 9 U/L (0-40); Blood Urea Nitrogen 11 mg/dL (8-23); Calcium 8.4 mg/dL (8.5-10.5); Carbon Dioxide 24 mmol/L (22-29); Chloride 92 mmol/L (98-107); Creatinine Clr Calc Pharmacy 81.8541; Globulin 3.3 g/dL (1.3-4.6); Glomerular Filtration Rate 74.1 mL/min (90-130); Glucose 108 mg/dL (65-115); Osmolality Calculated 272 mOsm/kg (285-295); Potassium 3.7 mmol/L (3.5-5.1); Sodium 131 mmol/L (136-145); Total Bilirubin 0.4 mg/dL (0.15-1.2); Total Protein 6.3 g/dL (6.6-8.7)
--- NOTE | 2023-10-22 09:22 | CT_ITS ---
WS: [id number] CT CHEST ANGIOGRAPHY WITH REFORMATS HISTORY: lung CA/afib RVR/dyspnea TECHNIQUE: Contiguous axial images are obtained through the chest during arterial injection of intrav enous contrast. Images are reconstructed to evaluate the pulmonary arteries. MIP imaging also reviewe d. All CT scans at [facility] use at least one of these dose optimization techniques: automat ed exposure control; mA and/or kV adjustment per patient size (includes targeted exams where dose is matched to clinical indication); or iterative reconstruction. CONTRAST: Omnipaque 350; 76 mL IV. DLP: 456.65 mGy.cm COMPARISON: CT 07/20/2023 Status post RIGHT upper lobectomy. Post pneumonectomy space continues to be filled with air and there is an air-fluid level. Due to the time after pneumonectomy the airspace should be decreasing in the fluid increasing. Volume loss and atelectasis in the RIGHT lower lobe. There is increased soft tissue attenuation beginning at the RIGHT hilum and extending along the bronchovascular structures. There i s also pleural thickening. These findings have significantly progressed since 07/20/2023. Mild atelecta sis at the LEFT lung base. Adequate opacification of the central pulmonary arteries. There is an asymmetric attenuation within t he pulmonary arteries beginning in the lobar branches. There is decreased enhancement within the RIGH T pulmonary artery. In part this is probably due to artifact. There is no identifiable thrombus at th is time. Small mediastinal and hilar lymph nodes. Perinephric stranding around the superior pole of each kidney. No adrenal mass. CT/CT angio chest PE protcl [id number] IMPRESSION: 1. No central pulmonary embolism. 2. Decreased contrast conspicuity in the RIGHT pulmonary artery beginning at t he lobar branch. This is asymmetric to the LEFT pulmonary artery. Although no t hrombus is identified there may be early developing slow flow present with abno rmal flow dynamics. This may represent developing early changes of PE. 3. Status post RIGHT upper lobectomy. The post pneumonectomy space is not fill ing in with fluid as expected. With the increasing air in the pneumonectomy spa ce possibility of an air leak should be considered. 4. Progressive opacification and pleural thickening throughout the mid to lowe r RIGHT thorax is new since 07/20/2023. This may be pneumonia or progression of t umor. 5. Mild bilateral perinephric stranding.
--- NOTE | 2023-10-22 09:24 | CT_ITS ---
WS: [id number] CT HEAD NONCONTRAST HISTORY: new onset seizures TECHNIQUE: Contiguous axial imaging performed through the brain in 2.5 mm imaging. Bone and soft tiss ue windows. Sagittal and coronal reformats reviewed. All CT scans at [facility] use at least one of these dose optimization techniques: automated exposure control; mA and/or kV adjustment per pa tient size (includes targeted exams where dose is matched to clinical indication); or iterative recon struction. DLP: 1099.60 mGy.cm COMPARISON: 10/20/2023 No acute intracranial hemorrhage, midline shift or mass effect. Mild atrophy and small vessel disease. No acute edema. No prior infarct. Ventricles: Normal size with no hydrocephalus. Paranasal sinuses: Small air-fluid level in the visualized RIGHT maxillary sinus. Mastoid air cells: Well pneumatized. Calvarium and scalp: Skull is intact with no soft tissue edema or swelling. CT/CT head wo con* [id number] IMPRESSION: 1. No acute intracranial hemorrhage or edema. 2. Mild cerebral atrophy and small vessel disease.
[2023-10-22] MEDS: amiodarone 150 MG/100 ML PREMIX 400 MG IV (09:27)
[2023-10-22] MEDS: hydrocortisone 100 mg/2 mL SDV IVP (09:37)
[2023-10-22 09:55] LABS: Cortisol Random 51.99 ug/dL (2.47-19.5)
--- NOTE | 2023-10-22 10:03 | PC.NURSE ---
EMERGENT BLOOD STARTED AT 0953.
[2023-10-22] MEDS: iohexol 350 mg/mL 500 mL Btl (per mL) IV (10:53)
--- NOTE | 2023-10-22 12:12 | P.HP_ITS ---
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 Patient was sent into the ER from oncology office for rapid heart rate and low blood pressures. Patient had visited the oncology office for Neulasta for concerns for pancytopenia postchemotherapy. As per the patient he has been having recurrent episodes of blacking out since Wednesday night. Today is Wednesday morning. He has had at least 3 episodes since then. His ex- thinks of these episodes of seizures. Today on presentation to the ER he was found to be with A-fib with RVR with heart rate running in 150s with a systolic blood pressure of 50 mmHg. Patient did lose consciousness during the episode. In the ER he was at for started on Cardizem drip which was later discontinued because of hypotension and transition over to amiodarone drip. Patient was loaded with IV Keppra given concerns for seizures. Examination patient is awake and alert saturating more than 90% on 4 L, blood pressure of 120/60 with heart rate of 97 normal sinus rhythm on amiodarone drip of 1. Patient gives history of a fall earlier this week when he lost his footing and landed up on his head. He does have an open wound at the right of the face near the eyebrow. He denies any nausea vomiting, headache, dizziness. Complains of cough. Has not noticed any fever. Denies of any diarrhea or sick contacts. Review of Systems 2 General: Reports: 10 or more systems reviewed and unremarkable except in HPI and below Const: Denies: fever(s), chills, body aches, change in appetite, change in weight, malaise, night sweats, diaphoresis, change in sleep pattern, daytime sleepiness or snoring Eyes: Denies: change in vision, blurry vision, photophobia, eye discomfort or eye discharge ENMT: Denies: throat pain, enlarged tonsils, hoarseness, mouth pain, oral sores, dry mouth, tinnitus, nasal congestion or post nasal drip Card: Denies: chest pain, palpitations, irregular heart rhythm, edema, swelling of feet/ankles, lightheadedness, syncope, pre-syncope, dyspnea on exertion, orthopnea, leg pain with exertion or acrocyanosis Resp: Denies: dyspnea, productive cough, non-productive cough, wheezing, stridor, pain on inspiration, change in phlegm color, hemoptysis or chest congestion GI: Denies: abdominal pain, nausea, vomiting, hematemesis, coffee ground emesis, dysphagia, heartburn, diarrhea, constipation, bloating, GI cramping, change in bowel habits, pain on defecation, hematochezia or melena : Denies: flank pain, difficulty urinating, dysuria, urinary frequency, urinary urgency, urinary hesitancy, urinary dribbling, difficulty starting urination, change in urine stream, nocturia or hematuria Musc: Denies: neck pain, back pain, extremity pain, joint pain, joint swelling, joint redness, joint stiffness or limited range of motion Neuro: Denies: headache(s), numbness in extremities, weakness in extremities, sensory changes, lack of coordination, difficulty walking, frequent falls, dizziness, vertigo, confusion, Slurred speech present, difficulty communicating thoughts or seizure-like activity Psych: Denies: anxiety, depression, mood swings, panic attacks, hopelessness or irritability Endo: Denies: polyuria, polydipsia, tired all the time, cold intolerance, excessive sweating, flushing or heat intolerance Maycol/Lymph: Denies: easy bruising or easy bleeding All/Imm: Denies: tongue swelling, facial swelling or acute wheezing Medications/Allergies Home Medications Medication Instructions Recorded Confirmed Last Taken Type polyethylene glycol 3350 17 17 g PO DAILY PRN Constipation 03/16/23 10/22/23 Unknown Rx gram/dose oral powder (Miralax) #510 grams albuterol sulfate 2.5 mg/3 mL 2.5 mg (3 mL) inhalation QID PRN 07/26/23 10/22/23 Unknown Rx (0.083 %) solution for nebulization shortness of breath or wheezing #300 mL fluticasone fur. 100 mcg-umeclid 1 inh inhalation BEDTIME #60 ea 07/26/23 10/22/23 10/21/23 Rx 62.5 mcg-vilant 25 mcg inhalat.powder (Trelegy Ellipta) mirtazapine 15 mg tablet (Remeron) 15 mg PO .at dinner #30 tabs 07/26/23 10/22/23 10/21/23 Rx montelukast 10 mg tablet 10 mg PO BEDTIME #90 tabs 07/26/23 10/22/23 10/21/23 Rx (Singulair) levofloxacin 500 mg tablet 500 mg PO DAILY 5 days #5 tabs 10/19/23 10/22/23 10/22/23 Rx folic acid 1 mg tablet 1 mg PO QPM 10/22/23 10/22/23 10/21/23 History levothyroxine 112 mcg tablet 112 mcg PO QAM 10/22/23 10/22/23 10/22/23 History Allergies Allergy/AdvReac Type Severity Reaction Status Date / Time grass pollen Allergy Mild ALGY-Watery Verified 10/11/23 08:58 Eye PFSH Acute 2 PFSH: Medical History AAA (abdominal aortic aneurysm) 4.3cm July, 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 Hypotension Non-small cell cancer of right lung Smoking hx Stop December 2022 Screening for colon cancer Cologuard screen COPD (chronic obstructive pulmonary disease) COPD exacerbation Adult onset hypothyroidism Seasonal allergies Surgical History Status post lobectomy of lung Right upper January 2023 [place], [place] Family History Brother Diabetes Hyperlipidemia Father Congestive heart failure (CHF) COPD (chronic obstructive pulmonary disease) Dementia Cancer prostate Mother Congestive heart failure (CHF) COPD (chronic obstructive pulmonary disease) Cancer gastric cancer Other No history of previous surgery Social History Smoking and tobacco/nicotine status: former use of tobacco/nicotine Quit status (tobacco/nicotine): has quit using Year quit tobacco: 01/12/23 Former quit date comment: 2 ppd X 55 years Second hand smoke exposure: Yes Alcohol intake: former Substance/Drug Use: never Adopted: No Caregiver/support person: No Lives independently: Yes Household members: none Marital status: Number of children: 1 service: Yes branch: [employer] Current occupational status: retired Pets and animals: No Do you think of yourself as: Straight/Heterosexual Current gender identity: Male Vitals/I&O/Wt Last Vital Signs Temp 97.9 F 10/22/23 10:09 Pulse 99 10/22/23 11:00 Resp 18 10/22/23 10:09 BP 104/63 10/22/23 11:00 Pulse Ox 92 10/22/23 11:00 O2 Del Method Nasal Cannula 10/22/23 11:00 O2 Flow Rate 5 10/22/23 11:00 10/21/23 10/22/23 10/22/23 22:59 06:59 14:59 Intake Total 503.458 / 503.458 Balance 503.458 / 503.458 Weight last 48 hrs Weight 83.007 kg Physical Exam 2 Narrative: General: No acute distress, AO x3, chronically sick appearing, superficial scab at the right temporal region HEENT: PERRLA, pupils bilaterally equal and reactive Chest: Bilateral bronchial breath sounds with decreased air entry in right upper lobe, coarse crackles present all over lung john mostly in right middle and lower zone CVS: S1-S2 regular, no murmurs, no tachycardia, no gallops, no rubs Abdomen: Soft, nontender, no organomegaly, bowel sounds present Neuro: No focal deficits, no facial deformity, AO x3, power 5/5 in all limbs Data 10/22/23 09:00 10/22/23 09:00 A&P Assessment and plan (1) Atrial fibrillation with RVR: Currently normal sinus rhythm. Currently on amiodarone drip. Continue with amiodarone drip as per protocol. Will transition to oral amiodarone 200 mg twice daily after completion of amiodarone drip. Patient is currently thrombocytopenic. Patient is anemic requiring blood transfusion. Will discuss further in detail with the patient regarding possible need of anticoagulation for stroke prevention given history of malignancy and atrial fibrillation. Jose Vas score?2 (2) Shock: Most likely cardiogenic in nature. Cannot rule out septic shock given pneumonia. Keep mean artery pressure 65. Hold off on fluid bolus for now given shortness of breath with possibility of diastolic heart failure. Normal saline 50 cc/h. (3) Pneumonia involving right lung: Cannot rule out postobstructive pneumonia. In setting of neutropenia. Post right upper lobe lobectomy for right lung cancer. Currently on chemotherapy. Check sputum culture, urine Legionella, bacterial antigen, blood culture, MRSA swab. Follow empirically start patient on IV vancomycin and Zosyn along with azithromycin for atypical coverage. Oxygen supplementation keeping saturation over 90%. Pulmicort twice daily, ipratropium, Xopenex every 6 hours. Aggressive pulmonary toilet with I-S and Acapella. Concerns for mucous plugging. Will start on Mucomyst every 6 hour. If needed will start on chest vest. CTA rules out PE. (4) Syncope and collapse: Most likely in setting of atrial fibrillation with hypotension. Concerns for seizure as per the and in the ER. Given Keppra loading dose of 1 g. For now we will hold off given further Keppra. If has recurrent episode will start on maintenance Keppra dose. Will consult neurology. Seizure precautions, fall precautions. Monitor vitals. Check orthostatics. Check urine drug screen Given concerns for seizure disorder with history of malignancy we will do MRI with and without contrast to rule out metastasis. If shows any metastasis will plan for Decadron along with Keppra and neurology consultation. (5) Chemotherapy induced neutropenia: Neutropenic precautions. Check blood culture, urinalysis, urine culture, sputum culture. Check MRSA swab. (6) Thrombocytopenia: Continue to monitor. No concern for bleeding for now. (7) Non-small cell cancer of right lung: (8) Status post lobectomy of lung: (9) Hypotension: Qualifiers: Hypotension type: unspecified hypotension type Qualified Code(s): I95.9 - Hypotension, unspecified Plan Anemia: Most likely in setting of pancytopenia induced from chemotherapy. Ordered to monitor PRBC in ER. Will continue to monitor hemoglobin daily. Check iron panel. Appreciate recent vitamin B12 levels. Continue other chronic medications including levothyroxine and mirtazapine. CODE STATUS: Discussed in detail with the patient. He does not want any kind of resuscitative measures or heroic measures. DNR/DNI. Regular diet Protonix OPD prophylaxis SCDs for DVT prophylaxis. Hold off on medical prophylaxis given anemia and thrombocytopenia. Attestations 2 Medical Necessity Statement*: Admission for more than 2 midnights for management of shock in setting of A-fib with RVR, right-sided postobstructive pneumonia in a patient with right lung cancer post lobectomy on chemotherapy leading to pancytopenia neutropenia requiring blood transfusion Critical Care Time: The high probability of a clinically significant, sudden or life threatening deterioration of the patient's [cardiac, ID, pulmonary, neurological] system(s) required my full and direct attention, intervention and personal management. The critical care time is as shown. This time is in addition to time spent performing any reported procedures but includes the following: [x] Data and vital sign review and interpretation [x] Patient assessment, examination and intervention [x] Documentation [x] Medication orders and management Critical Care Time (min): 60 Coding Level of Care Code Critical Care >/= 30 minutes Critical care time (in minutes): 60 The high probability of a clinically significant, sudden or life threatening deterioration, as referenced in this documentation, required my full and direct attention, intervention and personal management. The critical care time shown is in addition to time spent performing any reported separately billable procedures and includes the following: [x] Data and vital sign review and interpretation [x ] Patient assessment, examination and intervention [x] Medication orders and management [x] Patient/Family updates as able [x] Care Coordination and Documentation. Diagnoses Atrial fibrillation with RVR I48.91 Shock R57.9 Pneumonia involving right lung J18.9 Syncope and collapse R55 Chemotherapy induced neutropenia D70.1; T45.1X5A Thrombocytopenia D69.6 Non-small cell cancer of right lung C34.91 Status post lobectomy of lung Z90.2 Hypotension, unspecified hypotension type I95.9 Hypotension type: unspecified hypotension type
--- NOTE | 2023-10-22 12:12 | MR_ITS ---
WS: [id number] MRI HEAD WITH CONTRAST TECHNIQUE: Sagittal T1, T2 axial, T2 axial FLAIR, axial susceptibility weighted imaging, axial diffus ion weighted images, and coronal T2 images were obtained. Pre and post-T1 axial and post T1 coronal i mages. ADC and FSPGR images. CLINICAL INFORMATION: New onset seizure, history of lung cancer COMPARISON: MRI 04/12/2023 FINDINGS: No evidence of enhancing intracranial metastatic disease. No evidence of restricted diffusion to sugg est acute ischemia. Ventricular system and basilar cisterns are patent. No hemosiderin on the suscept ibly weighted images. Normal posterior fossa. Normal vascular flow voids at the skull base. No extra- axial fluid collections. No evidence of mass or mass effect. RIGHT maxillary sinusitis. Mucosal thickening in the mastoid air cells bilaterally. MR/MR head wo/w con [id number] IMPRESSION: 1. No evidence of enhancing intracranial metastatic disease. 2. No restricted diffusion to suggest acute ischemia. 3. No evidence of intracranial edema or mass effect.
[2023-10-22 12:23] LABS: Charge for UA Resulting for Rev
[2023-10-22 12:28] LABS: Bilirubin Urine Negative (Negative); Blood Urine Negative (Negative); Glucose Urine UA Negative (Normal); Ketones Urine 2+ (Negative); Leukocyte Esterase Urine Negative (Negative); Nitrate Urine Negative (Negative); Protein Urine 2+ (Negative); Urine Appearance Clear (CLEAR); Urine Color Yellow (Yellow); pH Urine 5.5 (5-7)
[2023-10-22 13:01] LABS: Specific Gravity, Urine 1.057 (1.005-1.030)
[2023-10-22 13:02] LABS: Bacteria Urine 1+ /hpf; Squamous Epithelial Cell Urine 0-4 /hpf (0-5); UA Manual Slide Review YES; WBC Urine RARE /hpf (0-5)
[2023-10-22 13:03] LABS: Add Urine Culture? No; Coarse Granular Casts Urine 0-4 /lpf
[2023-10-22 13:07] LABS: Lactic Sepsis W/Reflex 1.8 mmol/L (0.5-2.2)
--- NOTE | 2023-10-22 13:15 | PHA.VACGOAL ---
Vancomycin Goal - Goal Vancomycin Goal:: 15-20 mg/L Vancomycin Indication:: Other - Therapy Current therapy:: Pip/Tazo Day of therpy:: Day [1]of [] . Actual body weight (kg): 83.007 kg - Data Labs: WBC 3.11 10^3/uL (3.29-11.43) L 10/22/23 09:00 RBC 2.25 10^6/uL (3.85-5.65) L 10/22/23 09:00 Hgb 7.40 g/dL (11.27-16.99) L 10/22/23 09:00 Hct 22.9 % (37-53) L 10/22/23 09:00 MCV 101.8 fl (82-101) H 10/22/23 09:00 MCH 32.9 pg (27-33) 10/22/23 09:00 MCHC 32.3 g/dL (30-55) 10/22/23 09:00 RDW 16.7 % (12.1-15.1) H 10/22/23 09:00 Sodium 131 mmol/L (136-145) L 10/22/23 09:00 Potassium 3.7 mmol/L (3.5-5.1) 10/22/23 09:00 Chloride 92 mmol/L (98-107) L 10/22/23 09:00 Carbon Dioxide 24 mmol/L (22-29) 10/22/23 09:00 Anion Gap 18.7 (5-19) 10/22/23 09:00 BUN 11 mg/dL (8-23) 10/22/23 09:00 Creatinine 1.0 mg/dL (0.7-1.2) 10/22/23 09:00 GFR Calculation 74.1 mL/min (90-130) L 10/22/23 09:00 Treatment plan:: new consult Regimen:: Patient is a 68 year old male. Scr of 1.0 mg/dL. Dosing weight of 83 kg. Loading dose of 2000 mg ordered in the ED. Will start patient on maintenance dose of 1000 mg q12H. Patient's T1/2 is 11 hours with an expected trough of 15.1 mg/dL. Pharmacy will monitor and adjust patient's dosing regimen.
[2023-10-22 13:38] LABS: NT Pro B Type Natriuretic Pept 514 pg/mL (0-125); Procalcitonin 2.24 ng/mL (0-0.5)
[2023-10-22 13:55] LABS: Iron 21 ug/dL (59-158); Percent Saturation 14.4 % (20-50); Total Iron Binding Capacity 145 mcg/dl; Unsaturated Iron Binding 124 ug/dL (112-347)
[2023-10-22] MEDS: azithromycin 250 mg Tablet 500 MG PO (14:00)
[2023-10-22] MEDS: ipratropium 0.5 mg/2.5 mL Neb INHALATION ×2 (14:00→21:04)
[2023-10-22] MEDS: levalbuterol 0.63 mg/3 mL Neb INHALATION ×2 (14:00→21:04)
[2023-10-22] MEDS: piperacillin-tazobactam 3.375 GM in sodium chloride 0.9% (plus) 50 ML IV ×2 (14:02→20:31)
--- NOTE | 2023-10-22 14:03 | PC.NURSE ---
BLOOD TRANSFUSION COMPLETED AT 1137
--- NOTE | 2023-10-22 14:30 | PC.NURSE ---
ABX LATE DUE TO DELAY WITH LAB DRAWING CULTURES. PT ALSO IN MRI AFTER CULTURES DRAWN.
[2023-10-22] MEDS: vancomycin 2,000 MG/400 ML PIGGYBACK 200 MG IV (14:47)
[2023-10-22] MEDS: pantoprazole 40 mg SDV IVP (14:47)
[2023-10-22 15:24] LABS: Amphetamines Screen Urine Negative (Negative); Barbiturates Screen Urine Negative (Negative); Benzodiazepines Screen Urine Negative (Negative); Cocaine Screen Urine Negative (Negative); Opiate Screen Urine Positive (Negative); PCP Screen Urine Negative (Negative); THC Screen Urine Negative (Negative)
[2023-10-22] MEDS: sodium chloride 0.9% 1,000 ML 75 ML IV (16:16)
[2023-10-22] MEDS: folic acid 1 mg Tablet PO (18:26)
[2023-10-22] MEDS: mirtazapine 15 mg Tablet PO (18:26)
[2023-10-22 20:39] LABS: Adenovirus Not Detected (NOT DETECT); Chlamydia Pneumoniae Not Detected (NOT DETECT); Coronavirus 229E,HKU1,NL63,OC4 Not Detected (NOT DETECT); Human Metapneumovirus Not Detected (NOT DETECT); Human Rhinovirus/Enterovirus Not Detected (NOT DETECT); Influenza A Not Detected (NOT DETECT); Influenza A H1 Not Detected (NOT DETECT); Influenza A H1-2009 Not Detected (NOT DETECT); Influenza A H3 Not Detected (NOT DETECT); Influenza B Not Detected (NOT DETECT); Mycoplasma Pneumoniae Not Detected (NOT DETECT); Parainfluenza Virus Type 1 Not Detected (NOT DETECT); Parainfluenza Virus Type 2 Not Detected (NOT DETECT); Parainfluenza Virus Type 3 Not Detected (NOT DETECT); Parainfluenza Virus Type 4 Not Detected (NOT DETECT); Respiratory Syncytial Virus A Not Detected (NOT DETECT); Respiratory Syncytial Virus B Not Detected (NOT DETECT); SARS-COV-2 Not Detected (NOT DETECT)
[2023-10-22] MEDS: budesonide 0.5 mg/2 mL Neb INHALATION (21:04)
[2023-10-23] VITALS (49 sets, daily range): BP systolic 88–127; BP diastolic 54–79; PULSE 74–117; RESP 16–33; TEMP 36.5–37.1; O2SAT 90–99; BMI 27.1
[2023-10-23] MEDS: vancomycin 1,000 MG in sodium chloride 0.9% 250 ML 250 MG IV ×2 (02:10→14:19)
[2023-10-23] MEDS: piperacillin-tazobactam 3.375 GM in sodium chloride 0.9% (plus) 50 ML IV ×3 (03:28→20:38)
[2023-10-23] MEDS: levothyroxine 112 mcg Tablet PO (05:33)
[2023-10-23 06:23] LABS: Basophils % 0.8 %; Eosinophils % 0.2 %; Lymphocytes # 0.3 10^3/uL (0.8-4.8); Lymphocytes % 6.8 %; Mean Corpuscular HGB Conc 32.5 g/dL (30-55); Mean Corpuscular Hemoglobin 31.6 pg (27-33); Mean Corpuscular Volume 97.2 fl (82-101); Mean Platelet Volume 9.2 fL (7.4-10.4); Monocytes # 0.6 10^3/uL (0.2-0.9); Monocytes % 12.1 %; Neutrophils # 3.96 10^3/uL (1.8-7.7); Neutrophils % 78.7 %; Nucleated Red Blood Cells % 0 %; Platelet Count 88 10^3/cmm (157-399); Red Blood Count 2.47 10^6/uL (3.85-5.65); Red Cell Distribution Width 18.2 % (12.1-15.1); White Blood Count 5.03 10^3/uL (3.29-11.43)
[2023-10-23 06:42] LABS: Alanine Aminotransferase 8 U/L (0-41); Albumin Level 2.6 g/dL (3.5-5.2); Alkaline Phosphatase 64 U/L (40-130); Anion Gap 11.9 (5-19); Aspartate Amino Transferase 11 U/L (0-40); Blood Urea Nitrogen 8 mg/dL (8-23); Carbon Dioxide 26 mmol/L (22-29); Chloride 102 mmol/L (98-107); Chol HDL Ratio 4.41 mg/dL (1.0-5.00); Cholesterol 128 mg/dL (0-200); Creatinine Clr Calc Pharmacy 98.3187; Glomerular Filtration Rate 95.8 mL/min (90-130); Glucose 100 mg/dL (65-115); HDL Cholesterol 29 mg/dL (60-100); LDL Cholesterol Calculated 72 mg/dL (50-129); LDL HDL Ratio 2.48 RATIO (0.00-3.22); Magnesium 1.6 mg/dL (1.7-2.3); Osmolality Calculated 282 mOsm/kg (285-295); Phosphorus 1.7 mg/dL (2.5-4.5); Sodium 137 mmol/L (136-145); Total Bilirubin 0.2 mg/dL (0.15-1.2); Total Protein 5.6 g/dL (6.6-8.7); Triglycerides 135 mg/dL (0-150)
[2023-10-23 06:45] LABS: Procalcitonin 1.24 ng/mL (0-0.5)
[2023-10-23 06:48] LABS: Potassium 2.9 mmol/L (3.5-5.1)
[2023-10-23 06:55] LABS: Folate Level 18.8 ng/mL (4.5-32.2)
[2023-10-23 07:04] LABS: Estmated Average Glucose 117; Hemoglobin A1C 5.7 % (4.0-6.0)
--- NOTE | 2023-10-23 07:04 | PC.NURSE ---
Received critical lab of K:2.9. Advised Dr. Thornton who ordered 40meq K PO once now.
[2023-10-23] MEDS: potassium chloride ER 20 mEq Tablet 40 MEQ PO (07:40)
[2023-10-23] MEDS: azithromycin 250 mg Tablet 500 MG PO (08:32)
[2023-10-23] MEDS: ipratropium 0.5 mg/2.5 mL Neb INHALATION ×3 (08:38→20:19)
[2023-10-23] MEDS: acetylcysteine 200 mg/mL MDV 10 mL 100 MG INHALATION ×3 (08:38→20:19)
[2023-10-23] MEDS: levalbuterol 0.63 mg/3 mL Neb INHALATION ×3 (08:39→20:19)
[2023-10-23] MEDS: budesonide 0.5 mg/2 mL Neb INHALATION ×2 (08:39→20:19)
[2023-10-23 09:31] LABS: Bacillus cereus group Not Detected (NOT DETECT); Bacillus subtillis group Not Detected (NOT DETECT); Corynebacterium Not Detected (NOT DETECT); Cutibacterium acnes (P.acnes) Not Detected (NOT DETECT); Enterococcus Not Detected (NOT DETECT); Enterococcus faecalis Not Detected (NOT DETECT); Enterococcus faecium Not Detected (NOT DETECT); Lactobacillus species Not Detected (NOT DETECT); Listeria Not Detected (NOT DETECT); Listeria monocytogenes Not Detected (NOT DETECT); Micrococcus Not Detected (NOT DETECT); Pan Candida Not Detected (NOT DETECT); Pan Gram-Negative Not Detected (NOT DETECT); Staphylococcus epidermidis Not Detected (NOT DETECT); Staphylococcus lugdunensis Not Detected (NOT DETECT); Staphylococcus species Detected (NOT DETECT); Streptococcus agalactiae Not Detected (NOT DETECT); Streptococcus anginosus group Not Detected (NOT DETECT); Streptococcus pneumoniae Not Detected (NOT DETECT); Streptococcus pyogenes Not Detected (NOT DETECT); Streptococcus species Not Detected (NOT DETECT); mecA Detected (NOT DETECT); mecC Not Detected (NOT DETECT)
[2023-10-23] MEDS: magnesium sulfate premix 2 GM/50 ML PIGGYBACK IV (10:49)
[2023-10-23] MEDS: ferrous gluconate 324 mg Tablet PO ×2 (10:51→17:36)
[2023-10-23] MEDS: potassium phosphate (mEq K) 40 MEQ in sodium chloride 0.9% (100 ml) 100 ML 27.27 MEQ IV (10:57)
[2023-10-23] MEDS: amiodarone 200 mg Tablet PO ×2 (12:24→17:36)
[2023-10-23] MEDS: pantoprazole 40 mg SDV IVP (14:19)
--- NOTE | 2023-10-23 14:57 | USCV_ITS ---
Darrin Avila Age: 68 Gender: M : 1955 Exam Date: 10/23/2023 11:00 Ordering Phys: Jhon Baugh MD Technologist: Adonay Lopez Exam Location: [facility] – [place] Indication: afib BP: 105 / 62 HR: 124 Rhythm: Sinus Technical Quality: Adequate MEASUREMENTS (Male / Female) Normal Values 2D ECHO LV Diastolic Diameter PLAX 3.8 cm 4.2 - 5.9 / 3.9 - 5.3 cm IVS Diastolic Thickness 1.3 cm 0.6 - 1.0 / 0.6 - 0.9 cm IVS Systolic Thickness 1.8 cm LVPW Diastolic Thickness 1.7 cm 0.6 - 1.0 / 0.6 - 0.9 cm LVPW Systolic Thickness 2.1 cm LVOT Diameter 2.1 cm LV Ejection Fraction 2D Teich 76.4 % LV Ejection Fraction MOD 4C 69.3 % LV Ejection Fraction MOD 2C 73.4 % LV Ejection Fraction 2C AL 74.0 % LA Diameter 3.5 cm RA Systolic Volume 4C AL 36.5 ml RA Systolic Volume 4C MOD 37.0 ml LA Sys Volume AL 35.1 cm cubed LA Sys Volume Index AL 16.8 cm cubed/m squared Aorta at Sinotubular Diameter 2.6 cm M-MODE LA Ao Ratio MM 1.0 MV E Point Septal Separation 0.7 cm AV Cusp Separation MM 1.8 cm DOPPLER AV Peak Velocity 152.7 cm/s LVOT Peak Velocity 101.0 cm/s AV Area Cont Eq vti 2.2 cm squared AV Area Cont Eq pk 2.2 cm squared MV Peak Velocity 107.0 cm/s MV Area PHT 5.4 cm squared Mitral E to A Ratio 1.1 TV Peak Velocity 185.0 cm/s TR Peak Velocity 271.0 cm/s TR Peak Gradient 29.4 mmHg TR Mean Velocity 190.0 cm/s TR Mean Gradient 17.2 mmHg TR Velocity Time Integral 75.0 cm PV Peak Velocity 80.0 cm/s RV Ejection Time 0.4 s FINDINGS Left Ventricle Normal left ventricular cavity size. Normal left ventricular systolic function. Left ventricular ejection fraction is estimated at 60 %. Grade II/IV diastolic dysfunction, moderately elevated filling pressures. Right Ventricle The right ventricle is normal in size and function. Right Atrium The right atrium is normal in size. Left Atrium The left atrium is normal in size. Mitral Valve Mildly thickened mitral valve. No mitral valve stenosis. Mild mitral valve regurgitation. Aortic Valve Moderate aortic valve calcification. No aortic valve stenosis. Trace aortic valve regurgitation. Tricuspid Valve Structurally normal tricuspid valve without significant stenosis or regurgitation. Pulmonary artery systolic pressure is normal. Pulmonic Valve Structurally normal pulmonic valve without significant stenosis. There is no pulmonic regurgitation. Pericardium Normal pericardium without effusion. Aorta Normal ascending aorta dimension. IVC The inferior vena cava appears normal. CONCLUSIONS 1-Normal left ventricular cavity size. Normal left ventricular systolic function. Left ventricular ejection fraction is estimated at 60 %. Grade II/IV diastolic dysfunction, moderately elevated filling pressures. 2-Mildly thickened mitral valve. No mitral valve stenosis. Mild mitral valve regurgitation. 3-There is no pericardial effusion. 4-Right atrial pressure is around 5 mm of mercury. Ann-Marie Sage MD (Electronically Signed) Final Date: 23 October 2023 16:16 S
--- NOTE | 2023-10-23 15:40 | P.PN_ITS ---
Subjective 2 Subjective: No acute vents overnight. Patient has remained hemodynamically stable and afebrile. Continued on amiodarone drip. Has remained in sinus rhythm. Blood pressure stable. Denies any nausea, ting, headache. Remains on 4 to 5 L of oxygen supplementation saturating at 95% and more. Vitals/I&O/Wt Last Vital Signs Temp 98.6 F 10/23/23 14:30 Pulse 90 10/23/23 14:30 Resp 25 H 10/23/23 14:30 BP 109/75 10/23/23 14:30 Pulse Ox 95 10/23/23 14:30 O2 Del Method Nasal Cannula 10/23/23 14:30 O2 Flow Rate 6 10/23/23 14:30 10/23/23 10/23/23 10/23/23 06:59 14:59 22:59 Intake Total 417.781 / 1653.458 642 / 797 484.5391 / 750.5106 Output Total 750 / 1350 650 / 650 Balance -332.219 / 303.458 -8 / -8 108.5106 / 100.5106 Weight last 48 hrs Weight 90.917 kg Weight 86 kg Weight 83.007 kg Weight 83.007 kg Physical Exam 2 Narrative: General: No acute distress, AO x3, chronically sick appearing, superficial scab at the right temporal region HEENT: PERRLA, pupils bilaterally equal and reactive Chest: Bilateral bronchial breath sounds with decreased air entry in right upper lobe, coarse crackles present all over lung john mostly in right middle and lower zone CVS: S1-S2 regular, no murmurs, no tachycardia, no gallops, no rubs Abdomen: Soft, nontender, no organomegaly, bowel sounds present Neuro: No focal deficits, no facial deformity, AO x3, power 5/5 in all limbs Urinary Catheter Management: Alfaro: Cath Placed During This Visit: yes Reason for Continuing Indwelling Catheter: Accurate Measurement of Urinary Output in Critically Ill Patients Urinary Catheter Date of Insertion: 10/22/23 Urinary Catheter Time of Insertion: 16:00 Data 10/23/23 05:39 10/23/23 05:39 Micro: Microbiology 10/23/23 12:45 Gram Stain - Final Sputum - Expectorated Sputum 10/22/23 12:49 Blood Culture - Preliminary Blood NEGATIVE TO DATE 10/22/23 12:55 Blood Culture - Preliminary Blood Staphylococcus species 10/22/23 12:06 Bacterial Antigens - Final Urine Kidney 10/22/23 12:06 Legionella Urinary Antigen - Final Unknown Source A&P Assessment and plan (1) Atrial fibrillation with RVR: Currently normal sinus rhythm. Continue with amiodarone drip as per protocol. Transition to 200 mg oral twice daily. Currently on amiodarone drip. Patient is currently thrombocytopenic. Patient is anemic requiring blood transfusion. Will discuss further in detail with the patient regarding possible need of anticoagulation for stroke prevention given history of malignancy and atrial fibrillation. Jose Vas score?2 Echocardiogram done. Results awaited. (2) Shock: Resolved. Most likely cardiogenic in nature. Cannot rule out septic shock given pneumonia. Keep mean artery pressure 65. (3) Pneumonia involving right lung: Cannot rule out postobstructive pneumonia. Neutropenia for now has resolved. Post right upper lobe lobectomy for right lung cancer. Currently on chemotherapy. At baseline patient is on 5 L of oxygen supplementation. Usually as per patient saturation maintained at home with more than 95%. Follow-up sputum culture, urine Legionella, bacterial antigen, MRSA swab. Blood culture. Only 1 out of 4 bottles showing Staphylococcus species. Follow empirically start patient on IV vancomycin and Zosyn along with azithromycin for atypical coverage. Oxygen supplementation keeping saturation over 90%. Pulmicort twice daily, ipratropium, Xopenex every 6 hours. Aggressive pulmonary toilet with I-S and Acapella. Concerns for mucous plugging. Will start on Mucomyst every 6 hour. If needed will start on chest vest. CTA rules out PE. (4) Syncope and collapse: Most likely in setting of atrial fibrillation with hypotension. Concerns for seizure as per the and in the ER. Given Keppra loading dose of 1 g. For now we will hold off given further Keppra. If has recurrent episode will start on maintenance Keppra dose. Will consult neurology. Seizure precautions, fall precautions. Monitor vitals. Check orthostatics. Urine drug screen negative. Appreciate MRI head results without any concerns for ischemia or mass. (5) Staphylococcus aureus bacteremia: Blood culture from admission 1 out of 4 bottles positive for Staphylococcus. Speciation and identification awaited. Patient does have a port. Repeat blood cultures in AM. If concerns for Staphylococcus aureus will most likely have to remove the port. Patient will need at least 14-day course of IV antibiotics given concerns for neutropenia on admission. If has Staphylococcus aureus infection will need up to 4 weeks of IV antibiotics. (6) Chemotherapy induced neutropenia: Neutropenia has resolved. Can remove neutropenic precautions. (7) Thrombocytopenia: Continue to monitor. Platelet count stable for now. No concern for bleeding for now. (8) Non-small cell cancer of right lung: (9) Status post lobectomy of lung: (10) Hypotension: Qualifiers: Hypotension type: unspecified hypotension type Qualified Code(s): I95.9 - Hypotension, unspecified Plan Anemia: Received monitor PRBC. Hemoglobin up to 7.8. Continue to monitor hemoglobin. Iron panel showing concerns for severe iron deficiency anemia. Appreciate vitamin B12 and folate levels. Start on oral iron supplementation. Continue other chronic medications including levothyroxine and mirtazapine. CODE STATUS: Discussed in detail with the patient. He does not want any kind of resuscitative measures or heroic measures. DNR/DNI. Regular diet Protonix OPD prophylaxis SCDs for DVT prophylaxis. Hold off on medical prophylaxis given anemia and thrombocytopenia. Transfer to [facility]. Attestations 2 Medical Necessity Statement*: Requires further hospitalization for management of atrial fibrillation, severe sepsis in setting of right-sided pneumonia in a patient with history of right lung malignancy with brain mets, Staphylococcus bacteremia Diagnoses Atrial fibrillation with RVR I48.91 Shock R57.9 Pneumonia involving right lung J18.9 Syncope and collapse R55 Staphylococcus aureus bacteremia R78.81; B95.61 Chemotherapy induced neutropenia D70.1; T45.1X5A Thrombocytopenia D69.6 Non-small cell cancer of right lung C34.91 Status post lobectomy of lung Z90.2 Hypotension, unspecified hypotension type I95.9 Hypotension type: unspecified hypotension type
[2023-10-23 15:41] LABS: Anion Gap 10.5 (5-19); Blood Urea Nitrogen 8 mg/dL (8-23); Calcium 8.5 mg/dL (8.5-10.5); Carbon Dioxide 29 mmol/L (22-29); Chloride 100 mmol/L (98-107); Creatinine Clr Calc Pharmacy 102.2188; Glomerular Filtration Rate 95.8 mL/min (90-130); Glucose 101 mg/dL (65-115); Osmolality Calculated 280 mOsm/kg (285-295); Potassium 3.5 mmol/L (3.5-5.1); Sodium 136 mmol/L (136-145)
[2023-10-23] MEDS: mirtazapine 15 mg Tablet PO (17:36)
[2023-10-23] MEDS: folic acid 1 mg Tablet PO (17:36)
[2023-10-23] MEDS: acetaminophen 325 mg Tablet 650 MG PO (20:37)
[2023-10-24] VITALS (28 sets, daily range): BP systolic 98–149; BP diastolic 58–88; PULSE 75–98; RESP 16–27; TEMP 36.6–37.2; O2SAT 88–100; BMI 28.3
[2023-10-24 02:33] LABS: Basophils % 0.7 %; Eosinophils % 0.2 %; Hematocrit 23.1 % (37-53); Lymphocytes # 0.5 10^3/uL (0.8-4.8); Lymphocytes % 10.8 %; Mean Platelet Volume 9.4 fL (7.4-10.4); Monocytes # 0.5 10^3/uL (0.2-0.9); Monocytes % 11.9 %; Neutrophils # 3.45 10^3/uL (1.8-7.7); Nucleated Red Blood Cells % 0 %; Platelet Count 95 10^3/cmm (157-399); Red Blood Count 2.31 10^6/uL (3.85-5.65); Red Cell Distribution Width 18.4 % (12.1-15.1); White Blood Count 4.54 10^3/uL (3.29-11.43)
[2023-10-24 02:53] LABS: Vancomycin Trough 12.9 ug/mL (10-15)
[2023-10-24 02:54] LABS: Alanine Aminotransferase 13 U/L (0-41); Albumin Level 2.6 g/dL (3.5-5.2); Alkaline Phosphatase 63 U/L (40-130); Anion Gap 12.4 (5-19); Aspartate Amino Transferase 15 U/L (0-40); Blood Urea Nitrogen 8 mg/dL (8-23); Calcium 7.9 mg/dL (8.5-10.5); Carbon Dioxide 30 mmol/L (22-29); Chloride 104 mmol/L (98-107); Creatinine Clr Calc Pharmacy 102.2188; Globulin 2.2 g/dL (1.3-4.6); Glomerular Filtration Rate 95.8 mL/min (90-130); Glucose 96 mg/dL (65-115); Osmolality Calculated 294 mOsm/kg (285-295); Potassium 3.4 mmol/L (3.5-5.1); Sodium 143 mmol/L (136-145); Total Bilirubin 0.2 mg/dL (0.15-1.2); Total Protein 4.8 g/dL (6.6-8.7)
[2023-10-24] MEDS: vancomycin 1,000 MG in sodium chloride 0.9% 250 ML 250 MG IV (03:17)
[2023-10-24] MEDS: piperacillin-tazobactam 3.375 GM in sodium chloride 0.9% (plus) 50 ML IV ×3 (04:18→20:38)
[2023-10-24] MEDS: levothyroxine 112 mcg Tablet PO (06:38)
[2023-10-24] MEDS: levalbuterol 0.63 mg/3 mL Neb INHALATION ×3 (07:44→19:53)
[2023-10-24] MEDS: acetylcysteine 200 mg/mL MDV 10 mL 100 MG INHALATION ×3 (07:44→20:15)
[2023-10-24] MEDS: ipratropium 0.5 mg/2.5 mL Neb INHALATION ×3 (07:44→19:54)
[2023-10-24] MEDS: budesonide 0.5 mg/2 mL Neb INHALATION ×2 (07:44→19:54)
[2023-10-24] MEDS: ferrous gluconate 324 mg Tablet PO ×2 (08:09→18:24)
[2023-10-24] MEDS: amiodarone 200 mg Tablet PO ×2 (08:09→18:24)
[2023-10-24] MEDS: azithromycin 250 mg Tablet 500 MG PO (08:09)
[2023-10-24] MEDS: metoprolol tartrate 25 mg Tablet PO ×2 (09:37→20:38)
--- NOTE | 2023-10-24 10:46 | P.PN_ITS ---
Subjective 2 Subjective: No acute events overnight. Has remained hemodynamically stable and afebrile. Patient states he continues to feel better. Down to 4 L of oxygen supplementation. Saturating appropriately. Denies any nausea, vomiting, headache. Vitals/I&O/Wt Last Vital Signs Temp 98.9 F 10/24/23 08:00 Pulse 98 10/24/23 10:00 Resp 27 H 10/24/23 10:00 BP 129/77 10/24/23 10:00 Pulse Ox 92 10/24/23 10:00 O2 Del Method Nasal Cannula 10/24/23 10:00 O2 Flow Rate 4 10/24/23 10:00 10/23/23 10/24/23 10/24/23 22:59 06:59 14:59 Intake Total 778.5106 / 1420.5106 50 / 1470.5106 290 / 290 Output Total 250 / 900 350 / 1250 450 / 450 Balance 528.5106 / 520.5106 -300 / 220.5106 -160 / -160 Weight last 48 hrs Weight 95.5 kg Weight 90.917 kg Weight 86 kg Weight 83.007 kg Physical Exam 2 Narrative: General: No acute distress, AO x3, chronically sick appearing, superficial scab at the right temporal region HEENT: PERRLA, pupils bilaterally equal and reactive Chest: Bilateral bronchial breath sounds with decreased air entry in right upper lobe, coarse crackles present all over lung john mostly in right middle and lower zone CVS: S1-S2 regular, no murmurs, no tachycardia, no gallops, no rubs Abdomen: Soft, nontender, no organomegaly, bowel sounds present Neuro: No focal deficits, no facial deformity, AO x3, power 5/5 in all limbs Urinary Catheter Management: Alfaro: Cath Placed During This Visit: yes Reason for Continuing Indwelling Catheter: Accurate Measurement of Urinary Output in Critically Ill Patients Urinary Catheter Date of Insertion: 10/22/23 Urinary Catheter Time of Insertion: 16:00 Data 10/24/23 02:24 10/24/23 02:24 Micro: Microbiology 10/24/23 02:24 Blood Culture - Preliminary Blood SPECIMEN COLLECTED 10/24/23 02:24 Blood Culture - Preliminary Blood SPECIMEN COLLECTED 10/23/23 12:45 Gram Stain - Final Sputum - Expectorated Sputum 10/22/23 12:49 Blood Culture - Preliminary Blood NEGATIVE TO DATE 10/22/23 12:55 Blood Culture - Preliminary Blood Staphylococcus species A&P Assessment and plan (1) Atrial fibrillation with RVR: Currently normal sinus rhythm. Continue with amiodarone drip as per protocol. Transition to 200 mg oral twice daily. Currently on amiodarone drip. Patient is currently thrombocytopenic. Patient is anemic requiring blood transfusion. Will discuss further in detail with the patient regarding possible need of anticoagulation for stroke prevention given history of malignancy and atrial fibrillation. Jose Vas score?2 Echocardiogram done. Results awaited. (2) Shock: Resolved. Most likely cardiogenic in nature. Cannot rule out septic shock given pneumonia. Keep mean artery pressure 65. (3) Pneumonia involving right lung: Cannot rule out postobstructive pneumonia. Neutropenia for now has resolved. Post right upper lobe lobectomy for right lung cancer. Currently on chemotherapy. At baseline patient is on 5 L of oxygen supplementation. Usually as per patient saturation maintained at home with more than 95%. Follow-up sputum culture, urine Legionella, bacterial antigen, MRSA swab. Blood culture. Only 1 out of 4 bottles showing Staphylococcus species. Follow empirically start patient on IV vancomycin and Zosyn along with azithromycin for atypical coverage. Oxygen supplementation keeping saturation over 90%. Pulmicort twice daily, ipratropium, Xopenex every 6 hours. Aggressive pulmonary toilet with I-S and Acapella. Concerns for mucous plugging. Will start on Mucomyst every 6 hour. If needed will start on chest vest. CTA rules out PE. (4) Syncope and collapse: Most likely in setting of atrial fibrillation with hypotension. Concerns for seizure as per the and in the ER. Given Keppra loading dose of 1 g. For now we will hold off given further Keppra. If has recurrent episode will start on maintenance Keppra dose. Will consult neurology. Seizure precautions, fall precautions. Monitor vitals. Check orthostatics. Urine drug screen negative. Appreciate MRI head results without any concerns for ischemia or mass. (5) Staphylococcus aureus bacteremia: Blood culture from admission 1 out of 4 bottles positive for Staphylococcus. Speciation and identification awaited. Patient does have a port. Repeat blood cultures in AM. If concerns for Staphylococcus aureus will most likely have to remove the port. Patient will need at least 14-day course of IV antibiotics given concerns for neutropenia on admission. If has Staphylococcus aureus infection will need up to 4 weeks of IV antibiotics. (6) Chemotherapy induced neutropenia: Neutropenia has resolved. Can remove neutropenic precautions. (7) Thrombocytopenia: Continue to monitor. Platelet count stable for now. No concern for bleeding for now. (8) Non-small cell cancer of right lung: (9) Status post lobectomy of lung: (10) Hypotension: Qualifiers: Hypotension type: unspecified hypotension type Qualified Code(s): I95.9 - Hypotension, unspecified Plan Anemia: Received monitor PRBC. Hemoglobin up to 7.8. Continue to monitor hemoglobin. Iron panel showing concerns for severe iron deficiency anemia. Appreciate vitamin B12 and folate levels. Start on oral iron supplementation. Continue other chronic medications including levothyroxine and mirtazapine. CODE STATUS: Discussed in detail with the patient. He does not want any kind of resuscitative measures or heroic measures. DNR/DNI. Regular diet Protonix OPD prophylaxis SCDs for DVT prophylaxis. Hold off on medical prophylaxis given anemia and thrombocytopenia. Plan for the day: Continue with oral amiodarone. Add metoprolol 25 mg twice daily. Monitor hemodynamics. Goal blood pressure of more than 65 mmHg. Follow-up blood cultures. Repeat blood culture sent on 10/23. Blood culture from admission 1 out of 4 bottles positive for Staphylococcus species. Patient does have port in place. Continue with aggressive pulmonary toilet with I-S and Acapella and chest vest as tolerated. MRSA swab not sent. Will request again. For now continue with IV vancomycin and Zosyn along with azithromycin to cover for atypical pneumonia. Hemoglobin around 7.4. Transfuse monitor PRBC. Target hemoglobin more than 8. Echocardiogram appreciated for an EF of 60% with grade 2 diastolic dysfunction. Monitor for fluid overload. If needed will give low-dose Lasix after transfusion depending on hemodynamics. Replete 40 mg of oral potassium. Repeat potassium levels in AM. Attestations 2 Medical Necessity Statement*: Requires further hospitalization for management of hypoxic respiratory failure in setting of postobstructive right-sided pneumonia in a patient with history of lung cancer with brain mets atrial fibrillation with rapid ventricular response recovering hypotension, syncope with concerns for possible seizure Diagnoses Atrial fibrillation with RVR I48.91 Shock R57.9 Pneumonia involving right lung J18.9 Syncope and collapse R55 Staphylococcus aureus bacteremia R78.81; B95.61 Chemotherapy induced neutropenia D70.1; T45.1X5A Thrombocytopenia D69.6 Non-small cell cancer of right lung C34.91 Status post lobectomy of lung Z90.2 Hypotension, unspecified hypotension type I95.9 Hypotension type: unspecified hypotension type
[2023-10-24] MEDS: lanolin oint 7 gm 1 APPLIC TOPICAL (11:08)
[2023-10-24] MEDS: potassium chloride ER 20 mEq Tablet 40 MEQ PO (11:08)
[2023-10-24] MEDS: bisacodyl 5 mg Tablet 10 MG PO (12:30)
[2023-10-24] MEDS: pantoprazole 40 mg SDV IVP (13:49)
[2023-10-24] MEDS: vancomycin 1,250 MG/250 ML PIGGYBACK 166.67 MG IV (15:29)
[2023-10-24] MEDS: folic acid 1 mg Tablet PO (18:24)
[2023-10-24] MEDS: mirtazapine 15 mg Tablet PO (18:24)
[2023-10-25] VITALS (19 sets, daily range): BP systolic 100–142; BP diastolic 56–81; PULSE 72–88; RESP 16–25; TEMP 37.2–37.6; O2SAT 85–96
[2023-10-25] MEDS: vancomycin 1,250 MG/250 ML PIGGYBACK 166.67 MG IV (02:27)
[2023-10-25 03:42] LABS: Basophils % 0.5 %; Eosinophils % 0.2 %; Hematocrit 25.3 % (37-53); Lymphocytes # 0.5 10^3/uL (0.8-4.8); Lymphocytes % 11.2 %; Mean Corpuscular HGB Conc 32.4 g/dL (30-55); Mean Corpuscular Hemoglobin 31.7 pg (27-33); Mean Corpuscular Volume 97.7 fl (82-101); Mean Platelet Volume 8.6 fL (7.4-10.4); Monocytes # 0.6 10^3/uL (0.2-0.9); Monocytes % 15.4 %; Neutrophils # 2.95 10^3/uL (1.8-7.7); Nucleated Red Blood Cells % 0 %; Platelet Count 81 10^3/cmm (157-399); Red Blood Count 2.59 10^6/uL (3.85-5.65); Red Cell Distribution Width 18.1 % (12.1-15.1)
[2023-10-25 04:03] LABS: Alanine Aminotransferase 11 U/L (0-41); Albumin Level 2.5 g/dL (3.5-5.2); Alkaline Phosphatase 62 U/L (40-130); Anion Gap 10.2 (5-19); Aspartate Amino Transferase 10 U/L (0-40); Blood Urea Nitrogen 8 mg/dL (8-23); Carbon Dioxide 31 mmol/L (22-29); Chloride 99 mmol/L (98-107); Creatinine Clr Calc Pharmacy 104.1338; Globulin 2.7 g/dL (1.3-4.6); Glomerular Filtration Rate 95.8 mL/min (90-130); Glucose 91 mg/dL (65-115); Osmolality Calculated 282 mOsm/kg (285-295); Potassium 3.2 mmol/L (3.5-5.1); Sodium 137 mmol/L (136-145); Total Bilirubin 0.3 mg/dL (0.15-1.2); Total Protein 5.2 g/dL (6.6-8.7)
[2023-10-25] MEDS: piperacillin-tazobactam 3.375 GM in sodium chloride 0.9% (plus) 50 ML IV ×3 (04:16→20:59)
[2023-10-25] MEDS: levothyroxine 112 mcg Tablet PO (05:52)
[2023-10-25] MEDS: metoprolol tartrate 25 mg Tablet PO ×2 (08:23→20:59)
[2023-10-25] MEDS: ferrous gluconate 324 mg Tablet PO ×2 (08:23→17:27)
[2023-10-25] MEDS: amiodarone 200 mg Tablet PO ×2 (08:23→17:27)
[2023-10-25] MEDS: azithromycin 250 mg Tablet 500 MG PO (08:23)
[2023-10-25] MEDS: levalbuterol 0.63 mg/3 mL Neb INHALATION ×3 (09:05→19:58)
[2023-10-25] MEDS: ipratropium 0.5 mg/2.5 mL Neb INHALATION ×3 (09:05→19:58)
[2023-10-25] MEDS: budesonide 0.5 mg/2 mL Neb INHALATION ×2 (09:05→19:58)
[2023-10-25] MEDS: acetylcysteine 200 mg/mL MDV 10 mL 100 MG INHALATION ×2 (09:06→19:57)
--- NOTE | 2023-10-25 12:22 | PC.SOCIAL ---
IMM Updated Updated pt on IMM. No questions voiced. Provided pt a copy. Initialed, dated, & timed a copy & placed in chart.
[2023-10-25] MEDS: pantoprazole 40 mg SDV IVP (14:01)
[2023-10-25] MEDS: vancomycin 1,250 MG/250 ML PIGGYBACK 166 MG IV (14:03)
[2023-10-25] MEDS: folic acid 1 mg Tablet PO (17:27)
[2023-10-25] MEDS: mirtazapine 15 mg Tablet PO (17:27)
--- NOTE | 2023-10-25 20:43 | P.PN_ITS ---
Subjective 2 Subjective: He is overall doing better today. Feels breathing has been improving. Blood pressure has shown improvement. So far no additional episodes of tremor or syncope. Vitals/I&O/Wt Last Vital Signs Temp 99.6 F 10/25/23 04:00 Pulse 82 10/25/23 19:58 Resp 24 H 10/25/23 19:58 BP 142/81 10/25/23 18:00 Pulse Ox 92 10/25/23 19:58 O2 Del Method Nasal Cannula 10/25/23 19:58 O2 Flow Rate 4 10/25/23 19:58 10/25/23 10/25/23 10/25/23 06:59 14:59 22:59 Intake Total 300 / 1434 650 / 650 660 / 1310 Output Total 450 / 1375 2250 / 2250 Balance -150 / 59 650 / 650 -1590 / -940 Weight last 48 hrs Weight 95.593 kg Weight 94.801 kg Weight 95.5 kg Physical Exam 2 Narrative: Sitting up in bed. Accompanied by his daughter. Const: COMMON NORMALS: patient oriented x3 and alert GENERAL APPEARANCE: c ooperative ORIENTATION/CONSCIOUSNESS: Yes awake HENMT: COMMON NORMALS: oropharynx normal OTHER: Wound with scabbing over right yazidism. Neck/C-Spine: COMMON NORMALS: no JVD Resp: AUSCULTATION: diminished lung sounds on the right Cardio: COMMON NORMALS: no JVD, regular rhythm, S1 normal heart sound present, S2 normal heart sound present and No murmurs present (Cardio) RHYTHM: regular rhythm HEART SOUNDS: S1 normal heart sound present and S2 normal heart sound present GI: COMMON NORMALS: Normal to inspection, nondistended, normoactive bowel sounds present, Soft to palpation and non-tender PALPATION: Yes Soft to palpation Extremity: COMMON NORMALS: no joint enlargement and no pedal edema Neuro: COMMON NORMALS: patient oriented x3 and moves all extremities S ENSORIUM/ORIENTATION: Yes alert Skin: COMMON NORMALS: no rashes or lesions noted GENERAL SKIN EXAM: no rashes or lesions noted Urinary Catheter Management: Alfaro: Cath Placed During This Visit: yes Reason for Continuing Indwelling Catheter: Accurate Measurement of Urinary Output in Critically Ill Patients Urinary Catheter Date of Insertion: 10/22/23 Urinary Catheter Time of Insertion: 16:00 Data 10/25/23 03:24 10/25/23 03:24 Micro: Microbiology 10/22/23 12:55 Blood Culture - Preliminary Blood Staphylococcus hominis 10/23/23 12:45 Gram Stain - Final Sputum - Expectorated Sputum Sputum Culture - Final 10/24/23 02:24 Blood Culture - Preliminary Blood NEGATIVE TO DATE 10/24/23 02:24 Blood Culture - Preliminary Blood NEGATIVE TO DATE A&P Assessment and plan (1) Staphylococcus aureus bacteremia: Reviewed blood culture from admission, still 1 out of 4 bottles positive for Staphylococcus. Speciation and identification awaited. Reviewed reviewed blood culture, negative so far. Discussed with caser. Discharge deferred for now until further information available regarding possible bacteremia. Patient does have a port. Repeat blood cultures in AM. If concerns for Staphylococcus aureus will most likely have to remove the port. Patient will need at least 14-day course of IV antibiotics given concerns for neutropenia on admission. If has Staphylococcus aureus infection will need up to 4 weeks of IV antibiotics. (2) Pneumonia involving right lung: Continue Zosyn, vancomycin, monitor for risk of acute kidney injury with antibiotic combination. Additionally on azithromycin, amiodarone, risk of QT prolongation. Reviewed EKG, repeat EKG requested. Follow-up chemistry requested. Reviewed vitals, CBC, blood culture, sputum culture. Reviewed MRSA, pending. Cannot rule out postobstructive pneumonia. Neutropenia for now has resolved. Post right upper lobe lobectomy for right lung cancer. Currently on chemotherapy. At baseline patient is on 5 L of oxygen supplementation. Usually as per patient saturation maintained at home with more than 95%. With physical deconditioning, has not gotten up to ambulate. Lives alone. Requested PT evaluation. Follow-up sputum culture, urine Legionella, bacterial antigen, MRSA swab. Blood culture. Only 1 out of 4 bottles showing Staphylococcus species. Oxygen supplementation keeping saturation over 90%. Pulmicort twice daily, ipratropium, Xopenex every 6 hours. Aggressive pulmonary toilet with I-S and Acapella. Concerns for mucous plugging. Will start on Mucomyst every 6 hour. If needed will start on chest vest. CTA without PE. (3) Atrial fibrillation with RVR: Reviewed heart rates, so far well-controlled. Continue oral amiodarone, metoprolol. Monitor blood pressures. So far has weaned off pressor. Transfer out of intensive care unit. Reviewed hemoglobin, slightly better at 8.2, platelets not better at 81. Reviewed TTE, normal ejection fraction, grade 2 diastolic dysfunction, mild MVR. No effusion. Currently normal sinus rhythm. Continue with amiodarone drip as per protocol. Transition to 200 mg oral twice daily. Currently on amiodarone drip. Patient is currently thrombocytopenic. Patient is anemic requiring blood transfusion. Will discuss further in detail with the patient regarding possible need of anticoagulation for stroke prevention given history of malignancy and atrial fibrillation. Jose Vas score?2 On Protonix. Switch to p.o. (4) Syncope and collapse: Most likely in setting of atrial fibrillation with hypotension. Less likely seizure as per discussion with patient and family with them in agreement. Was not continued on antiepileptic so far without recurrence of any episodes. For now we will hold off given further Keppra. If has recurrent episode will start on maintenance Keppra dose. Will consult neurology. Seizure precautions, fall precautions. Monitor vitals. Check orthostatics. Urine drug screen negative. Appreciate MRI head results without any concerns for ischemia or mass. (5) Shock: Resolved. Most likely cardiogenic in nature. Cannot rule out septic shock given pneumonia. Keep mean artery pressure 65. (6) Chemotherapy induced neutropenia: Neutropenia has resolved. Can remove neutropenic precautions. (7) Thrombocytopenia: Continue to monitor. Platelet count stable for now. No concern for bleeding for now. (8) Non-small cell cancer of right lung: (9) Status post lobectomy of lung: (10) Hypotension: Qualifiers: Hypotension type: unspecified hypotension type Qualified Code(s): I95.9 - Hypotension, unspecified Plan Anemia: Received monitor PRBC. Hemoglobin up to 8. Continue to monitor hemoglobin. Iron panel showing concerns for severe iron deficiency anemia. Appreciate vitamin B12 and folate levels. on oral iron supplementation. Continue other chronic medications including levothyroxine and mirtazapine. CODE STATUS: Discussed in detail with the patient. He does not want any kind of resuscitative measures or heroic measures. DNR/DNI. Regular diet Protonix OPD prophylaxis SCDs for DVT prophylaxis. off medical prophylaxis given anemia and thrombocytopenia. Attestations 2 Medical Necessity Statement*: Continue admission for assessment management of staphylococcal bacteremia in a gentleman with port IV access, treatment of pneumonia, possible postobstructive pneumonia, underlying malignancy and High MDM includes amount and/or complexity of data reviewed/ordered [ resulted lab(s)/test(s), ordered lab(s)/test(s) and other healthcare professional discussion] and described risk of complication, morbidity or mortality of management as documented Diagnoses Staphylococcus aureus bacteremia R78.81; B95.61 Pneumonia involving right lung J18.9 Atrial fibrillation with RVR I48.91 Syncope and collapse R55 Shock R57.9 Chemotherapy induced neutropenia D70.1; T45.1X5A Thrombocytopenia D69.6 Non-small cell cancer of right lung C34.91 Status post lobectomy of lung Z90.2 Hypotension, unspecified hypotension type I95.9 Hypotension type: unspecified hypotension type
[2023-10-26] VITALS (16 sets, daily range): BP systolic 122–153; BP diastolic 71–83; PULSE 72–91; RESP 15–18; TEMP 36.8–37.2; O2SAT 91–98
[2023-10-26 03:40] LABS: Basophils % 0.7 %; Eosinophils % 0.2 %; Hematocrit 23.1 % (37-53); Lymphocytes # 0.6 10^3/uL (0.8-4.8); Lymphocytes % 12.5 %; Mean Corpuscular Hemoglobin 31.5 pg (27-33); Mean Corpuscular Volume 98.3 fl (82-101); Mean Platelet Volume 8.8 fL (7.4-10.4); Monocytes # 0.6 10^3/uL (0.2-0.9); Monocytes % 14.1 %; Neutrophils # 3.21 10^3/uL (1.8-7.7); Neutrophils % 71.8 %; Nucleated Red Blood Cells % 0 %; Platelet Count 97 10^3/cmm (157-399); Red Blood Count 2.35 10^6/uL (3.85-5.65); Red Cell Distribution Width 17.3 % (12.1-15.1); White Blood Count 4.47 10^3/uL (3.29-11.43)
[2023-10-26 03:55] LABS: Vancomycin Trough 14.6 ug/mL (10-15)
[2023-10-26 04:08] LABS: Alanine Aminotransferase 10 U/L (0-41); Albumin Level 2.7 g/dL (3.5-5.2); Alkaline Phosphatase 68 U/L (40-130); Anion Gap 9.4 (5-19); Aspartate Amino Transferase 10 U/L (0-40); Blood Urea Nitrogen 6 mg/dL (8-23); Calcium 7.9 mg/dL (8.5-10.5); Carbon Dioxide 32 mmol/L (22-29); Chloride 97 mmol/L (98-107); Creatinine Clr Calc Pharmacy 92.9105; Globulin 2.3 g/dL (1.3-4.6); Glomerular Filtration Rate 83.7 mL/min (90-130); Glucose 97 mg/dL (65-115); Osmolality Calculated 278 mOsm/kg (285-295); Potassium 3.4 mmol/L (3.5-5.1); Sodium 135 mmol/L (136-145); Total Bilirubin 0.3 mg/dL (0.15-1.2)
[2023-10-26] MEDS: vancomycin 1,500 MG/300 ML PIGGYBACK 200 MG IV (04:19)
[2023-10-26] MEDS: piperacillin-tazobactam 3.375 GM in sodium chloride 0.9% (plus) 50 ML IV ×3 (04:23→20:34)
[2023-10-26] MEDS: levothyroxine 112 mcg Tablet PO (05:58)
[2023-10-26] MEDS: budesonide 0.5 mg/2 mL Neb INHALATION ×2 (08:23→21:10)
[2023-10-26] MEDS: ipratropium 0.5 mg/2.5 mL Neb INHALATION ×3 (08:23→21:10)
[2023-10-26] MEDS: acetylcysteine 200 mg/mL SDV 4 mL 100 MG INHALATION ×3 (08:23→21:10)
[2023-10-26] MEDS: levalbuterol 0.63 mg/3 mL Neb INHALATION ×3 (08:23→21:10)
[2023-10-26] MEDS: pantoprazole DR 40 mg Tablet PO (08:26)
[2023-10-26] MEDS: amiodarone 200 mg Tablet PO ×2 (08:26→17:33)
[2023-10-26] MEDS: azithromycin 250 mg Tablet 500 MG PO (08:26)
[2023-10-26] MEDS: metoprolol tartrate 25 mg Tablet PO ×2 (08:26→20:34)
[2023-10-26] MEDS: ferrous gluconate 324 mg Tablet PO ×2 (08:26→17:33)
--- NOTE | 2023-10-26 09:00 | ECG_ITS ---
[facility] Test Date: 2023-10-26 Pat Name: Darrin Avila Department: Room: 276 Gender: Male Client Experience Administrator: : 1955 Requested By: Narciso Mercado Order Number: [id number] Reading MD: Barry Davenport M.D. Measurements Intervals [place] Rate: 82 P: 32 NH: 168 QRS: -6 QRSD: 95 T: 30 QT: 366 QTc: 428 Interpretive Statements SINUS RHYTHM LOW QRS VOLTAGE IN PRECORDIAL LEADS [QRS DEFLECTION < 1.0 mV IN CHEST LEADS] POSSIBLE ANTERIOR MYOCARDIAL INFARCTION , PROBABLY OLD [30 ms Q WAVE IN V3/V4, OR R < 0.2 mV IN V4] Compared to ECG 10/22/2023 08:39:43 Low QRS voltage now present Myocardial infarct finding now present Atrial fibrillation no longer present Aberrant conduction of supraventricular beat(s) no longer present Ventricular premature complex(es) no longer present ST (T wave) deviation no longer present Electronically Signed On 10-26-2023 21:41:10 CDT by Barry Davenport M.D. [email or web address]
[2023-10-26] MEDS: bisacodyl 5 mg Tablet 10 MG PO (12:57)
--- NOTE | 2023-10-26 13:59 | P.PN_ITS ---
Subjective 2 Subjective: He states he is doing all right today. Denies any new symptoms or changes. No chest pain, trouble breathing. Discussed with him regarding positive blood culture, 1/4 organism only, staph hominis, but resistant to multiple antibiotics. Additionally discussed with him port and risk infection especially in the setting of immunocompromise. Discussed options of approaches to the bacteremia. Vitals/I&O/Wt Last Vital Signs Temp 99.0 F 10/26/23 11:16 Pulse 86 10/26/23 13:56 Resp 18 10/26/23 13:56 BP 144/83 10/26/23 11:16 Pulse Ox 92 10/26/23 13:56 O2 Del Method Nasal Cannula 10/26/23 13:56 O2 Flow Rate 4 10/26/23 13:56 10/25/23 10/26/23 10/26/23 22:59 06:59 14:59 Intake Total 660 / 1310 350 / 1660 430 / 430 Output Total 2700 / 2700 700 / 3400 1300 / 1300 Balance -2040 / -1390 -350 / -1740 -870 / -870 Weight last 48 hrs Weight 91.626 kg Weight 90.832 kg Weight 95.593 kg Weight 94.801 kg Physical Exam 2 Narrative: Sitting up in bed. Accompanied by his daughter. Const: COMMON NORMALS: patient oriented x3 and alert GENERAL APPEARANCE: c ooperative ORIENTATION/CONSCIOUSNESS: Yes awake HENMT: COMMON NORMALS: oropharynx normal OTHER: Wound with scabbing over right religion. Neck/C-Spine: COMMON NORMALS: no JVD Resp: AUSCULTATION: diminished lung sounds on the right Cardio: COMMON NORMALS: no JVD, regular rhythm, S1 normal heart sound present, S2 normal heart sound present and No murmurs present (Cardio) RHYTHM: regular rhythm HEART SOUNDS: S1 normal heart sound present and S2 normal heart sound present GI: COMMON NORMALS: Normal to inspection, nondistended, normoactive bowel sounds present, Soft to palpation and non-tender PALPATION: Yes Soft to palpation Extremity: COMMON NORMALS: no joint enlargement and no pedal edema Neuro: COMMON NORMALS: patient oriented x3 and moves all extremities S ENSORIUM/ORIENTATION: Yes alert Skin: COMMON NORMALS: no rashes or lesions noted GENERAL SKIN EXAM: no rashes or lesions noted Urinary Catheter Management: Alfaro: Cath Placed During This Visit: yes Reason for Continuing Indwelling Catheter: Accurate Measurement of Urinary Output in Critically Ill Patients Urinary Catheter Date of Insertion: 10/22/23 Urinary Catheter Time of Insertion: 16:00 Data 10/26/23 03:30 10/26/23 03:30 Micro: Microbiology 10/22/23 12:55 Blood Culture - Preliminary Blood Staphylococcus hominis 10/23/23 12:45 Gram Stain - Final Sputum - Expectorated Sputum Sputum Culture - Final A&P Assessment and plan (1) Staphylococcus aureus bacteremia: Discussed with him regarding Staph hominis identified on blood culture from admission. Discussed with him it is a skin janell bacteria, and only 1/4 bottles, however, it is resistant to multiple antibiotics, as well as in presence of Port-A-Cath and immunocompromise difficult to exclude a pathogenic organism. Discussed with him options of approaches, consideration of expectant management, however, with risk factors and continued presence of port decision made to treat with IV antibiotics with linezolid, 2-week course. Discussed with outsole caser, switched from vancomycin to linezolid. Will arrange for outpatient antibiotic infusions, follow-up CBC, BMP. Monitor for agranulocytosis. He will be returning home. Lives alone but states his daughter will be staying with him over the next while, will be there over the next 2 weeks and will be able to help him with infusions as she had had to give IV antibiotics to herself in the past. Reviewed blood culture from admission, still 1 out of 4 bottles positive for Staphylococcus. Speciation and identification awaited. Reviewed reviewed blood culture, negative so far. Discussed with outsole caser. Discharge deferred for now until further information available regarding possible bacteremia. Patient does have a port. Repeat blood cultures in AM. If concerns for Staphylococcus aureus will most likely have to remove the port. Patient will need at least 14-day course of IV antibiotics given concerns for neutropenia on admission. If has Staphylococcus aureus infection will need up to 4 weeks of IV antibiotics. (2) Pneumonia involving right lung: Reviewed vitals, CBC. Afebrile, no leukocytosis. Oxygenation with some improvement, down to 4 L nasal cannula. Stopped vancomycin, switch to linezolid as above. Final sputum culture without growth. Blood culture 1/4 bottles Staph hominis. Risk of QT prolongation with azithromycin and amiodarone. Reviewed EKG. Completed 5 days of therapy with azithromycin will discontinue. Follow-up chemistry requested. Reviewed vitals, CBC, blood culture. Reviewed MRSA, negative. Cannot rule out postobstructive pneumonia. Discontinue isolation. Neutropenia for now has resolved. Post right upper lobe lobectomy for right lung cancer. Currently on chemotherapy. At baseline patient is on 5 L of oxygen supplementation. Usually as per patient saturation maintained at home with more than 95%. With physical deconditioning, has not gotten up to ambulate. Lives alone. Requested PT evaluation. Follow-up sputum culture, urine Legionella, bacterial antigen, MRSA swab. Blood culture. Only 1 out of 4 bottles showing Staphylococcus species. Oxygen supplementation keeping saturation over 90%. Pulmicort twice daily, ipratropium, Xopenex every 6 hours. Aggressive pulmonary toilet with I-S and Acapella. Concerns for mucous plugging. Will start on Mucomyst every 6 hour. If needed will start on chest vest. CTA without PE. (3) Atrial fibrillation with RVR: Discussed with him risk of stroke, anticoagulation therapy, risk of bleeding. He is agreeable to anticoagulation with Eliquis 5mg. Platelets 91,000. With risk of bleeding with anticoagulant as discussed, monitor for bleeding, reassess blood counts. Reviewed heart rates, so far well-controlled. Continue oral amiodarone, metoprolol. Monitor blood pressures. So far has weaned off pressor. Transfer out of intensive care unit. Reviewed hemoglobin, slightly better at 8.2, platelets not better at 81. Reviewed TTE, normal ejection fraction, grade 2 diastolic dysfunction, mild MVR. No effusion. Currently normal sinus rhythm. Continue with amiodarone drip as per protocol. Transition to 200 mg oral twice daily. Currently on amiodarone drip. Patient is currently thrombocytopenic. Patient is anemic requiring blood transfusion. Will discuss further in detail with the patient regarding possible need of anticoagulation for stroke prevention given history of malignancy and atrial fibrillation. Jose Vas score?2 On Protonix. Switch to p.o. (4) Syncope and collapse: Most likely in setting of atrial fibrillation with hypotension. Less likely seizure as per discussion with patient and family with them in agreement. Was not continued on antiepileptic so far without recurrence of any episodes. For now we will hold off given further Keppra. If has recurrent episode will start on maintenance Keppra dose. Will consult neurology. Seizure precautions, fall precautions. Monitor vitals. Check orthostatics. Urine drug screen negative. Appreciate MRI head results without any concerns for ischemia or mass. (5) Shock: Resolved. Most likely cardiogenic in nature. Cannot rule out septic shock given pneumonia. Keep mean artery pressure 65. (6) Chemotherapy induced neutropenia: Neutropenia has resolved. Can remove neutropenic precautions. (7) Thrombocytopenia: Continue to monitor. Platelet count stable for now. No concern for bleeding for now. (8) Non-small cell cancer of right lung: (9) Status post lobectomy of lung: (10) Hypotension: Qualifiers: Hypotension type: unspecified hypotension type Qualified Code(s): I95.9 - Hypotension, unspecified Plan Anemia: Received monitor PRBC. Hemoglobin up to 8. Continue to monitor hemoglobin. Iron panel showing concerns for severe iron deficiency anemia. Appreciate vitamin B12 and folate levels. on oral iron supplementation. Continue other chronic medications including levothyroxine and mirtazapine. CODE STATUS: Discussed in detail with the patient. He does not want any kind of resuscitative measures or heroic measures. DNR/DNI. Regular diet Protonix OPD prophylaxis SCDs for DVT prophylaxis. off medical prophylaxis given anemia and thrombocytopenia. Attestations 2 Medical Necessity Statement*: Continue admission for arrangements for treatment of possible bacteremia, in the setting of Port-A-Cath, gentleman with immune compromise, history of malignancy, initiation of anticoagulation for stroke risk reduction with atrial fibrillation, risk of bleeding, thrombocytopenia. and High MDM includes amount and/or complexity of data reviewed/ordered [ resulted lab(s)/test(s), ordered lab(s)/test(s) and other healthcare professional discussion] and described risk of complication, morbidity or mortality of management as documented Diagnoses Staphylococcus aureus bacteremia R78.81; B95.61 Pneumonia involving right lung J18.9 Atrial fibrillation with RVR I48.91 Syncope and collapse R55 Shock R57.9 Chemotherapy induced neutropenia D70.1; T45.1X5A Thrombocytopenia D69.6 Non-small cell cancer of right lung C34.91 Status post lobectomy of lung Z90.2 Hypotension, unspecified hypotension type I95.9 Hypotension type: unspecified hypotension type
[2023-10-26 14:04] LABS: Methicillin-Resist S.aureu PCR NOT DETECTED (NOT DETECTED)
[2023-10-26] MEDS: potassium chloride ER 20 mEq Tablet 40 MEQ PO (14:23)
[2023-10-26] MEDS: linezolid premix 600 MG/300 ML PREMIX 300 MG IV (14:24)
[2023-10-26] MEDS: apixaban 5 mg Tablet PO (16:36)
[2023-10-26] MEDS: mirtazapine 15 mg Tablet PO (17:33)
[2023-10-26] MEDS: folic acid 1 mg Tablet PO (17:33)
[2023-10-26] MEDS: magnesium hydroxide 30 mL UDC PO (17:37)
[2023-10-27] VITALS (11 sets, daily range): BP systolic 114–136; BP diastolic 69–84; PULSE 69–88; RESP 16–18; TEMP 36.8–37.1; O2SAT 93–96
[2023-10-27] MEDS: linezolid premix 600 MG/300 ML PREMIX 300 MG IV ×2 (01:39→13:56)
[2023-10-27] MEDS: piperacillin-tazobactam 3.375 GM in sodium chloride 0.9% (plus) 50 ML IV ×3 (03:46→20:04)
[2023-10-27 05:11] LABS: Eosinophils % 0.2 %; Hematocrit 27.5 % (37-53); Lymphocytes # 0.4 10^3/uL (0.8-4.8); Lymphocytes % 10.4 %; Mean Corpuscular HGB Conc 31.3 g/dL (30-55); Mean Corpuscular Hemoglobin 31.6 pg (27-33); Mean Corpuscular Volume 101.1 fl (82-101); Monocytes # 0.5 10^3/uL (0.2-0.9); Neutrophils % 74.7 %; Nucleated Red Blood Cells % 0 %; Platelet Count 98 10^3/cmm (157-399); Red Blood Count 2.72 10^6/uL (3.85-5.65); Red Cell Distribution Width 16.9 % (12.1-15.1); White Blood Count 4.15 10^3/uL (3.29-11.43)
[2023-10-27 05:27] LABS: Magnesium 1.3 mg/dL (1.7-2.3)
[2023-10-27 05:31] LABS: Anion Gap 9.6 (5-19); Blood Urea Nitrogen 6 mg/dL (8-23); Calcium 8.1 mg/dL (8.5-10.5); Carbon Dioxide 33 mmol/L (22-29); Chloride 96 mmol/L (98-107); Creatinine Clr Calc Pharmacy 101.3831; Glomerular Filtration Rate 95.8 mL/min (90-130); Glucose 96 mg/dL (65-115); Osmolality Calculated 277 mOsm/kg (285-295); Potassium 3.6 mmol/L (3.5-5.1); Sodium 135 mmol/L (136-145)
[2023-10-27] MEDS: levothyroxine 112 mcg Tablet PO (05:55)
[2023-10-27] MEDS: ferrous gluconate 324 mg Tablet PO ×2 (08:36→17:40)
[2023-10-27] MEDS: pantoprazole DR 40 mg Tablet PO (08:37)
[2023-10-27] MEDS: amiodarone 200 mg Tablet PO ×2 (08:37→17:41)
[2023-10-27] MEDS: magnesium sulfate premix 4 GM/100 ML PREMIX IV (08:40)
[2023-10-27] MEDS: apixaban 5 mg Tablet PO ×2 (08:41→20:04)
[2023-10-27] MEDS: metoprolol tartrate 25 mg Tablet PO ×2 (08:50→20:04)
[2023-10-27] MEDS: acetylcysteine 200 mg/mL SDV 4 mL 100 MG INHALATION ×2 (08:52→13:34)
[2023-10-27] MEDS: ipratropium 0.5 mg/2.5 mL Neb INHALATION ×3 (08:53→20:15)
[2023-10-27] MEDS: levalbuterol 0.63 mg/3 mL Neb INHALATION ×3 (08:53→20:15)
[2023-10-27] MEDS: budesonide 0.5 mg/2 mL Neb INHALATION ×2 (08:53→20:15)
--- NOTE | 2023-10-27 10:06 | PC.SOCIAL ---
IMM Update pg 2 of IMM Updated and reviewed w/ patient. Copy provided and copy dated, initialed and placed in chart.
--- NOTE | 2023-10-27 10:57 | P.DS_ITS ---
Discharge Providers Date of Admission: 10/22/23 12:51 Date of Discharge: October 27, 2023 Attending Provider at Admission: Jhon Baugh MD Attending Provider at Discharge: Narciso Mercado Primary Care Provider: MANJEET Bucio Diagnoses at Discharge Discharge Diagnosis (1) Staphylococcus aureus bacteremia: Status: Acute (2) Pneumonia involving right lung: Status: Acute (3) Atrial fibrillation with RVR: Status: Acute (4) Syncope and collapse: Status: Acute (5) Shock: Status: Acute (6) Chemotherapy induced neutropenia: Status: Acute (7) Thrombocytopenia: Status: Acute (8) Non-small cell cancer of right lung: Status: Acute (9) Status post lobectomy of lung: Status: Acute Permanent problem details: Right upper January 2023 [facility] [place] (10) Hypotension: Status: Acute Qualifiers: Hypotension type: unspecified hypotension type Qualified Code(s): I95.9 - Hypotension, unspecified Reason for Visit Reason for Visit: irregular heart rate Hospital Course Hospital Course Pleasant 62-year-old gentleman with lung cancer, history of right lower lobectom y, treated with chemoradiation, with last cycle of chemotherapy 3 weeks ago, was admitted after presenting from oncology office due to irregular heartbeat, found to be in atrial fibrillation with RVR, with hypotension on presentation heart rates in 150s, systolic blood pressure 50 mmHg. Had several episodes of losing consciousness prior to admission with some tremors and additional concern for po ssible seizure episode for which she received IV Keppra initially. With hypoxia, requiring 4 L of oxygen. Was started on amiodarone drip. With suspected cardiogenic shock, possible septic shock with finding of pneumonia received fluid resuscitation, did not end up requiring pressors, blood pressures with improvement after converting to sinus rhythm. Echocardiogram was obtained showing normal ejection fraction but grade 2 diastolic dysfunction, moderately elevated filling pressures. Mildly thickened mitral valve. No mitral valve stenosis. Mild MVR. No effusion. Continued on treatment for pneumonia with possibility of postobstructive component, CT angiogram of the chest performed on admission showed decreased contrast conspicuity in the right pulm artery beginning at the lobar branches. As symmetric to the left pulm artery. Although no thrombus identified may be early developing slow flow present with abnormal flow dynamics. This may represent developing early changes of PE. Additionally right upper lobectomy with lack of expected expansion with postpneumonectomy space not filling with fluid as expected. Increased air was seen in pneumonectomy space raising some possibility of air leak. With treatment his hypoxia showed gradual improvement with decreasing oxygen requirement closer to his baseline down from as high as 6 L nasal cannula. Atrial fibrillation remained under good control, heart rates in the 70s and 80s. Initially anticoagulation was held due to anemia with finding of iron deficiency. Hemoccult was performed and was negative. Additionally component of thrombocytopenia, but platelets have remained steady around 90-100. After discussion with him he is started on 5 mg Eliquis twice daily. Please follow-up blood counts and for any signs of bleeding. He is asked to follow-up with regards to Hemoccult negative iron deficiency anemia. Continues on iron supplementation. He is asked to follow-up with his oncologist as well, although he states that he likely would not pursue any further chemotherapy. He has had no recurrence of syncopal episodes, no tremors or any seizure-like activity while in the hospital, as per discussion with him and family and this were likely related to his acute medical condition prior to admission, hypotension, hypoxia and pneumonia. He has had no evidence of seizure disorder, has not been continued on anti-epileptics at current time. He is asked to follow-up with his thoracic surgeon who performed thrombectomy for reassessment of lack of expected expansion of the lung and right upper lobe with suspected ex vacuo pneumothorax, possible air leak. Repeat chest x-ray without change. Blood cultures grew 1/4 bottles Staphylococcus identified as hominis. As per discussion with him possibility of contamination with skin janell, however, with also presence of port as well as immunocompromised with malignancy and with Staph hominis also having multiple resistances cannot exclude a pathogenic bacteria for which on discussion of options he will complete additional 2 weeks of antibiotic with linezolid via the port. Please follow-up and he is asked to visit with infectious disease in office as well. Follow-up blood counts and BMP while on linezolid. Physical Exam Narrative: Sitting up in bed. Const: COMMON NORMALS: patient oriented x3 and alert GENERAL APPEARANCE: cooperative ORIENTATION/CONSCIOUSNESS: Yes awake HENMT: COMMON NORMALS: oropharynx normal OTHER: Wound with scabbing over right judaism. Neck/C-Spine: COMMON NORMALS: no JVD Resp: AUSCULTATION: diminished lung sounds on the right Cardio: COMMON NORMALS: no JVD, regular rhythm, S1 normal heart sound present, S2 normal heart sound present and No murmurs present (Cardio) RHYTHM: regular rhythm HEART SOUNDS: S1 normal heart sound present and S2 normal heart sound present GI: COMMON NORMALS: Normal to inspection, nondistended, normoactive bowel sounds present, Soft to palpation and non-tender PALPATION: Yes Soft to palpation Extremity: COMMON NORMALS: no joint enlargement and no pedal edema Neuro: COMMON NORMALS: patient oriented x3 and moves all extremities SENSORIUM/ORIENTATION: Yes alert Skin: COMMON NORMALS: no rashes or lesions noted GENERAL SKIN EXAM: no rashes or lesions noted Urinary Catheter Management: Alfaro: Cath Placed During This Visit: yes Reason for Continuing Indwelling Catheter: Other Urinary Catheter Date of Insertion: 10/22/23 Urinary Catheter Time of Insertion: 16:00 Discharge Data Studies Completed and Pending Completed Studies During Hospitalization Category Date Time Status CT angio chest PE protcl [id number] Stat Cat Scan 10/22/23 09:[address] head wo con* [id number] Stat Cat Scan 10/22/23 09:24 Completed XR chest 1V portable [id number] Stat Exams 10/22/23 08:43 Completed MR head wo/w con [id number] Stat MRI 10/22/23 12:12 Completed CV. echo complete* [id number] Routine Ultrasound 10/23/23 14:57 Completed Pending at discharge Category Date Time Status Basic Metabolic Panel AM LABS Lab 10/28/23 04:00 Ordered Basic Metabolic Panel AM LABS Lab 10/29/23 04:00 Ordered Blood Culture AM LABS Lab 10/24/23 02:24 Results Blood Culture Stat Lab 10/22/23 12:55 Results Complete Blood Count w/Auto AM LABS Lab 10/28/23 04:00 Ordered Complete Blood Count w/Auto AM LABS Lab 10/29/23 04:00 Ordered Radiology Impressions Chest X-Ray 10/22/23 08:43 Impression: Similar to slightly more prominent suspected ex vacuo pneumothorax in the right upper chest. Diffuse increased density is identified throughout the poorly expanded right lower lung. Chest CTA 10/22/23 09:22 IMPRESSION: 1. No central pulmonary embolism. 2. Decreased contrast conspicuity in the RIGHT pulmonary artery beginning at the lobar branch. This is asymmetric to the LEFT pulmonary artery. Although no thrombus is identified there may be early developing slow flow present with abnormal flow dynamics. This may represent developing early changes of PE. 3. Status post RIGHT upper lobectomy. The post pneumonectomy space is not filling in with fluid as expected. With the increasing air in the pneumonectomy space possibility of an air leak should be considered. 4. Progressive opacification and pleural thickening throughout the mid to lower RIGHT thorax is new since 07/20/2023. This may be pneumonia or progression of tumor. 5. Mild bilateral perinephric stranding. Head CT 10/22/23 09:24 IMPRESSION: 1. No acute intracranial hemorrhage or edema. 2. Mild cerebral atrophy and small vessel disease. Head MRI 10/22/23 12:12 IMPRESSION: 1. No evidence of enhancing intracranial metastatic disease. 2. No restricted diffusion to suggest acute ischemia. 3. No evidence of intracranial edema or mass effect. Laboratory Results WBC 4.15 10^3/uL (3.29-11.43) 10/27/23 04:31 RBC 2.72 10^6/uL (3.85-5.65) L 10/27/23 04:31 Hgb 8.60 g/dL (11.27-16.99) L 10/27/23 04:31 Hct 27.5 % (37-53) L 10/27/23 04:31 MCV 101.1 fl (82-101) H 10/27/23 04:31 MCH 31.6 pg (27-33) 10/27/23 04:31 MCHC 31.3 g/dL (30-55) 10/27/23 04:31 RDW 16.9 % (12.1-15.1) H 10/27/23 04:31 Plt Count 98 10^3/cmm (157-399) L 10/27/23 04:31 MPV 9.0 fL (7.4-10.4) 10/27/23 04:31 Neut % (Auto) 74.7 % 10/27/23 04:31 Lymph % (Auto) 10.4 % 10/27/23 04:31 [place] % (Auto) 13.0 % 10/27/23 04:31 Eos % (Auto) 0.2 % 10/27/23 04:31 Baso % (Auto) 1.0 % 10/27/23 04:31 Neut # (Auto) 3.10 10^3/uL (1.8-7.7) 10/27/23 04:31 Lymph # (Auto) 0.4 10^3/uL (0.8-4.8) L 10/27/23 04:31 [place] # (Auto) 0.5 10^3/uL (0.2-0.9) 10/27/23 04:31 Eos # (Auto) 0.0 10^3/uL (0.0-0.8) 10/27/23 04:31 Baso # (Auto) 0.0 10^3/uL (0.0-0.1) 10/27/23 04:31 Nucleated RBC % (auto) 0 % 10/27/23 04:31 Total Counted 100 (0-100) 10/22/23 08:18 Atypical Lymphs % 0.0 % (0-5) 10/22/23 08:18 Absolute Neutrophils 2.2 10^3/cmm (1.4-6.5) 10/22/23 08:18 Segmented Neutrophils 67 % 10/22/23 08:18 Abs Segm Neuts (Man) 1.9 10/cmm (1.6-7.1) 10/22/23 08:18 Band Neutrophils 9.0 % 10/22/23 08:18 Abs Band Neuts (Man) 0.3 10^3/cmm (0.0-1.2) 10/22/23 08:18 Absolute Lymphocytes 0.3 10^3/cmm (1.2-3.4) L 10/22/23 08:18 Lymphocytes (Manual) 11 % 10/22/23 08:18 Monocytes (Manual) 12.0 % 10/22/23 08:18 Absolute Monocytes 0.3 10^3/cmm (0.1-0.6) 10/22/23 08:18 Eosinophils (Manual) 0 % 10/22/23 08:18 Absolute Eosinophils 0.0 10^3/cmm (0.0-0.7) 10/22/23 08:18 Basophils (Manual) 0.0 % 10/22/23 08:18 Absolute Basophils 0.0 10^3/cmm (0.0-0.2) 10/22/23 08:18 Metamyelocytes 1.0 % 10/22/23 08:18 Nucleated RBCs 2.0 /100WBC (0-1) H 10/22/23 08:18 Nucleated RBCs # 0.0 /100WBC 10/27/23 04:31 Platelet Estimate Decreased (Normal) 10/22/23 08:18 Polychromasia Trace 10/22/23 08:18 Anisocytosis 1+ H 10/22/23 08:18 Macrocytosis 1+ H 10/22/23 08:18 PT 14.20 SECONDS (12.1-14.9) 10/22/23 09:00 INR 1.06 (0.8-1.2) 10/22/23 09:00 APTT 45.0 SECONDS (23.9-36.7) H 10/22/23 09:00 Sodium 135 mmol/L (136-145) L 10/27/23 04:31 Potassium 3.6 mmol/L (3.5-5.1) 10/27/23 04:31 Chloride 96 mmol/L (98-107) L 10/27/23 04:31 Carbon Dioxide 33 mmol/L (22-29) H 10/27/23 04:31 Anion Gap 9.6 (5-19) 10/27/23 04:31 BUN 6 mg/dL (8-23) L 10/27/23 04:31 Creatinine 0.8 mg/dL (0.7-1.2) 10/27/23 04:31 GFR Calculation 95.8 mL/min (90-130) 10/27/23 04:31 Glucose 96 mg/dL (65-115) 10/27/23 04:31 Estimat Average Glucose 117 10/23/23 05:39 Hemoglobin A1c 5.7 % (4.0-6.0) 10/23/23 05:39 Calculated Osmolality 277 mOsm/kg (285-295) L 10/27/23 04:31 Lactic Acid 1.8 mmol/L (0.5-2.2) 10/22/23 09:00 Calcium 8.1 mg/dL (8.5-10.5) L 10/27/23 04:31 Phosphorus 1.7 mg/dL (2.5-4.5) L 10/23/23 05:39 Magnesium 1.3 mg/dL (1.7-2.3) L 10/27/23 04:31 Iron 21 ug/dL (59-158) L 10/22/23 09:00 TIBC 145 mcg/dl 10/22/23 09:00 % Saturation 14.4 % (20-50) L 10/22/23 09:00 Unsat Iron Binding 124 ug/dL (112-347) 10/22/23 09:00 Total Bilirubin 0.3 mg/dL (0.15-1.2) 10/26/23 03:30 AST 10 U/L (0-40) 10/26/23 03:30 ALT 10 U/L (0-41) 10/26/23 03:30 Alkaline Phosphatase 68 U/L (40-130) 10/26/23 03:30 NT-Pro-B Natriuret Pep 514 pg/mL (0-125) H 10/22/23 09:00 Total Protein 5.0 g/dL (6.6-8.7) L 10/26/23 03:30 Albumin 2.7 g/dL (3.5-5.2) L 10/26/23 03:30 Globulin 2.3 g/dL (1.3-4.6) 10/26/23 03:30 Triglycerides 135 mg/dL (0-150) 10/23/23 05:39 Cholesterol 128 mg/dL (0-200) 10/23/23 05:39 LDL Cholesterol, Calc 72 mg/dL (50-129) 10/23/23 05:39 HDL Cholesterol 29 mg/dL (60-100) L 10/23/23 05:39 LDL/HDL Ratio 2.48 RATIO (0.00-3.22) 10/23/23 05:39 Cholesterol/HDL Ratio 4.41 mg/dL (1.0-5.00) 10/23/23 05:39 Vitamin B12 Cancelled 10/22/23 09:00 Folate 18.8 ng/mL (4.5-32.2) 10/23/23 05:39 Procalcitonin 1.24 ng/mL (0-0.5) H 10/23/23 05:39 Random Cortisol 51.99 ug/dL (2.47-19.5) H 10/22/23 09:00 Urine Color Yellow (Yellow) 10/22/23 12:06 Urine Appearance Clear (CLEAR) 10/22/23 12:06 Urine pH 5.5 (5-7) 10/22/23 12:06 Ur Specific [place] 1.057 (1.005-1.030) H 10/22/23 12:06 Urine Protein 2+ (Negative) A 10/22/23 12:06 Urine Glucose (UA) Negative (Normal) 10/22/23 12:06 Urine Ketones 2+ (Negative) H 10/22/23 12:06 Urine Blood Negative (Negative) 10/22/23 12:06 Urine Nitrate Negative (Negative) 10/22/23 12:06 Urine Bilirubin Negative (Negative) 10/22/23 12:06 Urine Urobilinogen 1.0 mg/dL (Negative) 10/22/23 12:06 Ur Leukocyte Esterase Negative (Negative) 10/22/23 12:06 Urine RBC None /hpf (0-2) 10/22/23 12:06 Urine WBC Rare /hpf (0-5) 10/22/23 12:06 Ur Squamous Epith Cells 0-4 /hpf (0-5) H 10/22/23 12:06 Amorphous Sediment Not Reportable 10/22/23 12:06 Urine Bacteria 1+ /hpf (NONE) H 10/22/23 12:06 Coarse Granular Casts 0-4 /lpf H 10/22/23 12:06 Vancomycin Trough 14.6 ug/mL (10-15) 10/26/23 03:30 Urine Opiates Screen Positive ng/mL (Negative) H 10/22/23 12:06 Ur Barbiturates Screen Negative ng/mL (Negative) 10/22/23 12:06 Ur Phencyclidine Scrn Negative ng/mL (Negative) 10/22/23 12:06 Ur Amphetamines Screen Negative ng/mL (Negative) 10/22/23 12:06 U Benzodiazepines Scrn Negative ng/mL (Negative) 10/22/23 12:06 Urine Cocaine Screen Negative ng/mL (Negative) 10/22/23 12:06 U Marijuana (THC) Screen Negative ng/mL (Negative) 10/22/23 12:06 Adenovirus (PCR) Not detected (NOT DETECT) 10/22/23 18:00 C. pneumoniae DNA (PCR) Not detected (NOT DETECT) 10/22/23 18:00 Coronavirus 229E (PCR) Not detected (NOT DETECT) 10/22/23 18:00 Human Metapneumovir PCR Not detected (NOT DETECT) 10/22/23 18:00 Influenza A (H1) PCR Not detected (NOT DETECT) 10/22/23 18:00 Influ A (H1/09) PCR Not detected (NOT DETECT) 10/22/23 18:00 Influenza A (H3) PCR Not detected (NOT DETECT) 10/22/23 18:00 Influenza Type A (PCR) Not detected (NOT DETECT) 10/22/23 18:00 Influenza Type B (PCR) Not detected (NOT DETECT) 10/22/23 18:00 M. pneumoniae (PCR) Not detected (NOT DETECT) 10/22/23 18:00 Parainfluenza 1 (PCR) Not detected (NOT DETECT) 10/22/23 18:00 Parainfluenza 2 (PCR) Not detected (NOT DETECT) 10/22/23 18:00 Parainfluenza 3 (PCR) Not detected (NOT DETECT) 10/22/23 18:00 Parainfluenza 4 (PCR) Not detected (NOT DETECT) 10/22/23 18:00 RSV Type A (PCR) Not detected (NOT DETECT) 10/22/23 18:00 RSV Type B (PCR) Not detected (NOT DETECT) 10/22/23 18:00 Entero/Rhino (PCR) Not detected (NOT DETECT) 10/22/23 18:00 SARS-CoV-2 (PCR) Not detected (NOT DETECT) 10/22/23 18:00 MRSA (PCR) Not detected (NOT DETECTED) 10/24/23 09:19 Blood Type A Positive 10/22/23 08:18 Rho(D) Type Rh positive 10/22/23 08:18 Antibody Screen Negative 10/22/23 08:18 Crossmatch See Detail 10/22/23 08:18 Vitals Last Vital Signs Temp 98.7 F 10/27/23 08:00 Pulse 83 10/27/23 08:00 Resp 18 10/27/23 08:00 BP 116/69 10/27/23 08:00 Pulse Ox 95 10/27/23 08:00 O2 Del Method Nasal Cannula 10/27/23 08:00 O2 Flow Rate 4 10/27/23 08:00 Discharge Plan Discharge Patient Disposition: Home Health Service Condition: Stable Prescriptions: New Eliquis 5 mg Tablet 5 mg PO BID@0900,2100 Qty: 180 0RF Pacerone 200 mg Tablet 200 mg PO BID Qty: 180 0RF ferrous gluconate 324 mg (37.5 mg iron) tablet 324 mg PO EVERY OTHER DAY Qty: 90 0RF linezolid in dextrose 5% 600 mg/300 mL Piggyback 600 mg continuous IV infusion Q12H 13 Days Qty: 3900 0RF metoprolol tartrate 25 mg Tablet 25 mg PO BID@0900,2099 Qty: 180 0RF amoxicillin-pot clavulanate 875-125 mg tablet 1 tab PO BID Qty: 10 0RF Lasix 20 mg tablet 20 mg PO QAM PRN (Reason: edema) Qty: 20 0RF Continued Miralax 17 gram/dose powder 17 g PO DAILY PRN (Reason: Constipation) Qty: 510 2RF Trelegy Ellipta 100-62.5-25 mcg blister with device 1 inh inhalation BEDTIME Qty: 60 2RF mirtazapine [Remeron] 15 mg tablet 15 mg PO .at dinner Qty: 30 2RF Singulair 10 mg tablet 10 mg PO BEDTIME Qty: 90 1RF albuterol sulfate 2.5 mg /3 mL (0.083 %) solution for nebulization 2.5 mg INHALATION QID PRN (Reason: shortness of breath or wheezing) Qty: 300 5RF folic acid 1 mg tablet 1 mg PO QPM levothyroxine 112 mcg tablet 112 mcg PO QAM Discontinued levofloxacin 500 mg tablet 500 mg PO DAILY 5 Days Qty: 5 0RF Referrals: Thoracic, surgeon [Other] - 4-7 days (Lack of expansion of lung after right upper lobectomy, possible air leak/ex vacuo pneumothorax.) CARDIOLOGY [Provider Group] - 11/02/23 3:30 pm (Atrial fibrillation, lung disease, alternative considerations to amiodarone. ) Infectious Disease [facility] [Provider Group] - 2 weeks (Staph hominis positive blood culture We have notified your physician's clinic of the need for a follow-up appointment to be scheduled. If you have not heard from them within the next 2 business days, please call them directly. ) [facility] [Provider Group] - 1 week (Hemoccult negative iron deficiency anemia. We have notified your physician's clinic of the need for a follow-up appointment to be scheduled. If you have not heard from them within the next 2 business days, please call them directly. ) Pulmonary [Provider Group] - 11/08/23 9:45 am (Lack of expected post-lobectomy lung expansion. Pneumonia. Possible air leak. Questionable early PE. ) Wound Care [Provider Group] - 1 week (Facial wound We have notified your physician's clinic of the need for a follow-up appointment to be scheduled. If you have not heard from them within the next 2 business days, please call them directly. ) [facility] [Outside] (This is the company supplying your IV abx (Linezolid) and it will be shipped to your house. ) [facility] [Outside] Martha Clark FNP-C [Primary Care Provider] - 4-7 days (We have notified your physician's clinic of the need for a follow-up appointment to be scheduled. If you have not heard from them within the next 2 business days, please call them directly. ) Discharge Activity: Increase activity as tolerated and As per PT/OT instructions Patient Instructions: Iron Supplements (By mouth), Metoprolol (By mouth), Furosemide (By mouth), Amoxicillin/Clavulanate Potassium (By mouth), Amiodarone (By mouth), Linezolid (By mouth), Apixaban (By mouth), Pneumonia (GEN), Bacteremia (GEN), Pneumonia Stoplight Activity Restrictions/Additional Instructions: Complete antibiotic course for both pneumonia as well as due to presence of bacteria and blood culture, 1/4 bottles, Staphylococcus hominis, resistant to multiple antibiotics. There is a possibility of contamination, but with presence of port, immunocompromised, as discussed difficult to exclude pathogenic bacteria. Complete 2 weeks of linezolid treatment. Port should be accessed after you are done with treatment. Follow-up with your primary provider for reassessment and with infectious disease doctor in office. Follow-up with your primary doctor regarding requested blood count and chemistry studies to reassess with linezolid treatment to assess for any white blood cell suppression. Follow-up with lung doctor to additionally reassess after pneumonia, possible postobstructive pneumonia, as well as lack of expected complete expansion of the right lung after lobectomy. Please make an appointment to follow-up with your thoracic surgeon who performed the lung resection to discuss lack of expansion of the lung. Seek medical attention immediately in case of worsening shortness of breath, chest pain pressure, feeling faint or any other concerning symptoms. Follow-up with your primary provider and oncology doctor to reassess anemia, platelet levels, to reassess also here tolerance of anticoagulation for stroke risk prevention due to atrial fibrillation. Follow-up with your primary provider and cardiology for atrial fibrillation and assessment of control. Consideration of other options different from amiodarone for long-term management, monitoring for any possible amiodarone related toxicity, monitoring her eyes, thyroid, lungs, liver. Follow-up with your primary doctor for reassessment after syncope and collapse suspected related to low oxygen level, pneumonia prior to admission. Keep R side face wound clean. Antibiotic ointment in case of cracking skin or developing redeness. Follow up with wound care. Limit total fluid intake to less than 1500 mL in a day. Take diuretic (Lasix) in case of rapid water weight gain, lower extremity swelling. Seek medical attention in case of any worsening or new concerning symptoms. Discharge Attestations Time Spent in Discharge Care*: greater than 30 min Status at Discharge: Cognitive status at discharge: cognitively intact , Behavioral status at discharge: cooperative , Quality Metrics Clinical Quality Measures [ No reported AMI, CVA or VTE this stay] Coding Level of Care Code 08845 Total time (in minutes) for Discharge: 55 Diagnoses Staphylococcus aureus bacteremia R78.81; B95.61 Pneumonia involving right lung J18.9 Atrial fibrillation with RVR I48.91 Syncope and collapse R55 Shock R57.9 Chemotherapy induced neutropenia D70.1; T45.1X5A Thrombocytopenia D69.6 Non-small cell cancer of right lung C34.91 Status post lobectomy of lung Z90.2 Hypotension, unspecified hypotension type I95.9 Hypotension type: unspecified hypotension type
--- NOTE | 2023-10-27 11:06 | XRR_ITS ---
PROCEDURE INFORMATION: Exam: XR Chest Exam date and time: 10/27/2023 11:16 AM Age: 68 years old Clinical indication: Shortness of breath; Additional info: Follow up R lung TECHNIQUE: Imaging protocol: Radiologic exam of the chest. Views: 1 view. COMPARISON: CT angio chest PE protcl [id number] 10/22/2023 10:41 AM FINDINGS: Tubes, catheters and devices: Left chest wall port is in satisfactory location with tip overlying the superior vena cava. Lungs: Status post right upper lobectomy with unchanged predominantly gas-filled pneumonectomy space. Redemonstrated consolidative and ground-glass opacities in the right middle and lower lobes. Partial collapse of the right lower lobe. The left lung is clear. Pleural spaces: No sizable pleural effusion or pneumothorax. Heart/Mediastinum: No cardiomegaly. Bones/joints: Unremarkable. XR/XR chest 1V portable [id number] IMPRESSION: No interval change.
[2023-10-27] MEDS: folic acid 1 mg Tablet PO (17:40)
[2023-10-27] MEDS: mirtazapine 15 mg Tablet PO (17:41)
[2023-10-28] VITALS: BP 121/70; PULSE 76; RESP 16; TEMP 36.9; O2SAT 94
[2023-10-28] MEDS: linezolid premix 600 MG/300 ML PREMIX 300 MG IV (01:03)
[2023-10-28 04:00] VITALS: BP 109/67; PULSE 74; RESP 17; TEMP 36.6; O2SAT 95
[2023-10-28] MEDS: piperacillin-tazobactam 3.375 GM in sodium chloride 0.9% (plus) 50 ML IV (04:09)
[2023-10-28 04:51] LABS: Basophils % 0.8 %; Eosinophils % 0.3 %; Hematocrit 27.8 % (37-53); Lymphocytes # 0.4 10^3/uL (0.8-4.8); Lymphocytes % 11.1 %; Mean Corpuscular HGB Conc 31.3 g/dL (30-55); Mean Corpuscular Hemoglobin 31.9 pg (27-33); Mean Corpuscular Volume 101.8 fl (82-101); Mean Platelet Volume 8.5 fL (7.4-10.4); Monocytes # 0.5 10^3/uL (0.2-0.9); Monocytes % 12.7 %; Neutrophils # 2.82 10^3/uL (1.8-7.7); Neutrophils % 74.8 %; Nucleated Red Blood Cells % 0 %; Platelet Count 100 10^3/cmm (157-399); Red Blood Count 2.73 10^6/uL (3.85-5.65); Red Cell Distribution Width 16.5 % (12.1-15.1); White Blood Count 3.77 10^3/uL (3.29-11.43)
[2023-10-28 05:08] LABS: Anion Gap 9.5 (5-19); Blood Urea Nitrogen 5 mg/dL (8-23); Calcium 8.1 mg/dL (8.5-10.5); Carbon Dioxide 32 mmol/L (22-29); Chloride 94 mmol/L (98-107); Creatinine Clr Calc Pharmacy 100.9354; Glomerular Filtration Rate 95.8 mL/min (90-130); Glucose 98 mg/dL (65-115); Magnesium 1.6 mg/dL (1.7-2.3); Osmolality Calculated 271 mOsm/kg (285-295); Potassium 3.5 mmol/L (3.5-5.1); Sodium 132 mmol/L (136-145)
[2023-10-28 05:31] VITALS: PULSE 76
[2023-10-28] MEDS: levothyroxine 112 mcg Tablet PO (06:03)
[2023-10-28] MEDS: levalbuterol 0.63 mg/3 mL Neb INHALATION (07:35)
[2023-10-28] MEDS: ipratropium 0.5 mg/2.5 mL Neb INHALATION (07:35)
[2023-10-28 07:36] VITALS: PULSE 75; RESP 18; O2SAT 95
[2023-10-28] MEDS: acetylcysteine 200 mg/mL SDV 4 mL 100 MG INHALATION (07:36)
[2023-10-28] MEDS: budesonide 0.5 mg/2 mL Neb INHALATION (07:36)
[2023-10-28 07:58] VITALS: BP 115/71; PULSE 76; RESP 16; TEMP 37.1; O2SAT 92
[2023-10-28] MEDS: metoprolol tartrate 25 mg Tablet PO (08:53)
[2023-10-28] MEDS: ferrous gluconate 324 mg Tablet PO (08:53)
[2023-10-28] MEDS: amiodarone 200 mg Tablet PO (08:53)
[2023-10-28] MEDS: pantoprazole DR 40 mg Tablet PO (08:53)
[2023-10-28] MEDS: apixaban 5 mg Tablet PO (08:55)
[2023-10-28] MEDS: magnesium sulfate premix 4 GM/100 ML PREMIX IV (09:59)
--- NOTE | 2023-10-28 15:37 | P.PN_ITS ---
Subjective 2 Subjective: Please see discharge summary from 10/26. Discharge was delayed due to shortage of linezolid nationally, which had to be ordered from a different branch for him. He is doing well today. Denies any change. Denies any worsening. Feels ready to discharge home. Vitals/I&O/Wt Last Vital Signs Temp 98.7 F 10/28/23 07:58 Pulse 76 10/28/23 07:58 Resp 16 10/28/23 07:58 BP 115/71 10/28/23 07:58 Pulse Ox 92 10/28/23 07:58 O2 Del Method Room Air 10/28/23 07:58 O2 Flow Rate 3.5 10/28/23 08:00 10/28/23 10/28/23 10/28/23 06:59 14:59 22:59 Intake Total 750 / 2380 70 / 70 Output Total 900 / 1625 Balance -150 / 755 70 / 70 Weight last 48 hrs Weight 88.314 kg Weight 89.222 kg Physical Exam 2 Narrative: Sitting up in bed. Const: COMMON NORMALS: patient oriented x3 and alert GENERAL APPEARANCE: c ooperative ORIENTATION/CONSCIOUSNESS: Yes awake HENMT: COMMON NORMALS: oropharynx normal OTHER: Wound with scabbing over right protestant. Neck/C-Spine: COMMON NORMALS: no JVD Resp: AUSCULTATION: diminished lung sounds on the right Cardio: COMMON NORMALS: no JVD, regular rhythm, S1 normal heart sound present, S2 normal heart sound present and No murmurs present (Cardio) RHYTHM: regular rhythm HEART SOUNDS: S1 normal heart sound present and S2 normal heart sound present GI: COMMON NORMALS: Normal to inspection, nondistended, normoactive bowel sounds present, Soft to palpation and non-tender PALPATION: Yes Soft to palpation Extremity: COMMON NORMALS: no joint enlargement and no pedal edema Neuro: COMMON NORMALS: patient oriented x3 and moves all extremities S ENSORIUM/ORIENTATION: Yes alert Skin: COMMON NORMALS: no rashes or lesions noted GENERAL SKIN EXAM: no rashes or lesions noted Urinary Catheter Management: Alfaro: Cath Placed During This Visit: yes, but has since been removed by the nurse Reason for Continuing Indwelling Catheter: Other Urinary Catheter Date of Insertion: 10/22/23 Urinary Catheter Time of Insertion: 16:00 Date Urinary Catheter Removed: 10/27/23 Time Urinary Catheter Discontinued: 10:58 Data 10/28/23 04:37 10/28/23 04:37 Micro: Microbiology 10/22/23 12:49 Blood Culture - Final Blood NO GROWTH AFTER 5 DAYS A&P Assessment and plan (1) Staphylococcus aureus bacteremia: Reviewed vitals, CBC, BMP, magnesium.Due to shortage of linezolid discharge she was delayed yesterday. Please refer to discharge summary. Complete linezolid course. Confirms that his daughter is to get education on infusions. Port remains accessed, infusions through the port. Monitor for risk of agranulocytosis, CBC requested. Will be deaccessed by home health after completion of therapy. Discussed with nursing, correctional counselor/case manager. Follow-up with infectious disease. Discussed with him regarding Staph hominis identified on blood culture from admission. Discussed with him it is a skin janell bacteria, and only 1/4 bottles, however, it is resistant to multiple antibiotics, as well as in presence of Port-A-Cath and immunocompromise difficult to exclude a pathogenic organism. Discussed with him options of approaches, consideration of expectant management, however, with risk factors and continued presence of port decision made to treat with IV antibiotics with linezolid, 2-week course. Discussed with correctional counselor/case manager, switched from vancomycin to linezolid. Will arrange for outpatient antibiotic infusions, follow-up CBC, BMP. Monitor for agranulocytosis. He will be returning home. Lives alone but states his daughter will be staying with him over the next while, will be there over the next 2 weeks and will be able to help him with infusions as she had had to give IV antibiotics to herself in the past. Reviewed blood culture from admission, still 1 out of 4 bottles positive for Staphylococcus. Speciation and identification awaited. Reviewed reviewed blood culture, negative so far. Discussed with correctional counselor/case manager. Discharge deferred for now until further information available regarding possible bacteremia. Patient does have a port. Repeat blood cultures in AM. If concerns for Staphylococcus aureus will most likely have to remove the port. Patient will need at least 14-day course of IV antibiotics given concerns for neutropenia on admission. If has Staphylococcus aureus infection will need up to 4 weeks of IV antibiotics. (2) Pneumonia involving right lung: Reviewed CBC, blood culture. Overall improved, on room air. Feeling well. Complete antibiotic course with Augmentin and linezolid. Follow-up with thoracic surgery and pulmonology with lack of expected expansion of the right lung after lobectomy, ex vacuo pneumothorax. Unchanged on x-ray reviewed yesterday.. Reviewed vitals, CBC. Afebrile, no leukocytosis. Oxygenation with some improvement, down to 4 L nasal cannula. Stopped vancomycin, switch to linezolid as above. Final sputum culture without growth. Blood culture 1/4 bottles Staph hominis. Risk of QT prolongation with azithromycin and amiodarone. Reviewed EKG. Completed 5 days of therapy with azithromycin will discontinue. Follow-up chemistry requested. Reviewed vitals, CBC, blood culture. Reviewed MRSA, negative. Cannot rule out postobstructive pneumonia. Discontinue isolation. Neutropenia for now has resolved. Post right upper lobe lobectomy for right lung cancer. Currently on chemotherapy. At baseline patient is on 5 L of oxygen supplementation. Usually as per patient saturation maintained at home with more than 95%. With physical deconditioning, has not gotten up to ambulate. Lives alone. Requested PT evaluation. Follow-up sputum culture, urine Legionella, bacterial antigen, MRSA swab. Blood culture. Only 1 out of 4 bottles showing Staphylococcus species. Oxygen supplementation keeping saturation over 90%. Pulmicort twice daily, ipratropium, Xopenex every 6 hours. Aggressive pulmonary toilet with I-S and Acapella. Concerns for mucous plugging. Will start on Mucomyst every 6 hour. If needed will start on chest vest. CTA without PE. (3) Hypomagnesemia: Reviewed magnesium: 1.6. Requested magnesium replacement. Added magnesium supplement to discharge medications. (4) Atrial fibrillation with RVR: Continue amiodarone, Eliquis. Follow-up anemia. Discussed with him risk of stroke, anticoagulation therapy, risk of bleeding. He is agreeable to anticoagulation with Eliquis 5mg. Platelets 91,000. With risk of bleeding with anticoagulant as discussed, monitor for bleeding, reassess blood counts. Reviewed heart rates, so far well-controlled. Continue oral amiodarone, metoprolol. Monitor blood pressures. So far has weaned off pressor. Transfer out of intensive care unit. Reviewed hemoglobin, slightly better at 8.2, platelets not better at 81. Reviewed TTE, normal ejection fraction, grade 2 diastolic dysfunction, mild MVR. No effusion. Currently normal sinus rhythm. Continue with amiodarone drip as per protocol. Transition to 200 mg oral twice daily. Currently on amiodarone drip. Patient is currently thrombocytopenic. Patient is anemic requiring blood transfusion. Will discuss further in detail with the patient regarding possible need of anticoagulation for stroke prevention given history of malignancy and atrial fibrillation. Jose Vas score?2 On Protonix. Switch to p.o. (5) Syncope and collapse: Most likely in setting of atrial fibrillation with hypotension. Less likely seizure as per discussion with patient and family with them in agreement. Was not continued on antiepileptic so far without recurrence of any episodes. For now we will hold off given further Keppra. If has recurrent episode will start on maintenance Keppra dose. Will consult neurology. Seizure precautions, fall precautions. Monitor vitals. Check orthostatics. Urine drug screen negative. Appreciate MRI head results without any concerns for ischemia or mass. (6) Shock: Resolved. Most likely cardiogenic in nature. Cannot rule out septic shock given pneumonia. Keep mean artery pressure 65. (7) Chemotherapy induced neutropenia: Neutropenia has resolved. Can remove neutropenic precautions. (8) Thrombocytopenia: Continue to monitor. Platelet count stable for now. No concern for bleeding for now. (9) Non-small cell cancer of right lung: (10) Status post lobectomy of lung: (11) Hypotension: Qualifiers: Hypotension type: unspecified hypotension type Qualified Code(s): I95.9 - Hypotension, unspecified Plan Anemia: Received monitor PRBC. Continue to monitor hemoglobin. Iron panel showing concerns for severe iron deficiency anemia. Appreciate vitamin B12 and folate levels. on oral iron supplementation. Continue other chronic medications including levothyroxine and mirtazapine. CODE STATUS: Discussed in detail with the patient. He does not want any kind of resuscitative measures or heroic measures. DNR/DNI. Regular diet Protonix OPD prophylaxis SCDs for DVT prophylaxis. off medical prophylaxis given anemia and thrombocytopenia. Attestations 2 Medical Necessity Statement*: Discharge delayed from yesterday. Discharging home today. and High MDM includes amount and/or complexity of data reviewed/ordered [ resulted lab(s)/test(s), ordered lab(s)/test(s) and other healthcare professional discussion] and described risk of complication, morbidity or mortality of management as documented Diagnoses Staphylococcus aureus bacteremia R78.81; B95.61 Pneumonia involving right lung J18.9 Hypomagnesemia E83.42 Atrial fibrillation with RVR I48.91 Syncope and collapse R55 Shock R57.9 Chemotherapy induced neutropenia D70.1; T45.1X5A Thrombocytopenia D69.6 Non-small cell cancer of right lung C34.91 Status post lobectomy of lung Z90.2 Hypotension, unspecified hypotension type I95.9 Hypotension type: unspecified hypotension type
== END 2023-10-28 12:25 | disposition home health service (06) | DRG 308 ==
LOC: ER 08:50 → ER IP 12:52 → ICU 14:40 → MEDSURG 10-25 22:11
PROVIDERS: Nurse Practitioner Family; Admitting Provider Student in an Organized Health Care Education/Training Program; Emergency Provider Family Medicine; PCP Nurse Practitioner; Visit Provider Internal Medicine
DX: I48.91 Unspecified atrial fibrillation (principal); J18.9 Pneumonia, unspecified organism; R57.0 Cardiogenic shock; C34.11 Malignant neoplasm of upper lobe, right bronchus or lung; D84.9 Immunodeficiency, unspecified; R78.81 Bacteremia; Z91.81 History of falling; E03.9 Hypothyroidism, unspecified; J44.9 Chronic obstructive pulmonary disease, unspecified; D69.6 Thrombocytopenia, unspecified; I95.9 Hypotension, unspecified; D70.1 Agranulocytosis secondary to cancer chemotherapy; D64.81 Anemia due to antineoplastic chemotherapy; T45.1X5A Adverse effect of antineoplastic and immunosuppressive drugs, initial encounter; E87.6 Hypokalemia; E83.42 Hypomagnesemia; D50.9 Iron deficiency anemia, unspecified; B95.61 Methicillin susceptible Staphylococcus aureus infection as the cause of diseases classified elsewhere; Z79.899 Other long term (current) drug therapy; Z79.890 Hormone replacement therapy; Z99.81 Dependence on supplemental oxygen; Z87.891 Personal history of nicotine dependence; Z90.2 Acquired absence of lung [part of]; Z80.9 Family history of malignant neoplasm, unspecified
CPT/HCPCS: 36415; 36430; 36591; 51702; 70450; 70553; 71045; 71275; 80048; 80053; 80061; 80202; 80306; 81003; 81015; 82274; 82533; 82746; 83036; 83540; 83550; 83605; 83735; 83880; 84100; 84145; 85007; 85025; 85610; 85730; 86403; 86850; 86900; 86920; 87040; 87070; 87077; 87150; 87186; 87205; 87449; 87486; 87581; 87633; 87641; 93005; 93306; 94640; 94664; 94669; 96365; 96366; 96367; 96374; 96375; 96376; 97116; 97161; 97530; 99285; A4222; J0283; J1720; J1953; J2020; J2470; J2543; J3370; J3372; J3475; J3490; J7030; J7040; J7050; J7608; J7614; J7626; J7644; P9016; Q0144

== ENCOUNTER 2023-11-01 14:06 | Outpatient (CLI) | payer MEDICARE, SELFPAY ==
[2023-11-01 14:21] LABS: Eosinophils % 0.8 %; Hematocrit 25.7 % (37-53); Lymphocytes # 0.5 10^3/uL (0.8-4.8); Lymphocytes % 13.2 %; Mean Corpuscular HGB Conc 32.7 g/dL (30-55); Mean Corpuscular Hemoglobin 31.3 pg (27-33); Mean Corpuscular Volume 95.9 fl (82-101); Mean Platelet Volume 8.8 fL (7.4-10.4); Monocytes # 0.3 10^3/uL (0.2-0.9); Monocytes % 7.8 %; Neutrophils # 2.97 10^3/uL (1.8-7.7); Neutrophils % 76.7 %; Nucleated Red Blood Cells % 0 %; Platelet Count 142 10^3/cmm (157-399); Red Blood Count 2.68 10^6/uL (3.85-5.65); Red Cell Distribution Width 16.3 % (12.1-15.1); White Blood Count 3.87 10^3/uL (3.29-11.43)
[2023-11-01 14:54] LABS: Alanine Aminotransferase 7 U/L (0-41); Alkaline Phosphatase 65 U/L (40-130); Aspartate Amino Transferase 11 U/L (0-40); Carbon Dioxide 29 mmol/L (22-29); Globulin 2.8 g/dL (1.3-4.6); Glomerular Filtration Rate 111.8 mL/min (90-130); Glucose 81 mg/dL (65-115); Total Bilirubin 0.3 mg/dL (0.15-1.2)
[2023-11-01 15:13] LABS: Albumin Level 2.7 g/dL (3.5-5.2); Blood Urea Nitrogen 7 mg/dL (8-23); Calcium 7.9 mg/dL (8.5-10.5); Chloride 94 mmol/L (98-107); Osmolality Calculated 269 mOsm/kg (285-295); Sodium 131 mmol/L (136-145); Total Protein 5.6 g/dL (6.6-8.7)
[2023-11-01 15:15] LABS: Anion Gap 13.4 (5-19); Potassium 4.4 mmol/L (3.5-5.1)
== END 2023-11-01 14:07 | disposition home or self-care (01) ==
LOC: LAB 14:09
PROVIDERS: PCP Nurse Practitioner; Visit Provider Internal Medicine
DX: J18.9 Pneumonia, unspecified organism (principal)
CPT/HCPCS: 80053; 85025

== ENCOUNTER → 2023-11-02 15:22 | Outpatient (BNVA) | payer MEDICARE, SELFPAY | PROVIDERS: PCP Nurse Practitioner; Visit Provider Nurse Practitioner Family | DX: I49.8 Other specified cardiac arrhythmias (principal); I48.91 Unspecified atrial fibrillation | CPT/HCPCS: 93005; 99213 ==

== ENCOUNTER 2023-11-08 11:30 | Oncology outpatient (recurring) (ONCR) | payer MEDICARE, SELFPAY ==
[2023-10-20 14:14] VITALS: BP 94/62; PULSE 116; RESP 20; O2SAT 98
[2023-10-20 14:15] VITALS: BP 94/62; PULSE 116
[2023-10-20 14:16] VITALS: BP 88/56; PULSE 112
[2023-10-20 14:20] VITALS: TEMP 36.8
[2023-10-20] MEDS: sodium chloride 0.9% 1,000 ML 999 ML IV (14:30)
[2023-10-20] MEDS: filgrastim-sndz 480 mcg/0.8 mL Syringe SUBCUT (15:21)
[2023-10-20 15:51] VITALS: BP 121/74; PULSE 103; RESP 18; TEMP 36.6; O2SAT 97
[2023-10-21] MEDS: filgrastim-sndz 480 mcg/0.8 mL Syringe SUBCUT (11:17)
[2023-10-22 08:18] VITALS: BP 74/45; PULSE 170; RESP 20; O2SAT 88
[2023-10-22 08:22] VITALS: O2SAT 95
[2023-11-08 11:40] LABS: Basophils % 0.7 %; Hematocrit 24.8 % (37-53); Lymphocytes # 0.2 10^3/uL (0.8-4.8); Lymphocytes % 7.4 %; Mean Corpuscular HGB Conc 32.3 g/dL (30-55); Mean Corpuscular Hemoglobin 31.9 pg (27-33); Mean Corpuscular Volume 98.8 fl (82-101); Mean Platelet Volume 8.1 fL (7.4-10.4); Monocytes # 0.5 10^3/uL (0.2-0.9); Monocytes % 18.7 %; Neutrophils # 2.06 10^3/uL (1.8-7.7); Neutrophils % 72.8 %; Nucleated Red Blood Cells % 0 %; Platelet Count 116 10^3/cmm (157-399); Red Blood Count 2.51 10^6/uL (3.85-5.65); Red Cell Distribution Width 16.2 % (12.1-15.1); White Blood Count 2.83 10^3/uL (3.29-11.43)
[2023-11-08 11:58] LABS: Alanine Aminotransferase 7 U/L (0-41); Alkaline Phosphatase 68 U/L (40-130); Anion Gap 14.3 (5-19); Aspartate Amino Transferase 10 U/L (0-40); Blood Urea Nitrogen 11 mg/dL (8-23); Calcium 8.8 mg/dL (8.5-10.5); Carbon Dioxide 28 mmol/L (22-29); Chloride 86 mmol/L (98-107); Globulin 3.9 g/dL (1.3-4.6); Glomerular Filtration Rate 95.8 mL/min (90-130); Glucose 118 mg/dL (65-115); Magnesium 1.5 mg/dL (1.7-2.3); Osmolality Calculated 258 mOsm/kg (285-295); Potassium 4.3 mmol/L (3.5-5.1); Sodium 124 mmol/L (136-145); Total Bilirubin 0.4 mg/dL (0.15-1.2); Total Protein 6.9 g/dL (6.6-8.7)
[2023-11-08 12:11] LABS: Slide Review Slide Review Perform
== END 2023-11-15 23:59 | disposition home or self-care (01) ==
PROVIDERS: Internal Medicine Medical Oncology; Absent Provider Radiology Radiation Oncology; PCP Nurse Practitioner; Visit Provider Radiology Radiation Oncology
DX: Z53.9 Procedure and treatment not carried out, unspecified reason (principal); C34.81 Malignant neoplasm of overlapping sites of right bronchus and lung; Z79.899 Other long term (current) drug therapy; Z87.891 Personal history of nicotine dependence; Z90.2 Acquired absence of lung [part of]; Z92.3 Personal history of irradiation; Z95.828 Presence of other vascular implants and grafts; Z79.2 Long term (current) use of antibiotics; Z79.630 Long term (current) use of alkylating agent; D70.1 Agranulocytosis secondary to cancer chemotherapy; T45.1X5A Adverse effect of antineoplastic and immunosuppressive drugs, initial encounter; D64.9 Anemia, unspecified; E83.42 Hypomagnesemia; E87.1 Hypo-osmolality and hyponatremia
CPT/HCPCS: 36591; 80053; 83735; 85025; 93005; 96360; 96372; 99214; J7030; Q5101

== ENCOUNTER 2023-12-01 07:38 | Outpatient (CLI) | payer MEDICARE, SELFPAY ==
--- NOTE | 2023-12-01 08:30 | CTR_ITS ---
PROCEDURE INFORMATION: Exam: CT Chest With Contrast; Diagnostic Exam date and time: 12/01/2023 9:18 AM Age: 68 years old Clinical indication: Condition or disease; Other: Right lung; Lung condition and disease; Cancer of the lung; Unspecified; Prior surgery; Surgery date: 6+ months; Additional info: Restaging TECHNIQUE: Imaging protocol: Diagnostic computed tomography of the chest with contrast. Radiation optimization: All CT scans at this facility use at least one of these dose optimization techniques: automated exposure control; mA and/or kV adjustment per patient size (includes targeted exams where dose is matched to clinical indication); or iterative reconstruction. Contrast material: OMNI 350; Contrast volume: 100 ml; Contrast route: INTRAVENOUS (IV); COMPARISON: CT angio chest PE protcl [id number] 10/22/2023 10:41 AM RADIATION DOSE METRICS: Total DLP (mGy-cm): 714.78 FINDINGS: Lungs: Persistent air within the pneumonectomy cavity in the right lung with decrease in the amount of layering fluid. Essentially complete consolidation of the right lower lobe with multiple air bronchograms. Right middle lobe remains pneumatized with mild atelectasis. Left lung calcified granuloma is benign. Moderate centrilobular emphysema throughout the left lung. Pleural spaces: Progressive irregular pleural thickening and enhancement in the upper right lung, measuring up to 14 mm in thickness. Additionally, there is a 2 cm nodular focus of pleural enhancement in the right mid lung (series 3, image 30), which is abutting directly on the posterior segment of the right 7th rib, causing mild scalloping with slight cortical destruction and sclerosis. Heart: Calcifications of the aortic valve annulus. Trace and likely physiologic pericardial effusion. Coronary arteries: There is mild atherosclerotic calcification of the coronary arteries. Lymph nodes: Enlarging mediastinal lymph nodes. Largest posterior to the trachea on image 11 series 3, measuring 13 mm (prior 7 mm). Second largest is in the subcarinal space measuring 8 mm (prior 6 mm). Vasculature: Moderate diffuse calcific atherosclerosis of the aorta. No pulmonary emboli. Bones/joints: Focal sclerosis and cortical erosion posterior segment right 7th rib. Partially seen large Schmorl node/superior endplate compression deformity at L1. Soft tissues: No acute body wall soft tissue findings. COMMENTS: Please review abdomen and pelvic CT performed on the same date for other findings. PROCEDURE INFORMATION: Exam: CT Abdomen And Pelvis With Contrast Exam date and time: 12/01/2023 9:18 AM Age: 68 years old Clinical indication: Condition or disease; Other: Right lung; Lung condition and disease; Cancer of the lung; Unspecified; Prior surgery; Surgery date: 6+ months; Additional info: Restaging TECHNIQUE: Imaging protocol: Computed tomography of the abdomen and pelvis with contrast. Radiation optimization: All CT scans at this facility use at least one of these dose optimization techniques: automated exposure control; mA and/or kV adjustment per patient size (includes targeted exams where dose is matched to clinical indication); or iterative reconstruction. Contrast material: OMNI 350; Contrast volume: 100 ml; Contrast route: INTRAVENOUS (IV); COMPARISON: CT chest abdpel w/*[id number] 07/20/2023 1:51 PM RADIATION DOSE METRICS: Total DLP (mGy-cm): 714.78 FINDINGS: Liver: Single subcentimeter hypodense liver lesion which is too small to characterize. Consider follow-up ultrasound. Gallbladder and biliary ducts: Normal. No calcified stones. No ductal dilation. Pancreas: Benign punctate calcification at the pancreatic head. Spleen: Benign calcified granuloma in the spleen. Adrenal glands: Stable 9 mm nodule right adrenal gland. Kidneys and ureters: Multiple simple right renal cysts, largest measuring 2 cm. No follow-up recommended. Stomach and bowel: Moderate constipation. Appendix: No evidence of appendicitis. Intraperitoneal space: No free fluid, fluid collections, or pneumoperitoneum. Vasculature: Severe atherosclerotic calcification of the arterial vasculature. Fusiform infrarenal abdominal aortic aneurysm measuring 4.5 cm in greatest diameter (prior 4.3 cm). Prominent atherosclerotic plaque component to the aneurysm sac. Lymph nodes: No retroperitoneal, pelvic, or mesenteric adenopathy. Urinary bladder: Bladder is decompressed and difficult to evaluate. Reproductive: Unremarkable as visualized. Bones/joints: Bone demineralization. Moderate multilevel degenerative changes of the spine. Superior endplate compression deformity at L1 with about 20% loss in vertebral body height. No aggressive osseous lesions. Soft tissues: Nonobstructing fat containing right inguinal hernia. Nonobstructing fat containing left inguinal hernia. CT/CT chest abdpel w/*[id number] IMPRESSION: 1. Enlarging mediastinal lymph nodes, suspicious for metastasis. Differential includes reactive lymph nodes. 2. Progressive pleural metastasis throughout the right lung with focal extension into the posterior segment of the right 7th rib. 3. Persistent air within the pneumonectomy cavity in the right lung with decrease in the amount of layering fluid. Again, this is concerning for an air leak as the cavity should already be filled with fluid and shrinking in size. 4. Essentially complete consolidation of the right lower lobe with multiple air bronchograms. Pneumonia or disease extension in the differential diagnosis. I also suspect there is obstruction of the right lower lobar bronchus. IMPRESSION: 1. Stable subcentimeter right hepatic lobe lesion which resembles a cyst. Consider follow-up ultrasound for confirmation. 2. Stable 9 mm nodule right adrenal gland. Consider follow-up, although this is statistically an adenoma. 3. Minimal enlargement in known infrarenal abdominal aortic fusiform aneurysm without evidence of rupture or acute findings. 4. Superior endplate compression deformity at L1 with about 20% loss in vertebral body height. This appears subacute to chronic. Consider correlation with MRI. I do not see any associated evidence to suggest that this is a pathologic fracture. COMMENTS: 1. Please review chest CT performed concomitantly for other important findings. 2. Consistent with the [employer]'s Incidental Findings Committee white paper (J Am Itz Radiol 2018): Any incidental renal lesion less than 1 cm or classified as too small to characterize, or any incidental cystic renal lesion characterized as simple-appearing, is likely benign. No follow-up imaging is recommended for these lesions per consensus recommendations based on imaging criteria.
[2023-12-01 08:46] LABS: Blood Urea Nitrogen 6 mg/dL (8-23); Glomerular Filtration Rate 111.8 mL/min (90-130)
[2023-12-01] MEDS: iohexol 350 mg/mL 500 mL Btl (per mL) PO (09:35)
[2023-12-01] MEDS: iohexol 350 mg/mL 500 mL Btl (per mL) IV (09:35)
== END 2023-12-01 07:39 | disposition home or self-care (01) ==
PROVIDERS: PCP Nurse Practitioner; Visit Provider Nurse Practitioner Family
DX: C34.11 Malignant neoplasm of upper lobe, right bronchus or lung (principal); J84.10 Pulmonary fibrosis, unspecified; J43.2 Centrilobular emphysema; R91.8 Other nonspecific abnormal finding of lung field; I70.0 Atherosclerosis of aorta; R59.0 Localized enlarged lymph nodes; D35.01 Benign neoplasm of right adrenal gland; S32.010A Wedge compression fracture of first lumbar vertebra, initial encounter for closed fracture; X58.XXXA Exposure to other specified factors, initial encounter
CPT/HCPCS: 71260; 74177; 82565; 84520

== ENCOUNTER 2023-12-13 12:00 | Oncology outpatient (recurring) (ONCR) | payer MEDICARE, SELFPAY ==
[2023-11-16] VITALS (10 sets, daily range): BP systolic 107–147; BP diastolic 59–78; PULSE 74–98; RESP 16–18; TEMP 36.3–37.1; O2SAT 91–99
[2023-11-16 09:07] LABS: Basophils % 0.5 %; Eosinophils # 0.1 10^3/uL (0.0-0.8); Eosinophils % 1.8 %; Hematocrit 22.8 % (37-53); Lymphocytes # 0.3 10^3/uL (0.8-4.8); Lymphocytes % 8.2 %; Mean Corpuscular HGB Conc 30.3 g/dL (30-55); Mean Corpuscular Hemoglobin 31.4 pg (27-33); Mean Corpuscular Volume 103.6 fl (82-101); Mean Platelet Volume 8.5 fL (7.4-10.4); Monocytes # 0.4 10^3/uL (0.2-0.9); Neutrophils # 3.08 10^3/uL (1.8-7.7); Neutrophils % 78.7 %; Nucleated Red Blood Cells % 0 %; Platelet Count 174 10^3/cmm (157-399); Red Cell Distribution Width 16.3 % (12.1-15.1); White Blood Count 3.91 10^3/uL (3.29-11.43)
[2023-11-16 09:26] LABS: Alanine Aminotransferase 12 U/L (0-41); Albumin Level 2.7 g/dL (3.5-5.2); Alkaline Phosphatase 95 U/L (40-130); Anion Gap 10.1 (5-19); Aspartate Amino Transferase 8 U/L (0-40); Blood Urea Nitrogen 6 mg/dL (8-23); Calcium 8.8 mg/dL (8.5-10.5); Carbon Dioxide 36 mmol/L (22-29); Chloride 94 mmol/L (98-107); Globulin 3.8 g/dL (1.3-4.6); Glomerular Filtration Rate 133.6 mL/min (90-130); Glucose 103 mg/dL (65-115); Iron 18 ug/dL (59-158); Osmolality Calculated 280 mOsm/kg (285-295); Percent Saturation 13.6 % (20-50); Potassium 4.1 mmol/L (3.5-5.1); Sodium 136 mmol/L (136-145); Total Bilirubin 0.2 mg/dL (0.15-1.2); Total Iron Binding Capacity 132 mcg/dl; Total Protein 6.5 g/dL (6.6-8.7); Unsaturated Iron Binding 114 ug/dL (112-347)
[2023-11-16 09:40] LABS: Ferritin 2848 ng/mL (30-400)
[2023-11-16 09:42] LABS: Vitamin B12 949 pg/mL (232-1245)
[2023-11-16] MEDS: sodium chloride 0.9% 250 ML 220 ML IV (11:31)
[2023-11-16] MEDS: iron sucrose 200 MG in sodium chloride 0.9% (100 ml) 100 ML 220 MG IV (11:32)
[2023-11-16] MEDS: acetaminophen 325 mg Tablet 650 MG PO (11:40)
[2023-11-16] MEDS: diphenhydrAMINE 25 mg Capsule PO (11:40)
[2023-11-16] MEDS: sodium chloride 0.9% 250 mL Bag IV (13:01)
[2023-11-16] MEDS: FUROsemide 10 mg/mL SDV 2mL 20 MG IVP (14:43)
[2023-11-18] MEDS: iron sucrose 200 MG in sodium chloride 0.9% (100 ml) 100 ML 220 MG IV (10:19)
[2023-11-18 11:09] VITALS: BP 124/77; PULSE 84; RESP 18; TEMP 36.1; O2SAT 93
[2023-11-22] MEDS: iron sucrose 200 MG in sodium chloride 0.9% (100 ml) 100 ML 220 MG IV (12:47)
[2023-11-22 13:01] LABS: Basophils % 0.7 %; Eosinophils # 0.1 10^3/uL (0.0-0.8); Eosinophils % 1.6 %; Hematocrit 30.4 % (37-53); Lymphocytes # 0.6 10^3/uL (0.8-4.8); Lymphocytes % 14.2 %; Mean Corpuscular HGB Conc 29.9 g/dL (30-55); Mean Corpuscular Hemoglobin 30.3 pg (27-33); Mean Corpuscular Volume 101.3 fl (82-101); Mean Platelet Volume 8.1 fL (7.4-10.4); Monocytes # 0.5 10^3/uL (0.2-0.9); Monocytes % 10.4 %; Neutrophils # 3.23 10^3/uL (1.8-7.7); Neutrophils % 72.9 %; Nucleated Red Blood Cells % 0 %; Platelet Count 210 10^3/cmm (157-399); Red Cell Distribution Width 17.4 % (12.1-15.1); White Blood Count 4.43 10^3/uL (3.29-11.43)
[2023-11-22 13:13] LABS: Alanine Aminotransferase 8 U/L (0-41); Albumin Level 2.9 g/dL (3.5-5.2); Alkaline Phosphatase 102 U/L (40-130); Anion Gap 10.7 (5-19); Aspartate Amino Transferase 10 U/L (0-40); Blood Urea Nitrogen 6 mg/dL (8-23); Calcium 8.6 mg/dL (8.5-10.5); Carbon Dioxide 33 mmol/L (22-29); Chloride 92 mmol/L (98-107); Creatinine Clr Calc Pharmacy 97.9277; Glomerular Filtration Rate 133.6 mL/min (90-130); Glucose 96 mg/dL (65-115); Osmolality Calculated 269 mOsm/kg (285-295); Potassium 4.7 mmol/L (3.5-5.1); Sodium 131 mmol/L (136-145); Total Bilirubin 0.3 mg/dL (0.15-1.2); Total Protein 6.9 g/dL (6.6-8.7)
[2023-11-22 13:32] VITALS: BP 123/77; PULSE 50; TEMP 36.7; O2SAT 93
[2023-11-22 15:46] LABS: Magnesium 1.8 mg/dL (1.7-2.3)
--- NOTE | 2023-11-24 12:02 | PC.NURSE ---
Verbal order from Dr. Eubanks, pts iron is fine. Pt needs to receive 100mg on his 4th dose (today) instead of the full 200mg dose. Pt does not need to come back for his 5th and final dose.
[2023-11-24] MEDS: iron sucrose 100 MG in sodium chloride 0.9% (100 ml) 100 ML 220 MG IV (12:18)
[2023-11-24 12:25] VITALS: BP 108/68; PULSE 88; RESP 17; TEMP 37; O2SAT 98
[2023-11-24 13:05] VITALS: BP 99/64; PULSE 95; RESP 18; TEMP 36.6; O2SAT 100
[2023-12-13 12:36] LABS: Basophils # 0.1 10^3/uL (0.0-0.1); Basophils % 0.8 %; Eosinophils # 0.1 10^3/uL (0.0-0.8); Eosinophils % 1.1 %; Hematocrit 26.7 % (37-53); Lymphocytes # 1.3 10^3/uL (0.8-4.8); Mean Corpuscular HGB Conc 30.3 g/dL (30-55); Mean Corpuscular Hemoglobin 30.9 pg (27-33); Mean Corpuscular Volume 101.9 fl (82-101); Mean Platelet Volume 7.8 fL (7.4-10.4); Monocytes # 0.6 10^3/uL (0.2-0.9); Monocytes % 9.2 %; Neutrophils # 4.31 10^3/uL (1.8-7.7); Neutrophils % 67.6 %; Nucleated Red Blood Cells % 0 %; Platelet Count 280 10^3/cmm (157-399); Red Blood Count 2.62 10^6/uL (3.85-5.65); Red Cell Distribution Width 18.2 % (12.1-15.1); White Blood Count 6.38 10^3/uL (3.29-11.43)
[2023-12-13 13:05] LABS: Alanine Aminotransferase 12 U/L (0-41); Alkaline Phosphatase 105 U/L (40-130); Anion Gap 11.5 (5-19); Aspartate Amino Transferase 20 U/L (0-40); Blood Urea Nitrogen 7 mg/dL (8-23); Calcium 8.3 mg/dL (8.5-10.5); Carbon Dioxide 30 mmol/L (22-29); Chloride 92 mmol/L (98-107); Creatinine Clr Calc Pharmacy 95.4117; Glomerular Filtration Rate 133.6 mL/min (90-130); Glucose 106 mg/dL (65-115); Lactate Dehydrogenase 215 U/L (135-225); Magnesium 1.9 mg/dL (1.7-2.3); Osmolality Calculated 266 mOsm/kg (285-295); Potassium 4.5 mmol/L (3.5-5.1); Sodium 129 mmol/L (136-145); Thyroid Stimulating Hormone 5.79 uIU/mL (0.27-4.20); Total Bilirubin 0.2 mg/dL (0.15-1.2)
[2023-12-13 13:21] LABS: Folate Level 17.4 ng/mL (4.5-32.2)
[2023-12-13 13:22] LABS: Iron 37 ug/dL (59-158); Total Iron Binding Capacity 148 mcg/dl; Unsaturated Iron Binding 111 ug/dL (112-347)
[2023-12-13 13:36] LABS: Ferritin 2753 ng/mL (30-400)
[2023-12-13 13:38] LABS: Vitamin B12 355 pg/mL (232-1245)
[2023-12-18 13:04] LABS: Soluble Transferrin Receptor 0.74 mg/L (0.76-1.76)
== END 2023-12-16 23:59 | disposition home or self-care (01) ==
PROVIDERS: Internal Medicine Hematology & Oncology; Nurse Practitioner Family; Absent Provider Radiology Radiation Oncology; PCP Nurse Practitioner; Visit Provider Radiology Radiation Oncology
DX: C34.11 Malignant neoplasm of upper lobe, right bronchus or lung (principal); D50.9 Iron deficiency anemia, unspecified; E03.8 Other specified hypothyroidism; Z79.899 Other long term (current) drug therapy; Z87.891 Personal history of nicotine dependence; Z92.3 Personal history of irradiation; Z90.2 Acquired absence of lung [part of]
CPT/HCPCS: 36430; 36591; 71260; 74177; 80053; 82565; 82607; 82728; 82746; 83010; 83540; 83550; 83615; 83735; 84238; 84443; 84520; 85025; 86850; 86900; 86920; 96365; 96375; 99214; J1756; J1940; J7050; P9016; P9040

== ENCOUNTER → 2024-01-03 12:27 | Outpatient (BNVA) | payer MEDICARE, SELFPAY | PROVIDERS: PCP Nurse Practitioner; Visit Provider Internal Medicine Cardiovascular Disease | DX: R07.9 Chest pain, unspecified (principal); R94.31 Abnormal electrocardiogram [ECG] [EKG]; I48.91 Unspecified atrial fibrillation; I71.41 Pararenal abdominal aortic aneurysm, without rupture; D69.6 Thrombocytopenia, unspecified; Z79.899 Other long term (current) drug therapy; C34.90 Malignant neoplasm of unspecified part of unspecified bronchus or lung; C77.1 Secondary and unspecified malignant neoplasm of intrathoracic lymph nodes; Z86.711 Personal history of pulmonary embolism; Z79.01 Long term (current) use of anticoagulants | CPT/HCPCS: 93005; 99214 ==

== ENCOUNTER 2024-01-11 08:25 | Oncology outpatient (recurring) (ONCR) | payer MEDICARE, SELFPAY ==
[2024-01-10 12:46] LABS: Basophils % 0.6 %; Eosinophils # 0.1 10^3/uL (0.0-0.8); Eosinophils % 1.3 %; Hematocrit 24.1 % (37-53); Lymphocytes # 1.2 10^3/uL (0.8-4.8); Lymphocytes % 18.6 %; Mean Corpuscular HGB Conc 30.7 g/dL (30-55); Mean Corpuscular Hemoglobin 31.1 pg (27-33); Mean Corpuscular Volume 101.3 fl (82-101); Mean Platelet Volume 7.6 fL (7.4-10.4); Monocytes # 0.7 10^3/uL (0.2-0.9); Monocytes % 10.4 %; Neutrophils # 4.34 10^3/uL (1.8-7.7); Neutrophils % 68.6 %; Nucleated Red Blood Cells % 0 %; Platelet Count 235 10^3/cmm (157-399); Red Blood Count 2.38 10^6/uL (3.85-5.65); Red Cell Distribution Width 16.8 % (12.1-15.1); White Blood Count 6.33 10^3/uL (3.29-11.43)
[2024-01-10 13:15] LABS: Alanine Aminotransferase 9 U/L (0-41); Albumin Level 3.1 g/dL (3.5-5.2); Alkaline Phosphatase 89 U/L (40-130); Anion Gap 13.3 (5-19); Aspartate Amino Transferase 7 U/L (0-40); Blood Urea Nitrogen 6 mg/dL (8-23); Calcium 8.9 mg/dL (8.5-10.5); Carbon Dioxide 29 mmol/L (22-29); Chloride 93 mmol/L (98-107); Creatinine Clr Calc Pharmacy 93.6224; Globulin 4.3 g/dL (1.3-4.6); Glomerular Filtration Rate 111.8 mL/min (90-130); Glucose 102 mg/dL (65-115); Lactate Dehydrogenase 125 U/L (135-225); Osmolality Calculated 270 mOsm/kg (285-295); Potassium 4.3 mmol/L (3.5-5.1); Sodium 131 mmol/L (136-145); Thyroid Stimulating Hormone 0.97 uIU/mL (0.27-4.20); Total Bilirubin 0.2 mg/dL (0.15-1.2); Total Protein 7.4 g/dL (6.6-8.7)
[2024-01-11] VITALS (11 sets, daily range): BP systolic 99–110; BP diastolic 60–70; PULSE 67–88; RESP 17–18; TEMP 36.2–36.6; O2SAT 96–100
[2024-01-11] MEDS: sodium chloride 0.9% 250 mL Bag IV (09:38)
== END 2024-01-15 23:59 | disposition home or self-care (01) ==
PROVIDERS: Internal Medicine Hematology & Oncology; Absent Provider Radiology Radiation Oncology; PCP Nurse Practitioner; Visit Provider Radiology Radiation Oncology
DX: Z53.9 Procedure and treatment not carried out, unspecified reason; Z79.899 Other long term (current) drug therapy; D64.9 Anemia, unspecified
CPT/HCPCS: 36430; 36591; 80053; 83615; 84443; 85025; 86850; 86900; 86920; 99214; J7050; P9016

== ENCOUNTER 2024-02-14 05:01 | Emergency (ER) | payer MEDICARE, SELFPAY ==
--- NOTE | 2024-02-14 05:13 | XRR_ITS ---
PROCEDURE INFORMATION: Exam: XR Chest Exam date and time: 02/14/2024 5:16 AM Age: 68 years old Clinical indication: Prior surgery; Surgery date: 6+ months; Surgery type: Chest port. RT lobectomy; Patient HX: Hallucinations. History of squamous cell lung cancer. ; Additional info: AMS, hallucinations TECHNIQUE: Imaging protocol: Radiologic exam of the chest. Views: 1 view. COMPARISON: CT chest abdpel w/*[id number] 12/01/2023 9:18 AM FINDINGS: Lungs: Hyperinflation of left lung. Areas of interstitial thickening. Retrocardiac left lower lung infiltrate is not excluded. Likely scattered granulomatous calcifications. Small collection of air near the junction of right lower lung or hemidiaphragm which is not definable could also reside within bowel interposed anterior to the liver. Pleural spaces: Right chest pleural fluid. Likely consolidation of residual lower right lung which could reflect airway obstruction secondary to secretions or mucoid impaction versus underlying pneumonia. Heart/Mediastinum: The right heart border is not defined. Vasculature: Infusaport is positioned at the left chest with lead tip area superior vena cava. Diaphragm: Probable elevated right hemidiaphragm limited definition. Bones/joints: Degenerative. Soft tissues: A large cavity in the superior right chest. XR/XR chest 1V portable [id number] IMPRESSION: 1. Areas of interstitial thickening left lung. 2. More focal retrocardiac left lower lung atelectasis or infiltrate. 3. Persistent prominent superior right chest pneumonectomy cavity. 4. Bright midlung consolidation which may reflect postobstructive atelectasis with areas of mucoid impaction or underlying consolidation of pneumonia. 5. Suspect component of right pleural effusion.
--- NOTE | 2024-02-14 05:13 | ECG_ITS ---
[facility] Test Date: 2024-02-14 Pat Name: Darrin Avila Department: Room: Gender: Male [employer] Worker: : 1955 Requested By: Cristopher Zhang Order Number: [id number] Homero MD: Ayan Chavez M.D. Measurements Intervals [place] Rate: 78 P: 59 [place]: 168 QRS: 16 QRSD: 96 T: 73 QT: 402 QTc: 461 Interpretive Statements SINUS RHYTHM Compared to ECG 01/03/2024 12:31:07 ST (T wave) deviation no longer present Electronically Signed On 02-14-2024 16:34:58 BALL ENDER by Ayan Chavez M.D. [id number]
--- NOTE | 2024-02-14 05:14 | ED_ITS ---
Documented by User: Cristopher ZhangDO 02/14/24 05:17 HPI - General Adult 2 General: Chief complaint: Altered Mental Status Stated complaint: Hallucinating Time Seen by Provider: 02/14/24 05:05 History of Present Illness: Presents to the ER with his daughter at bedside saying that he is having hallucinations. He is seeing things and talking to his brother has been for a while. She says he gets this way when he gets an infection. He was recently treated for pneumonia with antibiotics and steroid. She also says he has been taking too much of his sleeping medicine mirtazapine. He usually takes 15 mg a day and is recently bumped up to 30 mg a day she thinks that he is been taking additional tablets because he has not been sleeping and therefore he thinks he has been needing more. She says about a year ago when he had his right upper lobe lung resection secondary to cancer he was in the hospital for several days and he got this exact same way and he never did figure out quite why. Related Data Home Medications Medication Instructions Recorded Confirmed folic acid 1 mg tablet 1 mg PO QPM 10/22/23 02/14/24 mirtazapine 30 mg tablet 30 mg PO QPM 02/14/24 02/14/24 Previous Rx's Medication Instructions Recorded polyethylene glycol 3350 17 17 g PO DAILY PRN Constipation 03/16/23 gram/dose oral powder (Miralax) #510 grams albuterol sulfate 2.5 mg/3 mL 2.5 mg (3 mL) inhalation QID PRN 07/26/23 (0.083 %) solution for nebulization shortness of breath or wheezing #300 mL furosemide 20 mg tablet (Lasix) 20 mg PO QAM PRN edema #20 tabs 10/27/23 magnesium L-threonate 48 mg 48 mg PO DAILY #90 caps 10/28/23 magnesium (667 mg) capsule amiodarone 200 mg tablet (Pacerone) 200 mg PO DAILY #180 tabs 11/02/23 nebulizers #1 ea 11/02/23 ferrous gluconate 324 mg (37.5 mg 324 mg PO .every other night #90 12/21/23 iron) tablet tabs fluticasone fur. 100 mcg-umeclid 1 inh inhalation BEDTIME #60 ea 12/21/23 62.5 mcg-vilant 25 mcg inhalat.powder (Trelegy Ellipta) levothyroxine 137 mcg tablet 137 mcg PO QAM #30 tabs 12/21/23 montelukast 10 mg tablet 10 mg PO BEDTIME #90 tabs 12/21/23 (Singulair) sodium chloride 1,000 mg soluble 1,000 mg PO BID #60 tabs 12/21/23 tablet apixaban 5 mg tablet (Eliquis) 5 mg PO BID@0900,2100 #180 tabs 01/25/24 Allergies Allergy/AdvReac Type Severity Reaction Status Date / Time grass pollen Allergy Mild ALGY-Watery Verified 02/14/24 05:21 Eye Review of Systems 2 General: Reports: 10 or more systems reviewed and unremarkable except in HPI and below PFSH ED 2 PFSH: Medical History AAA (abdominal aortic aneurysm) 4.3cm July, 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 Hypotension Non-small cell cancer of right lung Smoking hx Stop December 2022 Screening for colon cancer Cologuard screen COPD (chronic obstructive pulmonary disease) COPD exacerbation Adult onset hypothyroidism Seasonal allergies Surgical History Status post lobectomy of lung Right upper January 2023 [place], [place] Family History Brother Diabetes Hyperlipidemia Father Congestive heart failure (CHF) COPD (chronic obstructive pulmonary disease) Dementia Cancer prostate Mother Congestive heart failure (CHF) COPD (chronic obstructive pulmonary disease) Cancer gastric cancer Other No history of previous surgery Social History Smoking and tobacco/nicotine status: former use of tobacco/nicotine Quit status (tobacco/nicotine): has quit using Year quit tobacco: 01/12/23 Former quit date comment: 2 ppd X 55 years Second hand smoke exposure: Yes Alcohol intake: former Substance/Drug Use: never Adopted: No Caregiver/support person: No Lives independently: Yes Household members: none Marital status: Number of children: 1 service: Yes branch: [employer] Current occupational status: retired Pets and animals: No Do you think of yourself as: Straight/Heterosexual Current gender identity: Male Physical Exam 2 Const: COMMON NORMALS: no acute distress, average body habitus, patient oriented x3, no limitations, healthy appearing, alert and well nourished HENMT: COMMON NORMALS: normocephalic, atraumatic, external ears normal, Normal external nose present and moist oral mucous membranes HEAD & SCALP: n ormocephalic and atraumatic NOSE: Normal external nose present EXTERNAL EAR: Yes external ears normal Neck/C-Spine: COMMON NORMALS: no JVD Chest: COMMONS NORMALS: normal inspection of the chest and normal palpation of entire chest wall Resp: COMMON NORMALS: normal respiratory effort, No retractions, No use of accessory muscles and clear to auscultation bilaterally AUSCULTATION: clear to auscultation bilaterally Cardio: COMMON NORMALS: no JVD, regular rate, regular rhythm, S1 normal heart sound present, S2 normal heart sound present, No gallops present (Cardio), No clicks present (Cardio) and No murmurs present (Cardio) RATE: regular rate RHYTHM: regular rhythm HEART SOUNDS: S1 normal heart sound present and S2 normal heart sound present GI: COMMON NORMALS: Normal to inspection, nondistended, normoactive bowel sounds present, Soft to palpation, non-tender, No hepatosplenomegaly present and no masses PALPATION: Yes Soft to palpation and Yes No hepatosplenomegaly present Neuro: COMMON NORMALS: patient oriented x3 SENSORIUM/ORIENTATION: Yes alert Course 2 Vital Signs: Vital signs: Vital Signs Temperature 97.7 F 02/14/24 05:15 Pulse Rate 72 02/14/24 09:06 Respiratory Rate 14 02/14/24 07:52 Blood Pressure 90/60 02/14/24 09:06 Pulse Oximetry 96 02/14/24 09:06 Oxygen Delivery Me thod Nasal Cannula 02/14/24 07:52 Oxygen Flow Rate 5 02/14/24 07:52 [facility] - General Adult Medical Records I reviewed the patient's medical records. Lab Data I reviewed the patient's lab results. 02/14/24 05:20 02/14/24 05:20 Radiology Impressions Chest X-Ray 02/14/24 05:13 IMPRESSION: 1. Areas of interstitial thickening left lung. 2. More focal retrocardiac left lower lung atelectasis or infiltrate. 3. Persistent prominent superior right chest pneumonectomy cavity. 4. Bright midlung consolidation which may reflect postobstructive atelectasis with areas of mucoid impaction or underlying consolidation of pneumonia. 5. Suspect component of right pleural effusion. Head CT 02/14/24 06:15 IMPRESSION: No acute intracranial process. Sinusitis with chronic sinusitis of the right maxillary sinus. Laboratory Results WBC 5.90 10^3/uL (3.29-11.43) 02/14/24 05:20 RBC 3.29 10^6/uL (3.85-5.65) L 02/14/24 05:20 Hgb 9.70 g/dL (11.27-16.99) L 02/14/24 05:20 Hct 31.3 % (37-53) L 02/14/24 05:20 MCV 95.1 fl (82-101) 02/14/24 05:20 MCH 29.5 pg (27-33) 02/14/24 05:20 MCHC 31.0 g/dL (30-55) 02/14/24 05:20 RDW 15.5 % (12.1-15.1) H 02/14/24 05:20 Plt Count 175 10^3/cmm (157-399) 02/14/24 05:20 MPV 8.4 fL (7.4-10.4) 02/14/24 05:20 Neut % (Auto) 84.1 % 02/14/24 05:20 Lymph % (Auto) 7.5 % 02/14/24 05:20 [place] % (Auto) 6.9 % 02/14/24 05:20 Eos % (Auto) 1.0 % 02/14/24 05:20 Baso % (Auto) 0.2 % 02/14/24 05:20 Neut # (Auto) 4.96 10^3/uL (1.8-7.7) 02/14/24 05:20 Lymph # (Auto) 0.4 10^3/uL (0.8-4.8) L 02/14/24 05:20 [place] # (Auto) 0.4 10^3/uL (0.2-0.9) 02/14/24 05:20 Eos # (Auto) 0.1 10^3/uL (0.0-0.8) 02/14/24 05:20 Baso # (Auto) 0.0 10^3/uL (0.0-0.1) 02/14/24 05:20 Nucleated RBC % (auto) 0 % 02/14/24 05:20 Nucleated RBCs # 0.0 /100WBC 02/14/24 05:20 PT 13.20 SECONDS (12.1-14.9) 02/14/24 05:20 INR 0.97 (0.8-1.2) 02/14/24 05:20 Sodium 132 mmol/L (136-145) L 02/14/24 05:20 Potassium 4.4 mmol/L (3.5-5.1) 02/14/24 05:20 Chloride 93 mmol/L (98-107) L 02/14/24 05:20 Carbon Dioxide 30 mmol/L (22-29) H 02/14/24 05:20 Anion Gap 13.4 (5-19) 02/14/24 05:20 BUN 10 mg/dL (8-23) 02/14/24 05:20 Creatinine 0.8 mg/dL (0.7-1.2) 02/14/24 05:20 GFR Calculation 95.8 mL/min (90-130) 02/14/24 05:20 Glucose 95 mg/dL (65-115) 02/14/24 05:20 Calculated Osmolality 273 mOsm/kg (285-295) L 02/14/24 05:20 Calcium 9.0 mg/dL (8.5-10.5) 02/14/24 05:20 Magnesium 2.0 mg/dL (1.7-2.3) 02/14/24 05:20 Total Bilirubin 0.3 mg/dL (0.15-1.2) 02/14/24 05:20 AST 7 U/L (0-40) 02/14/24 05:20 ALT 6 U/L (0-41) 02/14/24 05:20 Alkaline Phosphatase 109 U/L (40-130) 02/14/24 05:20 Total Protein 6.9 g/dL (6.6-8.7) 02/14/24 05:20 Albumin 3.0 g/dL (3.5-5.2) L 02/14/24 05:20 Globulin 3.9 g/dL (1.3-4.6) 02/14/24 05:20 TSH 3.58 uIU/mL (0.27-4.20) 02/14/24 05:20 All radiology interpretation(s) finalized by discharge Discharge Plan Discharge Patient Disposition: Home Clinical Impression: 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, Altered mental status Condition: Stable Prescriptions: No Action Miralax 17 gram/dose powder 17 g PO DAILY PRN (Reason: Constipation) Qty: 510 2RF Eliquis 5 mg tablet 5 mg PO BID@0900,2100 Qty: 180 0RF albuterol sulfate 2.5 mg /3 mL (0.083 %) solution for nebulization 2.5 mg INHALATION QID PRN (Reason: shortness of breath or wheezing) Qty: 300 5RF Pacerone 200 mg tablet 200 mg PO DAILY Qty: 180 0RF (DME) nebulizers Misc See Rx Instructions .ROUTE .MEDSUPPLY Qty: 1 0RF Rx Instructions: use every 4 hours as needed levothyroxine 137 mcg tablet 137 mcg PO QAM Qty: 30 2RF sodium chloride 1,000 mg tablet,soluble 1,000 mg PO BID Qty: 60 2RF Trelegy Ellipta 100-62.5-25 mcg blister with device 1 inh inhalation BEDTIME Qty: 60 2RF ferrous gluconate 324 mg (37.5 mg iron) tablet 324 mg PO .every other night Qty: 90 0RF Rx Instructions: for iron replacement every other night Singulair 10 mg tablet 10 mg PO BEDTIME Qty: 90 1RF mirtazapine 30 mg tablet 30 mg PO QPM folic acid 1 mg tablet 1 mg PO QPM furosemide [Lasix] 20 mg tablet 20 mg PO QAM PRN (Reason: edema) Qty: 20 0RF magnesium L-threonate 48 mg magnesium (667 mg) capsule 48 mg PO DAILY Qty: 90 0RF Discharge Orders: Discharge ED (Routine); Ordered 02/14/24 Ordered By: Lizabeth Retana Referrals: Martha Clark FNP-C [Primary Care Provider] - 4-7 days Discharge Diet: Advance as tolerated Discharge Activity: Resume usual activity Patient Instructions: Altered Mental Status (ED) Coding Level of Care Code ED Ecological Modeler for Chg Fwd Documented by User: Lizabeth Retana MD 02/14/24 09:14 HPI - General Adult 2 General: Chief complaint: Altered Mental Status Stated complaint: Hallucinating Time Seen by Provider: 02/14/24 05:05 Related Data Home Medications Medication Instructions Recorded Confirmed folic acid 1 mg tablet 1 mg PO QPM 10/22/23 02/14/24 mirtazapine 30 mg tablet 30 mg PO QPM 02/14/24 02/14/24 Previous Rx's Medication Instructions Recorded polyethylene glycol 3350 17 17 g PO DAILY PRN Constipation 03/16/23 gram/dose oral powder (Miralax) #510 grams albuterol sulfate 2.5 mg/3 mL 2.5 mg (3 mL) inhalation QID PRN 07/26/23 (0.083 %) solution for nebulization shortness of breath or wheezing #300 mL furosemide 20 mg tablet (Lasix) 20 mg PO QAM PRN edema #20 tabs 10/27/23 magnesium L-threonate 48 mg 48 mg PO DAILY #90 caps 10/28/23 magnesium (667 mg) capsule amiodarone 200 mg tablet (Pacerone) 200 mg PO DAILY #180 tabs 11/02/23 nebulizers #1 ea 11/02/23 ferrous gluconate 324 mg (37.5 mg 324 mg PO .every other night #90 12/21/23 iron) tablet tabs fluticasone fur. 100 mcg-umeclid 1 inh inhalation BEDTIME #60 ea 12/21/23 62.5 mcg-vilant 25 mcg inhalat.powder (Trelegy Ellipta) levothyroxine 137 mcg tablet 137 mcg PO QAM #30 tabs 12/21/23 montelukast 10 mg tablet 10 mg PO BEDTIME #90 tabs 12/21/23 (Singulair) sodium chloride 1,000 mg soluble 1,000 mg PO BID #60 tabs 12/21/23 tablet apixaban 5 mg tablet (Eliquis) 5 mg PO BID@0900,2100 #180 tabs 01/25/24 Allergies Allergy/AdvReac Type Severity Reaction Status Date / Time grass pollen Allergy Mild ALGY-Watery Verified 02/14/24 05:21 Eye PFS ED 2 PFSH: Medical History AAA (abdominal aortic aneurysm) 4.3cm July, 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 Hypotension Non-small cell cancer of right lung Smoking hx Stop December 2022 Screening for colon cancer Cologuard screen COPD (chronic obstructive pulmonary disease) COPD exacerbation Adult onset hypothyroidism Seasonal allergies Surgical History Status post lobectomy of lung Right upper January 2023 [place], [place] Family History Brother Diabetes Hyperlipidemia Father Congestive heart failure (CHF) COPD (chronic obstructive pulmonary disease) Dementia Cancer prostate Mother Congestive heart failure (CHF) COPD (chronic obstructive pulmonary disease) Cancer gastric cancer Other No history of previous surgery Social History Smoking and tobacco/nicotine status: former use of tobacco/nicotine Quit status (tobacco/nicotine): has quit using Year quit tobacco: 01/12/23 Former quit date comment: 2 ppd X 55 years Second hand smoke exposure: Yes Alcohol intake: former Substance/Drug Use: never Adopted: No Caregiver/support person: No Lives independently: Yes Household members: none Marital status: Number of children: 1 service: Yes branch: [employer] Current occupational status: retired Pets and animals: No Do you think of yourself as: Straight/Heterosexual Current gender identity: Male Course 2 Vital Signs: Vital signs: Vital Signs Temperature 97.7 F 02/14/24 05:15 Pulse Rate 72 02/14/24 09:06 Respiratory Rate 14 02/14/24 07:52 Blood Pressure 90/60 02/14/24 09:06 Pulse Oximetry 96 02/14/24 09:06 Oxygen Delivery Me thod Nasal Cannula 02/14/24 07:52 Oxygen Flow Rate 5 02/14/24 07:52 [facility] - General Adult Medical Decision Making Patient presents here with mental status I spoke to him and his daughter who is a power of employment law attorney she wants him to be on hospice did start him on hospice care he stable for discharge at this time Lab Data 02/14/24 05:20 02/14/24 05:20 Radiology Impressions Chest X-Ray 02/14/24 05:13 IMPRESSION: 1. Areas of interstitial thickening left lung. 2. More focal retrocardiac left lower lung atelectasis or infiltrate. 3. Persistent prominent superior right chest pneumonectomy cavity. 4. Bright midlung consolidation which may reflect postobstructive atelectasis with areas of mucoid impaction or underlying consolidation of pneumonia. 5. Suspect component of right pleural effusion. Head CT 02/14/24 06:15 IMPRESSION: No acute intracranial process. Sinusitis with chronic sinusitis of the right maxillary sinus. Laboratory Results WBC 5.90 10^3/uL (3.29-11.43) 02/14/24 05:20 RBC 3.29 10^6/uL (3.85-5.65) L 02/14/24 05:20 Hgb 9.70 g/dL (11.27-16.99) L 02/14/24 05:20 Hct 31.3 % (37-53) L 02/14/24 05:20 MCV 95.1 fl (82-101) 02/14/24 05:20 MCH 29.5 pg (27-33) 02/14/24 05:20 MCHC 31.0 g/dL (30-55) 02/14/24 05:20 RDW 15.5 % (12.1-15.1) H 02/14/24 05:20 Plt Count 175 10^3/cmm (157-399) 02/14/24 05:20 MPV 8.4 fL (7.4-10.4) 02/14/24 05:20 Neut % (Auto) 84.1 % 02/14/24 05:20 Lymph % (Auto) 7.5 % 02/14/24 05:20 [place] % (Auto) 6.9 % 02/14/24 05:20 Eos % (Auto) 1.0 % 02/14/24 05:20 Baso % (Auto) 0.2 % 02/14/24 05:20 Neut # (Auto) 4.96 10^3/uL (1.8-7.7) 02/14/24 05:20 Lymph # (Auto) 0.4 10^3/uL (0.8-4.8) L 02/14/24 05:20 [place] # (Auto) 0.4 10^3/uL (0.2-0.9) 02/14/24 05:20 Eos # (Auto) 0.1 10^3/uL (0.0-0.8) 02/14/24 05:20 Baso # (Auto) 0.0 10^3/uL (0.0-0.1) 02/14/24 05:20 Nucleated RBC % (auto) 0 % 02/14/24 05:20 Nucleated RBCs # 0.0 /100WBC 02/14/24 05:20 PT 13.20 SECONDS (12.1-14.9) 02/14/24 05:20 INR 0.97 (0.8-1.2) 02/14/24 05:20 Sodium 132 mmol/L (136-145) L 02/14/24 05:20 Potassium 4.4 mmol/L (3.5-5.1) 02/14/24 05:20 Chloride 93 mmol/L (98-107) L 02/14/24 05:20 Carbon Dioxide 30 mmol/L (22-29) H 02/14/24 05:20 Anion Gap 13.4 (5-19) 02/14/24 05:20 BUN 10 mg/dL (8-23) 02/14/24 05:20 Creatinine 0.8 mg/dL (0.7-1.2) 02/14/24 05:20 GFR Calculation 95.8 mL/min (90-130) 02/14/24 05:20 Glucose 95 mg/dL (65-115) 02/14/24 05:20 Calculated Osmolality 273 mOsm/kg (285-295) L 02/14/24 05:20 Calcium 9.0 mg/dL (8.5-10.5) 02/14/24 05:20 Magnesium 2.0 mg/dL (1.7-2.3) 02/14/24 05:20 Total Bilirubin 0.3 mg/dL (0.15-1.2) 02/14/24 05:20 AST 7 U/L (0-40) 02/14/24 05:20 ALT 6 U/L (0-41) 02/14/24 05:20 Alkaline Phosphatase 109 U/L (40-130) 02/14/24 05:20 Total Protein 6.9 g/dL (6.6-8.7) 02/14/24 05:20 Albumin 3.0 g/dL (3.5-5.2) L 02/14/24 05:20 Globulin 3.9 g/dL (1.3-4.6) 02/14/24 05:20 TSH 3.58 uIU/mL (0.27-4.20) 02/14/24 05:20 Discharge Plan Discharge Patient Disposition: Home Clinical Impression: 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, Altered mental status Condition: Stable Prescriptions: No Action Miralax 17 gram/dose powder 17 g PO DAILY PRN (Reason: Constipation) Qty: 510 2RF Eliquis 5 mg tablet 5 mg PO BID@0900,2100 Qty: 180 0RF albuterol sulfate 2.5 mg /3 mL (0.083 %) solution for nebulization 2.5 mg INHALATION QID PRN (Reason: shortness of breath or wheezing) Qty: 300 5RF Pacerone 200 mg tablet 200 mg PO DAILY Qty: 180 0RF (DME) nebulizers Misc See Rx Instructions .ROUTE .MEDSUPPLY Qty: 1 0RF Rx Instructions: use every 4 hours as needed levothyroxine 137 mcg tablet 137 mcg PO QAM Qty: 30 2RF sodium chloride 1,000 mg tablet,soluble 1,000 mg PO BID Qty: 60 2RF Trelegy Ellipta 100-62.5-25 mcg blister with device 1 inh inhalation BEDTIME Qty: 60 2RF ferrous gluconate 324 mg (37.5 mg iron) tablet 324 mg PO .every other night Qty: 90 0RF Rx Instructions: for iron replacement every other night Singulair 10 mg tablet 10 mg PO BEDTIME Qty: 90 1RF mirtazapine 30 mg tablet 30 mg PO QPM folic acid 1 mg tablet 1 mg PO QPM furosemide [Lasix] 20 mg tablet 20 mg PO QAM PRN (Reason: edema) Qty: 20 0RF magnesium L-threonate 48 mg magnesium (667 mg) capsule 48 mg PO DAILY Qty: 90 0RF Discharge Orders: Discharge ED (Routine); Ordered 02/14/24 Ordered By: Lizabeth Retana Referrals: Martha Clark, JUNIOR LEGAL SECRETARY-C [Primary Care Provider] - 4-7 days Discharge Diet: Advance as tolerated Discharge Activity: Resume usual activity Patient Instructions: Altered Mental Status (ED) Coding Level of Care Code ED Ecological Modeler for Svitlana Francois
[2024-02-14 05:15] VITALS: BP 106/65; PULSE 91; RESP 22; TEMP 36.5; O2SAT 93; BMI 20.9
[2024-02-14 05:23] VITALS: BP 106/65; PULSE 85; RESP 18; O2SAT 99
[2024-02-14 05:29] LABS: Basophils % 0.2 %; Eosinophils # 0.1 10^3/uL (0.0-0.8); Hematocrit 31.3 % (37-53); Lymphocytes # 0.4 10^3/uL (0.8-4.8); Lymphocytes % 7.5 %; Mean Corpuscular Hemoglobin 29.5 pg (27-33); Mean Corpuscular Volume 95.1 fl (82-101); Mean Platelet Volume 8.4 fL (7.4-10.4); Monocytes # 0.4 10^3/uL (0.2-0.9); Monocytes % 6.9 %; Neutrophils # 4.96 10^3/uL (1.8-7.7); Neutrophils % 84.1 %; Nucleated Red Blood Cells % 0 %; Platelet Count 175 10^3/cmm (157-399); Red Blood Count 3.29 10^6/uL (3.85-5.65); Red Cell Distribution Width 15.5 % (12.1-15.1)
[2024-02-14 05:44] LABS: INR 0.97 (0.8-1.2)
[2024-02-14 05:59] LABS: Alanine Aminotransferase 6 U/L (0-41); Alkaline Phosphatase 109 U/L (40-130); Anion Gap 13.4 (5-19); Aspartate Amino Transferase 7 U/L (0-40); Blood Urea Nitrogen 10 mg/dL (8-23); Carbon Dioxide 30 mmol/L (22-29); Chloride 93 mmol/L (98-107); Creatinine Clr Calc Pharmacy 92.0569; Globulin 3.9 g/dL (1.3-4.6); Glomerular Filtration Rate 95.8 mL/min (90-130); Glucose 95 mg/dL (65-115); Osmolality Calculated 273 mOsm/kg (285-295); Potassium 4.4 mmol/L (3.5-5.1); Sodium 132 mmol/L (136-145); Thyroid Stimulating Hormone 3.58 uIU/mL (0.27-4.20); Total Bilirubin 0.3 mg/dL (0.15-1.2); Total Protein 6.9 g/dL (6.6-8.7)
--- NOTE | 2024-02-14 06:15 | CTR_ITS ---
PROCEDURE INFORMATION: Exam: CT Head Without Contrast Exam date and time: 02/14/2024 6:34 AM Age: 68 years old Clinical indication: Altered mental status/memory loss; Patient HX: Hallucinations; Additional info: AMS TECHNIQUE: Imaging protocol: Computed tomography of the head without contrast. Radiation optimization: All CT scans at this facility use at least one of these dose optimization techniques: automated exposure control; mA and/or kV adjustment per patient size (includes targeted exams where dose is matched to clinical indication); or iterative reconstruction. COMPARISON: MR head wo/w con [id number] 10/22/2023 1:10 PM RADIATION DOSE METRICS: Total DLP (mGy-cm): 1055.59 FINDINGS: Brain: No acute intracranial hemorrhage, mass effect or midline shift. Low attenuating white-matter changes suggest micro vessel ischemia on a chronic basis. Intracranial vascular calcification carotid distribution. Cerebral ventricles: No ventriculomegaly. Paranasal sinuses: Small air-fluid level sphenoid sinus. There is prominent opacification of the right maxillary sinus with bone margin thickening. Mucosal thickening of ethmoid sinuses. Mastoid air cells: Visualized mastoid air cells are well aerated. Bones: See Paranasal sinuses finding. Soft tissues: Unremarkable. Other findings: Hemispheric volume loss. CT/CT head wo con* [id number] IMPRESSION: No acute intracranial process. Sinusitis with chronic sinusitis of the right maxillary sinus.
[2024-02-14 06:23] VITALS: BP 110/73; PULSE 80; RESP 18; O2SAT 97
[2024-02-14 07:52] VITALS: PULSE 85; RESP 14; O2SAT 96
[2024-02-14 07:53] VITALS: BP 108/72
--- NOTE | 2024-02-14 08:59 | PC.NURSE ---
PATIENT DISCUSSION WITH HOSPICE. PATIENT WILL BE PICKED UP BY [facility] ON WEDNESDAY. PATIENT WOULD LIKE TO GO TO ONCOLOGY APPOINTMENT FIRST.
[2024-02-14 09:06] VITALS: BP 90/60; PULSE 72; O2SAT 96
[2024-02-15 13:35] LABS: Iron 52 ug/dL (59-158); Percent Saturation 31.1 % (20-50); Total Iron Binding Capacity 167 mcg/dl; Unsaturated Iron Binding 115 ug/dL (112-347)
[2024-02-15 13:56] LABS: Ferritin 3024 ng/mL (30-400)
== END 2024-02-14 09:07 | disposition home or self-care (01) ==
PROVIDERS: Emergency Medicine; Nurse Practitioner; Emergency Provider Emergency Medicine; PCP Nurse Practitioner
DX: C34.11 Malignant neoplasm of upper lobe, right bronchus or lung (principal); R41.82 Altered mental status, unspecified; Z79.01 Long term (current) use of anticoagulants; Z87.891 Personal history of nicotine dependence; J44.9 Chronic obstructive pulmonary disease, unspecified
CPT/HCPCS: 36415; 70450; 71045; 80053; 82728; 83540; 83550; 83735; 84443; 85025; 85610; 93005; 99285

== ENCOUNTER 2024-02-15 13:00 | Oncology outpatient (recurring) (ONCR) | payer MEDICARE, SELFPAY ==
[2024-01-25 08:52] LABS: Basophils # 0.1 10^3/uL (0.0-0.1); Eosinophils # 0.1 10^3/uL (0.0-0.8); Eosinophils % 2.1 %; Hematocrit 30.9 % (37-53); Lymphocytes % 20.1 %; Mean Corpuscular HGB Conc 30.4 g/dL (30-55); Mean Corpuscular Hemoglobin 29.9 pg (27-33); Mean Corpuscular Volume 98.4 fl (82-101); Mean Platelet Volume 7.7 fL (7.4-10.4); Monocytes # 0.5 10^3/uL (0.2-0.9); Monocytes % 10.9 %; Neutrophils # 3.12 10^3/uL (1.8-7.7); Neutrophils % 65.3 %; Nucleated Red Blood Cells % 0 %; Platelet Count 249 10^3/cmm (157-399); Red Blood Count 3.14 10^6/uL (3.85-5.65); Red Cell Distribution Width 15.9 % (12.1-15.1); White Blood Count 4.78 10^3/uL (3.29-11.43)
[2024-01-25 08:58] LABS: Alanine Aminotransferase 7 U/L (0-41); Albumin Level 3.1 g/dL (3.5-5.2); Alkaline Phosphatase 106 U/L (40-130); Anion Gap 12.4 (5-19); Aspartate Amino Transferase 6 U/L (0-40); Blood Urea Nitrogen 7 mg/dL (8-23); Calcium 9.3 mg/dL (8.5-10.5); Carbon Dioxide 28 mmol/L (22-29); Chloride 95 mmol/L (98-107); Globulin 4.4 g/dL (1.3-4.6); Glomerular Filtration Rate 95.8 mL/min (90-130); Glucose 101 mg/dL (65-115); Osmolality Calculated 270 mOsm/kg (285-295); Potassium 4.4 mmol/L (3.5-5.1); Sodium 131 mmol/L (136-145); Total Bilirubin 0.2 mg/dL (0.15-1.2); Total Protein 7.5 g/dL (6.6-8.7)
--- NOTE | 2024-02-04 13:00 | PETR_ITS ---
PROCEDURE INFORMATION: Exam: PET/CT Skull Base to Mid-thigh Exam date and time: 02/04/2024 1:48 PM Age: 68 years old Clinical indication: Condition or disease; Primary cancer: Lung cancer, right; Condition/disease: Lung cancer right; Prior surgery; Surgery date: 6+ months; Surgery type: Right lung; Additional info: Disease progression per CT scan LABS AND CLINICAL REPORTS: Glucose: 111 mg/dl Treatment strategy for malignancy (PET staging): Restaging (PS) TECHNIQUE: Imaging protocol: Following at least four-hour fasting and following the injection of radiopharmaceutical, low dose CT images were obtained. Then, PET images were obtained. Attenuation corrected images were constructed using the CT scan. Fused images of PET and CT were reviewed. The standardized uptake values (SUV) reported below are maximum values within a region of interest, expressed in gm/ml. Exam includes orbital meatal line to mid-thigh. SUV normalization method: BodyWeight Radiopharmaceutical: 12.14 mCi F-18 FDG (Fluorodeoxyglucose), IV. Time of imaging post radiopharmaceutical administration: 48 minutes Injection site: RIGHT AC COMPARISON: 1. PT PET skull to thigh SUBS [id number] 04/13/2023 11:[address] chest abdpel w/*[id number] 12/01/2023 9:18 AM FINDINGS: Tubes, catheters and devices: Left chest port terminates at the SVC. Brain: Visualized brain has normal physiologic uptake. Paranasal sinuses: Non FDG avid chronic right maxillary sinus mucoperiosteal thickening. Pharynx: No abnormal uptake. Larynx: No abnormal uptake. Lungs, pleura and trachea: Intervally stable appearance of largely air-filled right upper lobectomy cavity with mild surrounding FDG uptake. Intervally similar essentially complete right lower lobe consolidation with associated irregular air bronchograms and heterogeneous FDG uptake with 3 more focally avid areas peripherally showing SUV max 8.0 posterolaterally on axial image 94, SUV max 7.2 posteromedially on axial image 102, and SUV max 5.7 posteromedially adjacent to paraspinal region on axial image 101. There is heterogeneous non FDG avid narrowing and occlusion of main right lower lobe bronchus with mural thickening. Described focal right posterior pleural thickening on comparison chest CT in close approximation to posterior right 7th rib is stable and shows no abnormal FDG uptake in this region. Developed mild medial right middle lobe opacity with SUV max 3.6 on axial image 102 with heterogeneous upstream airway occlusions. Mild left lung dependent subpleural reticulation with [id number] FDG uptake (SUV max 4.2 on axial image 124), favor atelectasis or possibly inflammatory process. Left upper lobe calcified granuloma. Mild left lung emphysematous change. Heart: Normal physiologic uptake. Coronary arteries: Mild coronary artery calcification. Mediastinal space: No abnormal uptake. Liver: No abnormal uptake. Gallbladder and biliary ducts: No abnormal uptake. Pancreas: No abnormal uptake. Spleen: No abnormal uptake. Adrenal glands: No abnormal uptake. Kidneys and ureters: Normal physiologic uptake. Photopenic fluid density right renal cyst. Stomach and bowel: No abnormal uptake. Vasculature: No abnormal uptake. Heavy systemic atherosclerotic calcification with ascending aortic ectasia measuring 4 cm and intervally stable infrarenal abdominal aortic aneurysm measuring 4.6 cm. Lymph nodes: Intervally stable mildly enlarged mediastinal lymph nodes with index posterior right upper paratracheal node measuring 9 mm in the short axis on axial image 67 with SUV max 4.0. Subcarinal node measures 12 mm in the short axis with SUV max 3.7. Skeleton: No abnormal uptake in the visualized axial and appendicular skeleton. Degenerative change along the spine and sacroiliac joints. Stable mild anterior wedge deformity of the superior L1 vertebral body. Soft tissues: Linear FDG uptake along the bilateral hand, forearm, neck, [id number]-left shoulder, right chest wall, right thoracic posterior paraspinal and left quadratus lumborum musculature without underlying CT abnormality in keeping with benign physiologic activation and/or strain. METRICS: Mediastinal blood pool: SUV mean 2.1 Liver uptake: SUV mean 2.3 PET/PET skull to thigh SUBS [id number] IMPRESSION: 1. Essentially complete right lower lobe consolidation with heterogeneous air bronchograms and heterogeneous FDG uptake with 3 peripheral areas of more focal FDG avidity. Upstream non FDG avid right lower lobe bronchial thickening with narrowing and occlusion. Findings may represent benign postobstructive atelectasis and/or pneumonia, cannot exclude underlying malignancy, particularly at the sites of focally increased FDG avidity. Note that posterior right pleural nodular thickening of concern on comparison chest CT shows no associated FDG uptake to suggest active disease. 2. Developed mildly FDG avid central right middle lobe opacity may represent additional area of postobstructive atelectasis, infectious or inflammatory process with increased heterogeneous upstream airway occlusions. 3. Mild mediastinal lymphadenopathy may be reactive, metastatic disease not excluded. 4. Intervally stable appearance of largely air-filled right upper lobectomy cavity with mild surrounding FDG uptake. 5. Additional chronic and incidental findings as above, to include atherosclerosis with intervally stable 4.6 cm infrarenal abdominal aortic aneurysm.
[2024-02-15] MEDS: ertapenem 1,000 mg SDV 1000 MG IVP (15:42)
[2024-02-15] MEDS: sodium chloride 0.9% 500 ML IV (15:47)
== END 2024-02-15 23:59 | disposition home or self-care (01) ==
PROVIDERS: Absent Provider Radiology Radiation Oncology; PCP Nurse Practitioner; Visit Provider Nurse Practitioner Family
DX: Z53.9 Procedure and treatment not carried out, unspecified reason; C34.11 Malignant neoplasm of upper lobe, right bronchus or lung; Z90.2 Acquired absence of lung [part of]; Z87.891 Personal history of nicotine dependence; D64.9 Anemia, unspecified; I48.91 Unspecified atrial fibrillation; Z79.01 Long term (current) use of anticoagulants; E87.1 Hypo-osmolality and hyponatremia; Z79.2 Long term (current) use of antibiotics; Z99.81 Dependence on supplemental oxygen; Z79.899 Other long term (current) drug therapy
CPT/HCPCS: 36591; 78815; 80053; 85025; 96361; 96374; 99214; A9552; J1335; J7040

== ENCOUNTER 2024-02-29 13:03 | Oncology outpatient (recurring) (ONCR) | payer MEDICARE, SELFPAY ==
[2024-02-29 13:29] LABS: Basophils % 0.6 %; Eosinophils # 0.1 10^3/uL (0.0-0.8); Eosinophils % 1.7 %; Hematocrit 27.3 % (37-53); Lymphocytes # 0.8 10^3/uL (0.8-4.8); Lymphocytes % 14.4 %; Mean Corpuscular HGB Conc 30.8 g/dL (30-55); Mean Corpuscular Hemoglobin 29.6 pg (27-33); Mean Corpuscular Volume 96.1 fl (82-101); Mean Platelet Volume 8.1 fL (7.4-10.4); Monocytes # 0.6 10^3/uL (0.2-0.9); Monocytes % 10.6 %; Neutrophils # 3.77 10^3/uL (1.8-7.7); Neutrophils % 72.5 %; Nucleated Red Blood Cells % 0 %; Platelet Count 189 10^3/cmm (157-399); Red Blood Count 2.84 10^6/uL (3.85-5.65); Red Cell Distribution Width 15.7 % (12.1-15.1)
[2024-02-29 13:43] LABS: Alanine Aminotransferase < 5 U/L (0-41); Albumin Level 2.9 g/dL (3.5-5.2); Alkaline Phosphatase 114 U/L (40-130); Aspartate Amino Transferase 6 U/L (0-40); Blood Urea Nitrogen 9 mg/dL (8-23); Calcium 8.7 mg/dL (8.5-10.5); Carbon Dioxide 28 mmol/L (22-29); Chloride 93 mmol/L (98-107); Globulin 3.9 g/dL (1.3-4.6); Glomerular Filtration Rate 111.8 mL/min (90-130); Glucose 90 mg/dL (65-115); Osmolality Calculated 264 mOsm/kg (285-295); Sodium 128 mmol/L (136-145); Total Bilirubin 0.2 mg/dL (0.15-1.2); Total Protein 6.8 g/dL (6.6-8.7)
[2024-02-29] MEDS: sodium chloride 0.9% 500 ML IV (15:19)
[2024-02-29 16:00] VITALS: BP 127/77; PULSE 86; RESP 18; TEMP 36.6; O2SAT 98
== END 2024-03-17 23:59 | disposition home or self-care (01) ==
PROVIDERS: Nurse Practitioner; Absent Provider Radiology Radiation Oncology; PCP Nurse Practitioner; Visit Provider Nurse Practitioner Family
DX: C34.91 Malignant neoplasm of unspecified part of right bronchus or lung (principal); D64.9 Anemia, unspecified; I48.91 Unspecified atrial fibrillation; E87.1 Hypo-osmolality and hyponatremia; Z79.899 Other long term (current) drug therapy; Z87.891 Personal history of nicotine dependence; Z92.3 Personal history of irradiation; Z92.21 Personal history of antineoplastic chemotherapy; Z99.81 Dependence on supplemental oxygen
CPT/HCPCS: 36591; 80053; 85025; 96360; 99214; J7040

== ENCOUNTER 2024-03-04 23:11 | Inpatient (IN) | payer MEDICARE, SELFPAY ==
[2024-03-04 23:12] VITALS: BP 119/74; PULSE 85; RESP 20; TEMP 36.4; O2SAT 100; BMI 19.2
--- NOTE | 2024-03-04 23:32 | XRR_ITS ---
PROCEDURE INFORMATION: Exam: XR Chest Exam date and time: 03/04/2024 11:38 PM Age: 68 years old Clinical indication: Shortness of breath; Prior surgery; Surgery date: 6+ months; Surgery type: RT lung; Patient HX: SOB; Lung CA TECHNIQUE: Imaging protocol: Radiologic exam of the chest. Views: 2 views. COMPARISON: CR XR chest 1V portable [id number] 02/14/2024 5:16 AM FINDINGS: Tubes, catheters and devices: Left subclavian implanted venous catheter ends in the superior vena cava. Lungs: The left lung is clear. Incidental left upper lobe calcified granuloma. Pleural spaces: There is persisting right pneumonectomy with partial 50% fluid filling of the right kirby pneumothorax. Heart/Mediastinum: The heart size is normal. Bones/joints: Unremarkable. XR/XR chest 2V* [id number] IMPRESSION: 1. Right pneumonectomy with 50% fluid filling of the right hemithorax, slightly increased since January 2024. 2. No acute findings.
--- NOTE | 2024-03-04 23:32 | CTR_ITS ---
PROCEDURE INFORMATION: Exam: CT Head Without Contrast Exam date and time: 03/04/2024 11:46 PM Age: 68 years old Clinical indication: Altered mental status/memory loss; Patient HX: EMS arrival for confusion; Additional info: Altered mentation TECHNIQUE: Imaging protocol: Computed tomography of the head without contrast. Radiation optimization: All CT scans at this facility use at least one of these dose optimization techniques: automated exposure control; mA and/or kV adjustment per patient size (includes targeted exams where dose is matched to clinical indication); or iterative reconstruction. COMPARISON: CT head wo con* [id number] 02/14/2024 6:34 AM RADIATION DOSE METRICS: Total DLP (mGy-cm): 1029.48 FINDINGS: Brain: No CT evidence for acute ischemia, mass or hemorrhage. No extra-axial fluid collection, midline shift or hydrocephalus. Mild sulcal widening and ventricular enlargement is due to white matter volume loss. Cerebral ventricles: See Brain finding. Paranasal sinuses: Frothy fluid is present in the right maxillary sinus, partially seen. Mastoid air cells: Visualized mastoid air cells are well aerated. Bones: Unremarkable. No acute fracture. Soft tissues: Unremarkable. CT/CT head wo con* [id number] IMPRESSION: 1. No acute intracranial findings. 2. Age-related changes. 3. Fluid in the right maxillary sinus
--- NOTE | 2024-03-04 23:34 | ECG_ITS ---
[facility] Date: 2024-[facility]05 Pat Name: Darrin Avila Department: Room: Gender: Male Manager Branch: : 1955 Requested By: Ania Bradley Order Number: [id number] Homero MD: LAURENCE RAMÍREZ Measurements Intervals [place] Rate: 80 P: 49 MO: 188 QRS: 7 QRSD: 109 T: 54 QT: 404 QTc: 467 Interpretive Statements SINUS RHYTHM POSSIBLE LEFT ATRIAL ENLARGEMENT [-0.1mV P-WAVE IN V1/V2] LOW QRS VOLTAGE IN PRECORDIAL LEADS [QRS DEFLECTION < 1.0 mV IN CHEST LEADS] Compared to ECG 02/14/2024 06:11:30 Low QRS voltage now present Electronically Signed On 03-06-2024 23:13:56 GAMING FLOOR SUPERVISOR by LAURENCE RAMÍREZ [email or web address]
[2024-03-05] VITALS (16 sets, daily range): BP systolic 92–142; BP diastolic 57–97; PULSE 75–100; RESP 12–24; TEMP 36.5–36.7; O2SAT 96–100; BMI 19.2
[2024-03-05] MEDS: sodium chloride 0.9% 1,000 ML 999 ML IV (00:15)
[2024-03-05 00:44] LABS: Basophils % 0.8 %; Eosinophils % 0.8 %; Hematocrit 28.9 % (37-53); Lymphocytes # 0.7 10^3/uL (0.8-4.8); Lymphocytes % 13.4 %; Mean Corpuscular HGB Conc 30.8 g/dL (30-55); Mean Corpuscular Hemoglobin 29.9 pg (27-33); Mean Platelet Volume 7.9 fL (7.4-10.4); Monocytes # 0.4 10^3/uL (0.2-0.9); Monocytes % 8.3 %; Neutrophils # 3.89 10^3/uL (1.8-7.7); Neutrophils % 76.3 %; Nucleated Red Blood Cells % 0 %; Platelet Count 235 10^3/cmm (157-399); Red Blood Count 2.98 10^6/uL (3.85-5.65); Red Cell Distribution Width 15.7 % (12.1-15.1); White Blood Count 5.09 10^3/uL (3.29-11.43)
[2024-03-05 01:07] LABS: Troponin(5th) Baseline 9 ng/L (0-15)
[2024-03-05 01:10] LABS: Influenza A NEGATIVE (Negative); Influenza B NEGATIVE (Negative); Respiratory Syncytial Virus Ce NEGATIVE (Negative)
[2024-03-05 01:19] LABS: Covid PCR Positive (Negative)
[2024-03-05 01:40] LABS: Alanine Aminotransferase 7 U/L (0-41); Albumin Level 2.9 g/dL (3.5-5.2); Alkaline Phosphatase 113 U/L (40-130); Anion Gap 15.3 (5-19); Aspartate Amino Transferase 8 U/L (0-40); Blood Urea Nitrogen 13 mg/dL (8-23); Calcium 8.6 mg/dL (8.5-10.5); Carbon Dioxide 25 mmol/L (22-29); Chloride 91 mmol/L (98-107); Creatinine Clr Calc Pharmacy 79.3943; Glomerular Filtration Rate 111.8 mL/min (90-130); Glucose 104 mg/dL (65-115); NT Pro B Type Natriuretic Pept 347 pg/mL (0-125); Osmolality Calculated 264 mOsm/kg (285-295); Potassium 4.3 mmol/L (3.5-5.1); Sodium 127 mmol/L (136-145); Total Bilirubin 0.2 mg/dL (0.15-1.2); Total Protein 6.9 g/dL (6.6-8.7)
[2024-03-05 02:35] LABS: Troponin 5 2HR 9.14 ng/L (0-15); Troponin 5 2HR Delta 0.14 ABS# (0-10)
[2024-03-05 03:06] LABS: Bilirubin Urine Negative (Negative); Blood Urine Negative (Negative); Glucose Urine UA Negative (Normal); Ketones Urine Negative (Negative); Leukocyte Esterase Urine Negative (Negative); Nitrate Urine Negative (Negative); Protein Urine Negative (Negative); Specific Gravity, Urine 1.008 (1.005-1.030); Urine Appearance Clear (CLEAR); Urine Color Yellow (Yellow); Urobilinogen Urine 0.2 mg/dL (Negative); pH Urine 7.5 (5-7)
[2024-03-05 03:09] LABS: Add Urine Microscopic? YES; Bacteria Urine None Seen /hpf; Hyaline Casts Urine 0.81 /lpf; RBC Urine 0-2 /hpf (0-2); Squamous Epithelial Cell Urine 0-5 /hpf (0-5); WBC Urine 0-5 /hpf (0-5)
--- NOTE | 2024-03-05 03:31 | W.ED.AMS ---
HPI - Altered Mental Status General: Chief Complaint: Altered Mental Status Stated Complaint: CONFUSED Time Seen by Provider: 03/04/24 23:15 Source: patient, family and EMS Mode of arrival: EMS Limitations: altered mental status History of Present Illness: 68-year-old male with lung cancer comes in some oriented but is to talk more you could see that he is clearly confused. Does grab and fidget with wires that are attached to him etc. Daughter comes and reports that his mental status has been waxing and waning getting worse. He is having moments where he clenches up on him so he is going to have a seizure but does not fully shake. Has some lower abdominal pain and reports being unable to pee. Initially seen by the nurse practitioner here with workup ordered. Related Data Home Medications Medication Instructions Recorded Confirmed folic acid 1 mg tablet 1 mg PO QPM 10/22/23 02/29/24 mirtazapine 30 mg tablet 30 mg PO QPM 02/14/24 02/29/24 Previous Rx's Medication Instructions Recorded polyethylene glycol 3350 17 17 g PO DAILY PRN Constipation 03/16/23 gram/dose oral powder (Miralax) #510 grams albuterol sulfate 2.5 mg/3 mL 2.5 mg (3 mL) inhalation QID PRN 07/26/23 (0.083 %) solution for nebulization shortness of breath or wheezing #300 mL furosemide 20 mg tablet (Lasix) 20 mg PO QAM PRN edema #20 tabs 10/27/23 magnesium L-threonate 48 mg 48 mg PO DAILY #90 caps 10/28/23 magnesium (667 mg) capsule amiodarone 200 mg tablet (Pacerone) 200 mg PO DAILY #180 tabs 11/02/23 nebulizers #1 ea 11/02/23 ferrous gluconate 324 mg (37.5 mg 324 mg PO .every other night #90 12/21/23 iron) tablet tabs fluticasone fur. 100 mcg-umeclid 1 inh inhalation BEDTIME #60 ea 12/21/23 62.5 mcg-vilant 25 mcg inhalat.powder (Trelegy Ellipta) levothyroxine 137 mcg tablet 137 mcg PO QAM #30 tabs 12/21/23 montelukast 10 mg tablet 10 mg PO BEDTIME #90 tabs 12/21/23 (Singulair) sodium chloride 1,000 mg soluble 1,000 mg PO BID #60 tabs 12/21/23 tablet apixaban 5 mg tablet (Eliquis) 5 mg PO BID@0900,2100 #180 tabs 01/25/24 levofloxacin 750 mg tablet 750 mg PO DAILY #7 tabs 02/15/24 Allergies Allergy/AdvReac Type Severity Reaction Status Date / Time grass pollen Allergy Mild ALGY-Watery Verified 02/29/24 13:46 Eye Review of Systems General: Reports: ROS unobtainable due to mental status PFSH ED PFSH: Medical History AAA (abdominal aortic aneurysm) 4.3cm July, 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 Hypotension Non-small cell cancer of right lung Smoking hx Stop December 2022 Screening for colon cancer Cologuard screen COPD (chronic obstructive pulmonary disease) COPD exacerbation Adult onset hypothyroidism Seasonal allergies Surgical History Status post lobectomy of lung Right upper January 2023 [facility] [place] Family History Brother Diabetes Hyperlipidemia Father Congestive heart failure (CHF) COPD (chronic obstructive pulmonary disease) Dementia Cancer prostate Mother Congestive heart failure (CHF) COPD (chronic obstructive pulmonary disease) Cancer gastric cancer Other No history of previous surgery Social History Smoking and tobacco/nicotine status: former use of tobacco/nicotine Quit status (tobacco/nicotine): has quit using Year quit tobacco: 01/12/23 Former quit date comment: 2 ppd X 55 years Second hand smoke exposure: Yes Alcohol intake: former Substance/Drug Use: never Adopted: No Caregiver/support person: No Lives independently: Yes Household members: none Marital status: Number of children: 1 service: Yes branch: [employer] Current occupational status: retired Pets and animals: No Do you think of yourself as: Straight/Heterosexual Current gender identity: Male Physical Exam Const: COMMON NORMALS: no acute distress, average body habitus, healthy appearing, alert and well nourished EXAM LIMITATIONS: altered mental status GENERAL APPEARANCE: well kempt, well developed and lethargic ORIENTATION/CONSCIOUSNESS: Yes oriented to person, Yes oriented to place, Yes confused and Yes lethargic HENMT: COMMON NORMALS: normocephalic, atraumatic, external ears normal and moist oral mucous membranes HEAD & SCALP: normocephalic and atraumatic EXTERNAL EAR: Yes external ears normal Eye: COMMON NORMALS: Equal, round and reactive pupils present, EOMs intact bilaterally and conjunctivae normal CONJUNCTIVA: Yes conjunctivae normal PUPIL: Yes Equal, round and reactive pupils present Neck/C-Spine: COMMON NORMALS: full ROM, no lymphadenopathy and supple Chest: CHEST: Yes Symmetrical chest wall rise and No Surgical scars present (Chest) Resp: COMMON NORMALS: normal respiratory effort, No retractions, No use of accessory muscles and clear to auscultation bilaterally AUSCULTATION: clear to auscultation bilaterally Cardio: COMMON NORMALS: regular rate, regular rhythm, S1 normal heart sound present, S2 normal heart sound present, No gallops present (Cardio), No clicks present (Cardio), No murmurs present (Cardio) and No rub (Cardio) RATE: regular rate RHYTHM: regular rhythm HEART SOUNDS: S1 normal heart sound present, S2 normal heart sound present and no murmurs PERIPHERAL PULSES: other (Radial pulses 2+ and symmetric) GI: COMMON NORMALS: Soft to palpation, non-tender and no masses INSPECTION: No abdominal distension PALPATION: Yes Soft to palpation, No Guarding due to palpation present (GI) and No Rebound tenderness present : COMMON NORMALS: Yes no CVA tenderness BLADDER/KIDNEY EXAM: Yes no CVA tenderness OTHER: Lower abdomen feels full on exam Back/Pelvis: COMMON NORMALS: no CVA tenderness Extremity: COMMON NORMALS: normal to inspection, full ROM, capillary refill normal and no clubbing, cyanosis or edema Neuro: SENSORIUM/ORIENTATION: Yes alert, Yes oriented to person, Yes oriented to place and Yes lethargic Psych: APPEARANCE: Yes well kempt Skin: COMMON NORMALS: no rashes or lesions noted, no wounds, turgor normal and no jaundice GENERAL SKIN EXAM: no rashes or lesions noted and turgor normal OTHER: Multiple abrasions across both arms and bruising. Sepsis: Is patient septic: No Focused sepsis exam performed: Yes Course Vital Signs: Vital signs: Vital Signs Temperature 97.5 F L 03/04/24 23:12 Pulse Rate 100 03/05/24 01:35 Respiratory Rate 12 03/05/24 01:35 Blood Pressure 130/80 03/05/24 01:35 Pulse Oximetry 100 03/05/24 01:35 Oxygen Delivery Me thod Nasal Cannula 03/05/24 01:35 Oxygen Flow Rate 5 03/05/24 01:35 MDM - Altered Mental Status Medical Decision Making Patient continues to be confused, is on his baseline 5 L of oxygen. Satting 95% with that. Patient will be admitted for metabolic encephalopathy in the setting of acute COVID infection. Incidentally patient could also not urinate. Palpation of the bladder and bladder scan resulted and they read for approximately 900 or more cc. Alfaro was inserted with a coud? tip straight cath did not yield any urine. Alfaro yielded 1200 cc output in first hour. Discussed the case with Dr. Davis, will admit. Differential Diagnosis Likely altered mental status, delirium, dementia and hyponatremia Medical Records I reviewed the patient's medical records. Lab Data I reviewed the patient's lab results. 03/05/24 00:00 03/05/24 00:45 Radiology Impressions Chest X-Ray 03/04/24 23:32 IMPRESSION: 1. Right pneumonectomy with 50% fluid filling of the right hemithorax, slightly increased since January 2024. 2. No acute findings. Head CT 03/04/24 23:32 IMPRESSION: 1. No acute intracranial findings. 2. Age-related changes. 3. Fluid in the right maxillary sinus Laboratory Results WBC 5.09 10^3/uL (3.29-11.43) 03/05/24 00:00 RBC 2.98 10^6/uL (3.85-5.65) L 03/05/24 00:00 Hgb 8.90 g/dL (11.27-16.99) L 03/05/24 00:00 Hct 28.9 % (37-53) L 03/05/24 00:00 MCV 97.0 fl (82-101) 03/05/24 00:00 MCH 29.9 pg (27-33) 03/05/24 00:00 MCHC 30.8 g/dL (30-55) 03/05/24 00:00 RDW 15.7 % (12.1-15.1) H 03/05/24 00:00 Plt Count 235 10^3/cmm (157-399) 03/05/24 00:00 MPV 7.9 fL (7.4-10.4) 03/05/24 00:00 Neut % (Auto) 76.3 % 03/05/24 00:00 Lymph % (Auto) 13.4 % 03/05/24 00:00 [place] % (Auto) 8.3 % 03/05/24 00:00 Eos % (Auto) 0.8 % 03/05/24 00:00 Baso % (Auto) 0.8 % 03/05/24 00:00 Neut # (Auto) 3.89 10^3/uL (1.8-7.7) 03/05/24 00:00 Lymph # (Auto) 0.7 10^3/uL (0.8-4.8) L 03/05/24 00:00 [place] # (Auto) 0.4 10^3/uL (0.2-0.9) 03/05/24 00:00 Eos # (Auto) 0.0 10^3/uL (0.0-0.8) 03/05/24 00:00 Baso # (Auto) 0.0 10^3/uL (0.0-0.1) 03/05/24 00:00 Nucleated RBC % (auto) 0 % 03/05/24 00:00 Nucleated RBCs # 0.0 /100WBC 03/05/24 00:00 Sodium 127 mmol/L (136-145) L 03/05/24 00:45 Potassium 4.3 mmol/L (3.5-5.1) 03/05/24 00:45 Chloride 91 mmol/L (98-107) L 03/05/24 00:45 Carbon Dioxide 25 mmol/L (22-29) 03/05/24 00:45 Anion Gap 15.3 (5-19) 03/05/24 00:45 BUN 13 mg/dL (8-23) 03/05/24 00:45 Creatinine 0.7 mg/dL (0.7-1.2) 03/05/24 00:45 GFR Calculation 111.8 mL/min (90-130) 03/05/24 00:45 Glucose 104 mg/dL (65-115) 03/05/24 00:45 Calculated Osmolality 264 mOsm/kg (285-295) L 03/05/24 00:45 Calcium 8.6 mg/dL (8.5-10.5) 03/05/24 00:45 Total Bilirubin 0.2 mg/dL (0.15-1.2) 03/05/24 00:45 AST 8 U/L (0-40) 03/05/24 00:45 ALT 7 U/L (0-41) 03/05/24 00:45 Alkaline Phosphatase 113 U/L (40-130) 03/05/24 00:45 Troponin T Baseline 9 ng/L (0-15) 03/05/24 00:45 Troponin T 120 Minute 9.14 ng/L (0-15) 03/05/24 02:10 Delta Troponin T 0.14 ABS# (0-10) 03/05/24 02:10 NT-Pro-B Natriuret Pep 347 pg/mL (0-125) H 03/05/24 00:45 Total Protein 6.9 g/dL (6.6-8.7) 03/05/24 00:45 Albumin 2.9 g/dL (3.5-5.2) L 03/05/24 00:45 Globulin 4.0 g/dL (1.3-4.6) 03/05/24 00:45 Urine Color Yellow (Yellow) 03/05/24 00:31 Urine Appearance Clear (CLEAR) 03/05/24 00: Urine pH 7.5 (5-7) 03/05/24 00:31 Ur Specific [place] 1.008 (1.005-1.030) 03/05/24 00: Urine Protein Negative (Negative) 03/05/24 00: Urine Glucose (UA) Negative (Normal) 03/05/24 00: Urine Ketones Negative (Negative) 03/05/24 00: Urine Blood Negative (Negative) 03/05/24 00: Urine Nitrate Negative (Negative) 03/05/24 00: Urine Bilirubin Negative (Negative) 03/05/24 00: Urine Urobilinogen 0.2 mg/dL (Negative) 03/05/24 00: Ur Leukocyte Esterase Negative (Negative) 03/05/24 00: Urine RBC 0-2 /hpf (0-2) 03/05/24 00:31 Urine WBC 0-5 /hpf (0-5) 03/05/24 00:31 Ur Squamous Epith Cells 0-5 /hpf (0-5) 03/05/24 00:31 Amorphous Sediment Not Reportable 03/05/24 00:31 Urine Bacteria None seen /hpf (NONE) 03/05/24 00:31 Hyaline Casts 0.81 /lpf 03/05/24 00:31 Coronavirus (PCR) Positive (Negative) A 03/05/24 00:00 Influenza A (PCR) Negative (Negative) 03/05/24 00:00 Influenza Type B (PCR) Negative (Negative) 03/05/24 00:00 RSV (PCR) Negative (Negative) 03/05/24 00:00 All radiology interpretation(s) finalized by discharge ED provider radiology interpretation(s): CT of the head unremarkable, chest x-ray unremarkable. Discharge Plan Discharge Patient Disposition: Placed in Observation Clinical Impression: COVID-19, Acute metabolic encephalopathy, Acute urinary retention Condition: Stable Prescriptions: No Action Miralax 17 gram/dose powder 17 g PO DAILY PRN (Reason: Constipation) Qty: 510 2RF Eliquis 5 mg tablet 5 mg PO BID@0900,2100 Qty: 180 0RF levofloxacin 750 mg tablet 750 mg PO DAILY Qty: 7 2RF albuterol sulfate 2.5 mg /3 mL (0.083 %) solution for nebulization 2.5 mg INHALATION QID PRN (Reason: shortness of breath or wheezing) Qty: 300 5RF Pacerone 200 mg tablet 200 mg PO DAILY Qty: 180 0RF (DME) nebulizers [facility] [place] See Rx Instructions .ROUTE .MEDSUPPLY Qty: 1 0RF Rx Instructions: use every 4 hours as needed levothyroxine 137 mcg tablet 137 mcg PO QAM Qty: 30 2RF sodium chloride 1,000 mg tablet,soluble 1,000 mg PO BID Qty: 60 2RF Trelegy Ellipta 100-62.5-25 mcg blister with device 1 inh inhalation BEDTIME Qty: 60 2RF ferrous gluconate 324 mg (37.5 mg iron) tablet 324 mg PO .every other night Qty: 90 0RF Rx Instructions: for iron replacement every other night Singulair 10 mg tablet 10 mg PO BEDTIME Qty: 90 1RF mirtazapine 30 mg tablet 30 mg PO QPM folic acid 1 mg tablet 1 mg PO QPM furosemide [Lasix] 20 mg tablet 20 mg PO QAM PRN (Reason: edema) Qty: 20 0RF magnesium L-threonate 48 mg magnesium (667 mg) capsule 48 mg PO DAILY Qty: 90 0RF Referrals: Martha Clark, [employer]ER-C [Primary Care Provider] - Discharge Diet: Advance as tolerated Discharge Activity: Resume usual activity Patient Instructions: Altered Mental Status (ED) Coding Level of Care Code ED Manager Transfusion for Svitlana Francois
--- NOTE | 2024-03-05 04:21 | PM.HP ---
Providers/Chief Complaint Primary Care Provider: Martha Clark, [facility] Chief Complaint: CONFUSED History of Present Illness Darrin Avila is a 68 year old male with a past medical history significant for lung cancer who follows with Dr. Juárez, chronic hypoxic respiratory failures on 5 L baseline oxygen, tobacco use disorder in remission, COPD, and multiple other comorbidities who presents emergency department with confusion. Upon assessment, patient is awake and alert. Appears hard of hearing which seems to limit verbal communication somewhat. His daughter is bedside and supportive. She notes that for the past 3 weeks or so he has been ill. He has done multiple courses of antibiotics with some waxing waning of symptoms. She notes that he has had altered mental status that has waxed and waned recently. She reports phone calls from this morning she could tell he was confused. In the emergency department, patient was found to have COVID-19 infection. He is currently requiring 5 L oxygen which is his most recent baseline oxygen level per family. Patient does endorse some shortness of breath and cough. Denies other alleviating or aggravating factors. Of note in the ER, he was also found to have difficulty urinating. Review of Systems Narrative: A complete review of systems was obtained and is negative except as stated in HPI. Medications/Allergies Home Medications Medication Instructions Recorded Confirmed Last Taken Type polyethylene glycol 3350 17 17 g PO DAILY PRN Constipation 03/16/23 02/29/24 02/13/24 Rx gram/dose oral powder (Miralax) #510 grams albuterol sulfate 2.5 mg/3 mL 2.5 mg (3 mL) inhalation QID PRN 07/26/23 02/29/24 Unknown Rx (0.083 %) solution for nebulization shortness of breath or wheezing #300 mL folic acid 1 mg tablet 1 mg PO QPM 10/22/23 02/29/24 02/13/24 History furosemide 20 mg tablet (Lasix) 20 mg PO QAM PRN edema #20 tabs 10/27/23 02/29/24 Unknown Rx magnesium L-threonate 48 mg 48 mg PO DAILY #90 caps 10/28/23 02/29/24 02/13/24 Rx magnesium (667 mg) capsule amiodarone 200 mg tablet (Pacerone) 200 mg PO DAILY #180 tabs 11/02/23 02/29/24 02/13/24 Rx nebulizers #1 ea 11/02/23 02/29/24 Unknown Rx ferrous gluconate 324 mg (37.5 mg 324 mg PO .every other night #90 12/21/23 02/29/24 02/13/24 Rx iron) tablet tabs fluticasone fur. 100 mcg-umeclid 1 inh inhalation BEDTIME #60 ea 12/21/23 02/29/24 02/13/24 Rx 62.5 mcg-vilant 25 mcg inhalat.powder (Trelegy Ellipta) levothyroxine 137 mcg tablet 137 mcg PO QAM #30 tabs 12/21/23 02/29/24 02/13/24 Rx montelukast 10 mg tablet 10 mg PO BEDTIME #90 tabs 12/21/23 02/29/24 02/13/24 Rx (Singulair) sodium chloride 1,000 mg soluble 1,000 mg PO BID #60 tabs 12/21/23 02/29/24 02/13/24 Rx tablet apixaban 5 mg tablet (Eliquis) 5 mg PO BID@0900,2100 #180 tabs 01/25/24 02/29/24 02/13/24 Rx mirtazapine 30 mg tablet 30 mg PO QPM 02/14/24 02/29/24 02/13/24 History levofloxacin 750 mg tablet 750 mg PO DAILY #7 tabs 02/15/24 02/29/24 Unknown Rx Allergies Allergy/AdvReac Type Severity Reaction Status Date / Time grass pollen Allergy Mild ALGY-Watery Verified 02/29/24 13:46 Eye PFSH Acute PFSH: Medical History Acute metabolic encephalopathy Insomnia Stage III adenocarcinoma of lung Iron deficiency anemia Physical deconditioning Wound of skin Staphylococcus aureus bacteremia Pneumonia Syncope and collapse SOB (shortness of breath) LRTI (lower respiratory tract infection) Pressure injury of buttock, stage 2 Anorexia Asthma-COPD overlap syndrome AAA (abdominal aortic aneurysm) 4.3cm July, 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 Hypotension Non-small cell cancer of right lung Smoking hx Stop December 2022 Screening for colon cancer Cologuard screen COPD (chronic obstructive pulmonary disease) COPD exacerbation Adult onset hypothyroidism Seasonal allergies Surgical History Status post lobectomy of lung Right upper January 2023 [place], [place] Family History Brother Diabetes Hyperlipidemia Father Congestive heart failure (CHF) COPD (chronic obstructive pulmonary disease) Dementia Cancer prostate Mother Congestive heart failure (CHF) COPD (chronic obstructive pulmonary disease) Cancer gastric cancer Other No history of previous surgery Social History Smoking and tobacco/nicotine status: former use of tobacco/nicotine Quit status (tobacco/nicotine): has quit using Year quit tobacco: 01/12/23 Former quit date comment: 2 ppd X 55 years Second hand smoke exposure: Yes Alcohol intake: former Substance/Drug Use: never Adopted: No Caregiver/support person: No Lives independently: Yes Household members: none Marital status: Number of children: 1 service: Yes branch: [employer] Current occupational status: retired Pets and animals: No Do you think of yourself as: Straight/Heterosexual Current gender identity: Male Vitals/I&O/Wt Last Vital Signs Temp 97.5 F L 03/04/24 23:12 Pulse 83 03/05/24 03:55 Resp 18 03/05/24 03:55 BP 140/85 03/05/24 03:55 Pulse Ox 100 03/05/24 03:55 O2 Del Method Nasal Cannula 03/05/24 03:55 O2 Flow Rate 5 03/05/24 03:55 Weight last 48 hrs Weight 64.41 kg Physical Exam Narrative: General: Patient is awake. Head: Temporal wasting. Appears hard of hearing. Neck: No JVD. Cardiovascular: No gallops. No murmurs. Lungs: Moderate air movement throughout bilateral lung john. On 5 L supplemental oxygen support. No rales or rhonchi. Skin: No jaundice. No rashes. Abdomen: Normal bowel sounds, abdomen soft and nontender. Genito Urinary: Genital exam not performed since complaints not related. Rectal: Rectal exam not performed since no symptoms indicated blood loss. Extremities: No cyanosis or clubbing. Musculoskeletal: No swollen or erythematous joints. Neurological: Moves all 4 extremities. No myoclonus. Data 03/05/24 00:00 03/05/24 00:45 Micro: Microbiology 03/05/24 00:00 Blood Culture - Preliminary Blood SPECIMEN COLLECTED 03/05/24 00:08 Blood Culture - Preliminary Blood SPECIMEN COLLECTED A&P Assessment and plan (1) COVID-19: Acute COVID-19 infection complicated by acute COPD exacerbation with chronic hypoxic respiratory failure Start dexamethasone 6 mg IV daily Status post remdesivir, will continue Supportive care (2) Stage 4 very severe COPD by GOLD classification: Severe COPD with acute exacerbation secondary to COVID-19 infection Chronic hypoxic respiratory failure with recent baseline of 5 L oxygen Treat underlying COVID-19 as above Start systemic steroids Pulmicort Scheduled DuoNebs Check procalcitonin and sputum culture (3) Acute metabolic encephalopathy: Patient with intermittent confusion consistent with acute metabolic encephalopathy Avoid sedating medications Optimize metabolic status Treat underlying infection Treat underlying respiratory disease (4) Adult onset hypothyroidism: Continue home Synthroid after med list update (5) Non-small cell cancer of right lung: Follows with medical oncology (6) Anemia: Anemia at recent baseline, continue to monitor Qualifiers: Anemia type: iron deficiency Iron deficiency anemia type: inadequate dietary iron intake Qualified Code(s): D50.8 - Other iron deficiency anemias Plan DVT prophylaxis: Apixaban Attestations Medical Necessity Statement*: Patient presents with intermittent confusion, found of acute metabolic encephalopathy complicated by acute COVID-19 resulted in acute COPD exacerbation with expected hospitalization not to cross 2 midnights for IV steroids, breathing treatments, monitoring of mentation and supportive care. Coding Level of Care Code Acute Code for Chg Fwd Diagnoses COVID-19 U07.1 Stage 4 very severe COPD by GOLD classification J44.9 Acute metabolic encephalopathy G93.41 Adult onset hypothyroidism E03.8 Non-small cell cancer of right lung C34.91 Iron deficiency anemia secondary to inadequate dietary iron intake D50.8 Anemia type: iron deficiency Iron deficiency anemia type: inadequate dietary iron intake
--- NOTE | 2024-03-05 05:34 | ECG_ITS ---
[facility] Date: 2024-[facility]05 Pat Name: Darrin Avila Department: Room: 254 Gender: Male [employer] Tester: : [id number] Requested By: Ania Bradley Order Number: [id number] Reading MD: LAURENCE RAMÍREZ Measurements Intervals [place] Rate: 81 P: 48 CA: 179 QRS: -5 QRSD: 97 T: 47 QT: 343 QTc: 399 Interpretive Statements SINUS RHYTHM LOW QRS VOLTAGE IN PRECORDIAL LEADS [QRS DEFLECTION < 1.0 mV IN CHEST LEADS] Compared to ECG 03/05/2024 00:40:42 No significant changes Electronically Signed On 03-06-2024 23:21:08 LICENSED PHYSICAL THERAPIST by LAURENCE RAMÍREZ [email or web address]
[2024-03-05 07:07] LABS: Troponin 5 6HR 9.38 ng/L (0-15); Troponin 5 6HR Delta 0.38 ng/L (0-12)
[2024-03-05] MEDS: remdesivir 200 MG in sodium chloride 0.9% (100 ml) 60 ML 100 MG IV (08:07)
[2024-03-05 08:31] LABS: Procalcitonin 0.07 ng/mL (0-0.5)
[2024-03-05] MEDS: apixaban 5 mg Tablet PO ×2 (08:43→20:08)
[2024-03-05] MEDS: methylPREDNISolone sod succ 40 mg/mL INJ IVP ×3 (08:43→20:08)
[2024-03-05] MEDS: dexamethasone 10 mg/mL INJ 6 MG IVP (08:44)
[2024-03-05] MEDS: ipratropium-albuterol 3 mL Neb INHALATION ×4 (08:49→13:41)
[2024-03-05] MEDS: budesonide 0.5 mg/2 mL Neb INHALATION (08:49)
--- NOTE | 2024-03-05 10:09 | P.PN_ITS ---
Subjective 2 Subjective: Nursing reports patient has been quite confused. He is alert and oriented x 3 during this morning's examination. Denies any pain. States that he has been breathing better. He has not had much of an appetite, says that he has been drinking fluids well. Medications: Reviewed: Yes Vitals/I&O/Wt Last Vital Signs Temp 97.5 F L 03/04/24 23:12 Pulse 84 03/05/24 09:01 Resp 20 H 03/05/24 09:01 BP 110/76 03/05/24 08:04 Pulse Ox 96 03/05/24 09:01 O2 Del Method Nasal Cannula 03/05/24 09:01 O2 Flow Rate 5 03/05/24 09:01 03/04/24 03/05/24 03/05/24 22:59 06:59 14:59 Intake Total 1100 / 1100 Balance 1100 / 1100 Weight last 48 hrs Weight 142 lb Physical Exam 2 Narrative: General: Patient is awake, oriented x 3 at this time. HEENT: temporal wasting. Conjunctiva clear, no icterus. Nares patent. MMM. Cardiovascular: Irregular rhythm with normal rate. No gallops. No murmurs. Lungs: No dyspnea or respiratory distress. Rales in lung bases. No wheezes or rhonchi. Skin: No rash. Intact on exposed areas. Abdomen: Normal bowel sounds, abdomen soft and nontender.. Extremities: No cyanosis or clubbing. Data 03/05/24 00:00 03/05/24 00:45 Micro: Microbiology 03/05/24 00:00 Blood Culture - Preliminary Blood SPECIMEN COLLECTED 03/05/24 00:08 Blood Culture - Preliminary Blood SPECIMEN COLLECTED A&P Assessment and plan (1) COVID-19: (2) Stage 4 very severe COPD by GOLD classification: (3) Acute metabolic encephalopathy: (4) Adult onset hypothyroidism: (5) Non-small cell cancer of right lung: (6) Anemia: Qualifiers: Anemia type: iron deficiency Iron deficiency anemia type: inadequate dietary iron intake Qualified Code(s): D50.8 - Other iron deficiency anemias Plan 68 y/o M with PMH of SCC of the lung admitted for COVID, metabolic encephalopathy, and COPD exacerbation. Continue inpatient monitoring and treatment. Acute COVID-19 infection complicated by acute COPD exacerbation with chronic hypoxic respiratory failure. Currently on 5L oxygen per nc which is his baseline. Continue dexamethasone and remdesivir. RAAT, O2 protocol, Duonebs, supportive cares. Severe COPD with acute exacerbation secondary to COVID-19 infection. Continue current management. Encephalopathy improving. He is alert and oriented today. Continue home medications for other chronic illnesses. Follows with oncology for his [place] lung cancer. Recheck am labs. Code Status: Allow natural . IVF: None DVT PPx: Eliquis GI PPx: None ABx: Remdesivir Diet: Regular Discharge plan: TBD. DVT prophylaxis: Apixaban Attestations 2 Medical Necessity Statement*: Patient presents with intermittent confusion, found of acute metabolic encephalopathy complicated by acute COVID-19 resulted in acute COPD exacerbation with expected hospitalization not to cross 2 midnights for IV steroids, breathing treatments, monitoring of mentation and supportive care. Coding Level of Care Code Acute Code for Chg Fwd Moderate MDM includes number and complexity of problems actively addressed during encounter, amount and/or complexity of data reviewed/ordered and described risk of complication, morbidity or mortality of management as documented Diagnoses COVID-19 U07.1 Stage 4 very severe COPD by GOLD classification J44.9 Acute metabolic encephalopathy G93.41 Adult onset hypothyroidism E03.8 Non-small cell cancer of right lung C34.91 Iron deficiency anemia secondary to inadequate dietary iron intake D50.8 Anemia type: iron deficiency Iron deficiency anemia type: inadequate dietary iron intake
[2024-03-05] MEDS: sennosides 8.6 mg Tablet 17.2 MG PO (20:08)
[2024-03-06] VITALS (16 sets, daily range): BP systolic 95–114; BP diastolic 55–77; PULSE 71–90; RESP 14–19; TEMP 36.5–36.7; O2SAT 94–100
[2024-03-06] MEDS: methylPREDNISolone sod succ 40 mg/mL INJ IVP ×2 (02:32→08:12)
[2024-03-06] MEDS: ipratropium-albuterol 3 mL Neb INHALATION ×4 (03:08→20:37)
[2024-03-06 04:36] LABS: Basophils % 0.2 %; Hematocrit 27.7 % (37-53); Lymphocytes # 0.5 10^3/uL (0.8-4.8); Lymphocytes % 7.3 %; Mean Corpuscular Hemoglobin 30.3 pg (27-33); Mean Corpuscular Volume 97.5 fl (82-101); Mean Platelet Volume 8.4 fL (7.4-10.4); Monocytes # 0.1 10^3/uL (0.2-0.9); Monocytes % 1.6 %; Neutrophils % 90.1 %; Nucleated Red Blood Cells % 0 %; Platelet Count 243 10^3/cmm (157-399); Red Blood Count 2.84 10^6/uL (3.85-5.65); Red Cell Distribution Width 15.4 % (12.1-15.1); White Blood Count 6.43 10^3/uL (3.29-11.43)
[2024-03-06 05:01] LABS: Blood Urea Nitrogen 16 mg/dL (8-23); Calcium 9.3 mg/dL (8.5-10.5); Carbon Dioxide 25 mmol/L (22-29); Chloride 96 mmol/L (98-107); Creatinine Clr Calc Pharmacy 78.8914; Glomerular Filtration Rate 111.8 mL/min (90-130); Glucose 146 mg/dL (65-115); Magnesium 2.5 mg/dL (1.7-2.3); Osmolality Calculated 278 mOsm/kg (285-295); Phosphorus 3.4 mg/dL (2.5-4.5); Sodium 132 mmol/L (136-145)
[2024-03-06] MEDS: budesonide 0.5 mg/2 mL Neb INHALATION ×2 (07:37→20:37)
[2024-03-06] MEDS: dexamethasone 10 mg/mL INJ 6 MG IVP (08:11)
[2024-03-06] MEDS: remdesivir 100 MG in sodium chloride 0.9% (100 ml) 80 ML IV (08:11)
[2024-03-06] MEDS: apixaban 5 mg Tablet PO ×2 (08:12→20:27)
--- NOTE | 2024-03-06 09:17 | PC.CHAP ---
Pastoral Care Encounter/Spiritual Assessment Type of Contact [] Declined healthcare financial analyst visit [] Patient/Family/Request visit [] Outpatient visit [] Follow-up visit [] Physician referral [] Code/Alert [x] Routine visit [] Staff referral [] Actively dying [] Patient sleeping [] Family support [] [] Out of room [] Palliative care [] [] Receiving care in room [] Pre-surgical visit [] Trauma [] Long length of stay [] ICU visit [] Other: Relational/Emotional Strength [] Patient feels connected with others/family/visitors/staff [] Distress [] Loneliness/isolation [] Abandonment Spirituality of Patient [] Person of Natalie [] Attends Muslim of their Natalie [] Believes in Prayer [] Reads Bible or Yazidism materials [] There are Spiritual issues to be addressed Lab Animal Technician Interventions [x] Prayer [] Active listening [] Non-anxious presence [] Spiritual/emotional support [] Crisis/trauma care [] Spiritual counseling [] Bereavement support [] Provided bereavement packet [] Provided Bible/devotional materials [] Provided toy/stuffed animal, coloring book to patient or family member [] Provided Communion [] Anointing/[place] [] Salvation [] Completed spiritual assessment [] Other: Impact on Illness or Injury [] Angry [] Fearful [] Anxious [] Often cries [] Exhaustion [] Unable to work [] Unable to attend spiritism [] Unable to walk/stand [] Unable to read [] Unable to drive [] Unable to eat/drink [] Unable to sleep [] Unable to be with family [] Patient intubated [] Other: Summary precaution Time spent with patient
--- NOTE | 2024-03-06 15:23 | P.PN_ITS ---
Subjective 2 Subjective: Hospital course, labs appreciated. Seen with family at bedside. Patient down to 3 L of oxygen supplementation saturating more than 95%. States he is feeling better. Denies any nausea, vomiting, headache. Medications: Reviewed: Yes Vitals/I&O/Wt Last Vital Signs Temp 97.9 F 03/06/24 11:08 Pulse 74 03/06/24 14:31 Resp 16 03/06/24 14:21 BP 100/55 03/06/24 11:08 Pulse Ox 100 03/06/24 14:21 O2 Del Method Nasal Cannula 03/06/24 14:21 O2 Flow Rate 3 03/06/24 14:21 03/06/24 03/06/24 03/06/24 06:59 14:59 22:59 Intake Total 576 / 576 Output Total 450 / 0 Balance -450 / -590 576 / 576 Weight last 48 hrs Weight 64.002 kg Weight 64.229 kg Weight 64.41 kg Physical Exam 2 Narrative: General: Patient is awake, oriented x 3 at this time. HEENT: temporal wasting. Conjunctiva clear, no icterus. Nares patent. MMM. Cardiovascular: Irregular rhythm with normal rate. No gallops. No murmurs. Lungs: No dyspnea or respiratory distress. Rales in lung bases. No wheezes or rhonchi. Skin: No rash. Intact on exposed areas. Abdomen: Normal bowel sounds, abdomen soft and nontender.. Extremities: No cyanosis or clubbing. Data 03/06/24 02:41 03/06/24 02:41 Micro: Microbiology 03/05/24 00:00 Blood Culture - Preliminary Blood NEGATIVE TO DATE 03/05/24 00:08 Blood Culture - Preliminary Blood NEGATIVE TO DATE A&P Assessment and plan (1) COVID-19: Hypoxia secondary to COVID-19 pneumonia: Mild to moderate disease. Oxygen supplementation keeping saturation over 88%. Dexamethasone 6 mg daily. Remdesivir 3 to 5-day course depending on oxygen requirement DuoNeb every 6 hour, budesonide twice daily Pulmonary toilet with incentive spirometry flutter valve. We will monitor inflammatory markers including CRP every 48 hours. Patient already on Eliquis 5 mg twice daily given history of A-fib. For now we will continue. Check sputum culture,, follow-up blood culture. Procalcitonin negative. Low suspicion of bacterial infection for now. Not started on antibiotics on admission. Clinically improving. For now hold off on starting antibiotics. Given hypoxia will try to keep patient as negative as possible. Lasix as per fluid status. Strict input output charting, daily weights. (2) Stage 4 very severe COPD by GOLD classification: Pulmicort twice daily, DuoNeb every 6 hour. Continue with dexamethasone as above. Discontinue Solu-Medrol. (3) Acute metabolic encephalopathy: Most likely in setting of COVID-19 leading to hypoxia. (4) Adult onset hypothyroidism: Restart home dose of levothyroxine. Check TSH. (5) Non-small cell cancer of right lung: (6) Anemia: Qualifiers: Anemia type: iron deficiency Iron deficiency anemia type: inadequate dietary iron intake Qualified Code(s): D50.8 - Other iron deficiency anemias Plan Chronic hyponatremia: Sodium level at baseline. Restart home dose of salt tablet. Restart other home medications including amiodarone 20 mg daily, folic acid, iron supplementation, Remeron, salt tablets. Code Status: Discussed in detail with the patient. Allow natural . IVF: None DVT PPx: Eliquis GI PPx: Protonix Antimicrobial: Remdesivir Diet: Regular Discharge plan: Discharge back home possibly within next 24 hours of remains on stable oxygen supplementation after finishing 3-day course of remdesivir. DVT prophylaxis: Apixaban Attestations 2 Medical Necessity Statement*: Requires further hospitalization for management of hypoxia in setting of COVID- 19, resolving AMS. Diagnoses COVID-19 U07.1 Stage 4 very severe COPD by GOLD classification J44.9 Acute metabolic encephalopathy G93.41 Adult onset hypothyroidism E03.8 Non-small cell cancer of right lung C34.91 Iron deficiency anemia secondary to inadequate dietary iron intake D50.8 Anemia type: iron deficiency Iron deficiency anemia type: inadequate dietary iron intake
[2024-03-06] MEDS: pantoprazole DR 40 mg Tablet PO (16:15)
[2024-03-06] MEDS: REMDESIVIR IV (17:24)
[2024-03-06] MEDS: SODIUM CHLORIDE 0.9% IV (17:24)
[2024-03-06] MEDS: folic acid 1 mg Tablet PO (17:25)
[2024-03-06] MEDS: sodium chloride 1 gm Tablet PO (17:25)
[2024-03-06] MEDS: mirtazapine 30 mg Tablet PO (17:25)
--- NOTE | 2024-03-06 19:07 | PC.NURSE ---
pt refused branch removal, stated, if you take out i can't pee.
[2024-03-06] MEDS: sennosides 8.6 mg Tablet 17.2 MG PO (20:27)
[2024-03-06] MEDS: ferrous gluconate 324 mg Tablet PO (20:27)
[2024-03-07] VITALS (7 sets, daily range): BP systolic 94–104; BP diastolic 54–60; PULSE 72–88; RESP 16–18; TEMP 36.7–37.1; O2SAT 96–100
[2024-03-07] MEDS: ipratropium-albuterol 3 mL Neb INHALATION ×2 (03:04→07:58)
[2024-03-07] MEDS: levothyroxine 137 mcg Tablet PO (05:10)
[2024-03-07 05:27] LABS: Basophils % 0.1 %; Hematocrit 24.9 % (37-53); Lymphocytes # 0.6 10^3/uL (0.8-4.8); Lymphocytes % 6.7 %; Mean Corpuscular HGB Conc 31.3 g/dL (30-55); Mean Corpuscular Hemoglobin 30.6 pg (27-33); Mean Corpuscular Volume 97.6 fl (82-101); Mean Platelet Volume 8.1 fL (7.4-10.4); Monocytes # 0.5 10^3/uL (0.2-0.9); Monocytes % 5.8 %; Neutrophils # 7.73 10^3/uL (1.8-7.7); Neutrophils % 86.8 %; Nucleated Red Blood Cells % 0 %; Platelet Count 215 10^3/cmm (157-399); Red Blood Count 2.55 10^6/uL (3.85-5.65); Red Cell Distribution Width 15.7 % (12.1-15.1); White Blood Count 8.91 10^3/uL (3.29-11.43)
[2024-03-07 05:51] LABS: Alanine Aminotransferase 14 U/L (0-41); Albumin Level 2.7 g/dL (3.5-5.2); Alkaline Phosphatase 94 U/L (40-130); Anion Gap 13.4 (5-19); Aspartate Amino Transferase 12 U/L (0-40); Blood Urea Nitrogen 22 mg/dL (8-23); Calcium 8.8 mg/dL (8.5-10.5); Carbon Dioxide 27 mmol/L (22-29); Chloride 97 mmol/L (98-107); Creatinine Clr Calc Pharmacy 78.8914; Globulin 3.3 g/dL (1.3-4.6); Glomerular Filtration Rate 111.8 mL/min (90-130); Glucose 109 mg/dL (65-115); Osmolality Calculated 280 mOsm/kg (285-295); Potassium 4.4 mmol/L (3.5-5.1); Sodium 133 mmol/L (136-145); Total Bilirubin 0.2 mg/dL (0.15-1.2)
[2024-03-07] MEDS: budesonide 0.5 mg/2 mL Neb INHALATION (07:58)
[2024-03-07] MEDS: amiodarone 200 mg Tablet PO (08:48)
[2024-03-07] MEDS: apixaban 5 mg Tablet PO (08:48)
[2024-03-07] MEDS: pantoprazole DR 40 mg Tablet PO (08:48)
[2024-03-07] MEDS: sodium chloride 1 gm Tablet PO (08:48)
[2024-03-07] MEDS: dexamethasone 10 mg/mL INJ 6 MG IVP (08:48)
[2024-03-07] MEDS: remdesivir 100 MG in sodium chloride 0.9% (100 ml) 80 ML IV (08:49)
--- NOTE | 2024-03-07 10:31 | P.DS_ITS ---
Discharge Providers Date of Admission: 03/06/24 13:17 Date of Discharge: March 07, 2024 Attending Provider at Admission: Hugh Davis MD Attending Provider at Discharge: Jhon Baugh MD Primary Care Provider: MANJEET Bucio Diagnoses at Discharge Discharge Diagnosis (1) COVID-19: Status: Acute (2) Stage 4 very severe COPD by GOLD classification: Status: Acute (3) Acute metabolic encephalopathy: Status: Acute (4) Adult onset hypothyroidism: Status: Chronic (5) Non-small cell cancer of right lung: Status: Acute (6) Anemia: Status: Acute Qualifiers: Anemia type: iron deficiency Iron deficiency anemia type: inadequate dietary iron intake Qualified Code(s): D50.8 - Other iron deficiency anemias Reason for Visit Reason for Visit: CONFUSED Brief History: History as per HPI: Darrin Avila is a 68 year old male with a past medical history significant for lung cancer who follows with Dr. Juárez, chronic hypoxic respiratory failures on 5 L baseline oxygen, tobacco use disorder in remission, COPD, and multiple other comorbidities who presents emergency department with confusion. Upon assessment, patient is awake and alert. Appears hard of hearing which seems to limit verbal communication somewhat. His daughter is bedside and supportive. She notes that for the past 3 weeks or so he has been ill. He has done multiple courses of antibiotics with some waxing waning of symptoms. She notes that he has had altered mental status that has waxed and waned recently. She reports phone calls from this morning she could tell he was confused. In the emergency department, patient was found to have COVID-19 infection. He is currently requiring 5 L oxygen which is his most recent baseline oxygen level per family. Patient does endorse some shortness of breath and cough. Denies other alleviating or aggravating factors. Of note in the ER, he was also found to have difficulty urinating. Hospital Course Hospital Course Patient was admitted to the hospital further evaluation and management of hypoxia in setting of COPD exacerbation due to COVID-19. On admission there was also concern for metabolic encephalopathy and urinary retention for which Alfaro catheter was placed and he was started on treatment for COVID-19. With steroids, nebulization and remdesivir. He responded well to the treatment and has been back to his baseline oxygen supplementation for last 48 hours. He has finished 3-day course of remdesivir. Voiding trial was done prior to discharge. He has been discharged in hemodynamically stable condition on oral dexamethasone for next 10 days. He has been advised to wean his oxygen supplementation keeping saturation over 88%. He is to follow-up with his primary care provider within next 1 week. Physical Exam Narrative: General: Patient is awake, oriented x 3 at this time. HEENT: temporal wasting. Conjunctiva clear, no icterus. Nares patent. MMM. Cardiovascular: Irregular rhythm with normal rate. No gallops. No murmurs. Lungs: No dyspnea or respiratory distress. Rales in lung bases. No wheezes or rhonchi. Skin: No rash. Intact on exposed areas. Abdomen: Normal bowel sounds, abdomen soft and nontender.. Extremities: No cyanosis or clubbing. Discharge Data Studies Completed and Pending Completed Studies During Hospitalization Category Date Time Status CT head wo con* [id number] Stat Cat Scan 03/04/24 23:32 Completed XR chest 2V* [id number] Stat Exams 03/04/24 23:32 Completed Pending at discharge Category Date Time Status Blood Culture Stat Lab 03/04/24 23:33 Results Sputum Culture and Gram Stain Routine Lab 03/05/24 08:04 Uncollected Radiology Impressions Chest X-Ray 03/04/24 23:32 IMPRESSION: 1. Right pneumonectomy with 50% fluid filling of the right hemithorax, slightly increased since January 2024. 2. No acute findings. Head CT 03/04/24 23:32 IMPRESSION: 1. No acute intracranial findings. 2. Age-related changes. 3. Fluid in the right maxillary sinus Microbiology 03/05/24 00:00 Blood Blood Culture - Preliminary NEGATIVE TO DATE 03/05/24 00:08 Blood Blood Culture - Preliminary NEGATIVE TO DATE Laboratory Results WBC 8.91 10^3/uL (3.29-11.43) 03/07/24 05:11 RBC 2.55 10^6/uL (3.85-5.65) L 03/07/24 05:11 Hgb 7.80 g/dL (11.27-16.99) L 03/07/24 05:11 Hct 24.9 % (37-53) L 03/07/24 05:11 MCV 97.6 fl (82-101) 03/07/24 05:11 MCH 30.6 pg (27-33) 03/07/24 05:11 MCHC 31.3 g/dL (30-55) 03/07/24 05:11 RDW 15.7 % (12.1-15.1) H 03/07/24 05:11 Plt Count 215 10^3/cmm (157-399) 03/07/24 05:11 MPV 8.1 fL (7.4-10.4) 03/07/24 05:11 Neut % (Auto) 86.8 % 03/07/24 05:11 Lymph % (Auto) 6.7 % 03/07/24 05:11 [place] % (Auto) 5.8 % 03/07/24 05:11 Eos % (Auto) 0.0 % 03/07/24 05:11 Baso % (Auto) 0.1 % 03/07/24 05:11 Neut # (Auto) 7.73 10^3/uL (1.8-7.7) H 03/07/24 05:11 Lymph # (Auto) 0.6 10^3/uL (0.8-4.8) L 03/07/24 05:11 [place] # (Auto) 0.5 10^3/uL (0.2-0.9) 03/07/24 05:11 Eos # (Auto) 0.0 10^3/uL (0.0-0.8) 03/07/24 05:11 Baso # (Auto) 0.0 10^3/uL (0.0-0.1) 03/07/24 05:11 Nucleated RBC % (auto) 0 % 03/07/24 05:11 Nucleated RBCs # 0.0 /100WBC 03/07/24 05:11 Sodium 133 mmol/L (136-145) L 03/07/24 05:11 Potassium 4.4 mmol/L (3.5-5.1) 03/07/24 05:11 Chloride 97 mmol/L (98-107) L 03/07/24 05:11 Carbon Dioxide 27 mmol/L (22-29) 03/07/24 05:11 Anion Gap 13.4 (5-19) 03/07/24 05:11 BUN 22 mg/dL (8-23) 03/07/24 05:11 Creatinine 0.7 mg/dL (0.7-1.2) 03/07/24 05:11 GFR Calculation 111.8 mL/min (90-130) 03/07/24 05:11 Glucose 109 mg/dL (65-115) 03/07/24 05:11 Calculated Osmolality 280 mOsm/kg (285-295) L 03/07/24 05:11 Calcium 8.8 mg/dL (8.5-10.5) 03/07/24 05:11 Phosphorus 3.4 mg/dL (2.5-4.5) 03/06/24 02:41 Magnesium 2.5 mg/dL (1.7-2.3) H 03/06/24 02:41 Total Bilirubin 0.2 mg/dL (0.15-1.2) 03/07/24 05:11 AST 12 U/L (0-40) 03/07/24 05:11 ALT 14 U/L (0-41) 03/07/24 05:11 Alkaline Phosphatase 94 U/L (40-130) 03/07/24 05:11 Troponin T Baseline 9 ng/L (0-15) 03/05/24 00:45 Troponin T 120 Minute 9.14 ng/L (0-15) 03/05/24 02:10 Delta Troponin T 0.14 ABS# (0-10) 03/05/24 02:10 Troponin T Hi Sens 6Hr 9.38 ng/L (0-15) 03/05/24 06:30 Troponin T Hi Sens 6Hr Delta 0.38 ng/L (0-12) 03/05/24 06:30 NT-Pro-B Natriuret Pep 347 pg/mL (0-125) H 03/05/24 00:45 Total Protein 6.0 g/dL (6.6-8.7) L 03/07/24 05:11 Albumin 2.7 g/dL (3.5-5.2) L 03/07/24 05:11 Globulin 3.3 g/dL (1.3-4.6) 03/07/24 05:11 Procalcitonin 0.07 ng/mL (0-0.5) 03/05/24 06:30 Urine Color Yellow (Yellow) 03/05/24 00:31 Urine Appearance Clear (CLEAR) 03/05/24 00:31 Urine pH 7.5 (5-7) 03/05/24 00:31 Ur Specific [place] 1.008 (1.005-1.030) 03/05/24 00:31 Urine Protein Negative (Negative) 03/05/24 00:31 Urine Glucose (UA) Negative (Normal) 03/05/24 00:31 Urine Ketones Negative (Negative) 03/05/24 00:31 Urine Blood Negative (Negative) 03/05/24 00:31 Urine Nitrate Negative (Negative) 03/05/24 00: Urine Bilirubin Negative (Negative) 03/05/24 00:31 Urine Urobilinogen 0.2 mg/dL (Negative) 03/05/24 00:31 Ur Leukocyte Esterase Negative (Negative) 03/05/24 00:31 Urine RBC 0-2 /hpf (0-2) 03/05/24 00:31 Urine WBC 0-5 /hpf (0-5) 03/05/24 00:31 Ur Squamous Epith Cells 0-5 /hpf (0-5) 03/05/24 00:31 Amorphous Sediment Not Reportable 03/05/24 00:31 Urine Bacteria None seen /hpf (NONE) 03/05/24 00:31 Hyaline Casts 0.81 /lpf 03/05/24 00:31 Coronavirus (PCR) Positive (Negative) A 03/05/24 00:00 Influenza A (PCR) Negative (Negative) 03/05/24 00:00 Influenza Type B (PCR) Negative (Negative) 03/05/24 00:00 RSV (PCR) Negative (Negative) 03/05/24 00:00 Vitals Last Vital Signs Temp 98.7 F 03/07/24 08:00 Pulse 77 03/07/24 08:12 Resp 18 03/07/24 08:00 BP 101/55 03/07/24 08:00 Pulse Ox 98 03/07/24 08:00 O2 Del Method Nasal Cannula 03/07/24 08:00 O2 Flow Rate 3 03/07/24 08:00 Discharge Plan Discharge Patient Disposition: Home Health Service Condition: Stable Prescriptions: New pantoprazole [Protonix] 40 mg tablet,delayed release (DR/EC) 40 mg PO QAM Qty: 60 0RF Rx Instructions: Twice daily for next 2 weeks followed by once daily dexamethasone 6 mg tablet 6 mg PO DAILY Qty: 10 0RF Continued Eliquis 5 mg tablet 5 mg PO BID@0900,2100 Qty: 180 0RF albuterol sulfate 2.5 mg /3 mL (0.083 %) solution for nebulization 2.5 mg INHALATION QID PRN (Reason: shortness of breath or wheezing) Qty: 300 5RF Pacerone 200 mg tablet 200 mg PO DAILY Qty: 180 0RF (DME) nebulizers Mis See Rx Instructions .ROUTE .MEDSUPPLY Qty: 1 0RF Rx Instructions: use every 4 hours as needed levothyroxine 137 mcg tablet 137 mcg PO QAM Qty: 30 2RF sodium chloride 1,000 mg tablet,soluble 1,000 mg PO BID Qty: 60 2RF Trelegy Ellipta 100-62.5-25 mcg blister with device 1 inh inhalation BEDTIME Qty: 60 2RF ferrous gluconate 324 mg (37.5 mg iron) tablet 324 mg PO .every other night Qty: 90 0RF Rx Instructions: for iron replacement every other night Singulair 10 mg tablet 10 mg PO BEDTIME Qty: 90 1RF mirtazapine 30 mg tablet 30 mg PO QPM folic acid 1 mg tablet 1 mg PO QPM magnesium L-threonate 48 mg magnesium (667 mg) capsule 48 mg PO DAILY Qty: 90 0RF Discharge Orders: Discharge Order (Routine); Ordered 03/07/24 Ordered By: Jhon Baugh Referrals: [facility] [Outside] Martha Clark FNP-C [Primary Care Provider] - 03/16/24 1:00 pm Discharge Diet: Advance as tolerated Discharge Activity: Resume usual activity Patient Instructions: Dexamethasone (By mouth), Pantoprazole (By mouth), Altered Mental Status (ED), COVID-19 (Coronavirus Disease 2019) (GEN), Opioid Safety Activity Restrictions/Additional Instructions: Take Protonix twice daily for next 2 weeks followed by once daily. Follow-up with a primary care provider within next 1 week for repeat CBC. Advised to continue working with incentive spirometry and flutter valve while at home. Advised to continue taking dexamethasone 6 mg for next 10 days. Advised to follow-up with his primary care provider within the next 4 to 7 days. Can take COVID-19 vaccination in 3 months. Advised to continue following social distancing and isolation protocol for next 10 days. Advised to come back to the ER if fever of more than 101 Fahrenheit, more difficulty breathing than usual or requiring higher oxygen supplementation. Discharge Attestations Time Spent in Discharge Care*: greater than 30 min Specific Discharge Activities: educating patient, discussing with pcp/other providers, discussing with watch case polisher/social workers/dc planners, documenting/other paperwork and evaluating patient/reviewing data Status at Discharge: Cognitive status at discharge: cognitively intact , Behavioral status at discharge: cooperative , Functional status at discharge: uses cane/walker , Overall status at discharge: patient is back to baseline Quality Metrics Clinical Quality Measures [ No reported AMI, CVA or VTE this stay] Coding Level of Care Code 98643 Total time (in minutes) for Discharge: 60 Diagnoses COVID-19 U07.1 Stage 4 very severe COPD by GOLD classification J44.9 Acute metabolic encephalopathy G93.41 Adult onset hypothyroidism E03.8 Non-small cell cancer of right lung C34.91 Iron deficiency anemia secondary to inadequate dietary iron intake D50.8 Anemia type: iron deficiency Iron deficiency anemia type: inadequate dietary iron intake
== END 2024-03-07 13:22 | disposition home health service (06) | DRG 177 ==
LOC: ER 03-05 04:28 → MEDSURG 03-05 04:33
PROVIDERS: Nurse Practitioner; Admitting Provider Internal Medicine; Emergency Provider Emergency Medicine; PCP Nurse Practitioner; Visit Provider Student in an Organized Health Care Education/Training Program
DX: U07.1 COVID-19 (principal); G93.41 Metabolic encephalopathy; J44.1 Chronic obstructive pulmonary disease with (acute) exacerbation; J96.11 Chronic respiratory failure with hypoxia; Z99.81 Dependence on supplemental oxygen; Z87.891 Personal history of nicotine dependence; E03.9 Hypothyroidism, unspecified; Z85.118 Personal history of other malignant neoplasm of bronchus and lung; D50.9 Iron deficiency anemia, unspecified; R33.9 Retention of urine, unspecified; I71.40 Abdominal aortic aneurysm, without rupture, unspecified; Z79.01 Long term (current) use of anticoagulants
CPT/HCPCS: 36415; 70450; 71046; 80048; 80053; 81001; 83735; 83880; 84100; 84145; 84484; 85025; 87040; 87637; 93005; 94640; 94664; 96365; 99285; G0378; J0248; J1100; J2919; J7030; J7626

== ENCOUNTER 2024-03-21 13:14 | Oncology outpatient (recurring) (ONCR) | payer MEDICARE, SELFPAY ==
[2024-03-21 13:31] LABS: Eosinophils # 0.1 10^3/uL (0.0-0.8); Eosinophils % 1.2 %; Hematocrit 27.9 % (37-53); Lymphocytes # 0.7 10^3/uL (0.8-4.8); Lymphocytes % 10.2 %; Mean Corpuscular HGB Conc 30.8 g/dL (30-55); Mean Corpuscular Hemoglobin 30.8 pg (27-33); Mean Platelet Volume 7.9 fL (7.4-10.4); Monocytes # 0.4 10^3/uL (0.2-0.9); Monocytes % 6.3 %; Neutrophils # 5.59 10^3/uL (1.8-7.7); Neutrophils % 81.9 %; Nucleated Red Blood Cells % 0 %; Platelet Count 179 10^3/cmm (157-399); Red Blood Count 2.79 10^6/uL (3.85-5.65); Red Cell Distribution Width 19.8 % (12.1-15.1); White Blood Count 6.83 10^3/uL (3.29-11.43)
[2024-03-21 13:56] LABS: Alanine Aminotransferase 20 U/L (0-41); Alkaline Phosphatase 82 U/L (40-130); Anion Gap 11.3 (5-19); Aspartate Amino Transferase 13 U/L (0-40); Blood Urea Nitrogen 13 mg/dL (8-23); Calcium 8.6 mg/dL (8.5-10.5); Carbon Dioxide 28 mmol/L (22-29); Chloride 97 mmol/L (98-107); Globulin 3.5 g/dL (1.3-4.6); Glomerular Filtration Rate 133.6 mL/min (90-130); Glucose 86 mg/dL (65-115); Iron 27 ug/dL (59-158); Osmolality Calculated 273 mOsm/kg (285-295); Potassium 4.3 mmol/L (3.5-5.1); Prostate Specific Antigen Scr 0.42 ng/mL (0-4); Sodium 132 mmol/L (136-145); Total Bilirubin 0.3 mg/dL (0.15-1.2); Total Protein 6.5 g/dL (6.6-8.7)
[2024-03-21 14:12] LABS: Ferritin 2182 ng/mL (30-400)
== END 2024-04-14 23:59 | disposition home or self-care (01) ==
PROVIDERS: Nurse Practitioner; Absent Provider Radiology Radiation Oncology; PCP Nurse Practitioner; Visit Provider Nurse Practitioner Family
DX: C34.11 Malignant neoplasm of upper lobe, right bronchus or lung; D50.8 Other iron deficiency anemias; C77.1 Secondary and unspecified malignant neoplasm of intrathoracic lymph nodes; D64.9 Anemia, unspecified; Z12.5 Encounter for screening for malignant neoplasm of prostate; Z87.891 Personal history of nicotine dependence; Z95.828 Presence of other vascular implants and grafts; Z92.21 Personal history of antineoplastic chemotherapy; Z92.3 Personal history of irradiation; Z53.9 Procedure and treatment not carried out, unspecified reason
CPT/HCPCS: 80053; 82728; 83540; 85025; 99214; G0103

== ENCOUNTER 2024-04-28 10:02 | Outpatient (CLI) | payer MEDICARE, SELFPAY ==
--- NOTE | 2024-04-28 10:15 | CTR_ITS ---
PROCEDURE INFORMATION: Exam: CT Chest With Contrast; Diagnostic Exam date and time: 04/28/2024 10:36 AM Age: 68 years old Clinical indication: Condition or disease; Other: Lung cancer; Prior surgery; Surgery date: 6+ months; Surgery type: Ru lobectomy; Additional info: Compare to previous; Lung cancer TECHNIQUE: Imaging protocol: Diagnostic computed tomography of the chest with contrast. Radiation optimization: All CT scans at this facility use at least one of these dose optimization techniques: automated exposure control; mA and/or kV adjustment per patient size (includes targeted exams where dose is matched to clinical indication); or iterative reconstruction. Contrast material: OMNI 350; Contrast volume: 100 ml; Contrast route: INTRAVENOUS (IV); COMPARISON: PT PET skull to thigh [id number] [id number] 02/04/2024 1:48 PM RADIATION DOSE METRICS: Total DLP (mGy-cm): 769.78 FINDINGS: Lungs: Right pneumonectomy cavity in the upper thorax is predominantly gas-filled but also contains a small volume of fluid, mildly progressive since 02/04/2024. There is dense consolidation and volume loss throughout the right lower lobe. There is progressive right middle lobe atelectasis since 02/04/2024. There is dependent reticular opacity in the left lower lobe. There is a calcified granuloma in the left upper lobe. Mild centrilobular emphysema is visible in the left lung. Pleural spaces: No pleural effusion or pneumothorax on the left. Heart: Heart size is normal. There is trace pericardial effusion. Mediastinal space: There is volume loss in the right hemithorax with rightward mediastinal shift. Lymph nodes: There is an a 12 mm short axis upper mediastinal lymph node posterior to the trachea on axial series 5, image 15 which is stable since 12/01/2023. Vasculature: There is moderate aortic atherosclerotic disease. Diaphragm: There is moderate asymmetric elevation of the right hemidiaphragm. Bones/joints: Mild chronic L1 superior endplate compression fracture. No acute osseous findings. Soft tissues: The extrathoracic soft tissues are unremarkable. COMMENTS: The presence of pulmonary emphysema on CT is an independent risk factor for lung cancer. In the absence of a history or active diagnosis of lung cancer, it is recommended that this patient with emphysema be evaluated for enrollment in a low dose CT lung cancer screening program. PROCEDURE INFORMATION: Exam: CT Abdomen And Pelvis With Contrast Exam date and time: 04/28/2024 10:36 AM Age: 68 years old Clinical indication: Condition or disease; Other: Lung cancer; Prior surgery; Surgery date: 6+ months; Surgery type: Ru lobectomy; Additional info: Compare to previous; Lung cancer TECHNIQUE: Imaging protocol: Computed tomography of the abdomen and pelvis with contrast. Radiation optimization: All CT scans at this facility use at least one of these dose optimization techniques: automated exposure control; mA and/or kV adjustment per patient size (includes targeted exams where dose is matched to clinical indication); or iterative reconstruction. Contrast material: OMNI 350; Contrast volume: 100 ml; Contrast route: INTRAVENOUS (IV); COMPARISON: PT PET skull to thigh SUBS [id number] 02/04/2024 1:48 PM RADIATION DOSE METRICS: Total DLP (mGy-cm): 769.78 FINDINGS: Diaphragm: There is moderate asymmetric elevation of the right hemidiaphragm. Liver: There is a 6 mm nodule or cyst in the right lobe of the liver, stable since 12/01/2023. Gallbladder and biliary ducts: The gallbladder is normal. There is no biliary dilation. Pancreas: The pancreas is unremarkable. Spleen: The spleen is unremarkable. Adrenal glands: There is mild bilateral adrenal hypertrophy. No significant adrenal nodule. Kidneys and ureters: The kidneys are unremarkable. No hydronephrosis or stones. No ureteral dilation. Stomach and bowel: The stomach is nondistended, limiting assessment of wall thickness. The small bowel is nondilated. The colon is unremarkable. Appendix: The appendix is not visible. Intraperitoneal space: There is no free air or significant intraperitoneal free fluid. Vasculature: There is moderate aortic atherosclerotic disease. There is a bilobed saccular infrarenal abdominal aortic aneurysm measuring up to 4.7 x 4.7 cm, stable since 12/01/2023. The portal, splenic and superior mesenteric veins are patent. Lymph nodes: There is no lymphadenopathy in the retroperitoneum, mesentery, pelvis or inguinal regions. Urinary bladder: The urinary bladder is nondistended, limiting assessment of wall thickness. Reproductive: The prostate and seminal vesicles are unremarkable. Bones/joints: There is moderate degenerative disease in the lumbar spine. There is a mild chronic L1 superior endplate compression fracture. There is mild degenerative disease of both hips. The bony pelvis is intact. Soft tissues: The abdominal wall is intact. CT/CT chest abdpel w/*[id number] IMPRESSION: 1. Persistent diffuse consolidation of the right lower lobe consistent with some combination of atelectasis and neoplasm. Postobstructive pneumonia is possible. 2. Progressive atelectasis in the right middle lobe. 3. Right upper lobectomy with predominantly gas-filled pneumonectomy cavity containing a small amount of fluid. The fluid component is slightly increased since 02/04/2024. Overall size is similar. 4. Volume loss in the right hemithorax with stable rightward mediastinal shift. 5. Stable mildly enlarged upper mediastinal lymph node since 12/01/2023. 6. Incidental findings above. IMPRESSION: 1. No change since 12/01/2023. 2. Stable 6 mm liver nodule or cyst, statistically most likely benign. 3. 4.7 cm infrarenal abdominal aortic aneurysm is stable since 12/01/2023. Follow-up imaging in 6 months is recommended. In addition to planning follow-up imaging, one should also consider surgical or endovascular referral. 4. Incidental findings above.
[2024-04-28] MEDS: iohexol 350 mg/mL 500 mL Btl (per mL) IV (10:53)
== END 2024-04-28 10:03 | disposition home or self-care (01) ==
PROVIDERS: PCP Nurse Practitioner; Visit Provider Internal Medicine Medical Oncology
DX: C34.91 Malignant neoplasm of unspecified part of right bronchus or lung (principal); R91.8 Other nonspecific abnormal finding of lung field; J98.11 Atelectasis; Z98.890 Other specified postprocedural states; R59.0 Localized enlarged lymph nodes; R93.2 Abnormal findings on diagnostic imaging of liver and biliary tract; E27.8 Other specified disorders of adrenal gland; I70.0 Atherosclerosis of aorta; I71.43 Infrarenal abdominal aortic aneurysm, without rupture; M51.369 Other intervertebral disc degeneration, lumbar region without mention of lumbar back pain or lower extremity pain; M48.56XA Collapsed vertebra, not elsewhere classified, lumbar region, initial encounter for fracture; M16.0 Bilateral primary osteoarthritis of hip
CPT/HCPCS: 71260; 74177

== ENCOUNTER 2024-05-01 08:31 | Oncology outpatient (recurring) (ONCR) | payer MEDICARE, SELFPAY ==
[2024-05-01 09:17] LABS: Basophils % 0.5 %; Eosinophils # 0.2 10^3/uL (0.0-0.8); Hematocrit 27.4 % (37-53); Lymphocytes # 0.8 10^3/uL (0.8-4.8); Lymphocytes % 15.1 %; Mean Corpuscular HGB Conc 29.9 g/dL (30-55); Mean Corpuscular Hemoglobin 29.7 pg (27-33); Mean Corpuscular Volume 99.3 fl (82-101); Mean Platelet Volume 7.6 fL (7.4-10.4); Monocytes # 0.5 10^3/uL (0.2-0.9); Monocytes % 8.4 %; Neutrophils # 3.95 10^3/uL (1.8-7.7); Neutrophils % 71.8 %; Nucleated Red Blood Cells % 0 %; Platelet Count 238 10^3/cmm (157-399); Red Blood Count 2.76 10^6/uL (3.85-5.65); Red Cell Distribution Width 17.2 % (12.1-15.1)
[2024-05-01 09:40] LABS: Alanine Aminotransferase 12 U/L (0-41); Albumin Level 3.3 g/dL (3.5-5.2); Alkaline Phosphatase 102 U/L (40-130); Anion Gap 13.1 (5-19); Aspartate Amino Transferase 10 U/L (0-40); Blood Urea Nitrogen 12 mg/dL (8-23); Carbon Dioxide 29 mmol/L (22-29); Chloride 99 mmol/L (98-107); Globulin 3.7 g/dL (1.3-4.6); Glomerular Filtration Rate 111.8 mL/min (90-130); Glucose 86 mg/dL (65-115); Osmolality Calculated 283 mOsm/kg (285-295); Potassium 4.1 mmol/L (3.5-5.1); Sodium 137 mmol/L (136-145); Total Bilirubin 0.2 mg/dL (0.15-1.2)
== END 2024-05-15 23:59 | disposition home or self-care (01) ==
PROVIDERS: Internal Medicine Medical Oncology; Absent Provider Radiology Radiation Oncology; PCP Nurse Practitioner; Visit Provider Nurse Practitioner Family
DX: C34.11 Malignant neoplasm of upper lobe, right bronchus or lung (principal); Z87.891 Personal history of nicotine dependence; D64.9 Anemia, unspecified; Z92.3 Personal history of irradiation; Z95.828 Presence of other vascular implants and grafts; Z92.21 Personal history of antineoplastic chemotherapy
CPT/HCPCS: 36591; 80053; 85025; 99214

== ENCOUNTER 2024-06-12 14:43 | Oncology outpatient (recurring) (ONCR) | payer MEDICARE, SELFPAY ==
[2024-06-12 15:12] LABS: Basophils % 0.8 %; Eosinophils # 0.2 10^3/uL (0.0-0.8); Eosinophils % 3.4 %; Hematocrit 29.6 % (37-53); Lymphocytes % 18.9 %; Mean Corpuscular HGB Conc 31.4 g/dL (30-55); Mean Corpuscular Hemoglobin 31.1 pg (27-33); Mean Platelet Volume 7.8 fL (7.4-10.4); Monocytes # 0.4 10^3/uL (0.2-0.9); Monocytes % 8.2 %; Neutrophils # 3.42 10^3/uL (1.8-7.7); Neutrophils % 68.1 %; Nucleated Red Blood Cells % 0 %; Platelet Count 191 10^3/cmm (157-399); Red Blood Count 2.99 10^6/uL (3.85-5.65); Red Cell Distribution Width 15.8 % (12.1-15.1); White Blood Count 5.02 10^3/uL (3.29-11.43)
[2024-06-12 15:55] LABS: 25 Hydroxy Vitamin D 17 ng/mL (30-100); Alanine Aminotransferase 8 U/L (0-41); Albumin Level 3.5 g/dL (3.5-5.2); Alkaline Phosphatase 118 U/L (40-130); Anion Gap 13.9 (5-19); Aspartate Amino Transferase 9 U/L (0-40); Blood Urea Nitrogen 18 mg/dL (8-23); Calcium 9.3 mg/dL (8.5-10.5); Carbon Dioxide 27 mmol/L (22-29); Chloride 97 mmol/L (98-107); Chol HDL Ratio 3.12 mg/dL (1.0-5.00); Cholesterol 156 mg/dL (0-200); Globulin 4.1 g/dL (1.3-4.6); Glomerular Filtration Rate 73.9 mL/min (90-130); Glucose 89 mg/dL (65-115); HDL Cholesterol 50 mg/dL (60-100); Iron 38 ug/dL (59-158); LDL Cholesterol Calculated 91 mg/dL (50-129); Osmolality Calculated 277 mOsm/kg (285-295); Potassium 4.9 mmol/L (3.5-5.1); Sodium 133 mmol/L (136-145); Thyroid Stimulating Hormone 69.02 uIU/mL (0.27-4.20); Total Bilirubin 0.2 mg/dL (0.15-1.2); Total Protein 7.6 g/dL (6.6-8.7); Triglycerides 77 mg/dL (0-150); VLDL Cholestrol Calculation 15 mg/dL (0-30)
[2024-06-13 12:05] LABS: Free T4 Free Thyroxine 0.82 ng/dL (0.82-1.77); T3 Free 1.9 PG/ML (2.0-4.4)
== END 2024-06-14 23:59 | disposition home or self-care (01) ==
LOC: ONCMED 14:43
PROVIDERS: Absent Provider Radiology Radiation Oncology; PCP Nurse Practitioner; Visit Provider Nurse Practitioner Family
DX: C34.91 Malignant neoplasm of unspecified part of right bronchus or lung (principal); E03.8 Other specified hypothyroidism; E55.9 Vitamin D deficiency, unspecified
CPT/HCPCS: 36591; 80053; 80061; 82306; 83540; 84439; 84443; 84481; 85025

== ENCOUNTER → 2024-07-03 10:41 | Outpatient (BNVA) | payer MEDICARE, SELFPAY | PROVIDERS: PCP Nurse Practitioner; Visit Provider Nurse Practitioner Family | DX: I48.91 Unspecified atrial fibrillation (principal); I71.41 Pararenal abdominal aortic aneurysm, without rupture; D69.6 Thrombocytopenia, unspecified; C34.90 Malignant neoplasm of unspecified part of unspecified bronchus or lung; C77.1 Secondary and unspecified malignant neoplasm of intrathoracic lymph nodes; Z79.899 Other long term (current) drug therapy; Z79.01 Long term (current) use of anticoagulants | CPT/HCPCS: 99214 ==

== ENCOUNTER 2024-07-24 12:31 | Oncology outpatient (recurring) (ONCR) | payer MEDICARE, SELFPAY ==
--- NOTE | 2024-07-17 10:00 | CT_ITS ---
WS: [id number] CT CHEST, ABDOMEN, AND PELVIS TECHNIQUE: Contrast-enhanced CT of the chest, abdomen, and pelvis with coronal and sagittal reformatted images. CLINICAL INFORMATION: squamous cell carcinoma COMPARISON: 04/28/2024 DLP: 926.[address] scans at [facility] use at least one of these dose optimization techniques: automated exposure control; mA and/or kV adjustment per patient size (includes targeted exams where dose is matched to clinical indication); or iterative reconstruction. CT CHEST: Stable postoperative changes RIGHT upper lobectomy with pneumonectomy cavity. Volume loss RIGHT hemithorax with [id number] mediastinal shift unchanged. Consolidation with chronic pleural thickening RIGHT lower lobe is similar in appearance. Small amount of fluid in the pneumonectomy cavity. LEFT lung is well aerated. Calcified granuloma LEFT upper lobe. Normal caliber thoracic aorta. Proximal main pulmonary arteries are normal. No axillary lymphadenopathy. CT ABDOMEN AND PELVIS: Normal portal vein and splenic vein. Tiny presumed hepatic cyst inferior RIGHT hepatic lobe. Small esophageal hiatal hernia. Normal pancreatic parenchymal enhancement. Stable tiny RIGHT adrenal nodule likely adenoma. LEFT adrenal gland is normal. Normal pancreatic parenchymal enhancement. Normal renal parenchymal enhancement. Small renal cysts. Fusiform abdominal aortic aneurysm measuring 4.3 x 4.3 cm AP by transverse appears stable. Fecal retention in the colon. No adenopathy in the abdomen or pelvis. Mild chronic compression T12 and L1. CT/CT chest abdpel w/*[id number] IMPRESSION: 1. Status post RIGHT upper lobectomy is stable in appearance with pneumonectom y cavity. 2. Atelectasis RIGHT lower lobe with small pleural effusion. 3. No adenopathy in the chest abdomen or pelvis. 4. Stable fusiform 4.3 x 4.3 cm infrarenal abdominal aortic aneurysm. 5. Stable tiny low-attenuation lesion inferior RIGHT hepatic lobe likely hepat ic cyst.
[2024-07-17] MEDS: iohexol 350 mg/mL 500 mL Btl (per mL) PO (11:07)
[2024-07-17] MEDS: iohexol 350 mg/mL 500 mL Btl (per mL) IV (11:21)
[2024-07-17 11:29] LABS: Blood Urea Nitrogen 16 mg/dL (8-23); Glomerular Filtration Rate 73.9 mL/min (90-130)
[2024-07-24 12:59] LABS: Basophils % 0.7 %; Eosinophils # 0.2 10^3/uL (0.0-0.8); Eosinophils % 4.7 %; Hematocrit 29.2 % (37-53); Lymphocytes # 0.8 10^3/uL (0.8-4.8); Lymphocytes % 17.4 %; Mean Corpuscular HGB Conc 31.2 g/dL (30-55); Mean Corpuscular Hemoglobin 30.2 pg (27-33); Mean Platelet Volume 7.9 fL (7.4-10.4); Monocytes # 0.6 10^3/uL (0.2-0.9); Monocytes % 12.7 %; Neutrophils # 2.88 10^3/uL (1.8-7.7); Neutrophils % 64.3 %; Nucleated Red Blood Cells % 0 %; Platelet Count 173 10^3/cmm (157-399); Red Blood Count 3.01 10^6/uL (3.85-5.65); Red Cell Distribution Width 15.1 % (12.1-15.1); White Blood Count 4.48 10^3/uL (3.29-11.43)
[2024-07-24 13:33] LABS: Alanine Aminotransferase 8 U/L (0-41); Albumin Level 3.5 g/dL (3.5-5.2); Alkaline Phosphatase 124 U/L (40-130); Anion Gap 9.7 (5-19); Aspartate Amino Transferase 13 U/L (0-40); Blood Urea Nitrogen 16 mg/dL (8-23); Calcium 9.3 mg/dL (8.5-10.5); Carbon Dioxide 28 mmol/L (22-29); Chloride 98 mmol/L (98-107); Free T4 Free Thyroxine 2.18 ng/dL (0.82-1.77); Globulin 3.9 g/dL (1.3-4.6); Glomerular Filtration Rate 73.9 mL/min (90-130); Glucose 92 mg/dL (65-115); Osmolality Calculated 273 mOsm/kg (285-295); Potassium 4.7 mmol/L (3.5-5.1); Sodium 131 mmol/L (136-145); T3 Free 2.5 PG/ML (2.0-4.4); Thyroid Stimulating Hormone 0.14 uIU/mL (0.27-4.20); Total Bilirubin 0.2 mg/dL (0.15-1.2); Total Protein 7.4 g/dL (6.6-8.7)
== END 2024-08-14 23:59 | disposition home or self-care (01) ==
PROVIDERS: Absent Provider Radiology Radiation Oncology; PCP Nurse Practitioner; Visit Provider Internal Medicine Medical Oncology
DX: Z53.9 Procedure and treatment not carried out, unspecified reason; C34.11 Malignant neoplasm of upper lobe, right bronchus or lung; Z87.891 Personal history of nicotine dependence; Z92.21 Personal history of antineoplastic chemotherapy; Z92.3 Personal history of irradiation; D64.9 Anemia, unspecified; Z95.828 Presence of other vascular implants and grafts
CPT/HCPCS: 36591; 71260; 74177; 80053; 82565; 84439; 84443; 84481; 84520; 85025; 99214

== ENCOUNTER 2024-09-04 13:58 | Oncology outpatient (recurring) (ONCR) | payer MEDICARE, SELFPAY | END 2024-09-14 23:59 | disposition home or self-care (01) | PROVIDERS: Absent Provider Radiology Radiation Oncology; PCP Nurse Practitioner; Visit Provider Internal Medicine Medical Oncology | DX: Z45.2 Encounter for adjustment and management of vascular access device (principal); Z95.828 Presence of other vascular implants and grafts | CPT/HCPCS: 96523 ==

== ENCOUNTER 2024-10-11 12:09 | Oncology outpatient (recurring) (ONCR) | payer MEDICARE, SELFPAY ==
[2024-10-11 12:35] LABS: Hematocrit 32.5 % (37-53); Hemoglobin 10.40 g/dL (11.27-16.99); Mean Corpuscular HGB Conc 32.0 g/dL (30-55); Mean Corpuscular Hemoglobin 30.3 pg (27-33); Mean Corpuscular Volume 94.8 fl (82-101); Nucleated Red Blood Cells % 0 %; Platelet Count 183 10^3/cmm (157-399); Red Blood Count 3.43 10^6/uL (3.85-5.65); White Blood Count 4.75 10^3/uL (3.29-11.43)
[2024-10-11 13:04] LABS: Alanine Aminotransferase 11 U/L (0-41); Albumin Level 3.7 g/dL (3.5-5.2); Alkaline Phosphatase 121 U/L (40-130); Anion Gap 11.8 (5-19); Aspartate Amino Transferase 13 U/L (0-40); Blood Urea Nitrogen 15 mg/dL (8-23); Calcium 9.2 mg/dL (8.5-10.5); Carbon Dioxide 27 mmol/L (22-29); Chloride 95 mmol/L (98-107); Creatinine Clr Calc Pharmacy 69.8561; Free T4 Free Thyroxine 1.57 ng/dL (0.82-1.77); Globulin 3.9 g/dL (1.3-4.6); Glucose 84 mg/dL (65-115); Osmolality Calculated 268 mOsm/kg (285-295); Potassium 4.8 mmol/L (3.5-5.1); Sodium 129 mmol/L (136-145); Thyroid Stimulating Hormone 8.76 uIU/mL (0.27-4.20); Total Protein 7.6 g/dL (6.6-8.7)
[2024-10-11 13:42] LABS: Vitamin B12 224 pg/mL (232-1245)
== END 2024-10-15 23:59 | disposition home or self-care (01) ==
PROVIDERS: Internal Medicine Medical Oncology; PCP Nurse Practitioner; Visit Provider Nurse Practitioner Family
DX: Z53.9 Procedure and treatment not carried out, unspecified reason (principal); C34.11 Malignant neoplasm of upper lobe, right bronchus or lung; Z87.891 Personal history of nicotine dependence; Z92.21 Personal history of antineoplastic chemotherapy; Z92.3 Personal history of irradiation; D64.9 Anemia, unspecified; Z95.828 Presence of other vascular implants and grafts; C34.91 Malignant neoplasm of unspecified part of right bronchus or lung; Z98.890 Other specified postprocedural states; J98.11 Atelectasis; J90 Pleural effusion, not elsewhere classified; I71.43 Infrarenal abdominal aortic aneurysm, without rupture; R93.2 Abnormal findings on diagnostic imaging of liver and biliary tract; R93.89 Abnormal findings on diagnostic imaging of other specified body structures; J92.9 Pleural plaque without asbestos; J84.10 Pulmonary fibrosis, unspecified; K44.9 Diaphragmatic hernia without obstruction or gangrene; N28.1 Cyst of kidney, acquired
CPT/HCPCS: 36591; 80053; 82607; 82746; 84439; 84443; 84481; 85025; 99214

== ENCOUNTER 2024-11-08 14:30 | Oncology outpatient (recurring) (ONCR) | payer MEDICARE, SELFPAY ==
--- NOTE | 2024-11-03 09:00 | USCV_ITS ---
Darrin Avila Age: 69 Gender: M : 1955 Exam Date: 11/03/2024 09:06 Ordering Phys: Niya Bright NP Technologist: Exam [place] [facility] [place] Indication: fusiform AAA HISTORY: Diameter (cm) AP x Transverse x Length Velocity (cm/s) Waveform Prox Aorta: 2.90 x 2.70 x 58.60 Mid Aorta: 3.70 x 4.20 x 44.40 Distal Aorta: 4.90 x 5.00 x 25.80 Right Iliac Prox: 1.42 x 1.35 x 53.00 Left Iliac Prox: 1.20 x 1.03 x 114.40 Stent Prox Landing x x Aneurysmal Sac Max x x Lt Lat Sac Dim Rt Lat Sac Dim Stent Dist Landing x x Right Iliac Stent x x Left Iliac Stent x x Right Renal Art Left Renal Art FINDINGS: Comparison: none available. Bilobed, fusiform abdominal aortic aneurysm is noted with a maximal diameter of 5.0 cm. Mild plaque and thrombus in the AAA.there is evidence of atherosclerotic plaque no significan stenosis in the right common iliac artery. There is evidence of atherosclerotic plaque no significan stenosis in the left common iliac artery. CONCLUSIONS AAA, 5.0 cm. Consider CTA abdomen aorta. Dr. America Shaffer DO (Electronically Signed) Final Date: 03 November 2024 12:15 S
[2024-11-03] MEDS: iohexol 350 mg/mL 500 mL Btl (per mL) PO (09:53)
[2024-11-03] MEDS: iohexol 350 mg/mL 500 mL Btl (per mL) IV (09:53)
--- NOTE | 2024-11-03 12:00 | CT_ITS ---
WS: [id number] CT CHEST, ABDOMEN AND PELVIS WITH CONTRAST HISTORY: lung cancer; compare to previous TECHNIQUE: Contiguous 5 mm axial imaging performed through the chest, abdomen and pelvis with IV contrast, oral contrast has been provided. Coronal and sagittal reformats chest. Coronal and sagittal reformats through the abdomen and pelvis. All CT scans at [facility] use at least one of these dose optimization techniques: automated exposure control; mA and/or kV adjustment per patient size (includes targeted exams where dose is matched to clinical indication); or iterative reconstruction. CONTRAST: Omnipaque 350; 100 mL IV. DLP: 920.08 mGy.cm COMPARISON: 07/17/2024, 04/28/2024, PET/CT 02/04/[address]: Prior RIGHT upper lobectomy. Persistent pneumonectomy cavity in the RIGHT upper lobe. No air-fluid level is evident. Compressive atelectasis involving large portions of the remaining RIGHT middle and RIGHT lower lobes. Similar to the prior studies with no improvement. Mild volume loss in the RIGHT thorax with shift of the mediastinal structures to the RIGHT. LEFT lung is hyperexpanded. Chronic emphysematous changes throughout the LEFT lung. Benign granuloma LEFT upper lobe. No mass or nodule. LEFT subclavian Mediport. Mild atherosclerosis aorta. Normal size pulmonary artery. Normal size heart. No pericardial effusion. No mediastinal or hilar adenopathy. Abdomen CT: No metastatic disease to the liver. Stable 5 mm hypodensity in the inferior RIGHT lobe of the liver. Negative gallbladder. No intrahepatic duct dilatation. Normal size spleen with granulomata. Normal pancreas. Tiny RIGHT adrenal gland nodule. Normal LEFT adrenal gland. Atherosclerosis aorta. Reidentified is an infrarenal abdominal aortic aneurysm measuring 4.6 x 4.8 cm. Slightly bilobed aneurysm extends over a length of 9.9 cm. Circumferential thrombus within the aneurysm sac. There is no occlusion. Atherosclerotic disease extends into the iliac arteries which are normal size. Mild stenosis origin of the SMA. There is a small amount of noncalcified plaque in the SMA but no occlusion. Dense calcification in the splenic artery. Mild perinephric stranding around each kidney. Stable RIGHT renal cyst. No renal obstruction. No GI tract obstruction. Mild diffuse constipation. No colitis. No ascites or adenopathy. No abdominal wall hernia. Pelvic CT: Normally distended urinary bladder. No free fluid or adenopathy in the pelvis. Degenerative changes at the hip joints. Mild anterior wedging of T12 and L1. No osteoblastic or osteolytic bone lesions are identified. CT/CT chest abdpel w/*[id number] IMPRESSION: 1. Status post RIGHT upper lobectomy. 2. Persistent post pneumonectomy cavity in the RIGHT upper thorax. 3. Persistent, near complete atelectasis of the RIGHT middle and RIGHT lower l obes. Volume loss in the RIGHT thorax. 4. Hyperexpanded LEFT lung with no pneumonia, nodule or mass. 5. No lymphadenopathy in the chest, abdomen or pelvis. 6. No metastatic disease to the liver or adrenal glands. 7. Tiny nodule in the RIGHT adrenal gland is likely an adenoma. 8. Bilobed fusiform abdominal aortic aneurysm with a maximum diameter of 4.8 c m. Probably no significant increase in size when compared to measurements taken at a similar locations on the prior study. Similar to the study from 04/28/2024 . 9. Mild anterior compression fractures at T12 and L1.
[2024-11-08 14:34] LABS: Hematocrit 31.8 % (37-53); Hemoglobin 10.20 g/dL (11.27-16.99); Mean Corpuscular HGB Conc 32.1 g/dL (30-55); Mean Corpuscular Hemoglobin 30.4 pg (27-33); Mean Corpuscular Volume 94.6 fl (82-101); Nucleated Red Blood Cells % 0 %; Platelet Count 176 10^3/cmm (157-399); Red Blood Count 3.36 10^6/uL (3.85-5.65); White Blood Count 4.44 10^3/uL (3.29-11.43)
[2024-11-08 15:17] LABS: Alanine Aminotransferase 10 U/L (0-41); Albumin Level 3.7 g/dL (3.5-5.2); Alkaline Phosphatase 121 U/L (40-130); Aspartate Amino Transferase 12 U/L (0-40); Blood Urea Nitrogen 14 mg/dL (8-23); Calcium 9.1 mg/dL (8.5-10.5); Carbon Dioxide 28 mmol/L (22-29); Chloride 94 mmol/L (98-107); Creatinine Clr Calc Pharmacy 69.9063; Globulin 3.8 g/dL (1.3-4.6); Glucose 83 mg/dL (65-115); Osmolality Calculated 268 mOsm/kg (285-295); Sodium 129 mmol/L (136-145); Thyroid Stimulating Hormone 5.22 uIU/mL (0.27-4.20); Total Protein 7.5 g/dL (6.6-8.7); Vitamin B12 449 pg/mL (232-1245)
[2024-11-08 15:21] LABS: Anion Gap 11.9 (5-19); Potassium 4.9 mmol/L (3.5-5.1)
[2024-11-08 16:28] LABS: Free T4 Free Thyroxine 1.55 ng/dL (0.82-1.77)
== END 2024-11-14 23:59 | disposition home or self-care (01) ==
PROVIDERS: PCP Nurse Practitioner; Visit Provider Nurse Practitioner Family
DX: Z53.9 Procedure and treatment not carried out, unspecified reason (principal); C34.11 Malignant neoplasm of upper lobe, right bronchus or lung; D70.1 Agranulocytosis secondary to cancer chemotherapy; T45.1X5A Adverse effect of antineoplastic and immunosuppressive drugs, initial encounter; Z87.891 Personal history of nicotine dependence; Z95.828 Presence of other vascular implants and grafts; D64.9 Anemia, unspecified; Z99.81 Dependence on supplemental oxygen; Z92.21 Personal history of antineoplastic chemotherapy; Z92.3 Personal history of irradiation; J96.10 Chronic respiratory failure, unspecified whether with hypoxia or hypercapnia
CPT/HCPCS: 36591; 71260; 74177; 80053; 82306; 82607; 83921; 84439; 84443; 84481; 85025; 93978; 99214

== ENCOUNTER 2024-12-20 13:10 | Oncology outpatient (recurring) (ONCR) | payer MEDICARE, SELFPAY ==
[2024-12-20 14:02] LABS: Free T4 Free Thyroxine 0.68 ng/dL (0.82-1.77); Thyroid Stimulating Hormone 64.43 uIU/mL (0.27-4.20)
== END 2025-01-14 23:59 | disposition home or self-care (01) ==
LOC: ONCMED 13:11
PROVIDERS: PCP Nurse Practitioner; Visit Provider Nurse Practitioner Family
DX: E03.8 Other specified hypothyroidism (principal)
CPT/HCPCS: 36591; 84439; 84443; 84481

== ENCOUNTER → 2024-12-28 10:09 | Outpatient (BNVA) | payer MEDICARE, SELFPAY | PROVIDERS: PCP Nurse Practitioner; Visit Provider Internal Medicine | DX: J44.9 Chronic obstructive pulmonary disease, unspecified (principal); Z99.81 Dependence on supplemental oxygen; C34.91 Malignant neoplasm of unspecified part of right bronchus or lung; Z90.2 Acquired absence of lung [part of]; Z87.891 Personal history of nicotine dependence; Z85.118 Personal history of other malignant neoplasm of bronchus and lung | CPT/HCPCS: 99204; Q3014 ==

== ENCOUNTER 2024-12-28 10:57 | Outpatient (CLI) | payer MEDICARE, SELFPAY ==
[2024-12-28 11:23] LABS: ABG PCO2 44.7 mmHg (35-45); ABG PH Result 7.40 (7.35-7.45); Alveolar-Arterial Oxygen Gradi 4.3 mmHg (5-10); Arterial Blood Gas Hematocrit 33.0 % (42-52); Blood Gas LPM 3.0 %; Blood Gas Operator Identificat glc; Blood Gas Sample Site Brachial, right; Blood Gas Sample Type Arterial; Carboxyhemoglobin 1.1 %THgb (0.4-20.1); Glucose Level-ABG 96.0 mg/dL (70-115); HCO3 ABG 27.6 mmol/L (22-26); Ionized Calcium Level - ABG 1.2 mmol/L (1.1-1.4); Methemoglobin 0.2 % (0.4-1.5); Oxygen Saturation ABG > 99.1; PO2 ABG 139.0 mmHg (80.0-100.0); PO2 FiO2 Ratio Arterial Blood 434; Potassium Level - ABG 4.9 mmol/L (3.5-5.0); Sodium Level - ABG 132.0 mmol/L (131-143)
== END 2024-12-28 10:58 | disposition home or self-care (01) ==
LOC: RT 10:59
PROVIDERS: PCP Nurse Practitioner; Visit Provider Internal Medicine
DX: J44.9 Chronic obstructive pulmonary disease, unspecified (principal)
CPT/HCPCS: 80051; 82330; 82805

== ENCOUNTER 2025-01-01 13:25 | Outpatient (CLI) | payer MEDICARE, SELFPAY ==
--- NOTE | 2025-01-01 13:45 | MR_ITS ---
WS: [id number] MRI BRAIN WITH AND WITHOUT CONTRAST HISTORY: near syncopal episodes; absence seizure like behavior, history of lung cancer. COMPARISON: 10/22/2023 TECHNIQUE: Multiplanar imaging performed through the brain with MultiHance 16 ml's IV. No acute infarcts are seen. Huffman-white matter differentiation is well preserved. Mild cerebral and cerebellar atrophy. There are a few scattered T2 and FLAIR signal hyperintensities which are similar to the prior exam from 10/22/2023. No new infarct or significant progression of small vessel changes. No susceptibility artifacts or prior lacunar infarcts. Ventricles and extra-axial spaces are normal. Clivus and pituitary gland are normal. Visualized posterior fossa and brainstem are also normal. Postcontrast images are negative for masses or vascular malformations. Dural venous sinuses are normal. Paranasal sinuses: Moderate mucoperiosteal thickening in the RIGHT maxillary sinus has progressed since 10/22/2023. The remaining sinuses are clear. Mastoid air cells: Normal. Calvarium and scalp: Normal. MR/MR head wo/w con [id number] IMPRESSION: 1. No acute infarct or hemorrhage. 2. No metastatic brain disease. 3. No enhancing masses within the brain. 4. Mild cerebral and cerebellar atrophy and small vessel disease is stable.
[2025-01-01] MEDS: gadobenate dimeglumine 20 mL vial 16 ML IV (14:21)
== END 2025-01-01 13:26 | disposition home or self-care (01) ==
LOC: RAD 13:26
PROVIDERS: PCP Nurse Practitioner; Visit Provider Nurse Practitioner Family
DX: C34.91 Malignant neoplasm of unspecified part of right bronchus or lung (principal); R55 Syncope and collapse; G31.89 Other specified degenerative diseases of nervous system; R93.0 Abnormal findings on diagnostic imaging of skull and head, not elsewhere classified; J34.89 Other specified disorders of nose and nasal sinuses
CPT/HCPCS: 70553

== ENCOUNTER 2025-01-17 15:48 | Oncology outpatient (recurring) (ONCR) | payer MEDICARE, SELFPAY ==
--- NOTE | 2025-01-17 15:45 | CTR_ITS ---
PROCEDURE INFORMATION: Exam: CTA Thoracic, Abdomen and Pelvis Without And With Contrast Exam date and time: 01/17/2025 4:28 PM Age: 69 years old Clinical indication: Condition or disease; Other: Aortic aneurysm; Prior surgery; Surgery date: 1-6 months; Surgery type: RT lung surgery. Lung cancer; Additional info: I71.41 - pararenal abdominal aortic aneurysm, without rup. . . , To be done in January TECHNIQUE: Imaging protocol: Computed tomographic angiography of the abdomen and pelvis without and with contrast. Exam focused on the arteries. 3D rendering (Not supervised by radiologist): MIP and/or 3D reconstructed images were created by the technologist. Radiation optimization: All CT scans at this facility use at least one of these dose optimization techniques: automated exposure control; mA and/or kV adjustment per patient size (includes targeted exams where dose is matched to clinical indication); or iterative reconstruction. Contrast material: OMNIPAQUE 350; Contrast volume: 100 ml; Contrast route: INTRAVENOUS (IV); COMPARISON: CT chest abdpel w/*[id number] 11/03/2024 10:36 AM RADIATION DOSE METRICS: Total DLP (mGy-cm): 1137.18 FINDINGS: Lungs: Postsurgical changes involving the right upper lobe. Chronic consolidation involving the right lower lobe. left upper lobe calcified granuloma. Heart: Small pericardial effusion. Coronary arteries: Coronary calcifications are seen. Aorta: Ectatic ascending thoracic aorta 3.7 x 3.8 cm. Mild calcified atherosclerotic changes are seen in the thoracic aorta. Abdominal aortic aneurysm 4.9 x 5 cm. Celiac and mesenteric arteries: Chronic inferior mesenteric artery origin occlusion. There is reperfusion through SMA collateral. Renal arteries: No occlusion or significant stenosis. Right iliac arteries: No occlusion or significant stenosis. Left iliac arteries: No occlusion or significant stenosis. Liver: Stable right hepatic 7 mm hypodensity. Gallbladder and biliary ducts: Unremarkable. No calcified stones. No ductal dilation. Pancreas: Unremarkable. No mass. No ductal dilation. Spleen: Unremarkable. No splenomegaly. Adrenal glands: Unremarkable. No mass. Kidneys and ureters: Right renal simple cysts. Stomach and bowel: Sigmoid colon diverticulosis. No small bowel loop dilatation. Appendix: Appendix is normal. Intraperitoneal space: Unremarkable. No free air. No significant fluid collection. Lymph nodes: mediastinal shotty lymph nodes. Urinary bladder: Unremarkable. No mass. Reproductive: Unremarkable as visualized. Bones/joints: Chronic T12 and L1 compression deformity. Soft tissues: Unremarkable. CT/CT [facility] [id number] IMPRESSION: 1. Abdominal aortic aneurysm 4.9 x 5 cm. Aneurysm slightly enlarged in size. 2. Ectatic ascending thoracic aorta 3.7 x 3.8 cm. 3. Coronary calcifications. 4. Small pericardial effusion. 5. Sigmoid colon diverticulosis.
[2025-01-17 16:47] LABS: Blood Urea Nitrogen 9 mg/dL (8-23)
[2025-01-17] MEDS: iohexol 350 mg/mL 500 mL Btl (per mL) IV (16:52)
== END 2025-02-14 23:59 | disposition home or self-care (01) ==
LOC: ONCMED 15:50
PROVIDERS: Internal Medicine Cardiovascular Disease; PCP Nurse Practitioner; Visit Provider Nurse Practitioner Family
DX: I71.41 Pararenal abdominal aortic aneurysm, without rupture (principal); I25.10 Atherosclerotic heart disease of native coronary artery without angina pectoris; I31.39 Other pericardial effusion (noninflammatory); K57.30 Diverticulosis of large intestine without perforation or abscess without bleeding; R91.8 Other nonspecific abnormal finding of lung field; J84.10 Pulmonary fibrosis, unspecified; K55.069 Acute infarction of intestine, part and extent unspecified; R93.89 Abnormal findings on diagnostic imaging of other specified body structures; R93.2 Abnormal findings on diagnostic imaging of liver and biliary tract; N28.1 Cyst of kidney, acquired; R59.0 Localized enlarged lymph nodes; M48.54XA Collapsed vertebra, not elsewhere classified, thoracic region, initial encounter for fracture; M48.56XA Collapsed vertebra, not elsewhere classified, lumbar region, initial encounter for fracture
CPT/HCPCS: 71275; 74174; 82565; 84520